=== PATIENT | female | born 1965 | race Caucasian/White ===

== ENCOUNTER 2020-12-19 19:04 | Inpatient (IN) | payer OTHER ==
[2020-12-19 20:21] LABS: Absolute Lymphocytes (CBC) 0.9 K/uL (0.7-4.9); Basophils % 0.6 % (0-1.3); Hematocrit 34.7 % (36.0-45.0); Lymphocytes % 11.3 % (15.3-44.8); MPV 8.5 fL (7.6-11.3); RBC Red Blood Cell Count 3.82 M/uL (3.86-4.86)
[2020-12-19 20:24] LABS: Protime INR 1.01
--- NOTE | 2020-12-19 20:43 | RAD REPORT ---
EXAM DESCRIPTION: CT - Abdomen Pelvis Wo Contrast - 12/19/2020 8:18 pm CLINICAL HISTORY: ABD PAIN Patient details dialysis history, bilateral leg stents, abdominal aneurysm COMPARISON: Chest Single View dated 12/19/2020 TECHNIQUE: Axial [address] imaging of the abdomen and pelvis was performed without IV contrast. No IV contrast was given because of allergy, abnormal renal function, patient refusal or physician re quest. No oral contrast administered. All CT scans are performed using dose optimization technique as appropriate and may include automated exposure control or mA/KV adjustment according to patient size. FINDINGS: Cardiomegaly without pericardial effusion noted. Interstitial thickening in both lung bases from edema, infiltrate, fibrosis or a combination. Patchy peripheral alveolar opacities are present as well. No pneumothorax or pleural effusion. The liver, spleen and pancreas show no suspicious findings on non-contrast imaging. Cholecystectomy c lips are present. No biliary tree dilatation. No hydronephrosis or suspicious renal mass. No significant adrenal finding. Isodense renal masses an d pyelonephritis cannot be excluded in the absence of IV contrast. Contracted urinary bladder shows s uspicious findings. Uterus may be surgically absent or atrophic. Ovaries are absent or atrophic. No a dnexal or ovarian based mass identifiable. No dilated bowel loops or bowel wall thickening. No appendicitis findings. Bowel assessment is limite d in the absence of oral and IV contrast. Patient has prominent sigmoid diverticulosis. No free air o r pneumatosis. Trace amount of free intraperitoneal fluid is present. No bulky lymphadenopathy, oment al thickening or significant soft tissue mass lesion. Disc and bone degenerative changes are present. Distal descending thoracic aortic aneurysm is present reaching 4.3 cm AP x 4.5 cm TR. Aorta is 3.4 cm AP x 3.8 cm TR at the level of the celiac artery. Bilateral renal artery stents are in place. The in frarenal aorta shows aneurysmal dilatation of 4.4 cm AP x 4.4 cm TR. Displaced calcifications are see n posteriorly above the bifurcation. There has been aortobifemoral bypass performed. Proximal aspect of the bypass is anastomosed to the anterior aorta. There are dense calcifications in the [place] aort a. Patency or extent of mural thrombus cannot be evaluated on a noncontrast study. There is no periao rtic fluid or edema that would suggest leakage from the aneurysm. IMPRESSION: Interstitial thickening in the lung bases with patchy subpleural alveolar opacities. Thi s could be interstitial and alveolar edema changes in a dialysis patient. A viral pneumonia process i ncluding COVID-19 pneumonia cannot be excluded based on the limited amount of lung parenchyma visuali zed. No bowel obstruction, free air or surgically emergent finding identifiable. Extensive aneurysmal dilatation of the aorta extending from the mid descending thoracic aorta to the aortic bifurcation as detailed in the body of the report. The patient has aortic aneurysm is known and there has been an aortobifemoral graft placed. No periao rtic changes to suspect acute rupture or leakage. No patency of the vasculature can be assessed on a noncontrast study. Full assessment is limited is the absence of IV contrast.
[2020-12-19 21:04] LABS: ALT/SGPT 42 U/L (12-78); AST/SGOT 48 U/L (15-37); Albumin 4.3 g/dL (3.4-5.0); Alkaline Phosphatase 87 U/L (45-117); BUN Blood Urea Nitrogen 57 mg/dL (7-18); Bicarbonate 22 mmol/L (21-32); Bilirubin Direct 0.1 mg/dL (0-0.2); Bilirubin Total 0.4 mg/dL (0.2-1.0); Glucose Level 141 mg/dL (74-106); Magnesium 2.3 mg/dL (1.8-2.4); NT PRO-BNP 124295 pg/mL (<125); Potassium 4.2 mmol/L (3.5-5.1); Protein, Total 8.7 g/dL (6.4-8.2); Sodium Level 143 mmol/L (136-145); Troponin (Emerg Dept Use Only) 0.09 ng/mL (0.0-0.045)
[2020-12-19] MEDS ORDERED: ONDANSETRON 4 MG/2 ML VIAL ONE (21:04)
[2020-12-19] MEDS ORDERED: LABETALOL 20 MG/4ML SYRINGE IV ONE ×2 (21:05→22:19)
--- NOTE | 2020-12-19 21:05 | RAD REPORT ---
EXAM DESCRIPTION: RAD - Chest Single View - 12/19/2020 8:05 pm CLINICAL HISTORY: nausea and vomiting COMPARISON: None TECHNIQUE: AP portable chest image was obtained 12/19/2020 8:05 pm . FINDINGS: No focal dense consolidation or mass lesion. Upper lobe vasculature in normal limits. Dial ysis catheter is in place. CABG surgical changes are noted. Mid and lower lung field interstitial thi ckening is present. There is some patchy alveolar component as well. This could be a failure or volum e overload process in a dialysis patient. Extensive fibrotic lung changes possible as well as superim posed acute interstitial infiltrate. Combination of these processes would be possible as well. Heart and vasculature are normal. No measurable pleural effusion and no pneumothorax. No acute bony abnormality seen. No acute aortic findings suspected. IMPRESSION: Extensive lower lung field interstitial thickening and some patchy alveolar opacities ar e present. Interstitial edema, interstitial infiltrate, fibrosis or a combination can explain this pattern.
--- NOTE | 2020-12-19 22:19 | EDPHYS ---
Physician Documentation [facility] Name: Nicolasa Krishnan Age: 55 yrs Sex: Female : 1965 Arrival Date: 12/19/2020 Time: 19:07 Bed 4 Private MD: ED Physician Javid Morales HPI: 12/20 04:49 This 55 yrs old Female presents to ER via Ambulatory with complaints of tw4 Breathing Difficulty, Vomiting, Decreased Appetite. 04:49 The patient has shortness of breath at rest. Onset: The symptoms/episode began/occurred tw4 today. Duration: The symptoms are continuous, and are unchanged since they started. The patient's shortness of breath has no apparent modifying factors. Associated signs and symptoms: The patient has no apparent associated signs or symptoms. The patient has not experienced similar symptoms in the past. 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 - Social history:: Smoking status: Patient reports the use of cigarette tobacco products, smokes one pack cigarettes per day. ROS: 12/20 04:49 Constitutional: Negative for fever, chills, and weight loss, Eyes: Negative for injury, tw4 pain, redness, and discharge, Cardiovascular: Negative for chest pain, palpitations, and edema, Abdomen/GI: Negative for abdominal pain, nausea, vomiting, diarrhea, and constipation, Back: Negative for injury and pain. MS/Extremity: Negative for injury and deformity, Skin: Negative for injury, rash, and discoloration, Neuro: Negative for headache, weakness, numbness, tingling, and seizure. Respiratory: Positive for shortness of breath. Exam: 04:49 Head/Face: Normocephalic, atraumatic. Chest/axilla: Normal chest wall appearance and tw4 motion. Nontender with no deformity. No lesions are appreciated. Cardiovascular: Regular rate and rhythm with a normal S1 and S2. No gallops, murmurs, or rubs. Normal PMI, no JVD. No pulse deficits. Respiratory: Lungs have equal breath sounds bilaterally, clear to auscultation and percussion. No rales, rhonchi or wheezes noted. No increased work of breathing, no retractions or nasal flaring. Abdomen/GI: Soft, non-tender, with normal bowel sounds. No distension or tympany. No guarding or rebound. No evidence of tenderness throughout. Back: No spinal tenderness. No costovertebral tenderness. Full range of motion. Skin: Warm, dry with normal turgor. Normal color with no rashes, no lesions, and no evidence of cellulitis. MS/ Extremity: Pulses equal, no cyanosis. Neurovascular intact. Full, normal range of motion. Neuro: Awake and alert, GCS 15, oriented to person, place, time, and situation. Cranial nerves II-XII grossly intact. Motor strength 5/5 in all extremities. Sensory grossly intact. Cerebellar exam normal. Normal gait. 04:49 Constitutional: The patient appears in obvious distress, moderately distressed, obviously ill. Vital Signs: 12/19 19:19 BP 219 / 134; Pulse 130; Resp 22; Temp 99.9; Pulse Ox 97% on R/A; Weight 56.25 kg; vg1 Height 5 ft. 4 in. (162.56 cm); Pain 10/10; 21:46 BP 187 / 115; Pulse 104; Resp 18; Pulse Ox 92% on R/A; jm8 22:27 BP 171 / 100; Pulse 104; Resp 16; Pulse Ox 95% on 2 lpm NC; jm8 23:16 BP 177 / 105; Pulse 121; Resp 16; Pulse Ox 96% on 4 lpm NC; jm8 23:45 BP 201 / 124; Pulse 105; Resp 16; Pulse Ox 99% on 4 lpm NC; jm8 19:19 Body Mass Index 21.29 (56.25 kg, 162.56 cm) vg1 MDM: 21:48 Patient medically screened. tw4 12/20 04:52 Differential diagnosis: pneumonia, pulmonary edema, reactive airway disease. Data tw4 reviewed: vital signs, nurses notes. Data interpreted: Pulse oximetry: Interpretation: normal. Counseling: I had a detailed discussion with the patient and/or guardian regarding: the historical points, exam findings, and any diagnostic results supporting the discharge/admit diagnosis. Medical screen evaluation completed. EMTALA emergency medical condition absent. Physician consultation: Bren Javier MD regarding admission, to the telemetry unit. patient's condition, and will see patient in ED. 12/19 19:33 Order name: Basic Metabolic Panel; Complete Time: 21:45 12/19 23:14 Interpretation: Normal except: GLUC 141; CRE 6.60; BUN 57; GFR 7. tw12/19 19:33 Order name: CBC with Diff; Complete Time: 21:45 12/19 23:14 Interpretation: RBC 3.82; HGB 11.4; HCT 34.7. 12/19 19:33 Order name: LFT's; Complete Time: 21:45 12/19 19:33 Order name: Magnesium; Complete Time: 21:45 12/19 19:33 Order name: NT PRO-BNP; Complete Time: 21:45 12/19 19:33 Order name: PT-INR; Complete Time: 21:45 12/19 19:33 Order name: Troponin (emerg Dept Use Only); Complete Time: 21:45 12/19 19:33 Order name: XRAY Chest (1 view); Complete Time: 21:45 12/19 19:33 Order name: Acetone, Serum; Complete Time: 21:45 12/19 19:34 Order name: CT Abd/Pelvis - Without Contrast; Complete Time: 21:45 12/19 21:48 Order name: COVID-19 : Document "Date of Symptom Onset" if Symptomatic. 12/19 23:18 Order name: SARS-COV-2 RT PCR [facility] 12/19 19:33 Order name: EKG; Complete Time: 19:34 12/19 19:33 Order name: Cardiac monitoring; Complete Time: 20:08 12/19 19:33 Order name: EKG - Nurse/Tech; Complete Time: 20:08 12/19 19:33 Order name: IV Saline Lock; Complete Time: 20:08 12/19 19:33 Order name: Labs collected and sent; Complete Time: 20:08 12/19 19:33 Order name: O2 Per Protocol; Complete Time: 21:00 12/19 19:33 Order name: O2 Sat Monitoring; Complete Time: 21:00 12/19 23:21 Order name: CONS Physician Consult EDOR EC:09 Rate is 121 beats/min. Rhythm is regular. QRS [place] is Normal. SC interval is normal. tw4 QRS interval is normal. QT interval is normal. No Q waves. T waves are Normal. No ST changes noted. Clinical impression: Sinus tachycardia. Interpreted by me. Reviewed by me. Administered Medications: 12/19 20:49 Drug: Labetalol 20 mg Route: IVP; Infused Over: 2 mins; Site: left antecubital; jm8 22:19 Follow up: Response: No adverse reaction 8 20:49 Drug: Zofran (Ondansetron) 4 mg Route: IVP; Site: left antecubital; jm8 22:19 Follow up: Response: No adverse reaction jm8 22:16 Drug: Labetalol 20 mg Route: IVP; Infused Over: 2 mins; Site: left antecubital; jm8 23:53 Follow up: Response: No adverse reaction jm8 23:13 Drug: Lasix (furosemide) 60 mg Route: IVP; Site: left antecubital; jm8 23:53 Follow up: Response: No adverse reaction 8 Disposition: 12/19/20 22:18 Hospitalization ordered by Bren Javier for Inpatient Admission. Preliminary diagnosis are Chronic kidney disease, stage 5, Hypertensive chronic kidney disease with stage 5 chronic kidney disease or end stage renal disease, HYPERTENSIVE EMEREGENCY, Respiratory failure, unspecified with hypoxia. - Bed requested for Telemetry/MedSurg (Inpatient). - Status is Inpatient Admission. jm8 - Condition is Stable. - Problem is new. - Symptoms have improved. Signatures: Dispatcher [employer] EDOR Sherice Alvarado, RN RN Javid Morales MD MD tw4 Sariah Alvarado RN RN vg1 Lakhwinder Lomax RN RN jm8 Corrections: (The following items were deleted from the chart) 22:15 21:48 CORONAVIRUS ordered. [facility] 23:47 22:18 Hospitalization Ordered by Bren Javier MD for Inpatient Admission. Preliminary diagnosis is Chronic kidney disease, stage 5; Hypertensive chronic kidney disease with stage 5 chronic kidney disease or end stage renal disease; HYPERTENSIVE EMEREGENCY; Respiratory failure, unspecified with hypoxia. Bed requested for Telemetry/MedSurg (Inpatient). Status is Inpatient Admission. Condition is Stable. Problem is new. Symptoms have improved. tw4 12/20 00:33 12/19 23:47 12/19/2020 22:18 Hospitalization Ordered by Bren Javier MD for Inpatient jm8 Admission. Preliminary diagnosis is Chronic kidney disease, stage 5; Hypertensive chronic kidney disease with stage 5 chronic kidney disease or end stage renal disease; HYPERTENSIVE EMEREGENCY; Respiratory failure, unspecified with hypoxia. Bed requested for Telemetry/MedSurg (Inpatient). Status is Inpatient Admission. Condition is Stable. Problem is new. Symptoms have improved. cg
--- NOTE | 2020-12-19 22:19 | ER ---
Nurse's Notes [facility] Name: Nicolasa Krishnan Age: 55 yrs Sex: Female : 1965 Arrival Date: 12/19/2020 Time: 19:07 Bed 4 Private MD: Diagnosis: Chronic kidney disease, stage 5;Hypertensive chronic kidney disease with stage 5 chronic kidney disease or end stage renal disease;HYPERTENSIVE EMEREGENCY;Respiratory failure, unspecified with hypoxia Presentation: 12/19 19:19 Chief complaint: Patient states: Nausea, vomiting and difficulty breathing that started vg1 this morning. Coronavirus screen: Client denies travel out of the [place] in the last 14 days. Ebola Screen: Patient negative for fever greater than or equal to 101.5 degrees Fahrenheit, and additional compatible Ebola Virus Disease symptoms. Initial Sepsis Screen: Does the patient meet any 2 criteria? RR > 20 per min. HR > 90 bpm. Does the patient have a suspected source of infection?. Risk Assessment: Do you want to hurt yourself or someone else? Patient reports no desire to harm self or others. Onset of symptoms was December 19, 2020. 19:19 Method Of Arrival: Ambulatory vg1 19:19 Acuity: YOLIS 2 vg1 Triage Assessment: 19:22 General: Appears in no apparent distress. uncomfortable, Behavior is cooperative, vg1 anxious. Pain: Complains of pain in abdomen Pain currently is 10 out of 10 on a pain scale. Respiratory: Reports shortness of breath at rest on exertion Onset: The symptoms/episode began/occurred today, the patient has moderate shortness of breath. 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 - Social history:: Smoking status: Patient reports the use of cigarette tobacco products, smokes one pack cigarettes per day. Screenin:42 Abuse screen: Denies threats or abuse. Denies injuries from another. Nutritional jm8 screening: No deficits noted. Tuberculosis screening: No symptoms or risk factors identified. Fall Risk None identified. Assessment: 21:40 General: Appears in no apparent distress. uncomfortable, Behavior is calm, cooperative, jm8 appropriate for age. Pain: Complains of pain in abdomen. Neuro: No deficits noted. Level of Consciousness is awake, alert, obeys commands, Oriented to person, place, time. Cardiovascular: Rhythm is sinus tachycardia. Respiratory: No deficits noted. Airway is patent Trachea midline Respiratory effort is even, labored, Breath sounds are clear. Respiratory: Reports shortness of breath. GI: Abdomen is round Reports lower abdominal pain, upper abdominal pain, nausea, vomiting. : No deficits noted. No signs and/or symptoms were reported regarding the genitourinary system. EENT: No deficits noted. No signs and/or symptoms were reported regarding the EENT system. Derm: No deficits noted. No signs and/or symptoms reported regarding the dermatologic system. Musculoskeletal: No deficits noted. No signs and/or symptoms reported regarding the musculoskeletal system. 22:05 Reassessment: Jason Montgomeryillo- [phone]. jm8 Vital Signs: 19:19 BP 219 / 134; Pulse 130; Resp 22; Temp 99.9; Pulse Ox 97% on R/A; Weight 56.25 kg; vg1 Height 5 ft. 4 in. (162.56 cm); Pain 10/10; 21:46 BP 187 / 115; Pulse 104; Resp 18; Pulse Ox 92% on R/A; jm8 22:27 BP 171 / 100; Pulse 104; Resp 16; Pulse Ox 95% on 2 lpm NC; jm8 23:16 BP 177 / 105; Pulse 121; Resp 16; Pulse Ox 96% on 4 lpm NC; jm8 23:45 BP 201 / 124; Pulse 105; Resp 16; Pulse Ox 99% on 4 lpm NC; jm8 19:19 Body Mass Index 21.29 (56.25 kg, 162.56 cm) vg1 ED Course: 19:07 Patient arrived in ED. cf2 19:21 Triage completed. vg1 19:22 Arm band placed on. vg1 19:32 Javid Morales MD is Attending Physician. tw4 20:02 XRAY Chest (1 view) In Process Unspecified. EDMS 20:06 Inserted saline lock: 20 gauge in left antecubital area, using aseptic technique. Blood oe collected. 20:18 CT Abd/Pelvis - Without Contrast In Process Unspecified. EDMS 20:28 Randell Camp, RN is Primary Nurse. [facility] 21:43 Patient has correct armband on for positive identification. Bed in low position. Call [facility] light in reach. Side rails up X2. 22:16 Bren Javier MD is Hospitalizing Provider. [facility] 12/20 00:32 No provider procedures requiring assistance completed. Patient admitted, IV remains in [facility] place. Administered Medications: 12/19 20:49 Drug: Labetalol 20 mg Route: IVP; Infused Over: 2 mins; Site: left antecubital; [facility] 22:19 Follow up: Response: No adverse reaction [facility] 20:49 Drug: Zofran (Ondansetron) 4 mg Route: IVP; Site: left antecubital; [facility] 22:19 Follow up: Response: No adverse reaction [facility] 22:16 Drug: Labetalol 20 mg Route: IVP; Infused Over: 2 mins; Site: left antecubital; 8 23:53 Follow up: Response: No adverse reaction [facility] 23:13 Drug: Lasix (furosemide) 60 mg Route: IVP; Site: left antecubital; [facility] 23:53 Follow up: Response: No adverse reaction [facility] Outcome: 22:18 Decision to Hospitalize by Provider. [facility] 12/20 00:32 Admitted to Med/surg accompanied by nurse, via stretcher, with oxygen, Report called to shalom Hicks RN Condition: good Instructed on the need for admit. 00:33 Patient left the ED. [facility] Signatures: Dispatcher [employer] EDOR Randell Camp, RN RN [facility] Jorge A Ayala Terrence, MD MD [facility] [place] cf2 Sariah Alvarado, RN RN vg1 Lakhwinder Lomax, RN RN jm8
--- NOTE | 2020-12-19 23:02 | P.HP ---
Certification for Inpatient Patient admitted to: Inpatient With expected LOS: >2 Midnights Patient will require the following post-hospital care: None Practitioner: I am a practitioner with admitting privileges, knowledge of patient current condition, hospital course, and medical plan of care. Services: Services provided to patient in accordance with Admission requirements found in Title 42 Section 412.3 of the Code of Federal Regulations <Norbert Yates - Last Filed: 12/19/20 23:32> Patient History Date of Service: 12/19/20 Primary Care Provider: Ajith Reason for admission: missed dialysis History of Present Illness: Ms. Krishnan is a 55 yo F with ESRD on HD MWF, PVD, AAA, HTN, HLD here today for i ntractable nausea and vomiting beginning today at 4am. She missed dialysis today because she wasn't feeling well. She reports night sweats, chills, cough with clear sputum, SOB. Denies hematemesis, wheezing, chest pain, abdominal pain. BUN 57, Cr 6.6, GFR 7, Glu 141, trop 0.09, BNP [id number]. CT scan shows interstitial thickening in lung bases with patchy subpleeural alveolar opacities, extensive aneurysmal dilatation of the aorta extending from mid-descending thoracic aorta to aortic bifurcation, aortic aneurysm known with aortobifemoral graft placed. Home medications list reviewed: No - Past Medical/Surgical History Has patient received pneumonia vaccine in the past: No Diabetic: No -: ESRD on HD -: PVD -: AAA -: HTN -: HLD -: hernia repair -: cholecystectomy -: CABGx4 -: renal stents -: bifemoral stents -: dialysis -: carotid endarectomy - Family History Mother -: Heart disease - Social History Smoking Status: Heavy Tobacco smoker (>10 cigarettes/day) Counseled patient to stop smoking for: less than 10 minutes Smoking therapy provided: Yes Patient receptive to therapy: No Alcohol use: No CD- Drugs: No Caffeine use: Yes Place of Residence: Home <Norbert Yates - Last Filed: 12/19/20 23:32> Date of Service: 12/19/20 <Bren Javier - Last Filed: 12/21/20 10:25> Review of Systems 10-point ROS is otherwise unremarkable General: Fever, Chills, Sweats Respiratory: Cough, Shortness of Breath, Sputum Gastrointestinal: Nausea, Vomiting <Norbert Yates - Last Filed: 12/19/20 23:32> Physical Examination - Physical Exam General: Alert, Mild distress HEENT: Atraumatic, PERRLA, Mucous membr. moist/pink, EOMI, Sclerae nonicteric Neck: Supple, 2+ carotid pulse no bruit, No LAD, Without JVD or thyroid abnormality Respiratory: Clear to auscultation bilaterally, Normal air movement, Other (tachypneic) Cardiovascular: No edema, Regular rate/rhythm, Normal S1 S2 Capillary refill: <2 Seconds Gastrointestinal: Normal bowel sounds, Soft and benign, Non-distended, No ascites, No tenderness, No masses, No rebound, No guarding Musculoskeletal: No tenderness Integumentary: No rashes Neurological: Normal speech, Normal strength at 5/5 x4 extr, Normal tone, Normal affect Lymphatics: No axilla or inguinal lymphadenopathy Urinary: Dialysis catheter - Studies Laboratory Data (last 24 hrs) 12/19/20 20:03: PT 11.6, INR 1.01 12/19/20 20:03: WBC 8.00, Hgb 11.4 L, Hct 34.7 L, Plt Count 235 12/19/20 20:03: Sodium 143, Potassium 4.2, BUN 57 H, Creatinine 6.60 H*, Glucose 141 H, Magnesium 2.3, Total Bilirubin 0.4, AST 48 H, ALT 42, Alkaline Phosphatase 87 <Norbert Yates S - Last Filed: 12/19/20 23:32> Assessment and Plan - Plan nephrology consulted dialysis tonight hydralazine q4hr for PRN BP spikes trend troponins antiemetics as needed, O2 as needed breathing treatments PRN Discharge Plan: Home Plan to discharge in: 48 Hours - Advance Directives Does patient have a Living Will: No Does patient have a Durable POA for Healthcare: No - Code Status/Comfort Care Code Status Assessed: Yes (full code) Critical Care: No Time Spent Managing Pts Care (In Minutes): 70 <Norbert Yates - Last Filed: 12/19/20 23:32> - Problems (Diagnosis) (1) ESRD (end stage renal disease) Current Visit: Yes Status: Acute (2) Uncontrolled hypertension Current Visit: Yes Status: Acute (3) Intractable nausea and vomiting Current Visit: Yes Status: Acute <Bren Javier - Last Filed: 12/21/20 10:25> Date of Service: 12/19/20 Agree with findings as mentioned above. Continue with plan of care at this time. <Bren Javier - Last Filed: 12/21/20 10:25>
[2020-12-19] MEDS ORDERED: FUROSEMIDE 100 MG/10 ML VIAL IV ONE (23:29)
[2020-12-20] MEDS ORDERED: ACETAMINOPHEN 500 MG TAB PO PRN (00:08)
[2020-12-20] MEDS ORDERED: BENZONATATE 100 MG CAP PO PRN (00:08)
[2020-12-20] MEDS ORDERED: IPRATROPIUM BROM 0.5MG/2.5ML NEB PRN (00:08)
[2020-12-20] MEDS ORDERED: ALBUTEROL 2.5 MG/3 ML NEB SOL NEB PRN (00:08)
[2020-12-20 00:36] VITALS: BMI 20.7
[2020-12-20] MEDS: ONDANSETRON 4 MG/2 ML VIAL IV PRN ×2 (00:40→08:02)
[2020-12-20] MEDS ORDERED: DIAZEPAM 5 MG TABLET PO ONE (01:39)
[2020-12-20] MEDS: HYDRALAZINE HCL 20 MG/ML VIAL IV PRN ×4 (01:49→20:54)
[2020-12-20] MEDS: HEPARIN 5000 UNIT/ML 1 ML VIAL SQ SCH ×3 (04:38→17:36)
[2020-12-20] MEDS ORDERED: MORPHINE 2 MG/ML SYR IV PRN (04:58)
[2020-12-20 05:33] LABS: Absolute Lymphocytes (CBC) 1.1 K/uL (0.7-4.9); Basophils % 0.5 % (0-1.3); Hematocrit 32.9 % (36.0-45.0); Lymphocytes % 13.3 % (15.3-44.8); MPV 8.3 fL (7.6-11.3); RBC Red Blood Cell Count 3.67 M/uL (3.86-4.86)
[2020-12-20 05:48] LABS: Urine Appearance CLOUDY (Clear); Urine Bilirubin NEGATIVE (Negative); Urine Blood NEGATIVE (Negative); Urine Color YELLOW (Yellow); Urine Glucose NEGATIVE (Negative); Urine Protein 1+ (Negative); Urine Urobilinogen 0.2 mg/dL (0.2-1.0); Urine pH 5.5 (5.0-7.0)
[2020-12-20 05:51] LABS: Urine Microscopic Reflex ORDER UMIC
[2020-12-20 06:01] LABS: Albumin 4.6 g/dL (3.4-5.0); Bilirubin Total 0.5 mg/dL (0.2-1.0); Phosphorus 2.6 mg/dL (2.5-4.9); Potassium 3.4 mmol/L (3.5-5.1); Protein, Total 9.1 g/dL (6.4-8.2); Thyroid Stimulating Hormone 0.414 uIU/mL (0.360-3.740)
[2020-12-20 06:05] LABS: Urine Bacteria 20-50 /HPF (<20); Urine RBC NONE SEEN /HPF (NONE SEEN); Urine Urothelial Cells <5 /HPF (NONE SEEN)
[2020-12-20] MEDS: KCL 20 MEQ/100 mL IVPB 20 MEQ/100 ML BAG IV SCH ×2 (08:02→10:30)
[2020-12-20] MEDS ORDERED: NA CHLORIDE 0.9% 250 ML ONE (08:17)
--- NOTE | 2020-12-20 10:27 | EKG ---
Test Date: 2020-12-19 Test Time: 19:50:51 Healthcare Market Consultant: DINA MEASUREMENT RESULTS: Intervals: Rate: 121 NH: 134 QRSD: 90 QT: 356 QTc: 505 [place]: P: 37 NH: 134 QRS: 82 T: 65 INTERPRETIVE STATEMENTS: Sinus tachycardia Left ventricular hypertrophy with repolarization abnormality Abnormal ECG No previous ECG available for comparison Electronically Signed On 12-20-20 10:25:41 CDT by Thien Barker
[2020-12-20] MEDS ORDERED: METOPROLOL TARTRATE 5 MG/5 ML INJ IV STA (10:41)
[2020-12-20] MEDS ORDERED: cloNIDine HCL 0.1 MG TAB PO ONE ×2 (10:42→17:07)
[2020-12-20] MEDS ORDERED: carvediloL 3.125 MG TAB PO ONE (11:00)
[2020-12-20] MEDS ORDERED: HYDRALAZINE HCL 20 MG/ML VIAL IV ONE (11:00)
[2020-12-20] MEDS ORDERED: FUROSEMIDE 40 MG/4 ML VIAL IV ONE (11:00)
[2020-12-20] MEDS ORDERED: ONDANSETRON 4 MG/2 ML VIAL IV ONE (11:00)
--- NOTE | 2020-12-20 12:42 | CON ---
History Of Present Illness: The patient is seen at [facility] in room 215. She present ed last night with shortness of breath with not feeling well, having some nausea. She had missed her dialysis treatment on Saturday. She states that last week she has been completing her dialysis treatm ent, she has had a history of cutting her treatment, short missing treatments on occasion. Has been counseled on multiple locations about importance of compliance with dialysis. The patient, however, states that for the past week she has been completing her whole 4 hours of dialysis treatment on , Saturday, and Saturday. However, this Saturday, she was not feeling well and decided to not come fo r dialysis and then presented to the emergency room over the night with shortness of breath. Her blo od pressures were in the 200 range. She also had some nausea. She is feeling somewhat better compar ed to yesterday. She has had a dialysis treatment last night and had 2 L of fluid ultrafiltrated. H er creatinine has come down from 6 range to 3 range. She is feeling somewhat comfortable, but still short of breath requiring oxygen. Still having some nausea despite getting 1 dose of Zofran. Her bl ood pressure is still running in the high range with last blood pressure in the 180s systolic, before that it was 218/121, before that 201/124. Her heart rate is running between 100-120. She is a papi le bit nauseated and that is also causing her to feel uncomfortable and heart rate to go up. She jones s complain subjectively of some shortness of breath. Her lungs do have some crackles bilaterally at the bases. Chest x-ray does reveal some congestion as well. Past Medical History: The patient has history of repair for aortic aneurysm which is seen on CT scan and not having any leakage. She has history of ESRD, has been on dialysis with Saturday, Saturday, riday schedule at [facility] in [place]. History of peripheral vascular diseas e, AAA, hypertension, hernia repair. She has had a CABG done. She has had renal stents in the past, bifemoral stents in the past and carotid endarterectomy. Family History: Noncontributory. Social History: The patient has had a heavy smoking history in the past. She still smokes on occasi on now, but has cut back. She lives in the [place] area and is quite involved with her family, help s her grandchildren out. Is able to drive and otherwise relatively functional, able to answer questi ons appropriately, seems to have good insight. Does not say that she has any depression. No SI or H I. Understands the risks with missing dialysis and has told me in the past and says again that she w ill try her best to keep her regular. Physical Examination: Vital Signs: On evaluation of her clinically, blood pressures are high as mentioned above. Lungs: With few crackles at the bases. Abdomen: Soft. Extremities: Do not reveal any edema. Laboratory Data: Reviewed. Labs show a WBC count of 8.6, hemoglobin 11.3, hematocrit 32.9, platelet count of 249. Chemistry show sodium 137, potassium 3.4 from 4.2 yesterday, bicarb 26, BUN 22, creat inine 3.42 and was 6.6 yesterday, BUN was 57, glucose 114, calcium 9.8, phosphorus 2.6, magnesium 2.0 . AST and ALT are 46 and 45. Troponins 0.22 and 0.25. Her BNP was 1,85930. TSH is 0.414. Her HDL cholesterol is 100, LDL cholesterol is 57, free T4 is 0.96. Assessment And Plan: The patient with hypertensive nephropathy, history of dialysis, missed her dial ysis treatment, comes with congestive heart failure, volume overload, has a history of significant pe ripheral vascular disease. The patient is currently having some nausea. She has crackles on physica l exam, had dialysis successfully yesterday with about 2 L of ultrafiltration, is improved compared t o yesterday, but still not back to baseline. Counseled again about importance of compliance with anton lysis, salt restriction. We will go ahead and adjust her medications to improve her blood pressure. She is ordered a dose of Lopressor 5 mg IV. I have also to order a dose of hydralazine 5 mg if bloo d pressure is still above 180 systolic. We will start her on Coreg 3.125 b.i.d. We will continue he r on hydralazine p.o. Also, we will give her a Lasix dose 80 mg IV x1 dose now. The patient may nee d further adjustments of her blood pressure medications depending on how she responds to these medica tions. We will also order a dialysis treatment with 3 hours of dialysis and aim to take off about 2 L of fluid ultrafiltration to see if we can further improve her breathing status. /RYAN Voice ID: [id number] Report ID: [id number]
[2020-12-20] MEDS ORDERED: LORazepam 2 MG/ML VIAL IV ONE (14:18)
[2020-12-20] MEDS ORDERED: PROMETHAZINE 25 MG TABLET PO ONE (14:20)
[2020-12-20] MEDS ORDERED: LORazepam 2 MG/ML VIAL IV PRN (15:07)
[2020-12-20] MEDS: carvediloL 12.5 MG TAB PO SCH (17:35)
[2020-12-20] MEDS ORDERED: carvediloL 3.125 MG TAB PO SCH (18:00)
[2020-12-20] MEDS ORDERED: KCL 20 MEQ/100 mL IVPB 20 MEQ/100 ML BAG IV SCH (22:00)
[2020-12-20] MEDS: METOPROLOL TARTRATE 5 MG/5 ML INJ IV SCH ×3 (22:46→23:04)
[2020-12-21] MEDS ORDERED: CLONIDINE HCL 0.3 MG TAB PO ONE (00:20)
[2020-12-21] MEDS: HEPARIN 5000 UNIT/ML 1 ML VIAL SQ SCH ×3 (00:37→16:53)
[2020-12-21] MEDS: carvediloL 12.5 MG TAB PO SCH ×2 (05:25→16:52)
[2020-12-21 09:13] VITALS: O2SAT 94
--- NOTE | 2020-12-21 10:20 | P.PN ---
Subjective Date of Service: 12/20/20 Patient blood pressure is been very labile. Blood pressure has been significantly elevated throughout the day 220/110. Status post hemodialysis. Clinically looking better. Need to get blood pressure controlled. Patient was some nausea and vomiting. Review of Systems 10-point ROS is otherwise unremarkable Physical Examination - Vital Signs Temperature: 97.7 F Blood Pressure: 131/81 Pulse: 89 Respirations: 20 Pulse Ox (%): 97 - Physical Exam General: Alert, In no apparent distress, Oriented x3 Respiratory: Diminished, Crackles/rales Cardiovascular: Regular rate/rhythm, Normal S1 S2, Systolic murmur Gastrointestinal: Normal bowel sounds, Soft and benign, Non-distended, No tenderness Musculoskeletal: No clubbing, No swelling, No tenderness Neurological: Sensation intact, Cranial nerves 3-12 intact - Studies Medications List Reviewed: Yes Assessment & Plan - Problems (Diagnosis) (1) ESRD (end stage renal disease) Current Visit: Yes Status: Acute (2) Uncontrolled hypertension Current Visit: Yes Status: Acute (3) Intractable nausea and vomiting Current Visit: Yes Status: Acute - Plan Plan: 1. Spoke with Nephrology and possible hemodialysis again in the morning since blood pressure is been poorly controlled 2. Strict BP control and resume medications 3. Anti emetics as needed 4. Anxiolytics as needed 5. Low-dose beta-joel therapy 6. GI and DVT prophylaxis Discharge Plan: Home Plan to discharge in: Greater than 2 days - Advance Directives Does patient have a Living Will: No Does patient have a Durable POA for Healthcare: No - Code Status/Comfort Care Code Status Assessed: Yes Code Status: Full Code Critical Care: No Time Spent Managing PTS Care (In Minutes): 35
--- NOTE | 2020-12-21 10:28 | P.PN ---
Date of Service: 12/21/20 Vital Signs Temp Pulse Resp BP Pulse Ox 97.7 F 89 20 131/81 97 12/21/20 10:19 12/21/20 10:19 12/21/20 10:19 12/21/20 10:19 12/21/20 10:19 Medications Acetaminophen (Acetaminophen 500 Mg Tab) 500 mg PO Q4HP PRN PRN Reason: Pain scale 2-4 (Mild) Last Admin: 12/20/20 04:39 Dose: 500 mg Documented by: Albuterol Sulfate (Albuterol 2.5 Mg/3 Ml Neb [place]ana) 2.5 mg NEB Q6HP PRN PRN Reason: SHORTNESS OF BREATH Benzonatate (Benzonatate 100 Mg Cap) 100 mg PO TID PRN PRN Reason: COUGH Last Admin: 12/20/20 04:38 Dose: 100 mg Documented by: Carvedilol (Carvedilol 12.5 Mg Tab) 12.5 mg PO BID 6AM 6PM SHARON Last Admin: 12/21/20 05:25 Dose: Not Given Documented by: Heparin Sodium (Porcine) (Heparin 5000 Unit/Ml 1 Ml Vial) 5,000 unit SQ Q8HR SHARON Last Admin: 12/21/20 08:55 Dose: 5,000 unit Documented by: Heparin Sodium (Porcine) (Heparin 1,000 Unit/Ml Vial) 3,000 unit IV EVERY HD PRN PRN Reason: DIALYSIS Last Admin: 12/20/20 15:13 Dose: 3,000 unit Documented by: Heparin Sodium (Porcine) (Heparin 1,000 Unit/Ml Vial) 1,000 unit IV EVERY HD SC H Stop: 12/22/20 15:01 Last Admin: 12/20/20 15:13 Dose: 1,000 unit Documented by: Hydralazine HCl (Hydralazine Hcl 20 Mg/Ml Vial) 10 mg IV Q4HP PRN PRN Reason: Titrate to SBP (MUST DEFINE) Last Admin: 12/20/20 20:54 Dose: 10 mg Documented by: Ipratropium Pelham (Ipratropium Brom 0.5mg/2.5ml) 0.5 mg NEB [id number] PRN PRN Reason: SHORTNESS OF BREATH Lorazepam (Lorazepam 2 Mg/Ml Vial) 0.5 mg IV Q6H PRN PRN Reason: AGITATION Morphine Sulfate (Morphine 2 Mg/Ml Syr) 2 mg IV Q6H PRN PRN Reason: Pain scale 5-7 (Moderate) Last Admin: 12/20/20 05:09 Dose: 2 mg Documented by: Ondansetron HCl (Ondansetron 4 Mg/2 Ml Vial) 4 mg IV Q6HP PRN PRN Reason: NAUSEA / VOMITING Last Admin: 12/20/20 08:02 Dose: 4 mg Documented by: Sodium Chloride (Flush Normal Saline 10 Ml) 10 ml IV BID SHARON Last Admin: 12/21/20 08:55 Dose: 10 ml Documented by: Assessment/ Plan: Nephrology Feeling better today. CPS improved without SOB or CP. No acute events overnight. Vitals, medications, blood work and imaging reviewed in the chart. NAD. CTA. No edema. No rash. AAO. Normal speech. ESRD -Acute HD today Hypokalemia -Replete potassium prn HTN with CKD/ CHF -Hold anti-hyperensives at this time Diastolic CHF, A/C -HD with UF as tolerated Anemia in CKD -Retacrit prn Case reviewed with Dr. Javier
[2020-12-21] MEDS: ONDANSETRON 4 MG/2 ML VIAL IV PRN (13:07)
[2020-12-21] MEDS ORDERED: METOCLOPRAMIDE 5 MG TAB PO PRN (14:07)
[2020-12-21] MEDS ORDERED: ALBUTEROL INHALER 60 PUFF/8 GM IH PRN (14:07)
[2020-12-21 15:00] VITALS: BP 129/97; TEMP 97.8
[2020-12-21] MEDS ORDERED: cloNIDine HCL 0.1 MG TAB PO SCH (15:00)
[2020-12-21] MEDS ORDERED: ALBUTEROL 2.5 MG/3 ML NEB SOL NEB PRN (15:00)
[2020-12-21] MEDS ORDERED: ATORVASTATIN 40 MG TAB PO SCH (21:00)
[2020-12-21] MEDS ORDERED: SACUBITRIL/VALSARTAN 49/51 MG TAB PO SCH (21:00)
[2020-12-22] MEDS ORDERED: ASPIRIN EC 81 MG TAB PO SCH (09:00)
[2020-12-22] MEDS ORDERED: MONTELUKAST 10 MG TAB PO SCH (09:00)
[2020-12-22] MEDS ORDERED: SERTRALINE HCL 100 MG TAB PO SCH (09:00)
[2020-12-22 19:37] LABS: HBsAG Nonreactive (Nonreactive)
[2020-12-28] MEDS ORDERED: DRISDOL (VITAMIN D=ERGOCALCIFEROL) 50000 UNIT CAP PO SCH (09:00)
== END 2020-12-21 17:41 | disposition home or self-care (01) | DRG 291 ==
LOC: ER 19:04 → ERHOLD 23:20 → 2ND 12-20 00:01
PROVIDERS: ADMIT Hospitalist; ATTEND Hospitalist
PROC: 5A1D70Z Performance of Urinary Filtration, Intermittent, Less than 6 Hours Per Day (ICD-10-PCS; principal; 2020-12-20)
DX: I13.2 Hypertensive heart and chronic kidney disease with heart failure and with stage 5 chronic kidney disease, or end stage renal disease (principal); N18.6 End stage renal disease; I50.33 Acute on chronic diastolic (congestive) heart failure; D63.1 Anemia in chronic kidney disease; E78.5 Hyperlipidemia, unspecified; E87.6 Hypokalemia; F17.210 Nicotine dependence, cigarettes, uncomplicated; R11.2 Nausea with vomiting, unspecified; Z88.5 Allergy status to narcotic agent; Z99.2 Dependence on renal dialysis; Z90.49 Acquired absence of other specified parts of digestive tract; Z91.15 Patient's noncompliance with renal dialysis; Z95.1 Presence of aortocoronary bypass graft; Z20.822 Contact with and (suspected) exposure to COVID-19
CPT/HCPCS: 36415; 71045; 74176; 80048; 80053; 80061; 80076; 81003; 81015; 82010; 83735; 83880; 84100; 84132; 84439; 84443; 84484; 85025; 85610; 86317; 86705; 87086; 87088; 87340; 90935; 93005; 94760; 96374; 96375; 99285; J0360; J1644; J1940; J2270; J2405; J3480; J7050; Q0169; U0003

== ENCOUNTER 2020-12-25 10:01 | Observation (INO) | payer OTHER ==
--- OUTSIDE RECORDS SUMMARY | 2020-12-25 10:10 | XMS REPORT | Continuity of Care Document ---
:[address] [facility] t Address [address] [place] [address] Support Name Relationship Address Phone BOB HOWARD S Primary Care Physician [address] [place] [address] MD ARIANNA L Emergency Provider [address] [place] [address] EULOGIO Mother [address] [phone] 2 [place] [address] MD EVERARDO Other Provider [address] [place] [address] MD NIMISHA LUIS Admitting Provider [address] [phone] [place] [address] MD JONES Emergency Provider [address] [facility] [place] [address] CRESENCIO OREILLY MD E Admitting Provider [address] [phone] [place] [address] GAVIN Unavailable [address] [place] [address] MD JESSIE M Emergency Provider [address] [phone] [place] [address] CRESENCIO OREILLY MD E Admitting Provider [address] [phone] [place] [address] GAVIN Unavailable [address] [place] [address] MD ANDI A Emergency Provider [facility] [place] [address] Rey Other Unavailable Eulogio Child Unavailable Care Team Providers Name Role Phone UNKNOWN Primary Care Physician Unavailable Martin LYLE Attending Clinician Unavailable Tony LYLE Attending Clinician Unavailable Paul FRASER Attending Clinician Unavailable HAYLEE Attending Clinician Unavailable Zulma Moore Attending Clinician Unavailable Zulma Moore Attending Clinician Unavailable SHAGGY ESPINAL M.D. Attending Clinician Unavailable MOISES Attending Clinician Unavailable KATHRYN ELLIS Attending Clinician Unavailable HAYLEE Admitting Clinician Unavailable Zulma Moore Admitting Clinician Unavailable CALE WAGNER M.D. Admitting Clinician Unavailable MOISES Admitting Clinician Unavailable MACIE Admitting Clinician Unavailable KATHRYN ELLIS Admitting Clinician Unavailable Payers Payer Name Policy Type Policy Effective Date Expiration Date Sour ce Number [facility] [id number] 2019 [place] MEDICARE(WELLME 00:00:00 Asha Dyson) AARP MEDICARE ADVANTAGE [id number] 1/2020-Present MO Problems Condition Condition Condition Status Onset Resolution Last Treating Co mments Source Name Details Category Date Date Treatment Clinician Date Acute Acute Disease Active [place] [facility] kidney 3-29 [facility] injury injury 00:00: st superimpos superimpos 00 ed on ed on chronic chronic kidney kidney disease disease NSTEMI NSTEMI Disease Active [facility]02 [facility] elevated elevated 00:00: Medica l myocardial myocardial 00 Ce nter infarction infarction ) ) Tobacco Tobacco Disease Active [facility] abuse abuse 04-02 [facility] Ischemic Ischemic Disease [facility] cardiomyop cardiomyop 04-02 [facility] k[facility] - athy athy 00:00: Medical 00 Center Postoperat Postoperat Disease Active [facility] primo ileus primo ileus 04-02 [facility] - 00:[facility] 00 Center Acute Acute Disease Active [facility] blood loss blood loss 04-02 [facility] - anemia anemia 00:00: Medical 00 Center Acute on Acute on Disease [facility] chronic chronic 03-27 [facility] - systolic systolic 00:00: Medica l heart heart 00 Center failure failure Cardiogeni Cardiogeni Disease Active [facility] c c 03-27 [facility] - postoperat postoperat 00:00: Me dical primo shock primo shock 00 Cent er Coronary Coronary Disease [facility] artery artery 03-27 [facility] - disease disease 00:[facility]: Medical 00 Center Carotid Carotid Disease Active Overview: [facility] stenosis, stenosis, 03-27 S/p right L ukes - right right 00:00: CEA on Medical 00 03/27 Center CAD CAD Disease Active [facility] (coronary (coronary 03-26 [facility] - artery artery 00:00: Medical disease) disease) 00 Center Pain, Diagnosis Active 2019-09-02 Mem oria joint, 03:47:44 l multiple Pain, [place] sites joint, multiple sites Active Diagnosis 09/02/2019 Penny Najam CKD Problem Active 2019-09-15 Memor ia (chronic 02:45:27 l kidney CKD Branden disease) (chronic stage 4, kidney GFR 15-29 disease) ml/min stage 4, GFR 15-29 ml/min Active Problem 09/15/2019 Penny Najam Pain in Diagnosis Active 2019-09-02 Me moria right knee 03:47:44 l Pain in Branden right knee Active Diagnosis 09/02/2019 Penny Najam Pain in Diagnosis Active 2019-09-02 Me moria left knee 03:47:44 l Pain in Branden left knee Active Diagnosis 09/02/2019 Penny Najam Pain in Diagnosis Active 2019-09-02 Me moria left hand 03:47:44 l Pain in [place] left hand Active Diagnosis 09/02/2019 Penny Najam Counseling Diagnosis Active 2019-09-02 Memoria NOS 03:47:44 l [place] Counseling NOS Active Diagnosis 09/02/2019 Penny Najam Pain in Diagnosis Active 2019-09-02 Me moria right hand 03:47:44 l Pain in [place] right hand Active Diagnosis 09/02/2019 Penny Najam 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 N.K.D.A. Active Info Not Andrea oralia Available 2-24 l 00:00: Branden 00 Social History Social Habit Start Date Stop Date Quantity Comments Source Sex Assigned At [facility] Alcohol intake 2017-11-22 2017-11-22 Current [place] [facility] 00:00:00 00:00:00 non-drinker of alcohol (finding) Cigarette 2017-11-22 2017-11-22 [place] Method ist pack-years 00:00:00 00:00:00 Cigarettes smoked 2017-04-11 2017-04-[address] [facility] - current (pack per 00:00:00 00:00:00 [facility] day) - Reported Tobacco use and 2017-04-11 2017-04-11 Never used [facility] - exposure 00:00:00 00:00:00 [facility] Smoking Status Start Date Stop Date Source Heavy Tobacco Smoker [facility] Current every day smoker 2017-04-11 00:00:00 [facility] Medications Ordered Filled Start Stop Current Ordering Indication Dosage Frequency Signature Comments Components Source Medication Medication Date Date Medication? Clinician (SIG) Name Name gabapentin 2020-0 Yes 300mg Q.5D Take 300 [place] (NEURONTIN) 4-01 mg by Methodi 300 mg 18:53: mouth 2 st capsule 59 (two) times a day. nortriptyli 2020-0 Yes 50mg [id number] Take 50 mg Torres ne 4-01 [id number] by mouth 3 Met hodi (PAMELOR) 18:53: 3D (three) st 50 MG 59 times a capsule day. montelukast 2020-0 Yes 10mg QD Take 10 mg [place] (SINGULAIR) 4-01 by mouth Meth ruthie 10 mg 18:53: nightly. st tablet 59 atorvastati 2020-0 Yes 40mg QD Take 40 mg Torres n (LIPITOR) 4-01 by mouth Meth ruthie 40 MG 18:53: daily. st tablet 59 diazePAM 2020-0 Yes 5mg Q8H Take 5 mg [place] (VALIUM) 5 4-01 by mouth Metho di MG tablet 18:53: every 8 st 59 (eight) hours as needed for anxiety. budesonide- 2020-0 Yes 2{puff} Q.5D Inhale 2 Torres formoteroL 4-01 puffs 2 Method i (SYMBICORT) 18:53: (two) st 160-4.5 59 times a mcg/actuati day. on inhaler albuterol 2020-0 Yes 2{puff} Q6H Inhale 2 [place] (PROAIR 4-01 puffs Methodi HFA) 90 18:53: every 6 st mcg/actuati 59 (six) on inhaler hours as needed for wheezing. Nortriptyli 2020-0 Yes Penny 1 capsule Memoria ne HCl 2-26 Najam l 03:47: Branden Montelukast 2020-0 Yes Penny 1 tablet Memoria Sodium 2-26 Najam l 03:47: [place]en [place] ProAir 2019-0 Yes Penny 1 puff as Andrea oralia RespiClick 2-26 Najam needed l 03:47: [place]en [place] Ciprofloxac 2020-0 Yes Penny 1 tablet Memoria in 2-26 Najam l 03:47: Branden [place] Atorvastati 2019-0 Yes Penny 1 tablet Memoria n Calcium 2-26 Najam l 03:47: Branden [place] NIFEdipine 2020-0 Yes Penny as Memor ia 2-26 Najam directed l 03:47: [place]en [place] Symbicort 2020-0 Yes Penny 2 puffs Mem oria 2-26 Najam l 03:47: Branden [place] Furosemide 2020-0 Yes Penny 1 tablet M emoria 2-26 Najam l 03:47: [place]en [place] Diazepam 2020-0 Yes Penny as Memoria 2-26 Najam directed l 03:47: Branden [place] Allopurinol 2019-0 Yes Penny 1 tablet Memoria 2-26 Najam l 03:47: Branden [place] Entresto 2020-0 Yes Penny 1 tablet Mem oria 2-26 Najam l 03:47: [place]en [place] Metoprolol 2020-0 Yes Penny 1 tablet M emoria Tartrate 2-26 Najam with food l 03:47: Branden [place] Gabapentin 2020-0 Yes Penny 1 capsule Memoria 2-24 Najam l 00:00: Branden albuterol-i 2017-0 Yes 2{puff} Inhale [address] pratropium 9-26 puffs by [facility] - (COMBIVENT 00:00: mouth via Me dical RESPIMAT) 00 inhaler Center 20-100 every 6 mcg/actuati (six) on Mist hours as inhaler needed for Wheezing. Anoro Anoro No 1puff(s Q1D Anoro [facility] Ellipta Ellipta ) Ellipta da 62.5 mcg-25 62.5 mcg-25 62.5 M edical mcg/actuati mcg/actuati mcg-25 Group on powder on powder mcg/actuat for for ion powder inhalation inhalation for Inhale 1 Inhale 1 inhalation puff every puff every Inhale 1 day by day by puff every inhalation inhalation day by route. route. inhalation route. atorvastati atorvastati No atorvastat [place] n 40 mg n 40 mg in 40 mg da tablet tablet tablet Medical Group clonidine clonidine No clonidine [facility] HCl 0.1 mg HCl 0.1 mg HCl 0.1 mg da tablet tablet tablet Medical Group diazepam 5 diazepam 5 No diazepam 5 [facility] mg tablet mg tablet mg tablet da Take 1 Take 1 Take 1 Medical tablet 4 tablet 4 tablet 4 Bharath up times a day times a day times a by oral by oral day by route. route. oral route. Entresto 24 Entresto 24 No Entresto [facility] mg-26 mg mg-26 mg 24 mg-26 da tablet tablet mg tablet Medica l Group fluoxetine fluoxetine No fluoxetine [facility] 20 mg 20 mg 20 mg da capsule capsule capsule Medica l Take 1 Take 1 Take 1 Group capsule capsule capsule every day every day every day by oral by oral by oral route. route. route. fluoxetine fluoxetine No fluoxetine [facility] 40 mg 40 mg 40 mg da capsule capsule capsule Medica l Take 1 Take 1 Take 1 Group capsule capsule capsule every day every day every day by oral by oral by oral route. route. route. furosemide furosemide No furosemide [facility] 20 mg 20 mg 20 mg da tablet tablet tablet Medical Group gabapentin gabapentin No gabapentin [facility] 100 mg 100 mg 100 mg da capsule capsule capsule Medica l Group metoprolol metoprolol No metoprolol [facility] tartrate 25 tartrate 25 tartrate da mg tablet mg tablet 25 mg Medi angel tablet Group nifedipine nifedipine No 1 Q1D nifedipine [facility] ER 30 mg ER 30 mg ER 30 mg da tablet,exte tablet,exte tablet,ext Medical nded nded ended Group release release release Take 1 Take 1 Take 1 tablet tablet tablet every day every day every day by oral by oral by oral route. route. route. nifedipine nifedipine No nifedipine [facility] ER 30 mg ER 30 mg ER 30 mg da tablet,exte tablet,exte tablet,ext Medical nded nded ended Group release 24 release 24 release 24 hr hr hr ProAir HFA ProAir HFA No ProAir HFA [facility] 90 90 90 da mcg/actuati mcg/actuati mcg/actuat Medical on aerosol on aerosol ion Bharath up inhaler inhaler aerosol inhaler Vital Signs Vital Name Observation Time Observation Value Comments Source BP Diastolic 2018-10-07 00:00:00 76 mm[Hg] [facility] Height 2018-10-07 00:00:00 64 [in_i] [facility] BMI (Body Mass 2018-10-07 00:00:00 27.6 kg/m2 [facility] Medical Index) Group BP Systolic 2018-10-07 00:00:00 148 mm[Hg] [facility] Body Weight 2018-10-07 00:00:00 161 [lb_av] [facility] BP Diastolic 2018-09-23 00:00:00 86 mm[Hg] [facility] Height 2018-09-23 00:00:00 64 [in_i] [facility] BMI (Body Mass 2018-09-23 00:00:00 27.7 kg/m2 [facility] Medical Index) Group BP Systolic 2018-09-23 00:00:00 150 mm[Hg] [facility] Body Weight 2018-09-23 00:00:00 161.2 [lb_av] [facility] BP Diastolic 2018-08-26 00:00:00 87 mm[Hg] [facility] Height 2018-08-26 00:00:00 64 [in_i] [facility] BMI (Body Mass 2018-08-26 00:00:00 27.3 kg/m2 [facility] Medical Index) Group BP Systolic 2018-08-26 00:00:00 132 mm[Hg] [facility] Body Weight 2018-08-26 00:00:00 159.3 [lb_av] [facility] Height 2019-08-31 21:00:00 [facility] Diastolic (mm Hg) 2019-08-31 21:00:00 Mem orial [place] Systolic (mm Hg) 2019-08-31 21:00:00 Andrea rial Branden Weight 2019-08-31 21:00:00 [facility] Procedures Procedure Date / Time Performing Clinician Source Performed Colonoscopy W/lesion 2015-06-23 00:00:00 [facility] Partial Hysterectomy [facility] Plan of Care Planned Activity Planned Date Details Comments Source Future Scheduled 2021-02-05 INFL[facility]ENZA VACCINE [facility] 00:00:00 [code = INFLUENZA VACCINE] Future Scheduled 2017 BREAST CANCER [facility]odist Test 00:00:00 SCREENING [code = BREAST CANCER SCREENING] Future Scheduled 2017 COLONOSCOPY SCREENING [place] [facility] 00:00:00 [code = COLONOSCOPY SCREENING] Future Scheduled 2017 SHINGLES VACCINES [facility] 00:00:00 (#1) [code = SHINGLES VACCINES (#1)] Future Scheduled 1988-02-26 Screening for [facility]odist Test 00:00:00 malignant neoplasm of cervix (procedure) [code = 159327305] Future Scheduled 1985 Hepatitis C screening [place] [facility] 00:00:00 (procedure) [code = 043959774] Future Scheduled 1979 COVID-19 VACCINE (1) [facility] 00:00:00 [code = COVID-19 VACCINE (1)] Encounters Start End Encounter Admission Attending Care Care Encounter Source Date/Time Date/Time Type Type Clinicians Facility Department ID 2019-10-04 2019-10-07 Inpatient ARIA LEACH [facility] [id number] [place] 00:00:00 00:00:[address] 2019-09-08 2019-09-08 Outpatient [facility] [id number] Memoria 01:09:00 01:09:00 [facility] - Jen [facility] 2019-08-31 2019-08-31 Outpatient [facility] [id number] Memoria 15:00:00 15:00:00 Rheumatol Rheumatolog l ogy y Center - Jen [facility] 2019-05-06 2019-05-06 Outpatient 3 Nikolas Moore [facility] [id number] 20:39:00 23:59:00 Nikolas Moore [facility] 2018-10-07 2018-10-07 Jordy [facility] [place] - [id number] M atagor 00:00:00 00:00:00 Abdiel Troy MD: Medical Medica l [address] [place] [address], General [address], surgery [place] [id number] , Ph. [phone] 2018-09-23 2018-09-23 Jordy LIN [place] - [id number] M at[facility]or 00:00:00 00:00:00 Abdiel Troy MD: Medical Medica [address], General [address], surgery [place] [id number] , Ph. [phone] 2018-08-26 2018-08-26 Jordy LIN [place] - [id number] M at[facility]or 00:00:00 00:00:00 Abdiel Troy MD: Medical Medica [address], General [address], [place] [address] , Ph. [phone] 2017-07-15 2017-07-15 [facility] [id number] 13:56:00 13:56:00 MYA Hernandez [facility] Results Test Description Test Time Test Comments Results Result Comments Source Lipid Panel 2019-05-06 22:10:23 Test Item Value Reference Range Interpretation Comme nts Cholesterol Total (test code = 190 mg/dL 0-200 RISK OF HEART DISEASEPublished by Cholesterol Total) [place] [employer] Analyte Optimal Border line Increased RiskCHOL <200 200-239 >240TRIG <150 150-199 >2 00HDL Male >60 <40HDL Female >60 <50LDL <100 130-159 >160LDL Near optimal is 100-129 Triglycerides (test code = 140 mg/dL 9-200 Triglycerides) HDL (test code = HDL) 48 mg/dL 50-60 L LDL (test code = LDL) 114 mg/dL 0-130 The eq uation being used in this calculation is LDL = (Chol - HDL) - (Trig / 5) VLDL (test code = VLDL) 28 mg/dL 5-40 The equation being used in this calculation is VLDL = Trig / 5 Chol/HDL (test code = Chol/HDL) 4.0 ratio 0.0-4.4 LDL/HDL Ratio (test code = 2 N T he equation being used in this LDL/HDL Ratio) calculation i s LDL/HDL Ratio=LDL Calc/HDL Chol Pro B Natriuretic [id number] 22:10:23 Test Item Value Reference Range Interpretation Comments NT-proBNP (test code = NT-proBNP) 1212 pg/mL 0-124 H Comprehensive Metabolic [id number] 22:10:22 Test Item Value Reference Range Interpretation Comments Sodium Level (test code = Sodium 146.0 mmol/L 135.0-145.0 H Level) Potassium Level (test code = 3.5 mmol/L 3.5-5.1 Potassium Level) Chloride Level (test code = 104 mmol/L 98-105 Chloride Level) CO2 (test code = CO2) 29 mmol/L 22-29 Anion Gap (test code = Anion 13 mmol/L 7-16 Gap) BUN (test code = BUN) 28.40 mg/dL 6.00-20.00 H Creatinine Level (test code = 1.50 mg/dL 0.50-0.90 H Creatinine Level) BUN/Creat Ratio (test code = 19 N BUN/Creat Ratio) Glucose Level (test code = 103 mg/dL 70-115 Glucose Level) Calcium Level (test code = 10.0 mg/dL 8.3-10.5 Calcium Level) Alk Phos (test code = Alk Phos) 85 U/L 35-104 Bilirubin Total (test code = 0.2 mg/dL 0.1-0.9 Bilirubin Total) Albumin Level (test code = 4.1 g/dL 3.5-5.2 Albumin Level) Protein Total (test code = 6.8 g/dL 6.4-8.3 Protein Total) ALT (test code = ALT) 8 U/L 1-33 AST (test code = AST) 11 U/L 1-32 Globulin (test code = Globulin) 2.7 g/dL 2.9-3.1 L A/G Ratio (test code = A/G 1.5 ratio N Ratio) Comprehensive Metabolic [id number] 22:10:22 Test Item Value Reference Range Interpretation Comments Sodium Level (test 146.0 mmol/L 135.0-145.0 H code = Sodium Level) Potassium Level 3.5 mmol/L 3.5-5.1 (test code = Potassium Level) Chloride Level (test 104 mmol/L 98-105 code = Chloride Level) CO2 (test code = 29 mmol/L 22-29 CO2) Anion Gap (test code 13 mmol/L 7-16 = Anion Gap) BUN (test code = 28.40 mg/dL 6.00-20.00 H BUN) Creatinine Level 1.50 mg/dL 0.50-0.90 H (test code = Creatinine Level) BUN/Creat Ratio 19 N (test code = BUN/Creat Ratio) Glucose Level (test 103 mg/dL 70-115 code = Glucose Level) Calcium Level (test 10.0 mg/dL 8.3-10.5 code = Calcium Level) Alk Phos (test code 85 U/L 35-104 = Alk Phos) Bilirubin Total 0.2 mg/dL 0.1-0.9 (test code = Bilirubin Total) Albumin Level (test 4.1 g/dL 3.5-5.2 code = Albumin Level) Protein Total (test 6.8 g/dL 6.4-8.3 code = Protein Total) ALT (test code = 8 U/L 1-33 ALT) AST (test code = 11 U/L 1-32 AST) Globulin (test code 2.7 g/dL 2.9-3.1 L = Globulin) A/G Ratio (test code 1.5 ratio N = A/G Ratio) eGFR AA (test code = 44 mL/min/1.73 N eGFR (estimated eGFR AA) m2 Glomerular Filtration Rate ) is an estimated va lue, calculated from the patient's serum creatinine usin g the MDRD equation. It is NOT the patient 's actual GFR. The eGFR provides a more clinically usef ul measure of kidn ey disease than se rum creatinine alone.This calculation zenon es sex and race in to account, if the information is provided. If th e race is not provided, and t he patient is -Lizbet n, multiply by 1.2 12. If sex is not provided, and t he patient is fema le, multiply by 0.7 42. Results for pat ients <18 years of ag e have not been validated by e MDRD study and should be interpreted wit h caution. eGFR R esult Interpretation: eGFR > or = 60 is in the Normal RangeeGF R < 60 may mean kid gualberto diseaseeGFR < 1 5 may mean kidney failure Rang es recommended by the National Kidney Foundation, http://nkdep.ni h.gov Comprehensive Metabolic [id number] 22:10:22 Test Item Value Reference Range Interpretation Comments Sodium Level (test 146.0 mmol/L 135.0-145.0 H code = Sodium Level) Potassium Level 3.5 mmol/L 3.5-5.1 (test code = Potassium Level) Chloride Level (test 104 mmol/L 98-105 code = Chloride Level) CO2 (test code = 29 mmol/L 22-29 CO2) Anion Gap (test code 13 mmol/L 7-16 = Anion Gap) BUN (test code = 28.40 mg/dL 6.00-20.00 H BUN) Creatinine Level 1.50 mg/dL 0.50-0.90 H (test code = Creatinine Level) BUN/Creat Ratio 19 N (test code = BUN/Creat Ratio) Glucose Level (test 103 mg/dL 70-115 code = Glucose Level) Calcium Level (test 10.0 mg/dL 8.3-10.5 code = Calcium Level) Alk Phos (test code 85 U/L 35-104 = Alk Phos) Bilirubin Total 0.2 mg/dL 0.1-0.9 (test code = Bilirubin Total) Albumin Level (test 4.1 g/dL 3.5-5.2 code = Albumin Level) Protein Total (test 6.8 g/dL 6.4-8.3 code = Protein Total) ALT (test code = 8 U/L 1-33 ALT) AST (test code = 11 U/L 1-32 AST) Globulin (test code 2.7 g/dL 2.9-3.1 L = Globulin) A/G Ratio (test code 1.5 ratio N = A/G Ratio) eGFR AA (test code = 44 mL/min/1.73 N eGFR (estimated eGFR AA) m2 Glomerular Filtration Rate ) is an estimated va lue, calculated from the patient's serum creatinine usin g the MDRD equation. It is NOT the patient 's actual GFR. The eGFR provides a more clinically usef ul measure of kidn ey disease than se rum creatinine alone.This calculation zenon es sex and race in to account, if the information is provided. If th e race is not provided, and t he patient is -Ilzbet n, multiply by 1.2 12. If sex is not provided, and t he patient is fema le, multiply by 0.7 42. Results for pat ients <18 years of ag e have not been validated by [facility] MDRD study and should be interpreted wit h caution. eGFR R esult Interpretation: eGFR > or = 60 is in the Normal RangeeGF R < 60 may mean kid gualberto diseaseeGFR < 1 5 may mean kidney failure Rang es recommended by the National Kidney Foundation, http://nkdep.ni h.gov eGFR Non-AA (test 36.47 N eGFR (jason mated code = eGFR Non-AA) mL/min/1.73 m2 Glomer ular Filtration Rate ) is an estimated va lue, calculated from the patient's serum creatinine usin g the MDRD equation. It is NOT the patient 's actual GFR. The eGFR provides a more clinically usef ul measure of kidn ey disease than se rum creatinine alone.This calculation zenon es sex and race in to account, if the information is provided. If th e race is not provided, and t he patient is -Lizbet n, multiply by 1.2 12. If sex is not provided, and t he patient is fema le, multiply by 0.7 42. Results for pat ients <18 years of ag e have not been validated by [facility] MDRD study and should be interpreted wit h caution. eGFR R esult Interpretation: eGFR > or = 60 is in the Normal RangeeGF R < 60 may mean kid gualberto diseaseeGFR < 1 5 may mean kidney failure Rang es recommended by the National Kidney Foundation, http://nkdep.ni h.gov Complete Blood Count with [id number] 21:57:08 Test Item Value Reference Range Interpretation Comments WBC (test code = WBC) 9.4 x10 4.4-10.5 RBC (test code = RBC) 4.17 x10 3.75-5.20 Hgb (test code = Hgb) 12.3 g/dL 12.2-14.8 Hct (test code = Hct) 37.6 % 36.5-44.4 MCV (test code = MCV) 90.20 fL 80.00-100.00 MCHC (test code = 32.70 g/dL 32.00-37.50 MCHC) MCH (test code = MCH) 29.5 pg 27.0-32.5 RDW CV (test code = 15.1 % 11.5-14.5 H RDW CV) Platelets (test code = 243.0 x10 140.0-440.0 Platelets) MPV (test code = MPV) 10.7 fL N Slide Review (test Auto Auto Result cr eated by code = Slide Review) GL_SJM_ SLIDE_REV_AUTO nRBC (test code = 0 N nRBC) NRBC Abs (test code = 0.00 x10 N NRBC Abs) IPF (test code = IPF) 0 % N Automated [id number] 21:57:08 Test Item Value Reference Range Interpretation Comments Neutro Auto (test code = Neutro 56.5 % 36.0-70.0 Auto) Lymph Auto (test code = Lymph Auto) 32.4 % 12.0-44.0 [place] Auto (test code = [place] Auto) 8.7 % 0.0-11.0 Eos, Auto (test code = Eos, Auto) 1.9 % 0.0-7.0 Basophil Auto (test code = Basophil 0.3 % 0.0-2.0 Auto) Neutro Absolute (test code = Neutro 5.3 x10 1.6-7.4 Absolute) Lymph Absolute (test code = Lymph 3.03 x10 .50-4.60 Absolute) [place] Absolute (test code = [place] .81 x10 .00-1.20 Absolute) Eos Absolute (test code = Eos 0.18 x10 0.00-0.74 Absolute) Baso Absolute (test code = Baso 0.03 x10 0.00-0.21 Absolute) IG [id number] 21:57:08 Test Item Value Reference Range Interpretation Comments IG (test code = IG) 0.2 % 0.0-5.0 IG Abs (test code = IG Abs) 0 x10 N XR ABDOMEN ACUTE COMPLETE W [id number] 11:24:09XR ABDOMEN ACUTE COMPLETE W CHESTLOCATION: [id number]: SBOCOMPARISON: KUB 07/29/2017, CT of the abdomen and pelvis 07/28/2017,chest radiograph 07/29/2017FINDINGS: Median sternotomy changes are noted. Left IJ central line terminatesover the upper SVC.The lungs are well- inflated.Mild bibasilar linear opacities may be due to atelectasis or scarring.The upper lungs are grossly clear.The cardiomediastinal silhouette is within normal limits with techniquetaken into account.Mild aortic calcifications are present.Mild diffuse bowel distention is present.Proximal small bowel loops remain distended, measuring up to 3.9 cm indiameter.Air is seen in the colon.There is no evidence for pneumoperitoneum.Osseous structures are grossly stable.Surgical clips are seen over the left abdomen and left pelvis.IMPRESSION: 1. Mild diffuse bowel distention. Proximal small bowel loops remaindistended, measuring up to 3.9 cm in diameter.2. Mild bibasilar linear opacities may be due to atelectasis orscarring.Basic Metabolic [id number] 06:01:00 Test Item Value Reference Range Interpretation Comments Sodium (test code = 133 mmol/L 135-145 L NA) Potassium (test 3.8 mmol/L 3.5-5.1 N code = K) Chloride (test code 95 mmol/L 98-105 L = CL) Carbon Dioxide 28 mmol/L 22-29 N (test code = CO2) Glucose (test code 108 mg/dL 70-115 N = GLU) Blood Urea Nitrogen 6 mg/dL 6-20 N (test code = BUN) Creatinine (test 0.6 mg/dL 0.5-0.9 N code = CREAT) Calcium (test code 8.4 mg/dL 8.3-10.5 N = CA) BUN/Creatinine 10.0 Ratio (test code = BCRATIO) Anion Gap (test 10 mmol/L 7-16 N code = AGAP) Estimated GFR (test >60 eGFR (es timated code = GFR) mL/min/1.73m2 Glomerular Angel tration Rate) is an est imated value,calculate d from the patient's s felicity creatinine usin g the MDRD equation.I t is NOT the patient 's actual GFR. The eGFR provides a more clinicallyusefu l measure of kidn ey disease than se rum creatinine alone.This calculation zenon es sex and race into account, if the informationis provided. If th e race is not provided , and the patient isAfrican-Ameri can, multiply by 1.2 12. If sex is not prov ided, and thepatient is female, multipl y by 0.742. Results for patients <18 ye ars ofage have not been validated by e MDRD study and glenis d be interpretedwith caution.eGFR Re sult Interpretation: eGFR > or = 60 is in t he Normal RangeeGF R < 60 may mean kidney diseaseeGFR < 1 5 may mean kidney failureRange s recommended by the National Kidney Foundation,http ://nkd ep.nih.gov XR ABDOMEN KUB [id number] 15:39:25ABDOMEN, 1 VIEWCLINICAL INFORMATION: SBO COMPARISONS: CT dated July 28, 2017FINDINGS:The small bowel loops in the upper abdomen are gas distended up to 4.3cm. The rectal vault is essentially airless. Moderate degenerativechanges are seen at L5-S1.IMPRESSION: Small bowel loops remain gas distendedup to 4.3 cm.Location: [id number] CHEST 1 [id number] 14:38:38EXAM: Portable AP chest x-rayLOCATION: R16 INDICATION: PT. is post op fem pop Day 1COMPARISON: 07/28/2017FINDINGS:A left internal jugular catheter terminates in the SVC.The cardiomediastinal silhouette is unremarkable. Post sternotomychanges are identified.There is no focal consolidation. Stable mild congestive changes. Stable scarring versus atelectasis at the left costophrenic angle. Nolarge pleural effusion or discernible pneumothorax.IMPRESSION:Stable mild congestive changes.Stable left basilarscarring and/or atelectasis. Magnesium, [id number] 06:01:00 Test Item Value Reference Range Interpretation Comments Magnesium (test code = MG) 2.0 mg/dL 1.7-2.5 N Basic Metabolic [id number] 05:54:00 Test Item Value Reference Range Interpretation Comments Sodium (test code = 135 mmol/L 135-145 N NA) Potassium (test 3.1 mmol/L 3.5-5.1 L code = K) Chloride (test code 99 mmol/L 98-105 N = CL) Carbon Dioxide 27 mmol/L 22-29 N (test code = CO2) Glucose (test code 79 mg/dL 70-115 N = GLU) Blood Urea Nitrogen 14 mg/dL 6-20 N (test code = BUN) Creatinine (test 0.7 mg/dL 0.5-0.9 N code = CREAT) Calcium (test code 8.4 mg/dL 8.3-10.5 N = CA) BUN/Creatinine 20.0 Ratio (test code = BCRATIO) Anion Gap (test 9 mmol/L 7-16 N code = AGAP) Estimated GFR (test >60 eGFR (es timated code = GFR) mL/min/1.73m2 Glomerular Angel tration Rate) is an est imated value,calculate d from the patient's s felicity creatinine usin g the MDRD equation.I t is NOT the patient 's actual GFR. The eGFR provides a more clinicallyusefu l measure of kidn ey disease than se rum creatinine alone.This calculation zenon es sex and race into account, if the informationis provided. If th e race is not provided , and the patient isAfrican-Ameri can, multiply by 1.2 12. If sex is not prov ided, and thepatient is female, multipl y by 0.742. Results for patients <18 ye ars ofage have not been validated by th e MDRD study and shoul d be interpretedwith caution.eGFR Re sult Interpretation: eGFR > or = 60 is in t he Normal RangeeGF R < 60 may mean kidney diseaseeGFR < 1 5 may mean kidney failureRange s recommended by the National Kidney Foundation,http ://nkd ep.nih.gov CBC with [id number] 05:42:00 Test Item Value Reference Range Interpretation Comments WBC (test code = WBC) 9.1 K/cumm 4.4-10.5 N RBC (test code = RBC) 3.80 M/cumm 3.75-5.20 N Hemoglobin (test code = HGB) 11.2 gm/dL 12.2-14.8 L Hematocrit (test code = HCT) 34.4 % 36.5-44.4 L MCV (test code = MCV) 90.6 fL 80-100 N MCH (test code = MCH) 29.4 pg 27.0-32.5 N MCHC (test code = MCHC) 32.5 g/dL 32.0-37.5 N RDW (test code = RDW) 14.4 % 11.5-14.5 N Platelet Count (test code = 240 K/cumm 140-440 N PLTCT) MPV (test code = MPV) 7.9 fL Diff Method (test code = DIFFM) Auto Neutrophil (test code = NEUT) 56.8 % 36-70 N Lymphocyte (test code = LYMPH) 32.9 % 12-44 N Monocyte (test code = MONO) 6.3 % 0-11 N Eosinophil (test code = EOS) 3.8 % 0-7 N Basophil (test code = BASO) 0.2 % 0-2 N Neutro Abs (test code = ANEUT) 5.2 K/cumm 1.6-7.4 N Lymph Abs (test code = ALYMPH) 3.0 K/cumm 0.5-4.6 N [place] Abs (test code = AMONO) 0.6 K/cumm 0.0-1.2 N Eos Abs (test code = AEOS) 0.34 K/cumm 0.00-0.74 N Baso Abs (test code = ABASO) 0.0 K/cumm 0.00-0.21 N [id number]&PELVIS W/[id number] 20:17:50CT Scan of the Abdomen and Pelvis With ContrastLocation Code [id number]: lower GI bleed/N/V/Abd painTechnique: Axial and reconstructed coronal scans were performed on [facility] scanner post IV contrast. One or more of the following dose reduction techniques were used:Automated exposure control, adjustment of the mA and/or kV according topatient size, and/or utilization of iterative reconstruction nadia hnique.Findings: There is a small left pleural effusion. Bilateral lower lobe atelectaticchanges areseen.There is mild ascites in the abdomen and pelvis. The liver surface isslightly nodular. The right lobe is slightly enlarged. There is noabnormal lumbar splenic enhancement. There is pericholecysticfluid butthis is nonspecific in the setting of ascites. There are noperipancreatic inflammatory changes.Adrenal glands are symmetric. There is no hydronephrosis in eitherkidney. Bladder is within normal limits.There are several loops of small bowel which are dilated fluid-filled.There are at least 2 transition points seen in the abdomen located inthe left lower quadrant and in the right lower quadrant . These findingsmay be consistent with ileus or partial small bowel obstruction. Thereis no pneumatosis. The appendix and colon are within normal limits.Extensive soft and calcified plaque formations are seen in the abdominalaorta. 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 There is near completestenosis of the distal external iliac anastomosis on the left but flowis seen distal to this segment. There is moderate stenosis on the right. Impression:1. Partial small bowel obstruction versus small bowel ileus. No freeair.2. Mild ascites. Subtle liver surface nodularity which maybe consistentwith cirrhosis.3. Small left pleural effusion.4. Aortobiiliac repair. Near complete stenosis of the distal leftexternal iliac anastomosis. Flow is noted distal to this segment. Noprior is available for comparison. Clinical correlation recommended.XR CHEST 1 [id number] 10:05:52Exam: Chest portable erectLocation: [id number]: PostopComparison: 07/27/2016.Findings:No change has occurred in the aeration of the lungs. The heart size isunchanged. Postoperative changes of CABG are present. The mediastinalsilhouette is unremarkable. The left IJ line remains in place.Impression:Stable chest. Comprehensive Metabolic [id number] 04:50:00 Test Item Value Reference Range Interpretation Comments Sodium (test code = 138 mmol/L 135-145 N NA) Potassium (test 3.6 mmol/L 3.5-5.1 N code = K) Chloride (test code 100 mmol/L 98-105 N = CL) Carbon Dioxide 30 mmol/L 22-29 H (test code = CO2) Glucose (test code 89 mg/dL 70-115 N = GLU) Blood Urea Nitrogen 19 mg/dL 6-20 N (test code = BUN) Creatinine (test 0.8 mg/dL 0.5-0.9 N code = CREAT) Calcium (test code 8.7 mg/dL 8.3-10.5 N = CA) Prot Total (test 5.4 g/dL 6.4-8.3 L code = TP) Albumin (test code 2.7 g/dL 3.5-5.2 L = ALB) A/G Ratio (test 1.0 Ratio code = AGRATIO) Globulin (test code 2.7 2.9-3.1 L = GLOB) Bili Total (test 0.3 mg/dL 0.1-0.9 N code = TBIL) Alk Phos (test code 58 U/L 35-104 N = APHOS) AST (test code = 8 U/L 1-32 N AST) ALT (test code = 5 U/L 1-33 N ALT) BUN/Creatinine 23.8 Ratio (test code = BCRATIO) Anion Gap (test 8 mmol/L 7-16 N code = AGAP) Estimated GFR (test >60 eGFR (es timated code = GFR) mL/min/1.73m2 Glomerular Angel tration Rate) is an est imated value,calculate d from the patient's s felicity creatinine usin g the MDRD equation.I t is NOT the patient 's actual GFR. The eGFR provides a more clinicallyusefu l measure of kidn ey disease than se rum creatinine alone.This calculation zenon es sex and race into account, if the informationis provided. If th e race is not provided , and the patient isAfrican-Ameri can, multiply by 1.2 12. If sex is not prov ided, and thepatient is female, multipl y by 0.742. Results for patients <18 ye ars ofage have not been validated by th e MDRD study and shoul d be interpretedwith caution.eGFR Re sult Interpretation: eGFR > or = 60 is in t he Normal RangeeGF R < 60 may mean kidney diseaseeGFR < 1 5 may mean kidney failureRange s recommended by the National Kidney Foundation,http ://nkd ep.nih.gov Magnesium, [id number] 04:49:00 Test Item Value Reference Range Interpretation Comments Magnesium (test code = MG) 1.8 mg/dL 1.7-2.5 N CBC with [id number] 04:45:00 Test Item Value Reference Range Interpretation Comments WBC (test code = WBC) 8.8 K/cumm 4.4-10.5 N RBC (test code = RBC) 3.65 M/cumm 3.75-5.20 L Hemoglobin (test code = HGB) 10.5 gm/dL 12.2-14.8 L Hematocrit (test code = HCT) 33.1 % 36.5-44.4 L MCV (test code = MCV) 90.7 fL 80-100 N MCH (test code = MCH) 28.6 pg 27.0-32.5 N MCHC (test code = MCHC) 31.6 g/dL 32.0-37.5 L RDW (test code = RDW) 14.7 % 11.5-14.5 H Platelet Count (test code = 216 K/cumm 140-440 N PLTCT) MPV (test code = MPV) 8.1 fL Diff Method (test code = DIFFM) Auto Neutrophil (test code = NEUT) 54.2 % 36-70 N Lymphocyte (test code = LYMPH) 34.0 % 12-44 N Monocyte (test code = MONO) 7.6 % 0-11 N Eosinophil (test code = EOS) 3.8 % 0-7 N Basophil (test code = BASO) 0.3 % 0-2 N Neutro Abs (test code = ANEUT) 4.8 K/cumm 1.6-7.4 N Lymph Abs (test code = ALYMPH) 3.0 K/cumm 0.5-4.6 N [place] Abs (test code = AMONO) 0.7 K/cumm 0.0-1.2 N Eos Abs (test code = AEOS) 0.34 K/cumm 0.00-0.74 N Baso Abs (test code = ABASO) 0.0 K/cumm 0.00-0.21 N XR CHEST 1 [id number] 13:31:06Exam: Chest portable erectLocation: [id number]: PostopComparison: 07/26/2017.Findings:There has beeninterval improvement in the aeration of the lungs. Thelungs are now clear. The pulmonary vasculatureis normal. The heart sizeis unchanged. Postoperative changes of CABG are present. The mediastinalsilhouette is unremarkable. The left IJ line remains in place.Impression:Interval improvement since 07/26/2017.Basic Metabolic Panel 2017-07-27 05:49:00 Test Item Value Reference Range Interpretation Comments Sodium (test code = 138 mmol/L 135-145 N NA) Potassium (test 4.3 mmol/L 3.5-5.1 N code = K) Chloride (test code 103 mmol/L 98-105 N = CL) Carbon Dioxide 22 mmol/L 22-29 N (test code = CO2) Glucose (test code 122 mg/dL 70-115 H = GLU) Blood Urea Nitrogen 19 mg/dL 6-20 N (test code = BUN) Creatinine (test 0.7 mg/dL 0.5-0.9 N code = CREAT) Calcium (test code 8.9 mg/dL 8.3-10.5 N = CA) BUN/Creatinine 27.1 Ratio (test code = BCRATIO) Anion Gap (test 13 mmol/L 7-16 N code = AGAP) Estimated GFR (test >60 eGFR (es timated code = GFR) mL/min/1.73m2 Glomerular Angel tration Rate) is an est imated value,calculate d from the patient's s felicity creatinine usin g the MDRD equation.I t is NOT the patient 's actual GFR. The eGFR provides a more clinicallyusefu l measure of kidn ey disease than se rum creatinine alone.This calculation zenon es sex and race into account, if the informationis provided. If th e race is not provided , and the patient isAfrican-Ameri can, multiply by 1.2 12. If sex is not prov ided, and thepatient is female, multipl y by 0.742. Results for patients <18 ye ars ofage have not been validated by th e MDRD study and shoul d be interpretedwith caution.eGFR Re sult Interpretation: eGFR > or = 60 is in t he Normal RangeeGF R < 60 may mean kidney diseaseeGFR < 1 5 may mean kidney failureRange s recommended by the National Kidney Foundation,http ://nkd ep.nih.gov Magnesium, [id number] 05:49:00 Test Item Value Reference Range Interpretation Comments Magnesium (test code = MG) 2.0 mg/dL 1.7-2.5 N CBC with [id number] 05:04:00 Test Item Value Reference Range Interpretation Comments WBC (test code = WBC) 9.8 K/cumm 4.4-10.5 N RBC (test code = RBC) 4.33 M/cumm 3.75-5.20 N Hemoglobin (test code = HGB) 12.6 gm/dL 12.2-14.8 N Hematocrit (test code = HCT) 40.2 % 36.5-44.4 N MCV (test code = MCV) 92.8 fL 80-100 N MCH (test code = MCH) 29.2 pg 27.0-32.5 N MCHC (test code = MCHC) 31.5 g/dL 32.0-37.5 L RDW (test code = RDW) 14.9 % 11.5-14.5 H Platelet Count (test code = 177 K/cumm 140-440 N PLTCT) MPV (test code = MPV) 10.5 fL Diff Method (test code = DIFFM) Auto Neutrophil (test code = NEUT) 75.5 % 36-70 H Lymphocyte (test code = LYMPH) 17.8 % 12-44 N Monocyte (test code = MONO) 6.1 % 0-11 N Eosinophil (test code = EOS) 0.2 % 0-7 N Basophil (test code = BASO) 0.4 % 0-2 N Neutro Abs (test code = ANEUT) 7.4 K/cumm 1.6-7.4 N Lymph Abs (test code = ALYMPH) 1.8 K/cumm 0.5-4.6 N [place] Abs (test code = AMONO) 0.6 K/cumm 0.0-1.2 N Eos Abs (test code = AEOS) 0.02 K/cumm 0.00-0.74 N Baso Abs (test code = ABASO) 0.0 K/cumm 0.00-0.21 N Hypochromic (test code = HYPO) Slight XR CHEST 1 [id number] 09:30:58EXAM: Portable AP chest x-rayLOCATION: R16 INDICATION: post op enderectomyCOMPARISON: 07/25/17INDINGS:A left internal jugular catheter is unchanged.The cardiac silhouette is stable and enlarged. Thereare poststernotomychanges. Congestive changes are seen bilaterally. There is a stable left basilaropacity. There is no large pleural effusion or discerniblepneumothorax.IMPRESSION:Stable cardiomegalyand congestive changes. Basic Metabolic [id number] 06:04:00 Test Item Value Reference Range Interpretation Comments Sodium (test code = 143 mmol/L 135-145 N NA) Potassium (test 3.1 mmol/L 3.5-5.1 L code = K) Chloride (test code 103 mmol/L 98-105 N = CL) Carbon Dioxide 28 mmol/L 22-29 N (test code = CO2) Glucose (test code 128 mg/dL 70-115 H = GLU) Blood Urea Nitrogen 14 mg/dL 6-20 N (test code = BUN) Creatinine (test 0.6 mg/dL 0.5-0.9 N code = CREAT) Calcium (test code 8.7 mg/dL 8.3-10.5 N = CA) BUN/Creatinine 23.3 Ratio (test code = BCRATIO) Anion Gap (test 12 mmol/L 7-16 N code = AGAP) Estimated GFR (test >60 eGFR (es timated code = GFR) mL/min/1.73m2 Glomerular Angel tration Rate) is an est imated value,calculate d from the patient's s felicity creatinine usin g the MDRD equation.I t is NOT the patient 's actual GFR. The eGFR provides a more clinicallyusefu l measure of kidn ey disease than se rum creatinine alone.This calculation zenon es sex and race into account, if the informationis provided. If th e race is not provided , and the patient isAfrican-Ameri can, multiply by 1.2 12. If sex is not prov ided, and thepatient is female, multipl y by 0.742. Results for patients <18 ye ars ofage have not been validated by th e MDRD study and glenis dyson be interpretedwith caution.eGFR Re sult Interpretation: eGFR > or = 60 is in t he Normal RangeeGF R < 60 may mean kidney diseaseeGFR < 1 5 may mean kidney failureRange s recommended by the National Kidney Foundation,http ://nkd ep.nih.gov Magnesium, [id number] 06:04:00 Test Item Value Reference Range Interpretation Comments Magnesium (test code = MG) 2.1 mg/dL 1.7-2.5 N CBC with [id number] 05:49:00 Test Item Value Reference Range Interpretation Comments WBC (test code = WBC) 9.8 K/cumm 4.4-10.5 N RBC (test code = RBC) 4.02 M/cumm 3.75-5.20 N Hemoglobin (test code = HGB) 11.7 gm/dL 12.2-14.8 L Hematocrit (test code = HCT) 36.7 % 36.5-44.4 N MCV (test code = MCV) 91.4 fL 80-100 N MCH (test code = MCH) 29.1 pg 27.0-32.5 N MCHC (test code = MCHC) 31.9 g/dL 32.0-37.5 L RDW (test code = RDW) 14.8 % 11.5-14.5 H Platelet Count (test code = 181 K/cumm 140-440 N PLTCT) MPV (test code = MPV) 8.0 fL Diff Method (test code = DIFFM) Auto Neutrophil (test code = NEUT) 76.5 % 36-70 H Lymphocyte (test code = LYMPH) 16.1 % 12-44 N Monocyte (test code = MONO) 5.0 % 0-11 N Eosinophil (test code = EOS) 2.1 % 0-7 N Basophil (test code = BASO) 0.4 % 0-2 N Neutro Abs (test code = ANEUT) 7.5 K/cumm 1.6-7.4 H Lymph Abs (test code = ALYMPH) 1.6 K/cumm 0.5-4.6 N [place] Abs (test code = AMONO) 0.5 K/cumm 0.0-1.2 N Eos Abs (test code = AEOS) 0.20 K/cumm 0.00-0.74 N Baso Abs (test code = ABASO) 0.0 K/cumm 0.00-0.21 N Basic Metabolic [id number] 11:43:00 Test Item Value Reference Range Interpretation Comments Sodium (test code = 140 mmol/L 135-145 N NA) Potassium (test 3.6 mmol/L 3.5-5.1 N code = K) Chloride (test code 103 mmol/L 98-105 N = CL) Carbon Dioxide 24 mmol/L 22-29 N (test code = CO2) Glucose (test code 108 mg/dL 70-115 N = GLU) Blood Urea Nitrogen 17 mg/dL 6-20 N (test code = BUN) Creatinine (test 0.7 mg/dL 0.5-0.9 N code = CREAT) Calcium (test code 8.5 mg/dL 8.3-10.5 N = CA) BUN/Creatinine 24.3 Ratio (test code = BCRATIO) Anion Gap (test 13 mmol/L 7-16 N code = AGAP) Estimated GFR (test >60 eGFR (es timated code = GFR) mL/min/1.73m2 Glomerular Angel tration Rate) is an est imated value,calculate d from the patient's s felicity creatinine usin g the MDRD equation.I t is NOT the patient 's actual GFR. The eGFR provides a more clinicallyusefu l measure of kidn ey disease than se rum creatinine alone.This calculation zenon es sex and race into account, if the informationis provided. If th e race is not provided , and the patient isAfrican-Ameri can, multiply by 1.2 12. If sex is not prov ided, and thepatient is female, multipl y by 0.742. Results for patients <18 ye ars ofage have not been validated by th e MDRD study and shoul d be interpretedwith caution.eGFR Re sult Interpretation: eGFR > or = 60 is in t he Normal RangeeGF R < 60 may mean kidney diseaseeGFR < 1 5 may mean kidney failureRange s recommended by the National Kidney Foundation,http ://nkd ep.nih.gov Magnesium, [id number] 11:43:00 Test Item Value Reference Range Interpretation Comments Magnesium (test code = MG) 1.8 mg/dL 1.7-2.5 N XR CHEST 1 [id number] 11:28:35XR CHEST 1 VIEWLOCATION: [id number]: chest radiograph 07/24/2017INDICATION: PT. is post op fem popDay 1DISCUSSION:A single portable chest radiograph was submitted for interpretation.Median sternotomy changes are noted. Left IJ central line terminatesover the SVC.Increased right basilar opacity may be due to small pleural effusion,atelectasis, and/or edema.Otherwise, there is unchanged central pulmonary vascular congestion withmild left basilar opacity.The cardiac silhouette is enlarged, but stable. Osseous structures are stable.IMPRESSION:1. Increased right basilar opacity may be due to small pleuraleffusion, atelectasis, and/or edema.2. Otherwise, unchanged central pulmonary vascular congestion with mildleft basilar opacity.3. Stable, enlarged cardiac silhouette.CBC with [id number] 11:06:00 Test Item Value Reference Range Interpretation Comments WBC (test code = WBC) 12.5 K/cumm 4.4-10.5 H RBC (test code = RBC) 3.70 M/cumm 3.75-5.20 L Hemoglobin (test code = HGB) 10.8 gm/dL 12.2-14.8 L Hematocrit (test code = HCT) 34.1 % 36.5-44.4 L MCV (test code = MCV) 92.1 fL 80-100 N MCH (test code = MCH) 29.2 pg 27.0-32.5 N MCHC (test code = MCHC) 31.7 g/dL 32.0-37.5 L RDW (test code = RDW) 14.8 % 11.5-14.5 H Platelet Count (test code = 134 K/cumm 140-440 L PLTCT) MPV (test code = MPV) 7.9 fL Diff Method (test code = DIFFM) Auto Neutrophil (test code = NEUT) 78.6 % 36-70 H Lymphocyte (test code = LYMPH) 15.8 % 12-44 N Monocyte (test code = MONO) 2.3 % 0-11 N Eosinophil (test code = EOS) 2.8 % 0-7 N Basophil (test code = BASO) 0.4 % 0-2 N Neutro Abs (test code = ANEUT) 9.8 K/cumm 1.6-7.4 H Lymph Abs (test code = ALYMPH) 2.0 K/cumm 0.5-4.6 N [place] Abs (test code = AMONO) 0.3 K/cumm 0.0-1.2 N Eos Abs (test code = AEOS) 0.35 K/cumm 0.00-0.74 N Baso Abs (test code = ABASO) 0.1 K/cumm 0.00-0.21 N XR CHEST 1 [id number] 08:05:00EXAM: Portable AP chest x-rayLOCATION: R16 INDICATION: PT. is post op fem pop Day 1COMPARISON: 07/23/2017FINDINGS:A nasogastric tube is been removed. Left internal jugular catheterterminates at the junction of the brachiocephalic vein/SVC.The cardiomediastinal silhouette is unremarkable. Post sternotomychanges are identified. There are bibasilar opacities. There is no large pleural effusion orpneumothorax. IMPRESSION:Stable bibasilar opacities, likely scarring and/or atelectasis.CBC with Differential 2017-07-24 03:25:00 Test Item Value Reference Range Interpretation Comments WBC (test code = WBC) 16.7 K/cumm 4.4-10.5 H RBC (test code = RBC) 4.26 M/cumm 3.75-5.20 N Hemoglobin (test code = HGB) 12.4 gm/dL 12.2-14.8 N Hematocrit (test code = HCT) 37.0 % 36.5-44.4 N MCV (test code = MCV) 86.9 fL 80-100 N MCH (test code = MCH) 29.0 pg 27.0-32.5 N MCHC (test code = MCHC) 33.4 g/dL 32.0-37.5 N RDW (test code = RDW) 15.2 % 11.5-14.5 H Platelet Count (test code = 173 K/cumm 140-440 N PLTCT) MPV (test code = MPV) 10.0 fL Diff Method (test code = DIFFM) Auto Neutrophil (test code = NEUT) 81.7 % 36-70 H Lymphocyte (test code = LYMPH) 13.7 % 12-44 N Monocyte (test code = MONO) 3.9 % 0-11 N Eosinophil (test code = EOS) 0.4 % 0-7 N Basophil (test code = BASO) 0.3 % 0-2 N Neutro Abs (test code = ANEUT) 13.7 K/cumm 1.6-7.4 H Lymph Abs (test code = ALYMPH) 2.3 K/cumm 0.5-4.6 N [place] Abs (test code = AMONO) 0.7 K/cumm 0.0-1.2 N Eos Abs (test code = AEOS) 0.07 K/cumm 0.00-0.74 N Baso Abs (test code = ABASO) 0.1 K/cumm 0.00-0.21 N Basic Metabolic [id number] 03:18:00 Test Item Value Reference Range Interpretation Comments Sodium (test code = 143 mmol/L 135-145 N NA) Potassium (test 3.6 mmol/L 3.5-5.1 N code = K) Chloride (test code 107 mmol/L 98-105 H = CL) Carbon Dioxide 27 mmol/L 22-29 N (test code = CO2) Glucose (test code 118 mg/dL 70-115 H = GLU) Blood Urea Nitrogen 19 mg/dL 6-20 N (test code = BUN) Creatinine (test 0.9 mg/dL 0.5-0.9 N code = CREAT) Calcium (test code 8.3 mg/dL 8.3-10.5 N = CA) BUN/Creatinine 21.1 Ratio (test code = BCRATIO) Anion Gap (test 9 mmol/L 7-16 N code = AGAP) Estimated GFR (test >60 eGFR (es timated code = GFR) mL/min/1.73m2 Glomerular Angel tration Rate) is an est imated value,calculate d from the patient's s felicity creatinine usin g the MDRD equation.I t is NOT the patient 's actual GFR. The eGFR provides a more clinicallyusefu l measure of kidn ey disease than se rum creatinine alone.This calculation zenon es sex and race into account, if the informationis provided. If th e race is not provided , and the patient isAfrican-Ameri can, multiply by 1.2 12. If sex is not prov ided, and thepatient is female, multipl y by 0.742. Results for patients <18 ye ars ofage have not been validated by th e MDRD study and glenis d be interpretedwith caution.eGFR Re sult Interpretation: eGFR > or = 60 is in t he Normal RangeeGF R < 60 may mean kidney diseaseeGFR < 1 5 may mean kidney failureRange s recommended by the National Kidney Foundation,http ://nkd ep.nih.gov Magnesium, [id number] 03:18:00 Test Item Value Reference Range Interpretation Comments Magnesium (test code = MG) 2.4 mg/dL 1.7-2.5 N XR CHEST 1 [id number] 08:05:36EXAM: Portable AP chest x-rayLOCATION: R16 INDICATION: PT. is post op fem pop Day 1COMPARISON: 018FINDINGS:Nasogastric tube is still coiled within the stomach. Left internaljugular catheter terminates at the junction of the brachiocephalicvein/SVC.The cardiomediastinal silhouette is unremarkable. Post sternotomychanges are identified. There are bibasilar opacities. There is no largepleural effusion or pneumothorax. IMPRESSION:Bibasilar opacities likely represents scarring and/or atelectasisBasic Metabolic [id number] 04:42:00 Test Item Value Reference Range Interpretation Comments Sodium (test code = 142 mmol/L 135-145 N NA) Potassium (test 4.0 mmol/L 3.5-5.1 N code = K) Chloride (test code 105 mmol/L 98-105 N = CL) Carbon Dioxide 24 mmol/L 22-29 N (test code = CO2) Glucose (test code 131 mg/dL 70-115 H = GLU) Blood Urea Nitrogen 14 mg/dL 6-20 N (test code = BUN) Creatinine (test 1.0 mg/dL 0.5-0.9 H code = CREAT) Calcium (test code 8.2 mg/dL 8.3-10.5 L = CA) BUN/Creatinine 14.0 Ratio (test code = BCRATIO) Anion Gap (test 13 mmol/L 7-16 N code = AGAP) Estimated GFR (test >60 eGFR (es timated code = GFR) mL/min/1.73m2 Glomerular Angel tration Rate) is an est imated value,calculate d from the patient's s felicity creatinine usin g the MDRD equation.I t is NOT the patient 's actual GFR. The eGFR provides a more clinicallyusefu l measure of kidn ey disease than se rum creatinine alone.This calculation zenon es sex and race into account, if the informationis provided. If th e race is not provided , and the patient isAfrican-Ameri can, multiply by 1.2 12. If sex is not prov ided, and thepatient is female, multipl y by 0.742. Results for patients <18 ye ars ofage have not been validated by e MDRD study and glenis d be interpretedwith caution.eGFR Re sult Interpretation: eGFR > or = 60 is in t he Normal RangeeGF R < 60 may mean kidney diseaseeGFR < 1 5 may mean kidney failureRange s recommended by the National Kidney Foundation,http ://nkd ep.nih.gov Magnesium, [id number] 04:42:00 Test Item Value Reference Range Interpretation Comments Magnesium (test code = MG) 1.7 mg/dL 1.7-2.5 N Partial Thromboplastin [id number] 04:33:00 Test Item Value Reference Range Interpretation Comments aPTT (test code = PTT) 29.50 seconds 24.39-37.25 N Prothrombin [id number] 04:33:00 Test Item Value Reference Range Interpretation Comments PT (test code = PT) 12.40 seconds 9.78-13.35 N INR (test code = INR) 1.10 Ratio 0.6-1.2 N CBC with [id number] 04:26:00 Test Item Value Reference Range Interpretation Comments WBC (test code = WBC) 15.6 K/cumm 4.4-10.5 H RBC (test code = RBC) 4.39 M/cumm 3.75-5.20 N Hemoglobin (test code = HGB) 12.9 gm/dL 12.2-14.8 N Hematocrit (test code = HCT) 39.6 % 36.5-44.4 N MCV (test code = MCV) 90.1 fL 80-100 N MCH (test code = MCH) 29.3 pg 27.0-32.5 N MCHC (test code = MCHC) 32.5 g/dL 32.0-37.5 N RDW (test code = RDW) 14.6 % 11.5-14.5 H Platelet Count (test code = 171 K/cumm 140-440 N PLTCT) MPV (test code = MPV) 7.7 fL Diff Method (test code = DIFFM) Auto Neutrophil (test code = NEUT) 80.1 % 36-70 H Lymphocyte (test code = LYMPH) 14.5 % 12-44 N Monocyte (test code = MONO) 4.4 % 0-11 N Eosinophil (test code = EOS) 0.8 % 0-7 N Basophil (test code = BASO) 0.2 % 0-2 N Neutro Abs (test code = ANEUT) 12.5 K/cumm 1.6-7.4 H Lymph Abs (test code = ALYMPH) 2.3 K/cumm 0.5-4.6 N [place] Abs (test code = AMONO) 0.7 K/cumm 0.0-1.2 N Eos Abs (test code = AEOS) 0.12 K/cumm 0.00-0.74 N Baso Abs (test code = ABASO) 0.0 K/cumm 0.00-0.21 N XR CHEST 1 [id number] 15:57:45XR CHEST 1 VIEWLOCATION: [id number]: chest radiograph 07/15/2017INDICATION: eval central lineDISCUSSION:A single portable chest radiograph was submitted for interpretation.Median sternotomy changes are noted. Left IJ central line terminatesover the SVC. Distal gastric tube is seen over the gastric body.The lungs are well-inflated.Nonspecific mild bibasilar opacities may be due to atelectasis.The upper lungs are otherwise grossly clear.There is no definite evidence for pneumothorax.The cardiac silhouette is prominent. Osseous structures are grossly stable.IMPRESSION:1. Lines/tubes as above.2. Nonspecific mild bibasilar opacities may be due to atelectasis.3. Prominent cardiac silhouette.Basic Metabolic [id number] 15:31:00 Test Item Value Reference Range Interpretation Comments Sodium (test code = 141 mmol/L 135-145 N NA) Potassium (test 3.3 mmol/L 3.5-5.1 L code = K) Chloride (test code 104 mmol/L 98-105 N = CL) Carbon Dioxide 23 mmol/L 22-29 N (test code = CO2) Glucose (test code 180 mg/dL 70-115 H = GLU) Blood Urea Nitrogen 12 mg/dL 6-20 N (test code = BUN) Creatinine (test 1.1 mg/dL 0.5-0.9 H code = CREAT) Calcium (test code 8.7 mg/dL 8.3-10.5 N = CA) BUN/Creatinine 10.9 Ratio (test code = BCRATIO) Anion Gap (test 14 mmol/L 7-16 N code = AGAP) Estimated GFR (test 56 eGFR (es timated code = GFR) mL/min/1.73m2 Glomerular Angel tration Rate) is an est imated value,calculate d from the patient's s felicity creatinine usin g the MDRD equation.I t is NOT the patient 's actual GFR. The eGFR provides a more clinicallyusefu l measure of kidn ey disease than se rum creatinine alone.This calculation zenon es sex and race into account, if the informationis provided. If th e race is not provided , and the patient isAfrican-Ameri can, multiply by 1.2 12. If sex is not prov ided, and thepatient is female, multipl y by 0.742. Results for patients <18 ye ars ofage have not been validated by th e MDRD study and shoul d be interpretedwith caution.eGFR Re sult Interpretation: eGFR > or = 60 is in t he Normal RangeeGF R < 60 may mean kidney diseaseeGFR < 1 5 may mean kidney failureRange s recommended by the National Kidney Foundation,http ://nkd ep.nih.gov CBC with [id number] 14:34:00 Test Item Value Reference Range Interpretation Comments WBC (test code = WBC) 16.4 K/cumm 4.4-10.5 H RBC (test code = RBC) 4.80 M/cumm 3.75-5.20 N Hemoglobin (test code = HGB) 14.0 gm/dL 12.2-14.8 N Hematocrit (test code = HCT) 41.7 % 36.5-44.4 N MCV (test code = MCV) 86.9 fL 80-100 N MCH (test code = MCH) 29.2 pg 27.0-32.5 N MCHC (test code = MCHC) 33.6 g/dL 32.0-37.5 N RDW (test code = RDW) 14.9 % 11.5-14.5 H Platelet Count (test code = 223 K/cumm 140-440 N PLTCT) MPV (test code = MPV) 10.0 fL Diff Method (test code = DIFFM) Auto Neutrophil (test code = NEUT) 81.8 % 36-70 H Lymphocyte (test code = LYMPH) 12.3 % 12-44 N Monocyte (test code = MONO) 5.0 % 0-11 N Eosinophil (test code = EOS) 0.6 % 0-7 N Basophil (test code = BASO) 0.2 % 0-2 N Neutro Abs (test code = ANEUT) 13.4 K/cumm 1.6-7.4 H Lymph Abs (test code = ALYMPH) 2.0 K/cumm 0.5-4.6 N [place] Abs (test code = AMONO) 0.8 K/cumm 0.0-1.2 N Eos Abs (test code = AEOS) 0.10 K/cumm 0.00-0.74 N Baso Abs (test code = ABASO) 0.0 K/cumm 0.00-0.21 N Blood Gas+Lytes+Glu+Ca+Hgb+Hct+[id number] 08:35:00 Test Item Value Reference Range Interpretation Comments pH, Blood Gas (test code = 7.437 pH Units 7.35-7.45 N BGPH) pCO2 (test code = PCO2) 35.6 mm Hg 35-45 N pO2 (test code = PO2) 382.0 mm Hg 80-100 HH Bicarbonate (test code = 24.0 mmol/L 22.0-26.0 N HCO3) Base Excess (test code = 0.1 mmol/L BE) O2 Saturation (test code = 100.2 % 80.0-100.0 H O2SAT) Sodium, Blood Gas (test 141 mmol/L 135-145 N code = BGNA) Potassium, Blood Gas (test 3.1 mmol/L 3.5-4.5 L code = BGK) Chloride, Blood Gas (test 110 mmol/L 98-105 H code = BGCL) Calcium, Ionized, Blood Gas 1.20 mmol/L 1.00-1.50 N (test code = BGCAI) Glucose, Blood Gas (test 93 mg/dL 75-115 N code = BGGLU) tHB (test code = RTHB) 12.0 gm/dL 12.2-17.4 L Hematocrit, Blood Gas (test 36.7 % 34.0-52.0 N code = BGHCT) O2Hb (test code = RO2HB) 93 80-100 N Carboxyhemoglobin (test 5.9 % 0.0-20.0 N code = CARHGB) Methemoglobin (test code = 1.2 % 0.0-20.0 N METHGB) FIO2 % (test code = FIO2) 100 % Patient Temperature (test 37.0 Degrees code = PTTEMP) Celcius Puncture Site (test code = Art line PUNSITE) Drawing Tech ID (test code ed = DRAWTECH) Lactic Acid, Blood Gas 0.6 mmol/L (test code = BGLA) Respiratory Rate (test code 0 = RESP RATE) Comprehensive Metabolic [id number] 17:23:00 Test Item Value Reference Range Interpretation Comments Sodium (test code = 143 mmol/L 135-145 N NA) Potassium (test 3.4 mmol/L 3.5-5.1 L code = K) Chloride (test code 102 mmol/L 98-105 N = CL) Carbon Dioxide 27 mmol/L 22-29 N (test code = CO2) Glucose (test code 87 mg/dL 70-115 N = GLU) Blood Urea Nitrogen 12 mg/dL 6-20 N (test code = BUN) Creatinine (test 1.0 mg/dL 0.5-0.9 H code = CREAT) Calcium (test code 9.6 mg/dL 8.3-10.5 N = CA) Prot Total (test 7.1 g/dL 6.4-8.3 N code = TP) Albumin (test code 4.2 g/dL 3.5-5.2 N = ALB) A/G Ratio (test 1.4 Ratio code = AGRATIO) Globulin (test code 2.9 2.9-3.1 N = GLOB) Bili Total (test 0.2 mg/dL 0.1-0.9 N code = TBIL) Alk Phos (test code 92 U/L 35-104 N = APHOS) AST (test code = 12 U/L 1-32 N AST) ALT (test code = 8 U/L 1-33 N ALT) BUN/Creatinine 12.0 Ratio (test code = BCRATIO) Anion Gap (test 14 mmol/L 7-16 N code = AGAP) Estimated GFR (test >60 eGFR (es timated code = GFR) mL/min/1.73m2 Glomerular Angel tration Rate) is an est imated value,calculate d from the patient's s felicity creatinine usin g the MDRD equation.I t is NOT the patient 's actual GFR. The eGFR provides a more clinicallyusefu l measure of kidn ey disease than se rum creatinine alone.This calculation zenon es sex and race into account, if the informationis provided. If th e race is not provided , and the patient isAfrican-Ameri can, multiply by 1.2 12. If sex is not prov ided, and thepatient is female, multipl y by 0.742. Results for patients <18 ye ars ofage have not been validated by th e MDRD study and shoul d be interpretedwith caution.eGFR Re sult Interpretation: eGFR > or = 60 is in t he Normal RangeeGF R < 60 may mean kidney diseaseeGFR < 1 5 may mean kidney failureRange s recommended by the National Kidney Foundation,http ://nkd ep.nih.gov CBC with [id number] 17:20:00 Test Item Value Reference Range Interpretation Comments WBC (test code = WBC) 9.7 K/cumm 4.4-10.5 N RBC (test code = RBC) 4.74 M/cumm 3.75-5.20 N Hemoglobin (test code = HGB) 13.7 gm/dL 12.2-14.8 N Hematocrit (test code = HCT) 40.2 % 36.5-44.4 N MCV (test code = MCV) 84.7 fL 80-100 N MCH (test code = MCH) 29.0 pg 27.0-32.5 N MCHC (test code = MCHC) 34.2 g/dL 32.0-37.5 N RDW (test code = RDW) 14.6 % 11.5-14.5 H Platelet Count (test code = 302 K/cumm 140-440 N PLTCT) MPV (test code = MPV) 10.2 fL Diff Method (test code = DIFFM) Auto Neutrophil (test code = NEUT) 42.2 % 36-70 N Lymphocyte (test code = LYMPH) 47.1 % 12-44 H Monocyte (test code = MONO) 6.7 % 0-11 N Eosinophil (test code = EOS) 3.3 % 0-7 N Basophil (test code = BASO) 0.7 % 0-2 N Neutro Abs (test code = ANEUT) 4.1 K/cumm 1.6-7.4 N Lymph Abs (test code = ALYMPH) 4.6 K/cumm 0.5-4.6 N [place] Abs (test code = AMONO) 0.7 K/cumm 0.0-1.2 N Eos Abs (test code = AEOS) 0.32 K/cumm 0.00-0.74 N Baso Abs (test code = ABASO) 0.1 K/cumm 0.00-0.21 N XR CHEST 2V, [id number] 15:01:18EXAM: Chest x-ray, 2 viewsLOCATION: [id number]: NoneINDICATION: I73.9: PERIPHERAL VASCULAR DISEASE, UNSPECIFIEDDISCUSSION:PA and lateral chest radiographs were submitted for interpretation (2total).Median sternotomy changes are noted.The lungs are well- inflated.No consolidation, pleural effusion, or pneumothorax is seen. Mild aortic calcifications are present.The cardiomediastinal silhouette is within normal limits. No acute osseous abnormalities are identified. IMPRESSION:No acute cardiopulmonary abnormalities.CBC with [id number] 00:41:00 Test Item Value Reference Range Interpretation Comments WBC (test code = WBC) 8.5 K/cumm 4.4-10.5 N RBC (test code = RBC) 3.95 M/cumm 3.75-5.20 N Hemoglobin (test code = 11.7 gm/dL 12.2-14.8 L HGB) Hematocrit (test code = 40.3 % 36.5-44.4 N HCT) MCV (test code = MCV) 102.1 fL 80-100 H MCH (test code = MCH) 29.7 pg 27.0-32.5 N MCHC (test code = MCHC) 29.1 g/dL 32.0-37.5 L RDW (test code = RDW) 14.0 % 11.5-14.5 N Platelet Count (test 423 K/cumm 140-440 N code = PLTCT) MPV (test code = MPV) 11.4 fL Diff Method (test code Manual = DIFFM) Neutrophil (test code = 49.0 % 36-70 N NEUT) Lymphocyte (test code = 43.4 % 12-44 N LYMPH) Monocyte (test code = 4.8 % 0-11 N MONO) Eosinophil (test code = 2.5 % 0-7 N EOS) Basophil (test code = 0.3 % 0-2 N BASO) Neutro Abs (test code = 4.1 K/cumm 1.6-7.4 N ANEUT) Lymph Abs (test code = 3.7 K/cumm 0.5-4.6 N ALYMPH) [place] Abs (test code = 0.4 K/cumm 0.0-1.2 N AMONO) Eos Abs (test code = 0.21 K/cumm 0.00-0.74 N AEOS) Baso Abs (test code = 0.0 K/cumm 0.00-0.21 N ABASO) RBC Morphology (test Not Indicated code = RBCMRPH) Platelet Est (test code Adequate Platelets on = PLTEST) Smear Lipid [id number] 23:38:00 Test Item Value Reference Range Interpretation Comments Cholesterol (test 163 mg/dL 0-200 N code = CHOL) Triglycerides (test 207 mg/dL 9-200 H Unable t o calculate, code = TRIG) Trig >400 HDL (test code = 35 mg/dL 50-60 L HDL) Chol/HDL (test code 4.7 Ratio 0.0-4.4 H = CHOLPHDL) LDL, Calculated 87 mg/dL 0-130 N (NOTE)RISK O F HEART (test code = LDLC) DISEASEPu blished by [place] Heart AssociationAnal yte Optim al Boderline Increased RiskC HOL <200 200-239 >240TRI G <150 150-199 >200HDL Male: >60 <40HDL Female: >60 <50 LDL < 100 130-15 9 >160 LDL NEAR OPTIMAL IS 100- 129 VLDL (test code = 41 mg/dL 5-40 H VLDL) LDL/HDL (test code = 2 LDLPHDL) [id number] 23:38:00 Test Item Value Reference Range Interpretation Comments NT ProBnp (test code = PBNP) 5902 pg/mL 0-124 H Comprehensive Metabolic [id number] 23:38:00 Test Item Value Reference Range Interpretation Comments Sodium (test code = 140 mmol/L 135-145 N NA) Potassium (test 4.1 mmol/L 3.5-5.1 N code = K) Chloride (test code 99 mmol/L 98-105 N = CL) Carbon Dioxide 25 mmol/L 22-29 N (test code = CO2) Glucose (test code 93 mg/dL 70-115 N = GLU) Blood Urea Nitrogen 19 mg/dL 6-20 N (test code = BUN) Creatinine (test 0.8 mg/dL 0.5-0.9 N code = CREAT) Calcium (test code 10.1 mg/dL 8.3-10.5 N = CA) Prot Total (test 7.6 g/dL 6.4-8.3 N code = TP) Albumin (test code 4.3 g/dL 3.5-5.2 N = ALB) A/G Ratio (test 1.3 Ratio code = AGRATIO) Globulin (test code 3.3 2.9-3.1 H = GLOB) Bili Total (test 0.2 mg/dL 0.1-0.9 N code = TBIL) Alk Phos (test code 88 U/L 35-104 N = APHOS) AST (test code = 11 U/L 1-32 N AST) ALT (test code = 7 U/L 1-33 N ALT) BUN/Creatinine 23.8 Ratio (test code = BCRATIO) Anion Gap (test 16 mmol/L 7-16 N code = AGAP) Estimated GFR (test >60 eGFR (es timated code = GFR) mL/min/1.73m2 Glomerular Angel tration Rate) is an est imated value,calculate d from the patient's s felicity creatinine usin g the MDRD equation.I t is NOT the patient 's actual GFR. The eGFR provides a more clinicallyusefu l measure of kidn ey disease than se rum creatinine alone.This calculation zenon es sex and race into account, if the informationis provided. If th e race is not provided , and the patient isAfbeatricean-Amstephanie can, multiply by 1.2 12. If sex is not prov ided, and thepatient is female, multipl y by 0.742. Results for patients <18 ye ars ofage have not been validated by th e MDRD study and glenis d be interpretedwith caution.eGFR Re sult Interpretation: eGFR > or = 60 is in t he Normal RangeeGF R < 60 may mean kidney diseaseeGFR < 1 5 may mean kidney failureRange s recommended by the National Kidney Foundation,http ://nkd ep.nih.gov SPUTUM CULTURE + GRAM [id number] 12:35:00 Test Item Value Reference Range Interpretation Comments CULTURE (BEAKER) A 4+ Haemophi venkatesh (test code = influenzaeBeta- lact 1095) amase negative GRAM STAIN 3+ WBCs RESULT (BEAKER) (test code = 1123) GRAM STAIN 0-5 epithelial RESULT (BEAKER) cells (test code = 698999) GRAM STAIN <1+ gram negative RESULT (BEAKER) rods (test code = 869910) GRAM STAIN 3+ gram positive RESULT (BEAKER) cocci in chains, (test code = pairs and clusters 118255) 4+ Normal respiratory landry presentBASIC METABOLIC [id number] 05:32:00 Test Item Value Reference Range Interpretation Comments SODIUM (BEAKER) 139 meq/L 136-145 (test code = 381) POTASSIUM (BEAKER) 3.6 meq/L 3.5-5.1 Specimen slightly (test code = 379) hemolyzed CHLORIDE (BEAKER) 101 meq/L 98-107 (test code = 382) CO2 (BEAKER) (test 30 meq/L 22-29 H code = 355) BLOOD UREA NITROGEN 11 mg/dL 7-21 (BEAKER) (test code = 354) CREATININE (BEAKER) 0.62 mg/dL 0.57-1.25 Specimen slightly (test code = 358) hemolyzed GLUCOSE RANDOM 93 mg/dL 70-105 (BEAKER) (test code = 652) CALCIUM (BEAKER) 8.7 mg/dL 8.4-10.2 (test code = 697) EGFR (BEAKER) (test 102 mL/min/1.73 ESTIM ATED GFR IS code = 1092) sq m NOT ACCURATE CREATININE CLEARANCE IN PREDICTING GLOMERULAR FILTRATION RATE . ESTIMATED GFR I S NOT APPLICABLE FOR DIALYSIS PATIEN TS. CBC (HEMOGRAM ONLY)2017-04-02 04:51:00 Test Item Value Reference Range Interpretation Comments WHITE BLOOD CELL COUNT (BEAKER) 7.8 K/ L 3.5-10.5 (test code = 775) RED BLOOD CELL COUNT (BEAKER) 3.23 M/ L 3.93-5.22 L (test code = 761) HEMOGLOBIN (BEAKER) (test code = 9.4 GM/DL 11.2-15.7 L 410) HEMATOCRIT (BEAKER) (test code = 29.8 % 34.1-44.9 L 411) MEAN CORPUSCULAR VOLUME (BEAKER) 92.3 fL 79.4-94.8 (test code = 753) MEAN CORPUSCULAR HEMOGLOBIN 29.1 pg 25.6-32.2 (BEAKER) (test code = 751) MEAN CORPUSCULAR HEMOGLOBIN CONC 31.5 GM/DL 32.2-35.5 L (BEAKER) (test code = 752) RED CELL DISTRIBUTION WIDTH 13.8 % 11.7-14.4 (BEAKER) (test code = 412) PLATELET COUNT (BEAKER) (test 277 K/CU MM 150-450 code = 756) MEAN PLATELET VOLUME (BEAKER) 10.8 fL 9.4-12.3 (test code = 754) NUCLEATED RED BLOOD CELLS 0 /100 WBC 0-0 (BEAKER) (test code = 413) TISSUE [id number] 14:15:00Surgical Pathology Report Case: [id number] Authorizing Provider: Ra Ellis MD Collected: 03/27/2017 1413 Ordering Location: [facility] Received: 03/27/2017 1513 PERIOPERATIVE SERVICES Pathologist: Mukesh Manuel MD Specimen: Plaque, Right Carotid Plaque ARTERY, RIGHT CAROTID, ENDARTERECTOMY: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 The wall ranges from 0.1 to 0.3 cm in thickness, with a solorio-pink congested cut surface. Cq Developer sections are submitted in cassette A1. SA/ewPerformedRAD, CHEST, 1 VIEW, NON [id number] 07:23:00Reason for exam:- >s/p sternotomyIs the patient ?->NoShould this be performed at the bedside?->YesFINAL REPORT Chest one view. Clinical history: s/p sternotomy Comparison: 03/31/2017 Discussion: A frontal chest is provided. Cardiac silhouette appears enlarged, as before. There is persistent left basilar opacity that likely reflects accommodation of pleural effusion and atelectasis/consolidation. There is mild degree of interstitial edema. No pneumothorax. There may be traceeffusion on the right as well. Signed: Annalee Conley Verified Date/Time: 04/01/2017 07:23:22 Reading Location: [facility] Radiology Reading Room Electronically signed by: ANNALEE CONLEY M.D.on 04/01/2017 07:23 [id number] 13:19:00 Test Item Value Reference Range Interpretation Comments MAGNESIUM (BEAKER) (test code = 1.9 mg/dL 1.6-2.6 627) BASIC METABOLIC [id number] 13:19:00 Test Item Value Reference Range Interpretation Comments SODIUM (BEAKER) 140 meq/L 136-145 (test code = 381) POTASSIUM (BEAKER) 3.7 meq/L 3.5-5.1 (test code = 379) CHLORIDE (BEAKER) 105 meq/L 98-107 (test code = 382) CO2 (BEAKER) (test 28 meq/L 22-29 code = 355) BLOOD UREA NITROGEN 15 mg/dL 7-21 (BEAKER) (test code = 354) CREATININE (BEAKER) 0.64 mg/dL 0.57-1.25 (test code = 358) GLUCOSE RANDOM 88 mg/dL 70-105 (BEAKER) (test code = 652) CALCIUM (BEAKER) 8.8 mg/dL 8.4-10.2 (test code = 697) EGFR (BEAKER) (test 98 mL/min/1.73 ESTIMA JUAN J GFR IS code = 1092) sq m NOT ACCURATE CREATININE CLEARANCE IN PREDICTING GLOMERULAR FILTRATION RATE . ESTIMATED GFR I S NOT APPLICABLE FOR DIALYSIS PATIEN RAD, CHEST, 1 VIEW, NON [id number] 08:03:00Reason for exam:->s/p sternotomyIs the patient ?->NoShould this be performed at the bed side?->YesFINAL REPORT History: Status post sternotomy Comparison: 03/30/2017 Findings:Mild persistent interstitial edema, unchanged or sightly decreased since the prior study. Small bilateral pleural effusions, left greater than right, and left lower lobe atelectasis are similar in appearance. No pneumothorax is identified. The cardiac shadow is partially obscured. Sternotomy wires arepresent. Signed: Ra Rabago Verified Date/Time: 03/31/2017 08:03:27 Reading Location: [address] Consult Reading Room RAD, CHEST, 1 VIEW, NON [id number] 07:53:00Reason for exam:->s/p sternotomyIs the patient ?->NoShould this be performed at the bed side?->YesFINAL REPORT Chest one view compared to March 29 Discussion: Pulmonary congestion is noted with bilateral lower opacities left more than right. I could not exclude small lefteffusion. A small left upper chest pneumothorax is grossly similar in size albeit somewhat more conspicuous, with apical pleural separation of approximately 12 mm. IMPRESSIONS: Right base opacity probably atelectasis is worse. Otherwise similar chest appearance. Signed: Poncho Brooks Verified Date/Time: 03/30/2017 07:53:32 Reading Location: [address] Reading Room Electronic ally signed by: PONCHO BROOKS M.D. on 03/30/2017 07:53 AMCALCIUM, IONIZED 2017-03-30 06:23:00 Test Item Value Reference Range Interpretation Comments CALCIUM IONIZED (BEAKER) (test 1.22 mmol/L 1.12-1.27 code = 698) PH, BLOOD (BEAKER) (test code = 7.30 1810) [id number] 06:23:00 Test Item Value Reference Range Interpretation Comments PHOSPHORUS (BEAKER) (test code = 2.5 mg/dL 2.3-4.7 604) [id number] 06:23:00 Test Item Value Reference Range Interpretation Comments MAGNESIUM (BEAKER) (test code = 1.9 mg/dL 1.6-2.6 627) BASIC METABOLIC [id number] 06:23:00 Test Item Value Reference Range Interpretation Comments SODIUM (BEAKER) 139 meq/L 136-145 (test code = 381) POTASSIUM (BEAKER) 4.3 meq/L 3.5-5.1 (test code = 379) CHLORIDE (BEAKER) 108 meq/L 98-107 H (test code = 382) CO2 (BEAKER) (test 25 meq/L 22-29 code = 355) BLOOD UREA NITROGEN 21 mg/dL 7-21 (BEAKER) (test code = 354) CREATININE (BEAKER) 0.72 mg/dL 0.57-1.25 (test code = 358) GLUCOSE RANDOM 89 mg/dL 70-105 (BEAKER) (test code = 652) CALCIUM (BEAKER) 8.7 mg/dL 8.4-10.2 (test code = 697) EGFR (BEAKER) (test 86 mL/min/1.73 ESTIMA JUAN J GFR IS code = 1092) sq m NOT ACCURATE CREATININE CLEARANCE IN PREDICTING GLOMERULAR FILTRATION RATE . ESTIMATED GFR I S NOT APPLICABLE FOR DIALYSIS PATIEN TS. CBC W/PLT COUNT & AUTO [id number] 05:52:00 Test Item Value Reference Range Interpretation Comments WHITE BLOOD CELL COUNT (BEAKER) 6.4 K/ L 3.5-10.5 (test code = 775) RED BLOOD CELL COUNT (BEAKER) 2.78 M/ L 3.93-5.22 L (test code = 761) HEMOGLOBIN (BEAKER) (test code = 8.0 GM/DL 11.2-15.7 L 410) HEMATOCRIT (BEAKER) (test code = 25.6 % 34.1-44.9 L 411) MEAN CORPUSCULAR VOLUME (BEAKER) 92.1 fL 79.4-94.8 (test code = 753) MEAN CORPUSCULAR HEMOGLOBIN 28.8 pg 25.6-32.2 (BEAKER) (test code = 751) MEAN CORPUSCULAR HEMOGLOBIN CONC 31.3 GM/DL 32.2-35.5 L (BEAKER) (test code = 752) RED CELL DISTRIBUTION WIDTH 14.4 % 11.7-14.4 (BEAKER) (test code = 412) PLATELET COUNT (BEAKER) (test 150 K/CU MM 150-450 code = 756) MEAN PLATELET VOLUME (BEAKER) 11.2 fL 9.4-12.3 (test code = 754) NUCLEATED RED BLOOD CELLS 0 /100 WBC 0-0 (BEAKER) (test code = 413) NEUTROPHILS RELATIVE PERCENT 56 % (BEAKER) (test code = 429) LYMPHOCYTES RELATIVE PERCENT 34 % (BEAKER) (test code = 430) MONOCYTES RELATIVE PERCENT 10 % (BEAKER) (test code = 431) EOSINOPHILS RELATIVE PERCENT 0 % (BEAKER) (test code = 432) BASOPHILS RELATIVE PERCENT 0 % (BEAKER) (test code = 437) NEUTROPHILS ABSOLUTE COUNT 3.58 K/ L 1.56-6.13 (BEAKER) (test code = 670) LYMPHOCYTES ABSOLUTE COUNT 2.17 K/ L 1.18-3.74 (BEAKER) (test code = 414) MONOCYTES ABSOLUTE COUNT (BEAKER) 0.61 K/ L 0.24-0.36 H (test code = 415) EOSINOPHILS ABSOLUTE COUNT 0.02 K/ L 0.04-0.36 L (BEAKER) (test code = 416) BASOPHILS ABSOLUTE COUNT (BEAKER) 0.02 K/ L 0.01-0.08 (test code = 417) IMMATURE GRANULOCYTES-RELATIVE 0 % 0-1 PERCENT (BEAKER) (test code = 2801) POCT-GLUCOSE [id number] 16:56:00 Test Item Value Reference Range Interpretation Comments POC-GLUCOSE METER 144 mg/dL 70-[address] [facility] 6720 (BEAKER) (test code = [place] 1538) [id number] POCT-GLUCOSE [id number] 12:17:00 Test Item Value Reference Range Interpretation Comments POC-GLUCOSE METER 110 mg/dL 70-[address] [facility] 6720 (BEAKER) (test code = [place] 1538) [address] POCT-GLUCOSE [id number] 08:04:00 Test Item Value Reference Range Interpretation Comments POC-GLUCOSE METER 84 mg/dL 70-[address] [facility] 6720 ([facility] (test code = GAGE Walls [facility] [address] 1538) RAD, CHEST, 1 VIEW, NON [id number] 07:38:00while patient is intubated or has chest tubes.Reason for exam:->s/p sternotomyIs the patient ?- >NoShould this be performed at the bedside?->YesFINAL REPORT HISTORY : s/p sternotomy. Comparison: 03/28/2017 Comment: Single p ortable view of the chest was obtained. The cardiac silhouette size is enlarged. The patient is status post sternotomy. There are findings of pulmonary venous congestion. There is a small left-sided pleural effusion with some adjacent airspace disease. There is a left-sided IJ sheath with the tip proj ecting possibly over the brachiocephalic vein or the left jugular vein. A left- sided chest tube is present. Some patchy airspace disease bilaterally could represent interstitial edema or a nonspecific pneumonitis. No pneumothorax is visualized. Signed: Merlin Herrera Verified Date/Time: 03/29/2017 07:38:27 Reading Location: [facility] Diagnostic Imaging Reading Room - [place] [address] CBC W/PLT COUNT & AUTO [id number] 07:37:00 Test Item Value Reference Range Interpretation Comments WHITE BLOOD CELL COUNT (BEAKER) 10.9 K/ L 3.5-10.5 H (test code = 775) RED BLOOD CELL COUNT (BEAKER) 3.03 M/ L 3.93-5.22 L (test code = 761) HEMOGLOBIN (BEAKER) (test code = 8.9 GM/DL 11.2-15.7 L 410) HEMATOCRIT (BEAKER) (test code = 28.1 % 34.1-44.9 L 411) MEAN CORPUSCULAR VOLUME (BEAKER) 92.7 fL 79.4-94.8 (test code = 753) MEAN CORPUSCULAR HEMOGLOBIN 29.4 pg 25.6-32.2 (BEAKER) (test code = 751) MEAN CORPUSCULAR HEMOGLOBIN CONC 31.7 GM/DL 32.2-35.5 L (BEAKER) (test code = 752) RED CELL DISTRIBUTION WIDTH 14.9 % 11.7-14.4 H (BEAKER) (test code = 412) PLATELET COUNT (BEAKER) (test 160 K/CU MM 150-450 code = 756) MEAN PLATELET VOLUME (BEAKER) 11.2 fL 9.4-12.3 (test code = 754) NUCLEATED RED BLOOD CELLS 0 /100 WBC 0-0 (BEAKER) (test code = 413) NEUTROPHILS RELATIVE PERCENT 73 % (BEAKER) (test code = 429) LYMPHOCYTES RELATIVE PERCENT 15 % (BEAKER) (test code = 430) MONOCYTES RELATIVE PERCENT 10 % (BEAKER) (test code = 431) EOSINOPHILS RELATIVE PERCENT 1 % (BEAKER) (test code = 432) BASOPHILS RELATIVE PERCENT 0 % (BEAKER) (test code = 437) NEUTROPHILS ABSOLUTE COUNT 7.95 K/ L 1.56-6.13 H (BEAKER) (test code = 670) LYMPHOCYTES ABSOLUTE COUNT 1.63 K/ L 1.18-3.74 (BEAKER) (test code = 414) MONOCYTES ABSOLUTE COUNT (BEAKER) 1.13 K/ L 0.24-0.36 H (test code = 415) EOSINOPHILS ABSOLUTE COUNT 0.06 K/ L 0.04-0.36 (BEAKER) (test code = 416) BASOPHILS ABSOLUTE COUNT (BEAKER) 0.02 K/ L 0.01-0.08 (test code = 417) IMMATURE GRANULOCYTES-RELATIVE 1 % 0-1 PERCENT (BEAKER) (test code = 2801) CALCIUM, [id number] 07:15:00 Test Item Value Reference Range Interpretation Comments CALCIUM IONIZED (BEAKER) (test 1.10 mmol/L 1.12-1.27 L code = 698) PH, BLOOD (BEAKER) (test code = 7.30 1810) [id number] 06:51:00 Test Item Value Reference Range Interpretation Comments PHOSPHORUS (BEAKER) (test code = 2.6 mg/dL 2.3-4.7 604) [id number] 06:51:00 Test Item Value Reference Range Interpretation Comments MAGNESIUM (BEAKER) (test code = 2.0 mg/dL 1.6-2.6 627) BASIC METABOLIC [id number] 06:51:00 Test Item Value Reference Range Interpretation Comments SODIUM (BEAKER) 139 meq/L 136-145 (test code = 381) POTASSIUM (BEAKER) 4.2 meq/L 3.5-5.1 (test code = 379) CHLORIDE (BEAKER) 111 meq/L 98-107 H (test code = 382) CO2 (BEAKER) (test 20 meq/L 22-29 L code = 355) BLOOD UREA NITROGEN 16 mg/dL 7-21 (BEAKER) (test code = 354) CREATININE (BEAKER) 0.68 mg/dL 0.57-1.25 (test code = 358) GLUCOSE RANDOM 86 mg/dL 70-105 (BEAKER) (test code = 652) CALCIUM (BEAKER) 8.3 mg/dL 8.4-10.2 L (test code = 697) EGFR (BEAKER) (test 92 mL/min/1.73 ESTIMA JUAN J GFR IS code = 1092) sq m NOT ACCURATE CREATININE CLEARANCE IN PREDICTING GLOMERULAR FILTRATION RATE . ESTIMATED GFR I S NOT APPLICABLE FOR DIALYSIS PATIEN TS. RAD, ABDOMEN/KUB, 1 VIEW [id number] 12:54:00Reason for exam:->abd distensionFINAL REPORT Two abdomen images Discussion: Air-filled large bowel is seen inthe left abdomen but without definitive small bowel distention. No evidence of free intraperitoneal air. Signed: Poncho [place] Verified Date/Time: 03/28/2017 12:54:23 Reading Location: [facility] Radiology Reading Room POCT-GLUCOSE [id number] 08:44:00 Test Item Value Reference Range Interpretation Comments POC-GLUCOSE METER 85 mg/dL 70-[address] [facility] 6720 ([facility]) (test code = [place] [address] 1538) POCT-GLUCOSE [id number] 06:10:00 Test Item Value Reference Range Interpretation Comments POC-GLUCOSE METER 113 mg/dL 70-[address] [facility] 6720 (BEAKER) (test code = [place] 1538) [address] CBC W/PLT COUNT & AUTO [id number] 04:49:00 Test Item Value Reference Range Interpretation Comments WHITE BLOOD CELL COUNT (BEAKER) 9.3 K/ L 3.5-10.5 (test code = 775) RED BLOOD CELL COUNT (BEAKER) 3.00 M/ L 3.93-5.22 L (test code = 761) HEMOGLOBIN (BEAKER) (test code = 8.9 GM/DL 11.2-15.7 L 410) HEMATOCRIT (BEAKER) (test code = 26.5 % 34.1-44.9 L 411) MEAN CORPUSCULAR VOLUME (BEAKER) 88.3 fL 79.4-94.8 (test code = 753) MEAN CORPUSCULAR HEMOGLOBIN 29.7 pg 25.6-32.2 (BEAKER) (test code = 751) MEAN CORPUSCULAR HEMOGLOBIN CONC 33.6 GM/DL 32.2-35.5 (BEAKER) (test code = 752) RED CELL DISTRIBUTION WIDTH 14.5 % 11.7-14.4 H (BEAKER) (test code = 412) PLATELET COUNT (BEAKER) (test 162 K/CU MM 150-450 code = 756) MEAN PLATELET VOLUME (BEAKER) 10.7 fL 9.4-12.3 (test code = 754) NUCLEATED RED BLOOD CELLS 0 /100 WBC 0-0 (BEAKER) (test code = 413) NEUTROPHILS RELATIVE PERCENT 77 % (BEAKER) (test code = 429) LYMPHOCYTES RELATIVE PERCENT 13 % (BEAKER) (test code = 430) MONOCYTES RELATIVE PERCENT 10 % (BEAKER) (test code = 431) EOSINOPHILS RELATIVE PERCENT 0 % (BEAKER) (test code = 432) BASOPHILS RELATIVE PERCENT 0 % (BEAKER) (test code = 437) NEUTROPHILS ABSOLUTE COUNT 7.14 K/ L 1.56-6.13 H (BEAKER) (test code = 670) LYMPHOCYTES ABSOLUTE COUNT 1.22 K/ L 1.18-3.74 (BEAKER) (test code = 414) MONOCYTES ABSOLUTE COUNT (BEAKER) 0.90 K/ L 0.24-0.36 H (test code = 415) EOSINOPHILS ABSOLUTE COUNT 0.00 K/ L 0.04-0.36 L (BEAKER) (test code = 416) BASOPHILS ABSOLUTE COUNT (BEAKER) 0.02 K/ L 0.01-0.08 (test code = 417) IMMATURE GRANULOCYTES-RELATIVE 0 % 0-1 PERCENT (BEAKER) (test code = 2801) RAD, CHEST, 1 VIEW, NON [id number] 04:40:00while patient is intubated or has chest tubes.Reason for exam:->s/p sternotomyIs the patient ?- >NoShould this be performed at the bedside?->YesFINAL REPORT EXAMINATION: AP PORTABLE CHEST RADIOGRAPH CLINICAL INDICATION:Chest tubes IMPRESSION: Compared with 03/27/2017. The endotracheal and nasogastric tubes have been removed in the interval. Support tube and catheter positions are otherwise unchanged. The heart is enlarged as before. Opacities persist in the perihilar regions and lung bases worrisome for a combinationof edema and atelectasis. Grossly stable small superimposed pleural effusions are again suspected. No evidence of a pneumothorax. There is new gaseous distention of the stomach following removal of the nasogastric tube. In summary, constellation of findings worrisome for fluid overload/heart failure.Signed: Luke Coyne MDReport Verified Date/Time: 03/28/2017 04:40:52 Reading Location: [address] Reading Room POCT-GLUCOSE [id number] 04:25:00 Test Item Value Reference Range Interpretation Comments POC-GLUCOSE METER 115 mg/dL 70-[address] [facility] 6720 (BEAKER) (test code = [place] 1538) [address] [id number] 03:59:00 Test Item Value Reference Range Interpretation Comments PHOSPHORUS (BEAKER) (test code = 3.2 mg/dL 2.3-4.7 604) [id number] 03:59:00 Test Item Value Reference Range Interpretation Comments MAGNESIUM (BEAKER) (test code = 2.3 mg/dL 1.6-2.6 627) BASIC METABOLIC [id number] 03:59:00 Test Item Value Reference Range Interpretation Comments SODIUM (BEAKER) 142 meq/L 136-145 (test code = 381) POTASSIUM (BEAKER) 4.3 meq/L 3.5-5.1 (test code = 379) CHLORIDE (BEAKER) 113 meq/L 98-107 H (test code = 382) CO2 (BEAKER) (test 23 meq/L 22-29 code = 355) BLOOD UREA NITROGEN 15 mg/dL 7-21 (BEAKER) (test code = 354) CREATININE (BEAKER) 0.78 mg/dL 0.57-1.25 (test code = 358) GLUCOSE RANDOM 98 mg/dL 70-105 (BEAKER) (test code = 652) CALCIUM (BEAKER) 8.0 mg/dL 8.4-10.2 L (test code = 697) EGFR (BEAKER) (test 78 mL/min/1.73 ESTIMA JUAN J GFR IS code = 1092) sq m NOT ACCURATE CREATININE CLEARANCE IN PREDICTING GLOMERULAR FILTRATION RATE . ESTIMATED GFR I S NOT APPLICABLE FOR DIALYSIS PATIEN TS. LACTIC ACID, ARTERIAL, WHOLE [id number] 03:55:00 Test Item Value Reference Range Interpretation Comments LACTATE BLOOD ARTERIAL (2) 0.8 mmol/L 0.5-2.2 (BEAKER) (test code = 2874) Effective 11/09/2015: Units/Reference Range ChangeNew: 0.5-2.2 mmol/L Previous: 5-20 mg/dLCALCIUM, [id number] 03:39:00 Test Item Value Reference Range Interpretation Comments CALCIUM IONIZED (BEAKER) (test 1.15 mmol/L 1.12-1.27 code = 698) PH, BLOOD (BEAKER) (test code = 7.34 1810) OXYGEN SATURATION, [id number] 03:39:00 Test Item Value Reference Range Interpretation Comments O2 SATURATION (MEASURED) (BEAKER) 60.9 % (test code = 1455) POCT-GLUCOSE [id number] 03:15:00 Test Item Value Reference Range Interpretation Comments POC-GLUCOSE METER 105 mg/dL 70-[address] [facility] 6720 (BEAKER) (test code = [place] 1538) [address] POCT-GLUCOSE [id number] 02:20:00 Test Item Value Reference Range Interpretation Comments POC-GLUCOSE METER 119 mg/dL 70-110 H TESTED AT [place] [address] (BEAKER) (test code = G[place] [facility] 1538) [address] POCT-GLUCOSE [id number] 01:48:00 Test Item Value Reference Range Interpretation Comments POC-GLUCOSE METER 114 mg/dL 70-110 H TESTED AT [place] [address] (BEAKER) (test code = [place] [facility] 1538) [address] BLOOD GAS, [id number] 00:09:00 Test Item Value Reference Range Interpretation Comments PH ARTERIAL (BEAKER) (test code = 7.35 7.35-7.45 383) PCO2 ARTERIAL (BEAKER) (test code 46 mmHg 35-45 H = 384) PO2 ARTERIAL (BEAKER) (test code 95 mmHg 80-90 H = 385) O2 SATURATION ARTERIAL (BEAKER) 97.0 % 96.0-97.0 (test code = 386) HCO3 ARTERIAL (BEAKER) (test code 25 mmol/L 21-29 = 388) BASE EXCESS ARTERIAL (BEAKER) -1.2 mmol/L -2.0-3.0 (test code = 387) PATIENT TEMPERATURE (BEAKER) 36.6 C (test code = 1818) FIO2 (BEAKER) (test code = 1819) 36.0 % POCT-GLUCOSE [id number] 00:00:00 Test Item Value Reference Range Interpretation Comments POC-GLUCOSE METER 103 mg/dL 70-110 TESTED AT [place] [address] (BEAKER) ([facility] = [facility] 1538) [address] BLOOD GAS, [id number] 22:46:00 Test Item Value Reference Range Interpretation Comments PH ARTERIAL (BEAKER) (test code = 7.36 7.35-7.45 383) PCO2 ARTERIAL (BEAKER) (test code 46 mmHg 35-45 H = 384) PO2 ARTERIAL (BEAKER) (test code 82 mmHg 80-90 = 385) O2 SATURATION ARTERIAL (BEAKER) 95.6 % 96.0-97.0 L (test code = 386) HCO3 ARTERIAL (BEAKER) (test code 25 mmol/L 21-29 = 388) BASE EXCESS ARTERIAL (BEAKER) -0.6 mmol/L -2.0-3.0 (test code = 387) PATIENT TEMPERATURE (BEAKER) 37.0 C (test code = 1818) FIO2 (BEAKER) (test code = 1819) 40.0 % POCT-GLUCOSE [id number] 22:41:00 Test Item Value Reference Range Interpretation Comments POC-GLUCOSE METER 110 mg/dL 70-[address] [facility] 6720 (BEAKER) (test code = [place] 1538) [address] POCT-GLUCOSE [id number] 22:41:00 Test Item Value Reference Range Interpretation Comments POC-GLUCOSE METER 123 mg/dL 70-[address] [facility] 67 ([facility]) (test code = [place] 1538) [address] LACTIC ACID, ARTERIAL, WHOLE [id number] 20:44:00 Test Item Value Reference Range Interpretation Comments LACTATE BLOOD 2.5 mmol/L 0.5-2.2 H Specimen sligh tly ARTERIAL (2) (BEAKER) hemoly zed (test code = 2874) Effective 11/09/2015: Units/Reference Range ChangeNew: 0.5-2.2 mmol/L Previous: 5-20 mg/dLHGB/HCT (H&H) - STAT [id number] 20:39:00 Test Item Value Reference Range Interpretation Comments HEMOGLOBIN (BEAKER) (test code = 9.6 g/dL 12.0-15.0 L 410) HEMATOCRIT (BEAKER) (test code = 28.0 % 36.0-45.0 L 411) BLOOD GAS, [id number] 20:39:00 Test Item Value Reference Range Interpretation Comments PH ARTERIAL (BEAKER) (test code = 7.41 7.35-7.45 383) PCO2 ARTERIAL (BEAKER) (test code 33 mmHg 35-45 L = 384) PO2 ARTERIAL (BEAKER) (test code 138 mmHg 80-90 H = 385) O2 SATURATION ARTERIAL (BEAKER) 98.8 % 96.0-97.0 H (test code = 386) HCO3 ARTERIAL (BEAKER) (test code 20 mmol/L 21-29 L = 388) BASE EXCESS ARTERIAL (BEAKER) -3.7 mmol/L -2.0-3.0 L (test code = 387) PATIENT TEMPERATURE (BEAKER) 36.4 C (test code = 1818) FIO2 (BEAKER) (test code = 1819) 40.0 % POCT-GLUCOSE [id number] 20:24:00 Test Item Value Reference Range Interpretation Comments POC-GLUCOSE METER 147 mg/dL 70-[address] [facility] 6720 (BEAKER) (test code = [place] 1538) [address] LACTIC ACID, ARTERIAL, WHOLE [id number] 19:11:00 Test Item Value Reference Range Interpretation Comments LACTATE BLOOD 2.6 mmol/L 0.5-2.2 H Specimen sligh tly ARTERIAL (2) (BEAKER) hemoly zed (test code = 2874) Effective 11/09/2015: Units/Reference Range ChangeNew: 0.5-2.2 mmol/L Previous: 5-20 mg/dLGLUCOSE-STAT [id number] 18:44:00 Test Item Value Reference Range Interpretation Comments GLUCOSE RANDOM (BEAKER) (test code 209 mg/dL 70-110 H = 652) HGB/HCT (H&H) - STAT [id number] 18:44:00 Test Item Value Reference Range Interpretation Comments HEMOGLOBIN (BEAKER) (test code = 11.2 g/dL 12.0-15.0 L 410) HEMATOCRIT (BEAKER) (test code = 33.0 % 36.0-45.0 L 411) POTASSIUM-STAT [id number] 18:43:00 Test Item Value Reference Range Interpretation Comments POTASSIUM (BEAKER) (test code = 4.3 meq/L 3.6-5.5 379) OXYGEN SATURATION, [id number] 18:35:00 Test Item Value Reference Range Interpretation Comments O2 SATURATION (MEASURED) (BEAKER) 62.1 % (test code = 1455) BLOOD GAS, [id number] 18:35:00 Test Item Value Reference Range Interpretation Comments PH ARTERIAL (BEAKER) (test code = 7.28 7.35-7.45 L 383) PCO2 ARTERIAL (BEAKER) (test code 47 mmHg 35-45 H = 384) PO2 ARTERIAL (BEAKER) (test code 93 mmHg 80-90 H = 385) O2 SATURATION ARTERIAL (BEAKER) 96.6 % 96.0-97.0 (test code = 386) HCO3 ARTERIAL (BEAKER) (test code 22 mmol/L 21-29 = 388) BASE EXCESS ARTERIAL (BEAKER) -5.1 mmol/L -2.0-3.0 L (test code = 387) PATIENT TEMPERATURE (BEAKER) 35.9 C (test code = 1818) FIO2 (BEAKER) (test code = 1819) 40.0 % THROMBOELASTOGRAPH (TEG)[id number] 17:56:00 Test Item Value Reference Range Interpretation Comments TEG ACTIVATED CLOTTING TIME 4.5 minutes 4.0-7.0 (BEAKER) (test code = 1407) TEG FIBRINOGEN ACTIVITY (BEAKER) 79.5 degrees 61.0-73.0 H (test code = 1408) TEG PLT. AGGREGATION (BEAKER) 66.1 MM 55.0-65.0 H (test code = 1409) TEG FIBRINOLYSIS (BEAKER) (test 6.1 % 0.0-5.0 H code = 1410) TGH ACTIVATED CLOTTING TIME 5.5 minutes 4.0-7.0 (BEAKER) (test code = 1411) TGH FIBRINOGEN ACTIVITY (BEAKER) 76.6 degrees 61.0-73.0 H (test code = 1412) TGH PLT. AGGREGATION (BEAKER) 72.1 MM 55.0-65.0 H (test code = 1413) TGH FIBRINOLYSIS (BEAKER) (test 0.0 % 0.0-5.0 code = 1414) CBC W/PLT COUNT & AUTO [id number] 17:32:00 Test Item Value Reference Range Interpretation Comments WHITE BLOOD CELL COUNT (BEAKER) 23.0 K/ L 3.5-10.5 H (test code = 775) RED BLOOD CELL COUNT (BEAKER) 2.91 M/ L 3.93-5.22 L (test code = 761) HEMOGLOBIN (BEAKER) (test code = 8.4 GM/DL 11.2-15.7 L 410) HEMATOCRIT (BEAKER) (test code = 26.6 % 34.1-44.9 L 411) MEAN CORPUSCULAR VOLUME (BEAKER) 91.4 fL 79.4-94.8 (test code = 753) MEAN CORPUSCULAR HEMOGLOBIN 28.9 pg 25.6-32.2 (BEAKER) (test code = 751) MEAN CORPUSCULAR HEMOGLOBIN CONC 31.6 GM/DL 32.2-35.5 L (BEAKER) (test code = 752) RED CELL DISTRIBUTION WIDTH 13.7 % 11.7-14.4 (BEAKER) (test code = 412) PLATELET COUNT (BEAKER) (test 299 K/CU MM 150-450 code = 756) MEAN PLATELET VOLUME (BEAKER) 10.3 fL 9.4-12.3 (test code = 754) NUCLEATED RED BLOOD CELLS 0 /100 WBC 0-0 (BEAKER) (test code = 413) NEUTROPHILS RELATIVE PERCENT 67 % (BEAKER) (test code = 429) LYMPHOCYTES RELATIVE PERCENT 26 % (BEAKER) (test code = 430) MONOCYTES RELATIVE PERCENT 5 % (BEAKER) (test code = 431) EOSINOPHILS RELATIVE PERCENT 1 % (BEAKER) (test code = 432) BASOPHILS RELATIVE PERCENT 0 % (BEAKER) (test code = 437) NEUTROPHILS ABSOLUTE COUNT 15.41 K/ L 1.56-6.13 H (BEAKER) (test code = 670) LYMPHOCYTES ABSOLUTE COUNT 6.04 K/ L 1.18-3.74 H (BEAKER) (test code = 414) MONOCYTES ABSOLUTE COUNT (BEAKER) 1.08 K/ L 0.24-0.36 H (test code = 415) EOSINOPHILS ABSOLUTE COUNT 0.25 K/ L 0.04-0.36 (BEAKER) (test code = 416) BASOPHILS ABSOLUTE COUNT (BEAKER) 0.05 K/ L 0.01-0.08 (test code = 417) IMMATURE GRANULOCYTES-RELATIVE 1 % 0-1 PERCENT (BEAKER) (test code = 2801) RAD, CHEST, 1 VIEW, NON [id number] 17:25:00Reason for exam:->immediate post cardiothoracic surgery/intubationShould this be performed at the bedside?->YesFINAL REPORT INDICATION: immediate post cardiothoracic surgery/intubation COMPARISON: March 26, 2017 TECHNIQUE: Chest radiograph, single view, portable technique. FINDINGS / IMPRESSION: Endotracheal tube terminates in the mid trachea. Left internal jugular Eldon-Adam catheterterminates in the main pulmonary artery. There is a single mediastinal tube and a single left chest tube. Nasogastric tube terminates in the stomach. No pulmonary edema, aspiration, or pneumothorax is demonstrated. Left retrocardiac opacity most likely represent subsegmental atelectasis. Heart shadow is not enlarged. In summary, no evidence of postoperative complication. Signed: Maylin Bustos MDReport Verified Date/Time: 03/27/2017 17:25:48 Reading Location: [address] Consult Reading Room LACTIC ACID, ARTERIAL, WHOLE [id number] 16:46:00 Test Item Value Reference Range Interpretation Comments LACTATE BLOOD 2.3 mmol/L 0.5-2.2 H Specimen sligh tly ARTERIAL (2) (BEAKER) hemoly zed (test code = 2874) Effective 11/09/2015: Units/Reference Range ChangeNew: 0.5-2.2 mmol/L Previous: 5-20 mg/[id number] 16:13:00 Test Item Value Reference Range Interpretation Comments PHOSPHORUS (BEAKER) (test code = 2.6 mg/dL 2.3-4.7 604) [id number] 16:13:00 Test Item Value Reference Range Interpretation Comments MAGNESIUM (BEAKER) (test code = 3.2 mg/dL 1.6-2.6 H 627) BASIC METABOLIC [id number] 16:13:00 Test Item Value Reference Range Interpretation Comments SODIUM (BEAKER) 137 meq/L 136-145 (test code = 381) POTASSIUM (BEAKER) 4.1 meq/L 3.5-5.1 (test code = 379) CHLORIDE (BEAKER) 110 meq/L 98-107 H (test code = 382) CO2 (BEAKER) (test 19 meq/L 22-29 L code = 355) BLOOD UREA NITROGEN 15 mg/dL 7-21 (BEAKER) (test code = 354) CREATININE (BEAKER) 0.78 mg/dL 0.57-1.25 (test code = 358) GLUCOSE RANDOM 212 mg/dL 70-105 H (BEAKER) (test code = 652) CALCIUM (BEAKER) 9.0 mg/dL 8.4-10.2 (test code = 697) EGFR (BEAKER) (test 78 mL/min/1.73 ESTIMA JUAN J GFR IS code = 1092) sq m NOT ACCURATE CREATININE CLEARANCE IN PREDICTING GLOMERULAR FILTRATION RATE . ESTIMATED GFR I S NOT APPLICABLE FOR DIALYSIS PATIEN TS. [id number] 16:00:00 Test Item Value Reference Range Interpretation Comments FIBRINOGEN LEVEL (BEAKER) (test 340 mg/dl 225-434 code = 658) [id number] 16:00:00 Test Item Value Reference Range Interpretation Comments PARTIAL THROMBOPLASTIN TIME 33.1 seconds 22.5-36.0 (BEAKER) (test code = 760) PROTHROMBIN [id number] 15:59:00 Test Item Value Reference Range Interpretation Comments PROTIME (BEAKER) (test code = 18.4 seconds 11.7-14.7 H 759) INR (BEAKER) (test code = 370) 1.5 <=5.9 RECOMMENDED COUMADIN/WARFARIN INR THERAPY RANGESSTANDARD DOSE: 2.0 - 3.0 Includes: PROPHYLAXIS forvenous thrombosis, systemic embolization; TREATMENT for venous thrombosis and/or pulmonary embolus.HIGH RISK: Target INR is 2.5-3.5 for patients with mechanical heart valves.CALCIUM, [id number] 15:54:00 Test Item Value Reference Range Interpretation Comments CALCIUM IONIZED (BEAKER) (test 1.29 mmol/L 1.12-1.27 H code = 698) PH, BLOOD (BEAKER) (test code = 7.34 1810) BLOOD GAS, [id number] 15:51:00 Test Item Value Reference Range Interpretation Comments PH ARTERIAL (BEAKER) (test code = 7.34 7.35-7.45 L 383) PCO2 ARTERIAL (BEAKER) (test code 36 mmHg 35-45 = 384) PO2 ARTERIAL (BEAKER) (test code 122 mmHg 80-90 H = 385) O2 SATURATION ARTERIAL (BEAKER) 98.3 % 96.0-97.0 H (test code = 386) HCO3 ARTERIAL (BEAKER) (test code 19 mmol/L 21-29 L = 388) BASE EXCESS ARTERIAL (BEAKER) -6.3 mmol/L -2.0-3.0 L (test code = 387) PATIENT TEMPERATURE (BEAKER) 36.2 C (test code = 1818) FIO2 (BEAKER) (test code = 1819) 60.0 % GLUCOSE-STAT [id number] 15:51:00 Test Item Value Reference Range Interpretation Comments GLUCOSE RANDOM (BEAKER) (test code 202 mg/dL 70-110 H = 652) HGB/HCT (H&H) - STAT [id number] 15:51:00 Test Item Value Reference Range Interpretation Comments HEMOGLOBIN (BEAKER) (test code = 9.3 g/dL 12.0-15.0 L 410) HEMATOCRIT (BEAKER) (test code = 27.0 % 36.0-45.0 L 411) SODIUM NA-STAT [id number] 15:51:00 Test Item Value Reference Range Interpretation Comments SODIUM (BEAKER) (test code = 381) 134 meq/L 135-148 L POTASSIUM-STAT [id number] 15:45:00 Test Item Value Reference Range Interpretation Comments POTASSIUM (BEAKER) (test code = 4.0 meq/L 3.6-5.5 379) OXYGEN SATURATION, [id number] 15:45:00 Test Item Value Reference Range Interpretation Comments O2 SATURATION (MEASURED) (BEAKER) 50.1 % (test code = 1455) THROMBOELASTOGRAPH (TEG)[id number] 15:16:00 Test Item Value Reference Range Interpretation Comments TEG ACTIVATED CLOTTING 7.3 minutes 4.0-7.0 H TIME (BEAKER) (test code = 1407) TEG FIBRINOGEN 71.9 degrees 61.0-73.0 ACTIVITY (BEAKER) (test code = 1408) TEG PLT. AGGREGATION 68.1 MM 55.0-65.0 H (BEAKER) (test code = 1409) TGH ACTIVATED CLOTTING 7.5 minutes 4.0-7.0 H TIME (BEAKER) (test code = 1411) TGH FIBRINOGEN 72.4 degrees 61.0-73.0 H This is a cor rected ACTIVITY (BEAKER) result. Pr evious (test code = 1412) result wa s 81.4 degrees on 03/27/2017 at 15 14 CDT TGH PLT. AGGREGATION 67.6 MM 55.0-65.0 H (BEAKER) (test code = 1413) Corrected report OR MD AT 1515.PLATELET [id number] 14:58:00 Test Item Value Reference Range Interpretation Comments PLATELET COUNT (BEAKER) (test 128 K/CU MM 150-450 L code = 756) BLOOD GAS, [id number] 14:42:00 Test Item Value Reference Range Interpretation Comments PH ARTERIAL (BEAKER) 7.31 7.35-7.45 L (test code = 383) PCO2 ARTERIAL (BEAKER) 44 mmHg 35-45 (test code = 384) PO2 ARTERIAL (BEAKER) 71 mmHg 80-90 L (test code = 385) O2 SATURATION ARTERIAL 94.1 % 96.0-97.0 L (BEAKER) (test code = 386) HCO3 ARTERIAL (BEAKER) 22 mmol/L 21-29 (test code = 388) BASE EXCESS ARTERIAL -4.8 mmol/L -2.0-3.0 L (BEAKER) (test code = 387) PATIENT TEMPERATURE 35.5 C (BEAKER) (test code = 1818) FIO2 (BEAKER) (test 40 % This is a corrected code = 1819) result. Previou s result was 100. 0 % on 03/27/2017 at 1433 CDT [id number] 14:36:00 Test Item Value Reference Range Interpretation Comments ACTIVATED CLOTTING TIME 131 sec TEST ED AT [place] [address] ([facility]) (test code = [place] [address]) [id number] 14:36:00 Test Item Value Reference Range Interpretation Comments ACTIVATED CLOTTING TIME 654 sec TEST ED AT [place] [address] ([facility]) (test code = [place] [address]) [id number] 14:36:00 Test Item Value Reference Range Interpretation Comments ACTIVATED CLOTTING TIME 973 sec TEST ED AT [place] [address] ([facility]) (test code = [place] [address]) [address] GLUCOSE-STAT [id number] 14:33:00 Test Item Value Reference Range Interpretation Comments GLUCOSE RANDOM (BEAKER) (test code 177 mg/dL 70-110 H = 652) SODIUM NA-STAT [id number] 14:33:00 Test Item Value Reference Range Interpretation Comments SODIUM (BEAKER) (test code = 381) 134 meq/L 135-148 L HGB/HCT (H&H) - STAT [id number] 14:33:00 Test Item Value Reference Range Interpretation Comments HEMOGLOBIN (BEAKER) (test code = 8.9 g/dL 12.0-15.0 L 410) HEMATOCRIT (BEAKER) (test code = 26.0 % 36.0-45.0 L 411) CALCIUM, [id number] 14:33:00 Test Item Value Reference Range Interpretation Comments CALCIUM IONIZED (BEAKER) (test 1.05 mmol/L 1.12-1.27 L code = 698) PH, BLOOD (BEAKER) (test code = 7.29 1810) POTASSIUM-STAT [id number] 14:32:00 Test Item Value Reference Range Interpretation Comments POTASSIUM (BEAKER) (test code = 3.9 meq/L 3.6-5.5 379) [id number] 14:12:00 Test Item Value Reference Range Interpretation Comments PARTIAL THROMBOPLASTIN TIME 43.6 seconds 22.5-36.0 H (BEAKER) (test code = 760) CALCIUM, [id number] 14:11:00 Test Item Value Reference Range Interpretation Comments CALCIUM IONIZED (BEAKER) (test 1.30 mmol/L 1.12-1.27 H code = 698) PH, BLOOD (BEAKER) (test code = 7.34 1810) PROTHROMBIN [id number] 14:11:00 Test Item Value Reference Range Interpretation Comments PROTIME (BEAKER) (test code = 23.6 seconds 11.7-14.7 H 759) INR (BEAKER) (test code = 370) 2.1 <=5.9 RECOMMENDED COUMADIN/WARFARIN INR THERAPY RANGESSTANDARD DOSE: 2.0 - 3.0 Includes: PROPHYLAXIS forvenous thrombosis, systemic embolization; TREATMENT for venous thrombosis and/or pulmonary embolus.HIGH RISK: Target INR is 2.5-3.5 for patients with mechanical heart valves.[id number] 14:11:00 Test Item Value Reference Range Interpretation Comments FIBRINOGEN LEVEL (BEAKER) (test 295 mg/dl 225-434 code = 658) BLOOD GAS, [id number] 14:09:00 Test Item Value Reference Range Interpretation Comments PH ARTERIAL (BEAKER) (test code = 7.34 7.35-7.45 L 383) PCO2 ARTERIAL (BEAKER) (test code 41 mmHg 35-45 = 384) PO2 ARTERIAL (BEAKER) (test code 333 mmHg 80-90 H = 385) O2 SATURATION ARTERIAL (BEAKER) 99.7 % 96.0-97.0 H (test code = 386) HCO3 ARTERIAL (BEAKER) (test code 22 mmol/L 21-29 = 388) BASE EXCESS ARTERIAL (BEAKER) -4.2 mmol/L -2.0-3.0 L (test code = 387) PATIENT TEMPERATURE (BEAKER) 35.9 C (test code = 1818) FIO2 (BEAKER) (test code = 1819) 100.0 % GLUCOSE-STAT [id number] 14:09:00 Test Item Value Reference Range Interpretation Comments GLUCOSE RANDOM (BEAKER) (test code 126 mg/dL 70-110 H = 652) SODIUM NA-STAT [id number] 14:09:00 Test Item Value Reference Range Interpretation Comments SODIUM (BEAKER) (test code = 381) 130 meq/L 135-148 L HGB/HCT (H&H) - STAT [id number] 14:09:00 Test Item Value Reference Range Interpretation Comments HEMOGLOBIN (BEAKER) (test code = 7.8 g/dL 12.0-15.0 L 410) HEMATOCRIT (BEAKER) (test code = 23.0 % 36.0-45.0 L 411) POTASSIUM-STAT [id number] 14:05:00 Test Item Value Reference Range Interpretation Comments POTASSIUM (BEAKER) (test code = 4.3 meq/L 3.6-5.5 379) PLATELET AGGREGATION: FUNCTION [id number] 13:43:00 Test Item Value Reference Range Interpretation Comments WEAK ADP 36 % 60-91 L RESULT(BEAKER) (test code = 2135) PLATELET FUNCTION 0-39% indicates marked SCREEN INTERP platelet dysfunction (BEAKER) (test code = 2173) [id number] Joleen Blackwell MD (BEAKER) (test code = (electronic signature) 7665) PLATELET COUNT AGG 246 K/CU MM 150-450 (BEAKER) (test code = 9196) for patients on clopidogrel in past two weeksGLUCOSE-STAT [id number] 13:33:00 Test Item Value Reference Range Interpretation Comments GLUCOSE RANDOM (BEAKER) (test code 109 mg/dL 70-110 = 652) POTASSIUM-STAT [id number] 13:33:00 Test Item Value Reference Range Interpretation Comments POTASSIUM (BEAKER) (test code = 5.1 meq/L 3.6-5.5 379) BLOOD GAS, [id number] 13:33:00 Test Item Value Reference Range Interpretation Comments PH ARTERIAL (BEAKER) (test code = 7.41 7.35-7.45 383) PCO2 ARTERIAL (BEAKER) (test code 35 mmHg 35-45 = 384) PO2 ARTERIAL (BEAKER) (test code 262 mmHg 80-90 H = 385) O2 SATURATION ARTERIAL (BEAKER) 99.6 % 96.0-97.0 H (test code = 386) HCO3 ARTERIAL (BEAKER) (test code 22 mmol/L 21-29 = 388) BASE EXCESS ARTERIAL (BEAKER) -2.8 mmol/L -2.0-3.0 L (test code = 387) PATIENT TEMPERATURE (BEAKER) 35.3 C (test code = 1818) FIO2 (BEAKER) (test code = 1819) 60.0 % SODIUM NA-STAT [id number] 13:33:00 Test Item Value Reference Range Interpretation Comments SODIUM (BEAKER) (test code = 381) 130 meq/L 135-148 L HGB/HCT (H&H) - STAT [id number] 13:33:00 Test Item Value Reference Range Interpretation Comments HEMOGLOBIN (BEAKER) (test code = 7.3 g/dL 12.0-15.0 L 410) HEMATOCRIT (BEAKER) (test code = 21.0 % 36.0-45.0 L 411) GLUCOSE-STAT [id number] 13:23:00 Test Item Value Reference Range Interpretation Comments GLUCOSE RANDOM (BEAKER) (test code 104 mg/dL 70-110 = 652) POTASSIUM-STAT [id number] 13:23:00 Test Item Value Reference Range Interpretation Comments POTASSIUM (BEAKER) (test code = 4.5 meq/L 3.6-5.5 379) BLOOD GAS, [id number] 13:23:00 Test Item Value Reference Range Interpretation Comments PH ARTERIAL (BEAKER) (test code = 7.37 7.35-7.45 383) PCO2 ARTERIAL (BEAKER) (test code 39 mmHg 35-45 = 384) PO2 ARTERIAL (BEAKER) (test code 260 mmHg 80-90 H = 385) O2 SATURATION ARTERIAL (BEAKER) 99.6 % 96.0-97.0 H (test code = 386) HCO3 ARTERIAL (BEAKER) (test code 23 mmol/L 21-29 = 388) BASE EXCESS ARTERIAL (BEAKER) -3.2 mmol/L -2.0-3.0 L (test code = 387) PATIENT TEMPERATURE (BEAKER) 34.0 C (test code = 1818) FIO2 (BEAKER) (test code = 1819) 55.0 % HGB/HCT (H&H) - STAT [id number] 13:23:00 Test Item Value Reference Range Interpretation Comments HEMOGLOBIN (BEAKER) (test code = 7.3 g/dL 12.0-15.0 L 410) HEMATOCRIT (BEAKER) (test code = 21.0 % 36.0-45.0 L 411) SODIUM NA-STAT [id number] 13:23:00 Test Item Value Reference Range Interpretation Comments SODIUM (BEAKER) (test code = 381) 131 meq/L 135-148 L SODIUM NA-STAT [id number] 13:04:00 Test Item Value Reference Range Interpretation Comments SODIUM (BEAKER) (test code = 381) 130 meq/L 135-148 L BLOOD GAS, [id number] 13:04:00 Test Item Value Reference Range Interpretation Comments PH VENOUS (BEAKER) (test code = 7.35 7.32-7.42 701) PCO2 VENOUS (BEAKER) (test code = 36 mmHg 41-51 L 755) PO2 VENOUS (BEAKER) (test code = 40 mmHg 25-40 702) O2 SATURATION VENOUS (BEAKER) 93.1 % 40.0-70.0 H (test code = 703) HCO3 VENOUS (BEAKER) (test code = 23 mmol/L 21-29 705) BASE EXCESS VENOUS (BEAKER) (test -5.1 mmol/L -2.0-3.0 L code = 704) PATIENT TEMPERATURE (BEAKER) 26.1 C (test code = 1818) FIO2 (BEAKER) (test code = 1819) 70.0 % BLOOD GAS, [id number] 13:02:00 Test Item Value Reference Range Interpretation Comments PH ARTERIAL (BEAKER) (test code = 7.34 7.35-7.45 L 383) PCO2 ARTERIAL (BEAKER) (test code 37 mmHg 35-45 = 384) PO2 ARTERIAL (BEAKER) (test code 345 mmHg 80-90 H = 385) O2 SATURATION ARTERIAL (BEAKER) 99.7 % 96.0-97.0 H (test code = 386) HCO3 ARTERIAL (BEAKER) (test code 23 mmol/L 21-29 = 388) BASE EXCESS ARTERIAL (BEAKER) -5.3 mmol/L -2.0-3.0 L (test code = 387) PATIENT TEMPERATURE (BEAKER) 26.1 C (test code = 1818) FIO2 (BEAKER) (test code = 1819) 70.0 % HGB/HCT (H&H) - STAT [id number] 13:02:00 Test Item Value Reference Range Interpretation Comments HEMOGLOBIN (BEAKER) (test code = 7.5 g/dL 12.0-15.0 L 410) HEMATOCRIT (BEAKER) (test code = 22.0 % 36.0-45.0 L 411) GLUCOSE-STAT [id number] 13:00:00 Test Item Value Reference Range Interpretation Comments GLUCOSE RANDOM (BEAKER) (test code 105 mg/dL 70-110 = 652) POTASSIUM-STAT [id number] 13:00:00 Test Item Value Reference Range Interpretation Comments POTASSIUM (BEAKER) (test code = 3.5 meq/L 3.6-5.5 L 379) BLOOD GAS, [id number] 12:02:00 Test Item Value Reference Range Interpretation Comments PH ARTERIAL (BEAKER) (test code = 7.43 7.35-7.45 383) PCO2 ARTERIAL (BEAKER) (test code 36 mmHg 35-45 = 384) PO2 ARTERIAL (BEAKER) (test code 358 mmHg 80-90 H = 385) O2 SATURATION ARTERIAL (BEAKER) 99.8 % 96.0-97.0 H (test code = 386) HCO3 ARTERIAL (BEAKER) (test code 23 mmol/L 21-29 = 388) BASE EXCESS ARTERIAL (BEAKER) -1.0 mmol/L -2.0-3.0 (test code = 387) PATIENT TEMPERATURE (BEAKER) 36.0 C (test code = 1818) FIO2 (BEAKER) (test code = 1819) 100.0 % GLUCOSE-STAT [id number] 12:02:00 Test Item Value Reference Range Interpretation Comments GLUCOSE RANDOM (BEAKER) (test code 111 mg/dL 70-110 H = 652) CALCIUM, [id number] 12:02:00 Test Item Value Reference Range Interpretation Comments CALCIUM IONIZED (BEAKER) (test 1.10 mmol/L 1.12-1.27 L code = 698) PH, BLOOD (BEAKER) (test code = 7.41 1810) SODIUM NA-STAT [id number] 11:57:00 Test Item Value Reference Range Interpretation Comments SODIUM (BEAKER) (test code = 381) 136 meq/L 135-148 POTASSIUM-STAT [id number] 11:57:00 Test Item Value Reference Range Interpretation Comments POTASSIUM (BEAKER) (test code = 3.6 meq/L 3.6-5.5 379) HGB/HCT (H&H) - STAT [id number] 11:57:00 Test Item Value Reference Range Interpretation Comments HEMOGLOBIN (BEAKER) (test code = 12.1 g/dL 12.0-15.0 410) HEMATOCRIT (BEAKER) (test code = 36.0 % 36.0-45.0 411) TROPONIN [id number] 04:30:00 Test Item Value Reference Range Interpretation Comments TROPONIN I (BEAKER) (test code = 4.67 ng/mL 0.00-0.03 HH 397) Troponin I (TnI) levels must be interpreted in the context of the presenting symptoms and the clinical findings. Elevated TnI levels indicate myocardial damage, but are not specific for ischemic heart disease. Elevated TnI levels are seen in patients with other cardiac conditions (including myocarditis and congestive heart failure), and slight TnI elevations occur in patients with other conditions, including sepsis, renal failure, acidosis, acute neurological disease, and persistent tachyarrhythmia.[id number] 04:27:00 Test Item Value Reference Range Interpretation Comments MAGNESIUM (BEAKER) 2.0 mg/dL 1.6-2.6 Specimen slightly (test code = 627) hemolyzed BASIC METABOLIC [id number] 04:27:00 Test Item Value Reference Range Interpretation Comments SODIUM (BEAKER) 139 meq/L 136-145 (test code = 381) POTASSIUM (BEAKER) 3.9 meq/L 3.5-5.1 Specimen slightly (test code = 379) hemolyzed CHLORIDE (BEAKER) 106 meq/L 98-107 (test code = 382) CO2 (BEAKER) (test 25 meq/L 22-29 code = 355) BLOOD UREA NITROGEN 14 mg/dL 7-21 (BEAKER) (test code = 354) CREATININE (BEAKER) 0.68 mg/dL 0.57-1.25 Specimen slightly (test code = 358) hemolyzed GLUCOSE RANDOM 93 mg/dL 70-105 (BEAKER) (test code = 652) CALCIUM (BEAKER) 9.0 mg/dL 8.4-10.2 (test code = 697) EGFR (BEAKER) (test 92 mL/min/1.73 ESTIMA JUAN J GFR IS code = 1092) sq m NOT ACCURATE CREATININE CLEARANCE IN PREDICTING GLOMERULAR FILTRATION RATE . ESTIMATED GFR I S NOT APPLICABLE FOR DIALYSIS PATIEN TS. LIPID [id number] 04:27:00 Test Item Value Reference Range Interpretation Comments TRIGLYCERIDES (BEAKER) 191 mg/dL Speci men slightly (test code = 540) hemolyzed CHOLESTEROL (BEAKER) 215 mg/dL Specime n slightly (test code = 631) hemolyzed HDL CHOLESTEROL (BEAKER) 26 mg/dL (test code = 976) LDL CHOLESTEROL 151 mg/dL CALCULATED (BEAKER) (test code = 633) Triglyceride Reference Range: Low Risk <150 Borderline 150-199 High Risk 200-499 Very High Risk >=500Cholesterol Reference Range: Low Risk <200 Borderline 200-239 High Risk >240HDL Cholesterol Reference Range: Low Risk >=60 High Risk <40LDL Cholesterol Reference Range: Optimal <100 Near Optimal 100-129 Borderline 130-159 High 160-189 Very High >=190PT/[id number] 04:16:00 Test Item Value Reference Range Interpretation Comments PROTIME (BEAKER) (test code = 14.0 seconds 11.7-14.7 759) INR (BEAKER) (test code = 370) 1.1 <=5.9 PARTIAL THROMBOPLASTIN TIME 32.0 seconds 22.5-36.0 (BEAKER) (test code = 760) RECOMMENDED COUMADIN/WARFARIN INR THERAPY RANGESSTANDARD DOSE: 2.0 - 3.0 Includes: PROPHYLAXIS forvenous thrombosis, systemic embolization; TREATMENT for venous thrombosis and/or pulmonary embolus.HIGH RISK: Target INR is 2.5-3.5 for patients with mechanical heart valves.CBC W/PLT COUNT & AUTO DIFFERENTIAL 2017-03-27 04:04:00 Test Item Value Reference Range Interpretation Comments WHITE BLOOD CELL COUNT (BEAKER) 10.0 K/ L 3.5-10.5 (test code = 775) RED BLOOD CELL COUNT (BEAKER) 4.16 M/ L 3.93-5.22 (test code = 761) HEMOGLOBIN (BEAKER) (test code = 12.0 GM/DL 11.2-15.7 410) HEMATOCRIT (BEAKER) (test code = 37.2 % 34.1-44.9 411) MEAN CORPUSCULAR VOLUME (BEAKER) 89.4 fL 79.4-94.8 (test code = 753) MEAN CORPUSCULAR HEMOGLOBIN 28.8 pg 25.6-32.2 (BEAKER) (test code = 751) MEAN CORPUSCULAR HEMOGLOBIN CONC 32.3 GM/DL 32.2-35.5 (BEAKER) (test code = 752) RED CELL DISTRIBUTION WIDTH 13.8 % 11.7-14.4 (BEAKER) (test code = 412) PLATELET COUNT (BEAKER) (test 244 K/CU MM 150-450 code = 756) MEAN PLATELET VOLUME (BEAKER) 10.3 fL 9.4-12.3 (test code = 754) NUCLEATED RED BLOOD CELLS 0 /100 WBC 0-0 (BEAKER) (test code = 413) NEUTROPHILS RELATIVE PERCENT 59 % (BEAKER) (test code = 429) LYMPHOCYTES RELATIVE PERCENT 31 % (BEAKER) (test code = 430) MONOCYTES RELATIVE PERCENT 8 % (BEAKER) (test code = 431) EOSINOPHILS RELATIVE PERCENT 1 % (BEAKER) (test code = 432) BASOPHILS RELATIVE PERCENT 1 % (BEAKER) (test code = 437) NEUTROPHILS ABSOLUTE COUNT 5.87 K/ L 1.56-6.13 (BEAKER) (test code = 670) LYMPHOCYTES ABSOLUTE COUNT 3.12 K/ L 1.18-3.74 (BEAKER) (test code = 414) MONOCYTES ABSOLUTE COUNT (BEAKER) 0.83 K/ L 0.24-0.36 H (test code = 415) EOSINOPHILS ABSOLUTE COUNT 0.13 K/ L 0.04-0.36 (BEAKER) (test code = 416) BASOPHILS ABSOLUTE COUNT (BEAKER) 0.05 K/ L 0.01-0.08 (test code = 417) IMMATURE GRANULOCYTES-RELATIVE 0 % 0-1 PERCENT (BEAKER) (test code = 2801) RAD, CHEST, 1 VIEW, NON [id number] 21:55:00Reason for exam:->NSTEMIReason for exam:->pre op evalIs the patient ?->NoShould this be performed at the bedside?->YesFINAL REPORT INDICATION: NSTEMIpre op eval COMPARISON: None. TECHNIQUE: Chestradiograph, single view, portable technique. FINDINGS / IMPRESSION: There is moderate enlargement cardiac silhouette and widening of the superior mediastinal contour as well. There is pulmonary venous congestion without overt pulmonary edema. No pneumothorax or pleural effusion is demonstrated. Osseous structures are unremarkable. Signed: Maylin Bustos Verified Date/Time: 03/26/2017 21:55:33 Reading Location: [address] Consult Reading Room TROPONIN [id number] 20:47:00 Test Item Value Reference Range Interpretation Comments TROPONIN I (BEAKER) (test code = 5.49 ng/mL 0.00-0.03 397) Troponin I (TnI) levels must be interpreted in the context of the presenting symptoms and the clinical findings. Elevated TnI levels indicate myocardial damage, but are not specific for ischemic heart disease. Elevated TnI levels are seen in patients with other cardiac conditions (including myocarditis and congestive heart failure), and slight TnI elevations occur in patients with other conditions, including sepsis, renal failure, acidosis, acute neurological disease, and persistent tachyarrhythmia.HEMOGLOBIN [id number] 20:43:00 Test Item Value Reference Range Interpretation Comments HEMOGLOBIN A1C (BEAKER) (test code = 5.2 % 4.3-6.1 368) CREATINE KINASE (CK), TOTAL AND [id number] 20:33:00 Test Item Value Reference Range Interpretation Comments CREATINE KINASE TOTAL (BEAKER) 174 U/L 29-200 (test code = 380) CREATINE KINASE-MB (BEAKER) (test 7.7 ng/mL 0.0-6.6 H code = 750) CREATINE KINASE-MB INDEX (BEAKER) 4.4 % (test code = 395) CK-MB Reference Range:<6.7 Normal6.7-10.0 Borderline>10.0 AbnormalHEPATIC FUNCTION [id number] 20:26:00 Test Item Value Reference Range Interpretation Comments TOTAL PROTEIN (BEAKER) (test code = 7.1 gm/dL 6.0-8.3 770) ALBUMIN (BEAKER) (test code = 1145) 3.6 g/dL 3.5-5.0 BILIRUBIN TOTAL (BEAKER) (test code 0.6 mg/dL 0.2-1.2 = 377) BILIRUBIN DIRECT (BEAKER) (test 0.2 mg/dL 0.1-0.5 code = 706) ALKALINE PHOSPHATASE (BEAKER) (test 79 U/L 40-150 code = 346) AST (SGOT) (BEAKER) (test code = 32 U/L 5-34 353) ALT (SGPT) (BEAKER) (test code = 10 U/L 6-55 347) TSH/FREE T4 IF [id number] 19:08:00 Test Item Value Reference Range Interpretation Comments THYROID STIMULATING HORMONE 0.69 uIU/mL 0.35-4.94 (BEAKER) (test code = 772) [id number] 17:34:00 Test Item Value Reference Range Interpretation Comments PROTIME (BEAKER) (test code = 13.4 seconds 11.7-14.7 759) INR (BEAKER) (test code = 370) 1.0 <=5.9 PARTIAL THROMBOPLASTIN TIME 34.1 seconds 22.5-36.0 (BEAKER) (test code = 760) RECOMMENDED COUMADIN/WARFARIN INR THERAPY RANGESSTANDARD DOSE: 2.0 - 3.0 Includes: PROPHYLAXIS forvenous thrombosis, systemic embolization; TREATMENT for venous thrombosis and/or pulmonary embolus.HIGH RISK: Target INR is 2.5-3.5 for patients with mechanical heart valves.B-TYPE NATRIURETIC FACTOR (BNP)2017-03-26 17:24:00 Test Item Value Reference Range Interpretation Comments B-TYPE NATRIURETIC PEPTIDE 1900 pg/mL 0-100 H (BEAKER) (test code = 700) BASIC METABOLIC [id number] 15:51:00 Test Item Value Reference Range Interpretation Comments SODIUM (BEAKER) 140 meq/L 136-145 (test code = 381) POTASSIUM (BEAKER) 3.9 meq/L 3.5-5.1 (test code = 379) CHLORIDE (BEAKER) 107 meq/L 98-107 (test code = 382) CO2 (BEAKER) (test 24 meq/L 22-29 code = 355) BLOOD UREA NITROGEN 12 mg/dL 7-21 (BEAKER) (test code = 354) CREATININE (BEAKER) 0.68 mg/dL 0.57-1.25 (test code = 358) GLUCOSE RANDOM 87 mg/dL 70-105 (BEAKER) (test code = 652) CALCIUM (BEAKER) 9.2 mg/dL 8.4-10.2 (test code = 697) EGFR (BEAKER) (test 92 mL/min/1.73 ESTIMA JUAN J GFR IS code = 1092) sq m NOT ACCURATE CREATININE CLEARANCE IN PREDICTING GLOMERULAR FILTRATION RATE . ESTIMATED GFR I S NOT APPLICABLE FOR DIALYSIS PATIEN TS. PROTHROMBIN [id number] 15:45:00 Test Item Value Reference Range Interpretation Comments PROTIME (BEAKER) (test code = 13.7 seconds 11.7-14.7 759) INR (BEAKER) (test code = 370) 1.1 <=5.9 RECOMMENDED COUMADIN/WARFARIN INR THERAPY RANGESSTANDARD DOSE: 2.0 - 3.0 Includes: PROPHYLAXIS forvenous thrombosis, systemic embolization; TREATMENT for venous thrombosis and/or pulmonary embolus.HIGH RISK: Target INR is 2.5-3.5 for patients with mechanical heart valves.CBC W/PLT COUNT & AUTO DIFFERENTIAL 2017-03-26 15:38:00 Test Item Value Reference Range Interpretation Comments WHITE BLOOD CELL COUNT (BEAKER) 12.4 K/ L 3.5-10.5 H (test code = 775) RED BLOOD CELL COUNT (BEAKER) 4.51 M/ L 3.93-5.22 (test code = 761) HEMOGLOBIN (BEAKER) (test code = 13.0 GM/DL 11.2-15.7 410) HEMATOCRIT (BEAKER) (test code = 39.7 % 34.1-44.9 411) MEAN CORPUSCULAR VOLUME (BEAKER) 88.0 fL 79.4-94.8 (test code = 753) MEAN CORPUSCULAR HEMOGLOBIN 28.8 pg 25.6-32.2 (BEAKER) (test code = 751) MEAN CORPUSCULAR HEMOGLOBIN CONC 32.7 GM/DL 32.2-35.5 (BEAKER) (test code = 752) RED CELL DISTRIBUTION WIDTH 14.1 % 11.7-14.4 (BEAKER) (test code = 412) PLATELET COUNT (BEAKER) (test 263 K/CU MM 150-450 code = 756) MEAN PLATELET VOLUME (BEAKER) 10.8 fL 9.4-12.3 (test code = 754) NUCLEATED RED BLOOD CELLS 0 /100 WBC 0-0 (BEAKER) (test code = 413) NEUTROPHILS RELATIVE PERCENT 67 % (BEAKER) (test code = 429) LYMPHOCYTES RELATIVE PERCENT 24 % (BEAKER) (test code = 430) MONOCYTES RELATIVE PERCENT 7 % (BEAKER) (test code = 431) EOSINOPHILS RELATIVE PERCENT 1 % (BEAKER) (test code = 432) BASOPHILS RELATIVE PERCENT 0 % (BEAKER) (test code = 437) NEUTROPHILS ABSOLUTE COUNT 8.33 K/ L 1.56-6.13 H (BEAKER) (test code = 670) LYMPHOCYTES ABSOLUTE COUNT 3.02 K/ L 1.18-3.74 (BEAKER) (test code = 414) MONOCYTES ABSOLUTE COUNT (BEAKER) 0.81 K/ L 0.24-0.36 H (test code = 415) EOSINOPHILS ABSOLUTE COUNT 0.11 K/ L 0.04-0.36 (BEAKER) (test code = 416) BASOPHILS ABSOLUTE COUNT (BEAKER) 0.05 K/ L 0.01-0.08 (test code = 417) IMMATURE GRANULOCYTES-RELATIVE 0 % 0-1 PERCENT (BEAKER) (test code = 2801)
[2020-12-25 10:55] LABS: Protime INR 0.94
[2020-12-25] MEDS ORDERED: MORPHINE 4 MG/ML SYR ONE (11:08)
[2020-12-25] MEDS ORDERED: PROMETHAZINE INJ 25 MG/ML AMP ONE ×2 (11:08→14:31)
[2020-12-25 11:12] LABS: Absolute Lymphocytes (CBC) 2.3 K/uL (0.7-4.9); Basophils % 0.4 % (0-1.3); Hematocrit 41.1 % (36.0-45.0); Lymphocytes % 16.7 % (15.3-44.8); MPV 9.8 fL (7.6-11.3); RBC Red Blood Cell Count 4.58 M/uL (3.86-4.86)
[2020-12-25] MEDS ORDERED: LABETALOL 20 MG/4ML SYRINGE IV ONE ×2 (11:23→13:28)
--- NOTE | 2020-12-25 11:28 | RAD REPORT ---
EXAM DESCRIPTION: RAD - Chest Single View - 12/25/2020 10:59 am CLINICAL HISTORY: CHEST PAIN COMPARISON: Portable December 19 TECHNIQUE: AP portable chest image was obtained 12/25/2020 10:59 am . FINDINGS: Lungs are clear. Interstitial pattern has diminished in prominence from comparison. Dialys is catheter remains in place. CABG surgical changes are noted. Heart and vasculature are normal. No m easurable pleural effusion and no pneumothorax. No acute bony abnormality seen. No acute aortic findi ngs suspected. IMPRESSION: No acute cardiopulmonary process.
[2020-12-25 11:31] LABS: Albumin 4.4 g/dL (3.4-5.0); Bilirubin Direct 0.1 mg/dL (0-0.2); Bilirubin Total 0.3 mg/dL (0.2-1.0); Magnesium 2.1 mg/dL (1.8-2.4); Potassium 4.3 mmol/L (3.5-5.1); Protein, Total 9.1 g/dL (6.4-8.2); Troponin (Emerg Dept Use Only) 0.07 ng/mL (0.0-0.045)
--- NOTE | 2020-12-25 12:50 | ER ---
Nurse's Notes [facility] Name: Nicolasa Krishnan Age: 55 yrs Sex: Female : 1965 Arrival Date: 12/25/2020 Time: 10:05 Bed 15 Private MD: Diagnosis: Chest pain, unspecified;Hypertensive emergency;Nausea and vomiting Presentation: 12/25 10:16 Chief complaint: Patient states: "Nausea and vomiting. shortness of breath. I was jd3 recently admitted for the same thing, fluid overload. dialysis MWF. last dialysis was Saturday.". Coronavirus screen: At this time, the client does not indicate any symptoms associated with coronavirus-19. Ebola Screen: Patient negative for fever greater than or equal to 101.5 degrees Fahrenheit, and additional compatible Ebola Virus Disease symptoms. Initial Sepsis Screen: Does the patient meet any 2 criteria? No. Patient's initial sepsis screen is negative. Does the patient have a suspected source of infection? No. Patient's initial sepsis screen is negative. Risk Assessment: Do you want to hurt yourself or someone else? Patient reports no desire to harm self or others. Onset of symptoms was December 25, 2020. 10:16 Method Of Arrival: Wheelchair jd3 10:16 Acuity: YOLIS 2 jd3 Historical: - Allergies: 10:18 Codeine; jd3 - PMHx: 10:18 Abdominal aneurysm; MENDOZA leg stents; Dialysis; PVD; jd3 - PSHx: 10:18 Cholecystectomy; Heart stents; vain surgry on legs; jd3 - Immunization history:: Adult Immunizations up to date. - Social history:: Smoking status: unknown. Screenin:56 Abuse screen: Denies threats or abuse. Nutritional screening: No deficits noted. vg1 Tuberculosis screening: No symptoms or risk factors identified. Fall Risk No fall in past 12 months (0 pts). No secondary diagnosis (0 pts). IV access (20 points). Ambulatory Aid- None/Bed Rest/Nurse Assist (0 pts). Gait- Normal/Bed Rest/Wheelchair (0 pts) Mental Status- Oriented to own ability (0 pts). Total Darling Fall Scale indicates No Risk (0-24 pts). Assessment: 10:18 General: Appears in no apparent distress. uncomfortable, Behavior is cooperative, vg1 anxious. Pain: Complains of pain in chest and abdomen Pain currently is 10 out of 10 on a pain scale. Pain began 3 hours ago. Noted to be crying, grimacing, guarding, moaning. Neuro: Level of Consciousness is awake, alert, obeys commands, Oriented to person, place, time, situation. Cardiovascular: Capillary refill < 3 seconds in bilateral fingers. Respiratory: Airway is patent Respiratory effort is even, unlabored, Respiratory pattern is tachypnea Breath sounds are clear bilaterally. GI: Abdomen is flat, non-distended, Reports nausea, vomiting. : No signs and/or symptoms were reported regarding the genitourinary system. EENT: No signs and/or symptoms were reported regarding the EENT system. Derm: Skin is intact, Skin is clammy. Musculoskeletal: Circulation, motion, and sensation intact. 11:30 Reassessment: Patient appears in no apparent distress at this time. Pt is resting with vg1 eyes closed. 11:38 Reassessment: Critical lab alert: Creatinine 7.45; provider notified. vg1 11:47 Reassessment: Spouse phone number: [phone] Grey. vg1 12:36 Reassessment: Patient appears in no apparent distress at this time. Patient and/or vg1 family updated on plan of care and expected duration. Pain level reassessed. Patient is alert, oriented x 3, equal unlabored respirations, skin warm/dry/pink. Patient is alert/active/playful, equal unlabored respirations, skin warm/dry/pink. Patient denies pain at this time. Patient states feeling better. 14:05 Reassessment: Patient appears in no apparent distress at this time. Patient and/or vg1 family updated on plan of care and expected duration. Pain level reassessed. Patient is alert, oriented x 3, equal unlabored respirations, skin warm/dry/pink. Pt requesting nausea medication, provider notified. 14:10 Reassessment: Received VO from Umesh MORE to administer Phenergan 12.5 mg IVP x1. vg1 Vital Signs: 10:18 BP 202 / 152; Pulse 106; Resp 20 S; Temp 97.8(TE); Pulse Ox 100% on R/A; Weight 50.35 jd3 kg (R); Height 5 ft. 4 in. (162.56 cm) (R); Pain 10/10; 10:56 BP 217 / 123; Pulse 118; Resp 24; Pulse Ox 100% on R/A; vg1 11:27 BP 193 / 110; Pulse 70; Resp 20; Pulse Ox 96% on R/A; vg1 11:30 BP 185 / 100; Pulse 73; Resp 20; Pulse Ox 96% on R/A; vg1 12:00 BP 200 / 93; Pulse 67; Resp 20; Pulse Ox 96% on R/A; vg1 12:30 BP 207 / 104; Pulse 67; Resp 18; Pulse Ox 95% on R/A; vg1 13:00 BP 224 / 110; Pulse 78; Resp 20; Pulse Ox 98% on R/A; vg1 13:15 BP 200 / 113; Pulse 72; Resp 20; Pulse Ox 97% on R/A; vg1 13:27 BP 200 / 113; vg1 13:30 BP 209 / 106; Pulse 72; Resp 20; Pulse Ox 97% on R/A; vg1 13:45 BP 217 / 137; Pulse 83; Resp 18; Pulse Ox 96% on R/A; vg1 14:00 BP 211 / 117; Pulse 78; Resp 18; Pulse Ox 97% on R/A; vg1 14:30 BP 208 / 114; Pulse 96; Resp 20; Pulse Ox 98% on R/A; vg1 15:00 BP 197 / 120; Pulse 92; Resp 18; Pulse Ox 98% on R/A; vg1 15:24 BP 197 / 120; vg1 10:18 Body Mass Index 19.05 (50.35 kg, 162.56 cm) jd3 ED Course: 10:05 Patient arrived in ED. ds1 10:16 Sariah Alvarado, RN is Primary Nurse. vg1 10:17 Triage completed. jd3 10:19 Arm band placed on. jd3 10:23 Getachew Calvo NP is PHCP. pm1 10:23 Bren Rose MD is Attending Physician. pm1 10:30 Missed attempt(s): 20 gauge in right antecubital area. vg1 10:38 Initial lab(s) drawn, by nd, sent to lab. Inserted saline lock: 20 gauge in left vg1 antecubital area, using aseptic technique. Blood collected. 10:56 Patient has correct armband on for positive identification. Bed in low position. Call vg1 light in reach. Side rails up X2. Adult w/ patient. 10:58 X-ray completed. Portable x-ray completed in exam room. md1 10:59 XRAY Chest (1 view) In Process Unspecified. EDMS 11:03 EKG done, by ED staff, reviewed by Getachew Calvo NP. 3 12:49 Bren Javier MD is Hospitalizing Provider. pm1 13:01 COVID swab sent to lab. Flu and/or RSV swab sent to lab. vg1 15:31 No provider procedures requiring assistance completed. Patient admitted, IV remains in vg1 place. Administered Medications: 10:42 CANCELLED (Physician Discretion): Zofran (Ondansetron) 4 mg IVP once; over 2 minutes pm1 10:51 Drug: Phenergan (promethazine) 12.5 mg Route: IVP; Site: left antecubital; vg1 13:01 Follow up: Response: No adverse reaction; Nausea is decreased vg1 10:53 Drug: morphine 4 mg {Note: rass 1.} Route: IVP; Site: left antecubital; vg1 13:01 Follow up: Response: No adverse reaction; Pain is decreased vg1 11:05 Drug: Labetalol 20 mg Route: IVP; Infused Over: 2 mins; Site: left antecubital; vg1 13:01 Follow up: Response: No adverse reaction; Blood pressure is lowered vg1 13:10 Drug: Labetalol 10 mg Route: IVP; Infused Over: 2 mins; Site: left antecubital; vg1 13:27 Follow up: BP 200 / 113; Response: No adverse reaction; Blood pressure is lowered vg1 14:01 Drug: cloNIDine 0.2 mg Route: PO; vg1 15:24 Follow up: BP 197 / 120; Response: Blood pressure is lowered vg1 14:35 Drug: Phenergan (promethazine) 12.5 mg Route: IVP; Site: left antecubital; vg1 15:24 Follow up: Response: No adverse reaction; Nausea is decreased vg1 Outcome: 12:49 Decision to Hospitalize by Provider. pm1 15:31 Admitted to Tele accompanied by tech, via wheelchair, room 213, with chart, Report vg1 called to BRIA Castillo 15:31 Condition: unchanged 15:31 Instructed on the need for admit. 15:46 Patient left the ED. vg1 Signatures: Dispatcher [employer] EDMS Kandi Fernandez ds1 Getachew Calvo, DERIK TALENT ACQUISITION COORDINATOR pm1 Loly Tinsley 3 Buddy Funes RN RN jd3 Diana Mcgovern md1 Sariah Alvarado RN RN vg1
--- NOTE | 2020-12-25 12:50 | EDPHYS ---
Physician Documentation [facility] Name: Nicolasa Krishnan Age: 55 yrs Sex: Female : 1965 Arrival Date: 12/25/2020 Time: 10:05 Bed 15 Private MD: ED Physician Bren Rose HPI: 12/25 10:42 This 55 yrs old Female presents to ER via Wheelchair with complaints of pm1 Nausea/Vomiting. 10:42 The patient presents to the emergency department with nausea, vomiting. Onset: The pm1 symptoms/episode began/occurred this morning. Possible causes: unknown. Associated signs and symptoms: Pertinent positives: Chest pain, shortness of breath, cough, Pertinent negatives: abdominal pain, diarrhea, fever. Severity of symptoms: in the emergency department the symptoms are unchanged. The patient has experienced a previous episode, Patient was admitted on Saturday for similar presentation. Dx of hypertensive emergency with volume overload. Patient missed dialysis session at that time. Patient was discharged on Saturday. Patient's last dialysis treatment Saturday.. Historical: - Allergies: 10:18 Codeine; jd3 - PMHx: 10:18 Abdominal aneurysm; MENDOZA leg stents; Dialysis; PVD; jd3 - PSHx: 10:18 Cholecystectomy; Heart stents; vain surgry on legs; jd3 - Immunization history:: Adult Immunizations up to date. - Social history:: Smoking status: unknown. ROS: 10:42 Constitutional: Negative for fever, chills, and weight loss, Eyes: Negative for injury, pm1 pain, redness, and discharge, ENT: Negative for injury, pain, and discharge, Neck: Negative for injury, pain, and swelling. 10:42 Back: Negative for injury and pain, MS/Extremity: Negative for injury and deformity, Skin: Negative for injury, rash, and discoloration, Neuro: Negative for headache, weakness, numbness, tingling, and seizure. 10:42 Cardiovascular: Positive for chest pain, Negative for edema. 10:42 Respiratory: Positive for shortness of breath. 10:42 Abdomen/GI: Positive for nausea and vomiting, Negative for abdominal pain, diarrhea, constipation. Exam: 10:42 Constitutional: This is a well developed, well nourished patient who is awake, alert, pm1 and in no acute distress. Head/Face: Normocephalic, atraumatic. 10:42 Neck: Trachea midline, no thyromegaly or masses palpated, and no cervical lymphadenopathy. Supple, full range of motion without nuchal rigidity, or vertebral point tenderness. No Meningismus. 10:42 Back: No spinal tenderness. No costovertebral tenderness. Full range of motion. Skin: Warm, dry with normal turgor. Normal color with no rashes, no lesions, and no evidence of cellulitis. MS/ Extremity: Pulses equal, no cyanosis. Neurovascular intact. Full, normal range of motion. 10:42 Eyes: Exam is negative for acute changes, Extraocular movements: intact throughout, Conjunctiva: normal, Sclera: no acute changes, icterus, is not appreciated. 10:42 ENT: Mouth: Lips: normal, Oral mucosa: normal, pink and intact, moist. 10:42 Chest/axilla: Exam negative for acute changes, Inspection: normal, Palpation: is normal. 10:42 Cardiovascular: Rate: tachycardic, Rhythm: regular, Pulses: no pulse deficits are appreciated, Heart sounds: normal, normal S1and S2, Edema: is not appreciated. 10:42 Respiratory: Exam negative for acute changes, respiratory distress, shortness of breath, Breath sounds: are clear throughout. 10:42 Abdomen/GI: Inspection: abdomen appears normal, Palpation: abdomen is soft and non-tender, in all quadrants. 10:42 Neuro: Exam negative for acute changes, Orientation: is normal, Mentation: is normal, Motor: is normal, moves all fours. Vital Signs: 10:18 BP 202 / 152; Pulse 106; Resp 20 S; Temp 97.8(TE); Pulse Ox 100% on R/A; Weight 50.35 jd3 kg (R); Height 5 ft. 4 in. (162.56 cm) (R); Pain 10/10; 10:56 BP 217 / 123; Pulse 118; Resp 24; Pulse Ox 100% on R/A; vg1 11:27 BP 193 / 110; Pulse 70; Resp 20; Pulse Ox 96% on R/A; vg1 11:30 BP 185 / 100; Pulse 73; Resp 20; Pulse Ox 96% on R/A; vg1 12:00 BP 200 / 93; Pulse 67; Resp 20; Pulse Ox 96% on R/A; vg1 12:30 BP 207 / 104; Pulse 67; Resp 18; Pulse Ox 95% on R/A; vg1 13:00 BP 224 / 110; Pulse 78; Resp 20; Pulse Ox 98% on R/A; vg1 13:15 BP 200 / 113; Pulse 72; Resp 20; Pulse Ox 97% on R/A; vg1 13:27 BP 200 / 113; vg1 13:30 BP 209 / 106; Pulse 72; Resp 20; Pulse Ox 97% on R/A; vg1 13:45 BP 217 / 137; Pulse 83; Resp 18; Pulse Ox 96% on R/A; vg1 14:00 BP 211 / 117; Pulse 78; Resp 18; Pulse Ox 97% on R/A; vg1 14:30 BP 208 / 114; Pulse 96; Resp 20; Pulse Ox 98% on R/A; vg1 15:00 BP 197 / 120; Pulse 92; Resp 18; Pulse Ox 98% on R/A; vg1 15:24 BP 197 / 120; vg1 10:18 Body Mass Index 19.05 (50.35 kg, 162.56 cm) jd3 MDM: 10:26 Patient medically screened. pm1 12:48 Data reviewed: vital signs. Data interpreted: Pulse oximetry: on room air is 95 %. pm1 Interpretation: normal. Counseling: I had a detailed discussion with the patient and/or guardian regarding: the historical points, exam findings, and any diagnostic results supporting the discharge/admit diagnosis, lab results, radiology results, the need for further work-up and treatment in the hospital. 13:14 Physician consultation: Bren Javier MD was called at 13:14, was contacted at 13:14, pm1 regarding admission, patient's condition, and will see patient in ED. 12/25 10:29 Order name: Basic Metabolic Panel; Complete Time: 11:39 pm12/25 10:29 Order name: CBC with Diff; Complete Time: 11:30 pm12/25 10:29 Order name: LFT's; Complete Time: 11:39 pm12/25 10:29 Order name: Magnesium; Complete Time: 11:39 pm1 12/25 10:29 Order name: NT PRO-BNP; Complete Time: 11:39 pm12/25 10:29 Order name: PT-INR; Complete Time: 11:11 pm1 12/25 10:29 Order name: Troponin (emerg Dept Use Only); Complete Time: 11:39 pm12/25 12:50 Order name: COVID-19 : Document "Date of Symptom Onset" if Symptomatic. pm12/25 12:50 Order name: Flu pm1 12/25 14:12 Order name: Comprehensive Metabolic Panel EDMS 12/25 14:12 Order name: Comprehensive Metabolic Panel EDMS 12/25 14:12 Order name: Protime (+INR) EDMS 12/25 14:12 Order name: Protime (+INR) EDMS 12/25 14:12 Order name: PTT, Activated Partial Thromb EDMS 12/25 10:29 Order name: XRAY Chest (1 view); Complete Time: 11:30 pm12/25 10:29 Order name: EKG; Complete Time: 10:29 pm1 12/25 10:29 Order name: Cardiac monitoring; Complete Time: 11:08 pm12/25 10:29 Order name: EKG - Nurse/Tech; Complete Time: 11:05 pm12/25 14:12 Order name: PTT, Activated Partial Thromb EDMS 12/25 14:13 Order name: CONS Physician Consult EDMS 12/25 14:13 Order name: Renal EDMS 12/25 14:13 Order name: CBC with Automated Diff EDMS 12/25 14:13 Order name: CBC with Automated Diff EDMS 12/25 10:29 Order name: IV Saline Lock; Complete Time: 10:41 pm12/25 10:29 Order name: Labs collected and sent; Complete Time: 10:41 pm12/25 10:29 Order name: O2 Per Protocol; Complete Time: 10:41 pm12/25 10:29 Order name: O2 Sat Monitoring; Complete Time: 10:41 pm1 Administered Medications: 10:42 CANCELLED (Physician Discretion): Zofran (Ondansetron) 4 mg IVP once; over 2 minutes pm1 10:51 Drug: Phenergan (promethazine) 12.5 mg Route: IVP; Site: left antecubital; vg1 13:01 Follow up: Response: No adverse reaction; Nausea is decreased vg1 10:53 Drug: morphine 4 mg {Note: rass 1.} Route: IVP; Site: left antecubital; vg1 13:01 Follow up: Response: No adverse reaction; Pain is decreased vg1 11:05 Drug: Labetalol 20 mg Route: IVP; Infused Over: 2 mins; Site: left antecubital; vg1 13:01 Follow up: Response: No adverse reaction; Blood pressure is lowered vg1 13:10 Drug: Labetalol 10 mg Route: IVP; Infused Over: 2 mins; Site: left antecubital; vg1 13:27 Follow up: BP 200 / 113; Response: No adverse reaction; Blood pressure is lowered vg1 14:01 Drug: cloNIDine 0.2 mg Route: PO; vg1 15:24 Follow up: BP 197 / 120; Response: Blood pressure is lowered vg1 14:35 Drug: Phenergan (promethazine) 12.5 mg Route: IVP; Site: left antecubital; vg1 15:24 Follow up: Response: No adverse reaction; Nausea is decreased vg1 Disposition: 12/25/20 12:49 Hospitalization ordered by Bren Javier for Observation. Preliminary diagnosis are Hypertensive emergency, Chest pain, unspecified, Nausea and vomiting. - Bed requested for Telemetry/MedSurg (observation). - Status is Observation. vg1 - Condition is Stable. - Problem is new. - Symptoms have improved. Signatures: Dispatcher [employer] Zabrina Schmitt RN RN dw Getachew Calvo, DERIK TRANSPORTATION BROKER pm1 Buddy Funes RN RN jSariah Jarvis RN RN vg1 Corrections: (The following items were deleted from the chart) 10:42 10:40 Zofran (Ondansetron) 4 mg IVP once; over 2 minutes ordered. pm1 pm1 14:58 12:49 Hospitalization Ordered by Bren Javier MD for Observation. Preliminary dw diagnosis is Hypertensive emergencyChest pain, unspecified; Nausea and vomiting. Bed requested for Telemetry/MedSurg (observation). Status is Observation. Condition is Stable. Problem is new. Symptoms have improved. pm1 15:46 14:58 12/25/2020 12:49 Hospitalization Ordered by Bren Javier MD for Observation. vg1 Preliminary diagnosis is Hypertensive emergencyChest pain, unspecified; Nausea and vomiting. Bed requested for Telemetry/MedSurg (observation). Status is Observation. Condition is Stable. Problem is new. Symptoms have improved. dw
[2020-12-25] MEDS ORDERED: ONDANSETRON 4 MG/2 ML VIAL IV PRN (14:10)
[2020-12-25] MEDS ORDERED: MORPHINE 2 MG/ML SYR IV PRN (14:10)
[2020-12-25] MEDS ORDERED: ACETAMINOPHEN 500 MG TAB PO PRN (14:10)
[2020-12-25] MEDS ORDERED: METOCLOPRAMIDE 5 MG TAB PO PRN (14:17)
[2020-12-25] MEDS ORDERED: DIAZEPAM 5 MG TABLET PO PRN (14:17)
[2020-12-25] MEDS ORDERED: cloNIDine HCL 0.1 MG TAB ONE (14:20)
[2020-12-25] MEDS ORDERED: LORAZEPAM 0.5 MG TABLET PO ONE (16:05)
[2020-12-25 16:28] LABS: SARS-COV-2 RT PCR NEGATIVE (NEGATIVE)
[2020-12-25] MEDS ORDERED: LORazepam 2 MG/ML VIAL IV ONE (17:03)
[2020-12-25] MEDS ORDERED: HYDRALAZINE HCL 20 MG/ML VIAL IV PRN (18:30)
[2020-12-25] MEDS ORDERED: CLONIDINE HCL 0.3 MG TAB PO ONE (18:30)
[2020-12-25] MEDS ORDERED: HYDRALAZINE HCL 20 MG/ML VIAL IV ONE (18:30)
[2020-12-25] MEDS: SACUBITRIL/VALSARTAN 49/51 MG TAB PO SCH (20:17)
[2020-12-25] MEDS: cloNIDine HCL 0.1 MG TAB PO SCH (20:17)
[2020-12-25] MEDS ORDERED: ATORVASTATIN 40 MG TAB PO SCH (21:00)
[2020-12-25] MEDS ORDERED: LORazepam 2 MG/ML VIAL IV PRN (22:55)
--- NOTE | 2020-12-26 02:24 | P.HP ---
Certification for Inpatient Patient admitted to: Observation With expected LOS: <2 Midnights Patient will require the following post-hospital care: None Practitioner: I am a practitioner with admitting privileges, knowledge of patient current condition, hospital course, and medical plan of care. Services: Services provided to patient in accordance with Admission requirements found in Title 42 Section 412.3 of the Code of Federal Regulations Patient History Date of Service: 12/25/20 Reason for admission: Hypertensive emergency; ESRD; intractable nausea vomiting History of Present Illness: Patient is a 55-year-old female who was admitted to the hospital with uncontrolled hypertension. Patient is staying with a family friend in the local area. Normally she lives and pay CAD with her mother who apparently does not treat her well. Patient came into the hospital and was having nausea and vomiting. This started yesterday. Patient has not been able to keep her anti hypertensives down once again. Patient is on clonidine and when patient is unable to keep it down patient has rebound hypertension. Patient probably needs to be switched to a clonidine patch for the time being. Her blood pressure would probably not be come on controlled as patient probably could senior center manager blood pressure better as long as she has a clonidine patch. Will start a Catapres TTS-2 patch at this time. Continue with IV anti hypertensives. Continue with anti emetics. Hemodialysis per Nephrology. Allergies codeine Allergy (Verified 12/20/20 00:37) Nausea/Vomiting Home Medications: Albuterol Inhaler [Ventolin Inhaler*] 2 puff IH Q6H PRN 12/20/20 Aspirin [Aspirin EC 81 MG] 81 mg PO DAILY 12/20/20 Atorvastatin Calcium 40 mg PO BEDTIME 12/20/20 Ergocalciferol (Vitamin D2) [Vitamin D 50,000 Unit Cap] 50,000 units PO EVERY 7TH DAY 12/20/20 Metoclopramide HCl 5 mg PO DAILY PRN MDD n/a 12/20/20 Montelukast [Singulair*] 10 mg PO DAILY 12/20/20 Sacubitril/Valsartan [Entresto 49 mg-51 mg Tablet] 1 tab PO BID 12/20/20 Sertraline [Zoloft*] 150 mg PO DAILY 12/20/20 cloNIDine HCL [Clonidine HCl] 0.1 mg PO TID 12/20/20 Diazepam [Valium] 5 mg PO TID PRN #30 12/21/20 - Past Medical/Surgical History Diabetic: No -: ESRD on HD -: PVD -: AAA -: HTN -: HLD -: hernia repair -: cholecystectomy -: CABGx4 -: renal stents -: bifemoral stents -: dialysis -: carotid endarectomy - Family History Mother Medical History: Heart disease - Social History Smoking Status: Current every day smoker Alcohol use: No CD- Drugs: No Caffeine use: Yes Place of Residence: Home Review of Systems 10-point ROS is otherwise unremarkable Physical Examination - Vital Signs Temperature: 97.4 F Blood Pressure: 136/83 Pulse: 112 Respirations: 20 Pulse Ox (%): 96 - Physical Exam General: Alert, In no apparent distress, Oriented x3 HEENT: Atraumatic, PERRLA, Mucous membr. moist/pink, EOMI, Sclerae nonicteric Neck: Supple, 2+ carotid pulse no bruit, No LAD, Without JVD or thyroid abnormality Respiratory: Clear to auscultation bilaterally, Normal air movement Cardiovascular: Regular rate/rhythm, Normal S1 S2, No murmurs Gastrointestinal: Normal bowel sounds, Soft and benign, Non-distended, No tenderness Musculoskeletal: No clubbing, No swelling, No tenderness Integumentary: No rashes Neurological: Normal gait, Normal speech, Normal strength at 5/5 x4 extr, Normal tone, Sensation intact, Cranial nerves 3-12 intact, Normal affect Lymphatics: No axilla or inguinal lymphadenopathy - Studies Laboratory Data (last 24 hrs) 12/25/20 10:37: PT 10.8, INR 0.94 12/25/20 10:37: WBC 13.60 H D, Hgb 13.4, Hct 41.1 D, Plt Count 214 12/25/20 10:37: Sodium 131 L, Potassium 4.3, BUN 66 H D, Creatinine 7.45 H* D, Glucose 143 H, Magnesium 2.1, Total Bilirubin 0.3, AST 12 L, ALT 17, Alkaline Phosphatase 116 Assessment & Plan - Problems (Diagnosis) (1) Hypertensive emergency Current Visit: Yes Status: Acute (2) ESRD (end stage renal disease) Current Visit: No Status: Acute (3) Intractable nausea and vomiting Current Visit: No Status: Acute - Plan Plan: 1. Continue with anti hypertensives 2. Clonidine patch 3. Anxiolytics as needed; patient was cyclical vomiting and is alleviated with anxiolytics 4. hemodialysis per Nephrology 5. IV anti emetics 6. GI and DVT prophylaxis Discharge Plan: Home Plan to discharge in: 24 Hours - Advance Directives Does patient have a Living Will: No Does patient have a Durable POA for Healthcare: No - Code Status/Comfort Care Code Status Assessed: Yes Code Status: Full Code Critical Care: No Time Spent Managing PTS Care (In Minutes): 45
[2020-12-26 05:17] LABS: Absolute Lymphocytes (CBC) 2.6 K/uL (0.7-4.9); Basophils % 0.7 % (0-1.3); Hematocrit 35.5 % (36.0-45.0); Lymphocytes % 30.9 % (15.3-44.8); MPV 9.4 fL (7.6-11.3)
[2020-12-26 05:29] VITALS: BMI 19.3
[2020-12-26 05:29] LABS: Protime INR 1.01
[2020-12-26] MEDS: METOPROLOL TAR 50 MG TAB PO SCH ×2 (05:51→18:00)
--- NOTE | 2020-12-26 05:52 | P.DS ---
Admission Date: 12/25/20 Discharge Date: 12/26/20 Primary Care Provider: Nephrology-Dr. Lepe Disposition: ROUTINE DISCHARGE Discharge Condition: GOOD Reason for Admission: Hypertensive emergency; ESRD; intractable nausea vomiting Consultations: Nephrology-Dr. Lepe Procedures: COVID: Negative CXR: COMPARISON: Portable December 19 TECHNIQUE: AP portable chest image was obtained 12/25/2020 10:59 am . FINDINGS: Lungs are clear. Interstitial pattern has diminished in prominence from comparison. Dialysis catheter remains in place. CABG surgical changes are noted. Heart and vasculature are normal. No measurable pleural effusion and no pneumothorax. No acute bony abnormality seen. No acute aortic findings suspected. IMPRESSION: No acute cardiopulmonary process. Medical Problem List: Nausea and vomiting with hypertensive emergency GERD End-stage renal disease on hemodialysis Hyperlipidemia Chronic systolic CHF Depression with anxiety Chronic seasonal allergies Peripheral vascular disease with multiple stents CAD with prior CABG Noncompliance with dialysis Brief History of Present Illness: 55-year-old female presented with uncontrolled hypertension. Patient with end-stage renal disease on hemodialysis, CHF, depression, hyperlipidemia. Patient presented with nausea and vomiting. This started yesterday. Patient has not been able to keep her anti hypertensives down once again. Patient is on clonidine and when patient is unable to keep it down patient has rebound hypertension. Patient takes medication for nausea. Patient reports compliant with hemodialysis. Patient admitted for further evaluation and treatment. Hospital Course: Patient presented with nausea and vomiting. She was not able to take her medications for hypertension. Patient found to have hypertensive emergency. The patient was admitted for treatment. Medications restarted. Patient improved. Blood pressure is now better controlled. Patient takes clonidine 0.1 mg 1 pill 3 times a day. At discharge no significant nausea or vomiting noted. At discharge she will continue with clonidine 0.1 mg 1 pill 3 times a day. Recommend to maintain blood pressure less than 130/80. Further adjustment can be done by her PCP. For her nausea patient may continue with Reglan 5 mg daily as needed for nausea. Recommend follow-up with her PCP in 1 week to follow-up hospitalization. Patient will continue with dialysis every Saturday, Saturday an d Saturday. Suspect underlying GERD. Will recommend to start Protonix 40 mg daily. Patient may take Reglan 5 mg daily as needed for nausea. Patient with end-stage renal disease on hemodialysis. Patient will continue with dialysis every Saturday, Saturday and Saturday. Compliance with her medications addressed in detail. Recommend no further use of nonsteroidal anti- inflammatories. Future medications will need to be renally dosed. Patient will continue with renal diet. Patient has issues with compliance with hemodialysis. Compliance addressed in detail. Patient plans to continue with dialysis as scheduled. Patient with hyperlipidemia. At discharge she will continue with Lipitor 40 mg daily. Patient with chronic systolic CHF, CAD with prior CABG, and peripheral vascular disease with multiple stents. At discharge patient will continue with Entresto 49/51 mg 1 pill twice daily and aspirin 81 mg daily. Recommend to continue 1500 cc/day fluid restriction and low-salt diet. Recommend to monitor her weight daily. Patient with depression with anxiety. At discharge she will continue with her medications including Zoloft 150 mg daily. Patient also takes Valium 5 mg 3 times a day as needed for anxiety. Recommend to wean off Valium. This can be done with the help of her PCP. Patient with chronic seasonal allergies. At discharge she will continue with Singulair 10 mg at bedtime. Vital Signs/Physical Exam: Temp Pulse Resp BP Pulse Ox 97.2 F 93 H 20 93/52 L 97 12/26/20 04:00 12/26/20 04:00 12/26/20 04:00 12/26/20 04:00 12/26/20 04:00 General: Alert, In no apparent distress, Oriented x3, Cooperative HEENT: Atraumatic Neck: Supple Respiratory: Clear to auscultation bilaterally, Normal air movement Cardiovascular: Normal pulses, Regular rate/rhythm Gastrointestinal: Normal bowel sounds, No tenderness, No masses, No rebound, No guarding Musculoskeletal: No erythema, No tenderness, No warmth Integumentary: No tenderness/swelling Neurological: Normal speech, Normal strength at 5/5 x4 extr, Normal tone, Normal affect Laboratory Data at Discharge: WBC 8.50 K/uL (4.3-10.9) D 12/26/20 04:47 Hgb 12.0 g/dL (12.0-15.0) 12/26/20 04:47 Hct 35.5 % (36.0-45.0) L 12/26/20 04:47 Plt Count 202 K/uL (152-406) 12/26/20 04:47 PT 11.6 SECONDS (9.5-12.5) 12/26/20 04:47 INR 1.01 12/26/20 04:47 APTT 28.9 SECONDS (24.3-36.9) 12/26/20 04:47 Sodium 131 mmol/L (136-145) L 12/25/20 10:37 Potassium 4.3 mmol/L (3.5-5.1) 12/25/20 10:37 BUN 66 mg/dL (7-18) H D 12/25/20 10:37 Creatinine 7.45 mg/dL (0.55-1.3) H* D 12/25/20 10:37 Glucose 143 mg/dL (74-106) H 12/25/20 10:37 Magnesium 2.1 mg/dL (1.8-2.4) 12/25/20 10:37 Total Bilirubin 0.3 mg/dL (0.2-1.0) 12/25/20 10:37 AST 12 U/L (15-37) L 12/25/20 10:37 ALT 17 U/L (12-78) 12/25/20 10:37 Alkaline Phosphatase 116 U/L (45-117) 12/25/20 10:37 Home Medications: Aspirin [Aspirin EC 81 MG] 81 mg PO DAILY 12/20/20 Atorvastatin Calcium 40 mg PO BEDTIME 12/20/20 Ergocalciferol (Vitamin D2) [Vitamin D 50,000 Unit Cap] 50,000 units PO EVERY 7TH DAY 12/20/20 Metoclopramide HCl 5 mg PO DAILY PRN MDD n/a 12/20/20 Montelukast [Singulair*] 10 mg PO DAILY 12/20/20 Sacubitril/Valsartan [Entresto 49 mg-51 mg Tablet] 1 tab PO BID 12/20/20 Sertraline [Zoloft*] 150 mg PO DAILY 12/20/20 cloNIDine HCL [Clonidine HCl] 0.1 mg PO TID 12/20/20 Diazepam [Valium] 5 mg PO TID PRN #30 12/21/20 Albuterol Inhaler [Ventolin Inhaler*] 2 puff IH TID PRN #1 12/26/20 Pantoprazole [Protonix Tab] 40 mg PO DAILY #30 tab 12/26/20 New Medications: Pantoprazole [Protonix Tab] 40 mg PO DAILY #30 tab Albuterol Inhaler [Ventolin Inhaler*] 2 puff IH TID PRN #1 PRN Reason: Shortness Of Breath Physician Discharge Instructions: Patient presented with nausea and vomiting. She was not able to take her medications for hypertension. Patient found to have hypertensive emergency. The patient was admitted for treatment. Medications restarted. Patient improved. Blood pressure is now better controlled. Patient takes clonidine 0.1 mg 1 pill 3 times a day. At discharge no significant nausea or vomiting noted. At discharge she will continue with clonidine 0.1 mg 1 pill 3 times a day. Recommend to maintain blood pressure less than 130/80. Further adjustment can be done by her PCP. For her nausea patient may continue with Reglan 5 mg daily as needed for nausea. Recommend follow-up with her PCP in 1 week to follow-up hospitalization. Patient will continue with dialysis every Saturday, Saturday and Saturday. Suspect underlying GERD. Will recommend to start Protonix 40 mg daily. Patient may take Reglan 5 mg daily as needed for nausea. Patient with end-stage renal disease on hemodialysis. Patient will continue with dialysis every Saturday, Saturday and Saturday. Compliance with her medications addressed in detail. Recommend no further use of nonsteroidal anti- inflammatories. Future medications will need to be renally dosed. Patient will continue with renal diet. Patient has issues with compliance with hemodialysis. Compliance addressed in detail. Patient plans to continue with dialysis as scheduled. Patient with hyperlipidemia. At discharge she will continue with Lipitor 40 mg daily. Patient with chronic systolic CHF, CAD with prior CABG, and peripheral vascular disease with multiple stents. At discharge patient will continue with Entresto 49/51 mg 1 pill twice daily and aspirin 81 mg daily. Recommend to continue 1500 cc/day fluid restriction and low-salt diet. Recommend to monitor her weight daily. Patient with depression with anxiety. At discharge she will continue with her medications including Zoloft 150 mg daily. Patient also takes Valium 5 mg 3 sinan es a day as needed for anxiety. Recommend to wean off Valium. This can be done with the help of her PCP. Patient with chronic seasonal allergies. At discharge she will continue with Singulair 10 mg at bedtime. Diet: Renal Activity: Ad ascencion Followup: OOT,OOT [Primary Care Provider] - Time spent managing pt's care (in minutes): 55
[2020-12-26 05:56] LABS: Albumin 3.6 g/dL (3.4-5.0); Bilirubin Total 0.3 mg/dL (0.2-1.0); Potassium 4.8 mmol/L (3.5-5.1); Protein, Total 7.9 g/dL (6.4-8.2)
--- NOTE | 2020-12-26 08:25 | EKG ---
Test Date: 2020-12-25 Test Time: 11:03:29 Inside Sales Trainer: ELICEO MEASUREMENT RESULTS: Intervals: Rate: 104 MO: 140 QRSD: 92 QT: 374 QTc: 491 [place]: P: 57 MO: 140 QRS: 45 T: 176 INTERPRETIVE STATEMENTS: Sinus tachycardia Left ventricular hypertrophy with repolarization abnormality Abnormal ECG Compared to ECG 12/19/2020 19:50:51 No significant changes Electronically Signed On 12-26-20 08:23:52 CDT by Thien Barker
[2020-12-26] MEDS ORDERED: NA CHLORIDE 0.9% 250 ML IV PRN (08:55)
[2020-12-26] MEDS ORDERED: MONTELUKAST 10 MG TAB PO SCH (09:00)
[2020-12-26] MEDS ORDERED: CLONIDINE 0.2 MG/PATCH TD SCH (09:00)
[2020-12-26] MEDS ORDERED: ASPIRIN EC 81 MG TAB PO SCH (09:00)
[2020-12-26] MEDS: cloNIDine HCL 0.1 MG TAB PO SCH ×2 (09:00→13:38)
[2020-12-26] MEDS ORDERED: SERTRALINE HCL 100 MG TAB PO SCH (09:00)
[2020-12-26] MEDS: SACUBITRIL/VALSARTAN 49/51 MG TAB PO SCH (09:28)
[2020-12-26] MEDS: MANNITOL 25% 12.5 GM/50 ML VIAL IV ONE ×2 (12:00→14:22)
--- NOTE | 2020-12-26 12:06 | PN ---
Date of Progress Note: 12/26/2020 Subjective: The patient was seen in second floor at [facility] Room 215. The pa quincy is alert, awake and comfortable, breathing comfortably. No edema. Lungs clear to auscultation . Abdomen is soft. Vitals seem to be stabilizing. Blood pressure was high yesterday when the izzy campa arrived to the hospital. She complained mainly of confusion, was not feeling well, and was having difficulty breathing in the setting of blood pressure being elevated. Once her blood pressure came down, her breathing improved significantly. Her headache and confusion are resolved. Her blood pres sure around the time of arrival yesterday was 230/140. She got labetalol. She got hydralazine and c lonidine. Objective: Vital Signs: Blood pressure now is down to 90/55. Her pulse is around 70s. Her O2 sats are 99% on room air. Her respirations around 14 to 15 on my exam. She is afebrile. Lungs: Clear to auscultation. Abdomen: Soft. Extremities: Reveal no edema. Heart: Sounds are regular. The patient does have some nausea ongoing on and off for the past several days. She has been advised to go to the [facility], but states has not been able to do that due to monitor issues and affordi ng the payment. Again explained to her the importance of following up with boat canvas maker and installer. The patijeffry t states she will make appointment with her boat canvas maker and installer, Dr. Gould upon discharge. Laboratory Data: On evaluation of her laboratory work, the patient's labs look stable today. WBC co unt of 8.5, hemoglobin 12, hematocrit 35.5, platelet count of 202. Sodium 136, potassium 4.8, chlori de 93, bicarb 26, BUN 83, creatinine 9.09. AST and ALT are 14 and 15, alkaline phosphatase 80, album in at 3.6. Assessment And Plan: End-stage renal disease. The patient with history of hypertensive nephrosclero sis, presents to the hospital with hypertension issues, nausea, headache and discomfort in the settin g of very high blood pressure. After getting IV medications, the patient is improved. She has been improved with her nausea also on Reglan. She is being discharged with Reglan. The patient has taken Zofran in the past. Also advised to take smaller meals and advise if nausea resumes. Also advised to her to follow up with boat canvas maker and installer to get her heart checked up. She has followed up with a cardio logist in the past and I have advised her today to keep those followups to make sure that the nausea is not related to any issues with cardiac. The patient is currently not having any chest pain, no sh ortness of breath, no nausea. This is a regular dialysis day. She will be able to make it back to d ialysis and time today, so we will dialyze her in the hospital and then once dialysis completed and i f she is stable, okay to discharge with followup on dialysis on Saturday. Advised her to bring her medications to dialysis. Also advised her to take her medications spread out during the day and ashutosh tor blood pressure 3 times a day at least for now while her blood pressures have been fluctuating. S he will take clonidine 0.1 p.o. t.i.d. She will take amlodipine 2.5 mg half of the 5 mg pill 3 times a day. She has been advised to monitor blood pressure, if her blood pressure goes below 110 to hold these medications. If it goes above 160, she can take an additional clonidine up to 3 times a day a s long as her pulse is over 55. The patient seems to understand these instructions, is able to repea t them, and will bring all her medications to dialysis on Saturday. Her breathing is comfortable cu rrently. She is not complaining of any pain. She looks alert and comfortable. I have also ordered some mannitol with dialysis for blood pressure systolic less than 100. I have discussed this also wi th the dialysis nurse, who is aware. JARRETT Voice ID: [id number] Report ID: [id number]
[2020-12-26 12:40] VITALS: O2SAT 99
[2020-12-26] MEDS ORDERED: NEPRO SHAKE 237 ML CAN PO PRN (16:00)
[2020-12-26 18:23] VITALS: BP 116/59; TEMP 97.9
[2021-01-01] MEDS ORDERED: DRISDOL (VITAMIN D=ERGOCALCIFEROL) 50000 UNIT CAP PO SCH (09:00)
== END 2020-12-26 19:32 | disposition home or self-care (01) ==
LOC: ER 10:01 → ERHOLD 14:10 → 2ND 15:32
PROVIDERS: ADMIT Hospitalist; ATTEND Family Medicine
DX: I16.1 Hypertensive emergency (principal); I13.2 Hypertensive heart and chronic kidney disease with heart failure and with stage 5 chronic kidney disease, or end stage renal disease; N18.6 End stage renal disease; Z99.2 Dependence on renal dialysis; I50.22 Chronic systolic (congestive) heart failure; K21.9 Gastro-esophageal reflux disease without esophagitis; Z20.822 Contact with and (suspected) exposure to COVID-19; E78.5 Hyperlipidemia, unspecified; F41.8 Other specified anxiety disorders; J30.2 Other seasonal allergic rhinitis; I73.9 Peripheral vascular disease, unspecified; Z95.820 Peripheral vascular angioplasty status with implants and grafts; I25.10 Atherosclerotic heart disease of native coronary artery without angina pectoris; Z95.1 Presence of aortocoronary bypass graft; Z91.15 Patient's noncompliance with renal dialysis; R11.2 Nausea with vomiting, unspecified; F17.200 Nicotine dependence, unspecified, uncomplicated
CPT/HCPCS: 0240U; 36415; 71045; 80048; 80053; 80076; 83735; 83880; 84484; 85025; 85610; 85730; 87804; 90935; 93005; 96374; 96375; 99285; G0378; J0360; J1644; J2150; J2405; J2550; J7050

== ENCOUNTER 2022-03-26 10:18 | Observation (INO) | payer OTHER ==
--- OUTSIDE RECORDS SUMMARY | 2022-03-26 10:32 | XMS REPORT | Continuity of Care Document ---
:1965 Author Organization [facility] t Address [address] [place] [address] Support Name Relationship Address Phone NO, PT CONTACT Friend Unavailable Unavailable JOVITA KRISHNAN [facility] [address] [phone] [place] [id number] VIRIDIANA LLAMAS Unavailable Unavailable KAROLYN ARNOLD Unavailable Grey Rey Other Unavailable Virginie Krishnan Child Unavailable BOB HOWARD Primary Care Physician [address] [place] [address] MD KIRT KELLER Emergency Provider [address] [place] [address] MD [facility] Other Provider [address] [phone] [place] [address] MD JAKC BANSAL Admitting Provider [address] [place] [address] MD BARTOLO GOLDMAN Emergency Provider [address] [place] [address] MD JUANY DUPONT JR Admitting Provider [address] [facility] [address] [place] [address] JOVITA KRISHNAN Unavailable [address] [place] [address] MD VERA BATES Emergency Provider [address] [place] [address] MD JUANY DUPONT JR Admitting Provider [address] [place] [address] JOVITA KRISHNAN Unavailable [address] [facility] [address] [facility] [place] [address] MD WINDY ESCAMILLA Emergency Provider [facility] [place] [address] Macho Navarro Unavailable [place], [place] Care Team Providers Name Role Phone KRYSTA MATSON Primary Care Physician Unavailable CARMELLA MENEZES Attending Clinician Unavailable YEN LAMBERT Attending Clinician Unavailable Gerardo Miller MD Attending Clinician Patel Kurtz MD Attending Clinician Dave Chua MD Attending Clinician Nadine ARAUJO, Argelia Stevens Attending Clinician [phone] DR PAUL MAN Attending Clinician Unavailable [phone] Attending Clinician Unavailable [id number] Attending Clinician Unavailable DR KRYSTA MATSON Attending Clinician Unavailable [id number] Attending Clinician Unavailable [id number] Attending Clinician Unavailable Karrie Willoughby MD Attending Clinician Ino Heck MD Attending Clinician INO HECK Attending Clinician Unavailable Yfn Monroe MD Attending Clinician Hernandez Mercer Attending Clinician [phone] Carmella Menezes MD Attending Clinician KARRIE WILLOUGHBY Attending Clinician Unavailable CARMELLA MENEZES Attending Clinician Unavailable Yen Lambert MD Attending Clinician Flavia Leal MD Attending Clinician FLAVIA LEAL Attending Clinician Unavailable Landon FRASER, Hodan Sanderson Attending Clinician Unavailable IHDE_G Attending Clinician Unavailable Bernardino Quijano Attending Clinician Unavailable Bernardino Quijano Attending Clinician Unavailable SHAGGY ESPINAL M.D., SHAGGY KEVIN M.D. Attending Clini bo Unavailable MYA DE LEON Attending Clinician Unavailable RA ELLIS Attending Clinician Unavailable CARMELLA MENEZES Admitting Clinician Unavailable YEN LAMBERT Admitting Clinician Unavailable PATEL KURTZ Admitting Clinician Unavailable DR PAUL MAN Admitting Clinician Unavailable DR KRYSTA MATSON Admitting Clinician Unavailable KARRIE WILLOUGHBY Admitting Clinician Unavailable IHDE_G Admitting Clinician Unavailable Bernardino Quijano Admitting Clinician Unavailable CALE WAGNER M.D., THIEN Admitting Clinician Unavailable MYA DE LEON Admitting Clinician Unavailable BERNARDINO QUIJANO Admitting Clinician Unavailable RA ELLIS Admitting Clinician Unavailable Payers Payer Name Policy Type Policy Number Effective Date Expiration Date S dixonce [facility] WELLMED [id number] 2021 00:00:00 [employer] [id number] WELLMED [facility] [id number] WELLMED WELLMED MEDICARE [id number] 2021 00:00:00 BLUE ADVANTAGE [id number] 2016 HMO-MARKETPLACE - BCBS 00:00:00 AARP MCR ADVANTAGE [id number] 2021 HMO-POS-UHC 00:00:00 BCBS ADV HMO EXCHANGE [id number] 2016 00:00:00 [facility] - AARP - MEDICARE [id number] SOLUTIONS - MEDICARE COMPLETE (MEDICARE REPLACEMENT [place]) [place]UE [id number] 2018 ADVANTAGE (HMO) 00:00:00 Problems Condition Condition Condition Status Onset Resolution Last Treating Co mments Source Name Details Category Date Date Treatment Clinician Date Weakness Weakness Disease Active Metho di 03-03 st 00:00: Hospita 00 l Bronchitis Bronchitis Disease Active M ethodi 03-02 st 00:00: Hospita 00 l Congestive Congestive Disease Active M ethodi heart heart 03-02 st failure failure 00:00: Hospita with left with left 00 l ventricula ventricula r systolic r systolic dysfunctio dysfunctio n n Gall[place]adde Gallbladde Disease Active M ethodi r sludge r sludge 03-02 st 00:00: Hospita 00 l Dyspnea on Dyspnea on Disease Active M ethodi exertion exertion 03-02 00:00: Hospita 00 l Encounter Encounter Disease Active Met hodi for for 03-02 counseling counseling 00:00: Ho spita 00 l Mechanical Mechanical Disease Active M ethodi complicati complicati 03-02 on of on of 00:00: Hospita dialysis dialysis 00 l catheter catheter Pain in Pain in Disease Active Methodi left knee left knee 03-02 00:00: Hospita 00 l Respirator Respirator Disease Active M ethodi y distress y distress 03-02 00:00: Hospita 00 l Pulmonary Pulmonary Disease Active Met hodi edema edema 03-02 00:00: Hospita 00 l Pain, Pain, Disease Active Methodi joint, joint, 03-02 multiple multiple 00:00: Hospit a sites sites 00 l Pain in Pain in Disease Active Methodi right hand right hand 03-02 00:00: Hospita 00 l Urinary Urinary Disease Active Methodi tract tract 03-02 infection infection 00:00: Hosp tara 00 l Upper Upper Disease Active Methodi abdominal abdominal 03-02 pain, pain, 00:00: Hospita unspecifie unspecifie 00 l d d Unintentio Unintentio Disease Active M ethodi nal weight nal weight 7-31 st loss loss 00:00: Hospita 00 l Nausea Nausea Disease Active Methodi 7-29 st 00:00: Hospita 00 l AAA AAA Disease Active [facility] (abdominal (abdominal 5-19 [facility] aortic aortic 00:00: Medical aneurysm) aneurysm) 00 Cent er WALTER (renal WALTER (renal Disease Active [facility] artery artery 5-19 [facility] stenosis) stenosis) 00:00: Medi angel 00 Center ESRD (end ESRD (end Disease Active [facility] stage stage 5-19 [facility] renal renal 00:00: Medical disease) disease) 00 Center CRF CRF Disease Active [facility] (chronic (chronic 5-19 [facility] renal renal 00:00: Medical failure), failure), 00 Cent er stage 3 stage 3 (moderate) (moderate) Celiac Celiac Disease Active [facility] artery artery 5-16 [facility] stenosis stenosis 00:00: Medica l 00 Center Abdominal Abdominal Disease Active [facility] aortic aortic 5-16 [facility] aneurysm aneurysm 00:00: Medica l (AAA) (AAA) 00 Center without without rupture rupture Renal Renal Disease Active [facility] artery artery 5-16 [facility] occlusion occlusion 00:00: Medi angel 00 Center Chronic Chronic Disease Active Methodi allergic allergic 8-23 st bronchitis bronchitis 00:00: Ho spita 00 l 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 [address] st of colon of colon 00:00: Hospit a 00 l Diverticul Diverticul Disease Active M ethodi ar disease ar disease 4 st 00:00: Hospita 00 l Chronic Chronic Disease Active Methodi constipati constipati [address] st on on 00:00: Hospita 00 l Hernia of Hernia of Disease Active Met hodi anterior anterior [address] st abdominal abdominal 00:00: Hosp tara wall wall 00 l Luetscher' Luetscher' Disease Active M ethodi s syndrome s syndrome 4 st 00:00: Hospita 00 l Internal Internal Disease Active Metho di hemorrhoid hemorrhoid [address] s s 00:00: Hospita 00 l Tobacco Tobacco Disease Active Methodi dependence dependence 4 st syndrome syndrome 00:00: Hospit a 00 l Acute Acute Disease Active Methodi kidney kidney 3-29 st injury injury 00:00: Hospita superimpos superimpos 00 l ed on ed on chronic chronic kidney kidney disease disease Gout Gout Disease Active Methodi 2-21 st 00:00: Hospita 00 l Neuropathy Neuropathy Disease Active M ethodi 1-31 st 00:00: Hospita 00 l Hypertensi Hypertensi Disease Active 2018-07 M ethodi ve heart ve heart 2-16 st and and 00:00: Hospita chronic chronic 00 l kidney kidney disease disease without without heart heart failure, failure, with stage with stage 1 through 1 through stage 4 stage 4 chronic chronic kidney kidney disease, disease, or or unspecifie unspecifie d chronic d chronic kidney kidney disease disease Essential Essential Disease Active 2018-07 Met hodi hypertensi hypertensi 2-13 st on on 00:00: Hospita 00 l Mixed Mixed Disease Active Methodi anxiety anxiety 8-02 st and and 00:00: Hospita depressive depressive 00 l disorder disorder Hiatal Hiatal Disease Active Methodi hernia hernia 4-15 st 00:00: Hospita 00 l Gastropare Gastropare Disease Active M ethodi sis sis 4-15 st 00:00: Hospita 00 l Diverticul Diverticul Disease Active M ethodi osis of osis of 110 st colon colon 00:00: Hospita 00 l Hyperlipid Hyperlipid Disease Active M ethodi emia emia 1-07 st 00:00: Hospita 00 l Malignant Malignant Disease Active 2016-07 Met hodi hypertensi hypertensi 2- st on on 00:00: Hospita 00 l Cardiomyop Cardiomyop Disease Active 2016-07 M ethodi athy athy 08-05 st 00:00: Hospita 00 l NSTEMI NSTEMI Disease Active [facility] (non-ST (non-ST 04-02 [facility] elevated elevated 00:00: Medica l myocardial myocardial 00 Ce nter infarction infarction ) ) Tobacco Tobacco Disease Active [facility] abuse abuse 04-02 [facility] 00:[facility]: Medical 00 Center Ischemic Ischemic Disease Active [facility] cardiomyop cardiomyop 04-02 [facility] athy athy 00:00: Medical 00 Center Postoperat Postoperat Disease Active [facility] primo ileus primo ileus 04-02 Luke s 00:00: Medical 00 Center Acute Acute Disease Active [facility] blood loss blood loss 04-02 [facility] anemia anemia 00:00: Medical 00 Center Coronary Coronary Disease Active [facility] artery artery 03-27 [facility] disease disease 00:00: Medical 00 Center Carotid Carotid Disease Active Overview: [facility] stenosis, stenosis, 03-27 Formattin L ukes right right 00:00: g of this Medical 00 note Center might be different from the original. S/p right CEA on 03/27 Acute on Acute on Disease Active [facility] t chronic chronic 03-27 [facility] systolic systolic 00:00: Medica l heart heart 00 Center failure failure Cardiogeni Cardiogeni Disease Active [facility] c c 9-20 [facility] postoperat postoperat 00:00: Me dical primo shock primo shock 00 Cent er CAD CAD Disease Active [facility] (coronary (coronary 03-26 Luke s artery artery 00:00: Medical disease) disease) 00 Center Epigastric Epigastric Problem Active M atagor [facility] CKD CKD Problem Active 2019-09-15 Memor ia (chronic (chronic 02:45:27 l kidney kidney Branden disease) disease) stage 4, stage 4, GFR 15-29 GFR 15-29 ml/min ml/min Active Problem 09/15/2019 Penny Najam Pain in Pain in Diagnosis Active 2019-09-02 Memoria right knee right knee 03:47:44 l Active Branden Diagnosis 09/02/2019 Penny Najam Pain in Pain in Diagnosis Active 2019-09-02 Memoria left knee left knee 03:47:44 l Active [place] Diagnosis 09/02/2019 Penny Najam Pain in Pain in Diagnosis Active 2019-09-02 Memoria left hand left hand 03:47:44 l Active [place] Diagnosis 09/02/2019 Penny Najam Counseling Counselin Diagnosis Active 2019-09-02 Memoria NOS g NOS 03:47:44 l Active [place] Diagnosis 09/02/2019 Penny Najam Pain in Pain in Diagnosis Active 2019-09-02 Memoria right hand right hand 03:47:44 l Active [place] Diagnosis 09/02/2019 Penny Najam Pain, Pain, Diagnosis Active 2019-09-02 Mem oria joint, joint, 03:47:44 l multiple multiple Leon n sites sites Active Diagnosis 09/02/2019 Penny Najam Allergies, Adverse Reactions, Alerts Allergy Allergy Status Severity Reaction(s) Onset Inactive Treating Comm ents Source Name Type Date Date Clinician NKDA - DA Active UNKNOWN El NO KNOWN [facility] ALLERGIE l S Hospita l No Known Drug Active [facility] No Known Drug Active [facility] NO KNOWN Allergy Active [facility] ALLERGIE S Family History Family Member Diagnosis Comments Start Date Stop Date Source Natural mother Heart failure [facility] Social History Social Habit Start Date Stop Date Quantity Comments Source History of tobacco Smokes tobacco Me thodist use daily Hospital History SDOH [facility] Cigarette 2022-03-03 2022-03-03 [facility] pack-years 00:00:00 00:00:00 Hospital Alcohol intake 2022-01-03 2022-01-03 Ex-drinker [facility] es 00:00:00 00:00:00 (finding) Medical Center History [facility] 2021-12-31 2021-12-[address] [facility] Transport Med 00:00:00 00:00:[address] History [facility] 2021-12-31 2021-12-[address] [facility] Housing Unable to 00:00:00 00:00:00 Medical Center Pay History [facility] 2021-12-31 2021-12-[address] [facility] Housing Places 00:00:00 00:00:00 Medical Ce nter Lived History [facility] 2021-12-31 2021-12-[address] [facility] Housing Homeless 00:00:00 00:00:00 Medical Center Last Year Exposure to 2021-11-13 2021-11-[address] [facility] SARS-CoV-2 (event) 00:00:00 12:39:00 [facility] Cigarettes smoked 2017-03-26 2017-03-[address] [facility] current (pack per 00:00:00 00:00:00 Medical Center day) - Reported Tobacco use and 2017-03-26 2017-03-[address] [facility] exposure 00:00:00 00:00:00 Medical Center Sex Assigned At [address] [facility] 00:00:00 00:00:00 Medical Center Smoking Status Start Date Stop Date Source Heavy Tobacco Smoker [facility] Smokes tobacco daily 2022-03-03 00:00:00 [facility] Medications Ordered Filled Start Stop Current Ordering Indication Dosage Frequency Signature Comments Components Source Medication Medication Date Date Medication? Clinician (SIG) Name Name sacubitriL- Yes 1{tbl} Q.5D Take 1 Me thodi valsartan 8-[address] (Entresto) 15:09: mouth 2 Hosp tara 97-103 mg 03 (two) l tablet per times a tablet day. carvediloL 2022-0 2022- No 25mg Q.5D Take 1 Meth ruthie (COREG) 25 03-05-28 tablet (25 st MG tablet 15:09: 00:00 mg total) Ho spita 03 :00 by mouth 2 l (two) times a day with meals. ipratropium 2021- No 2{puff} Q.25D Inhale 2 Methodi (ATROVENT 03-05-[address] HFA) 17 15:09: 00:00 (four) Hospita mcg/actuati 03 :00 times a l on inhaler day. docusate Yes 100mg Q.5D Take 2 Method i sodium - capsules st (COLACE) 50 15:09: (100 mg Hos nathan MG capsule 02 total) by l mouth 2 (two) times a day. polyethylen Yes 17g Q.5D Take 17 g M ethodi e glycol 03-[address] (MIRALAX) 15:09: (two) Hospita 17 gram 02 times a l packet day as needed for constipati on. atorvastati 2021- No Once Daily Methodi n (LIPITOR) 03-05-27 At Bedtime s t 40 mg 15:09: 00:00 Hospita tablet 02 :00 l atorvastati 0 Yes 40mg QD Take 1 Meth ruthie n (LIPITOR) 03-04 tablet (40 st 40 MG 15:09: mg total) Hospita tablet 28 by mouth l nightly. albuterol Yes 2{puff} Q6H Inhale 2 M ethodi (PROAIR 8-[address] HFA) 90 15:09: every 6 Hospita mcg/actuati 28 (six) l on inhaler hours as needed for wheezing. carvediloL 2021- Yes 12.5mg Q.5D Take 0.5 Methodi (COREG) 25 03-04- tablets st MG tablet 00:00: 04:59 (12.5 mg Hos nathan 00 :00 total) by l mouth 2 (two) times a day with meals for 30 days. QUEtiapine 2021- No 12.5mg QD Take 0.5 Methodi (SEROqueL) 8-28 09-[address] 25 MG 00:00: 04:59 (12.5 mg Hospita tablet 00 :00 total) by l mouth nightly for 10 days. nortriptyli 2021- No 50mg Q.[id number] Take 50 mg Methodi ne 03-03 [id number] by mouth 3 st (PAMELOR) 03:37: 00:00 3D (three) Hosp tara 50 MG 46 :00 times a l capsule day. montelukast 2021- No 10mg QD Take 10 mg Methodi (SINGULAIR) 03-[address] 10 mg 03:34: 00:00 nightly. Hospita tablet 20 :00 l gabapentin 2021- No 300mg Q.5D Take 300 M ethodi (NEURONTIN) 03-[address] 300 mg 03:31: 00:00 mouth 2 Hospita capsule 44 :00 (two) l times a day. diazePAM 2021- No 5mg Q8H Take 5 mg Met hodi (VALIUM) 5 03-[address] MG tablet 03:28: 00:00 every 8 Hosp tara 34 :00 (eight) l hours as needed for anxiety. budesonide- 2021- No 2{puff} Q.5D Inhale 2 Methodi formoteroL 03-[address] (SYMBICORT) 03:27: 00:00 (two) Hosp tara 160-4.5 38 :00 times a l mcg/actuati day. on inhaler isosorbide Yes 30mg QD Take 1 Metho di mononitrate 8-18 tablet (30 st (IMDUR) 30 00:00: mg total) Ho spita MG 24 hr 00 by mouth l tablet nightly. famotidine Yes 10mg Q2D Take 10 mg M ethodi (PEPCID) 20 8-[address] MG tablet 00:00: every Hospita 00 other day. l clopidogreL 2021-0 Yes 75mg QD Take 1 Meth ruthie (PLAVIX) 75 8-18 tablet (75 st mg tablet 00:00: mg total) Hos nathan 00 by mouth l daily. FLUoxetine 2022-0 Yes 10mg QD Take 1 Metho di (PROzac) 10 8-[address] MG capsule 00:00: (10 mg Hospi ta 00 total) by l mouth daily. carvediloL 2021- No Method i (COREG) 25 8-18 08-27 st MG tablet 00:00: 00:00 Hospita 00 :00 l Entresto 2021- No 1{tbl} Q.5D Take 1 Meth ruthie 97-103 mg 7 08-[address] tablet per 00:00: 00:00 mouth 2 Hos nathan tablet 00 :00 (two) l times a day. sacubitriL- Yes 1{tbl} Q.5D Take [address] valsartan 7-09 tablet by [facility] (ENTRESTO) 14:33: mouth 2 Medi angel 97-103 mg 03 (two) Center Tab times daily. linaCLOtide Yes 145ug QD Take [address] (Linzess) 7-09 mcg by [facility] 145 mcg Cap 14:33: mouth Medic al 03 daily. Center fLUoxetine Yes anxiety 10mg QD Take [address] (PROzac) 10 7-09 with by mouth Luke s MG capsule 14:33: depression daily. Medical 03 Center cinacalcet Yes 30mg QD Take [address] (SENSIPAR) 7-08 by mouth [facility] 30 MG 14:35: daily Medical tablet 00 M/W/F Center dialysis days. sevelamer Yes 800mg Take [address] (RENVELA) 7-08 mg by [facility] 800 mg 14:35: mouth 3 Medical tablet 00 (three) Center times daily with meals. fluticasone Yes 1{puff} Q.5D Inhale [address] propion-brianna 7-08 puff by Lukes meteroL 00:00: mouth via Medic al 113-14 00 inhaler 2 Center mcg/actuati (two) on AePB times daily. carvediloL 2022- Yes 25mg Q.5D Take [address] (COREG) 25 7-08 07-08 tablet (25 [facility] MG tablet 00:00: 23:59 mg total) Me dical 00 :00 by mouth 2 Center (two) times daily. hydrALAZINE 2022- Yes 25mg Q.[id number] Take [address] (APRESOLINE 01-12- [id number] tablet (25 [facility]ukes ) 25 MG 00:00: 23:59 3D mg total) Medi angel tablet 00 :00 by mouth 3 Center (three) times daily. ipratropium 2022- Yes 3mL Take [address] -albuteroL 01-12-03 by Mariela (DUO-NEB) 00:00: 23:59 nebulizati M edical 0.5 mg-3 00 :00 on every 6 Cente r mg(2.5 mg (six) base)/3 mL hours as nebulizer needed for solution Wheezing or Shortness of Breath for up to 360 days. hydrALAZINE 2021-2021- No 75mg Q8H Take 3 Met hodi (APRESOLINE 01-12-[address] ) 25 MG 00:00: 00:00 (75 mg Hospita tablet 00 :00 total) by l mouth every 8 (eight) hours. ipratropium 2021-2021- No 3mL Inhale 3 M ethodi -albuteroL 01-12 08-[address] (DUO-NEB) 00:00: 00:00 Hospita 0.5-2.5 00 :00 l mg/3 mL nebulizer aspirin 81 2022- Yes 81mg QD Take [address] MG chewable 01-11 tablet (81 L ukes tablet 00:00: 23:59 mg total) Medic al 00 :00 by mouth Center daily You can get this over the counter. carvediloL 2021-0 2021- No 12.5mg Q.5D Take [address] (COREG) 01-10- tablet Mariela 12.5 MG 00:00: 00:00 (12.5 mg Medic al tablet 00 :00 total) by Center mouth 2 (two) times daily. sacubitriL- 2021-0 2021- No 1{tbl} Q.5D Take [address] valsartan 6-26 06-26 tablet by Keenan garza (Entresto) 16:10: 00:00 mouth 2 Med ical 49-51 mg 20 :00 (two) Center Tab times daily. sacubitriL- 2021-0 Yes 1{tbl} Q.5D Take [address] valsartan 5-23 tablet by [facility]ukes (Entresto) 13:46: mouth 2 Medi angel 49-51 mg 09 (two) Center Tab times daily. cinacalcet 2021-0 Yes 30mg QD Take [address] (SENSIPAR) 5-23 by mouth [facility] 30 MG 13:46: daily. Medical tablet 09 Center sevelamer 2021-0 Yes 800mg Take [address] (RENVELA) 5-23 mg by [facility] 800 mg 13:46: mouth 3 Medical tablet 09 (three) Center times daily with meals. famotidine 2021-0 Yes 20mg Q24H Take 1 [facility] (PEPCID) 20 5-23 tablet (20 [facility] MG tablet 00:00: mg total) Med ical 00 by mouth Center daily. famotidine 2021-0 Yes 20mg Q24H Take 1 [facility] (PEPCID) 20 5-23 tablet (20 [facility] MG tablet 00:00: mg total) Med ical 00 by mouth Center daily. ipratropium 2021-0 2022- No 2{puff} Inhale [address] (ATROVENT 5-23 05-23 puffs by [facility]ukes HFA) 17 00:00: 23:59 mouth via Medi angel mcg/actuati 00 :00 inhaler Cente r on inhaler every 6 (six) hours. guaiFENesin 2021-0 2022- No 600mg Q.5D Take [address] (mucINEX) 5-23 05-23 tablet [facility] 600 mg 12 00:00: 23:59 (600 mg Medi angel hr tablet 00 :00 total) by Cente r mouth 2 (two) times daily. ipratropium 2021-0 2022- No 2{puff} Inhale [address] (ATROVENT 5-23 05-23 puffs by [facility] HFA) 17 00:00: 23:59 mouth via Medi angel mcg/actuati 00 :00 inhaler Cente r on inhaler every 6 (six) hours. guaiFENesin 2021-0 2021- No 600mg Q.5D Take [address] (mucINEX) -28 12-26 tablet [facility] 600 mg 12 00:00: 00:00 (600 mg Medi angel hr tablet 00 :00 total) by Cente r mouth 2 (two) times daily. nicotine 2021- No 1{patch QD Place [address] (NICODERM 5-28 12-22 } patch onto Karen es CQ) 21 00:00: 23:59 the skin Medica l mg/24 hr 00 :00 daily for Center patch 30 days. nicotine 2021- No 1{patch QD Place [address] (NICODERM 11-27-22 } patch onto Karen es CQ) 21 00:00: 23:59 the skin Medica l mg/24 hr 00 :00 daily for Center patch 30 days. clopidogreL 2022- No 75mg QD Take [address] (PLAVIX) 75 5-20 05-20 tablet (75 L ukes mg tablet 00:00: 23:59 mg total) Me dical 00 :00 by mouth Center daily. aspirin 81 2022- No 81mg QD Take [address] MG EC 5-20 05-20 tablet (81 [facility] tablet 00:00: 23:59 mg total) Medic al 00 :00 by mouth Center daily. clopidogreL 2022- No 75mg QD Take [address] (PLAVIX) 75 5-20 05-20 tablet (75 L ukes mg tablet 00:00: 23:59 mg total) Me dical 00 :00 by mouth Center daily. carvediloL 2022- No 3.125mg Q.5D Take [address] (COREG) 5-20 05-20 tablet [facility] 3.125 MG 00:00: 23:59 (3.125 mg Med ical tablet 00 :00 total) by Center mouth 2 (two) times daily. aspirin 81 2022- No 81mg QD Take [address] MG EC 5-20 05-20 tablet (81 [facility] tablet 00:00: 23:59 mg total) Medic al 00 :00 by mouth Center daily. clopidogreL 2022- No 75mg QD Take [address] (PLAVIX) 75 5-20 05-20 tablet (75 L ukes mg tablet 00:00: 23:59 mg total) Me dical 00 :00 by mouth Center daily. carvediloL 2022- No 3.125mg Q.5D Take [address] (COREG) 5-20 05-20 tablet [facility] 3.125 MG 00:00: 23:59 (3.125 mg Med ical tablet 00 :00 total) by Center mouth 2 (two) times daily. carvediloL 2021- No 3.125mg Q.5D Take [address] (COREG) 5-20 07-06 tablet [facility] 3.125 MG 00:00: 00:00 (3.125 mg Med ical tablet 00 :00 total) by Center mouth 2 (two) times daily. aspirin 81 2021- No 81mg QD Take [address] MG EC 5-20 06-26 tablet (81 [facility] tablet 00:00: 00:00 mg total) Medic al 00 :00 by mouth Center daily. sacubitriL- Yes 1{tbl} Q.5D Take [address] valsartan 5-19 tablet by [facility]ukes (Entresto) 16:23: mouth 2 Medi angel 49-51 mg 15 (two) Center Tab times daily. cinacalcet Yes 30mg QD Take [address] (SENSIPAR) 5-19 by mouth [facility] 30 MG 16:23: daily. Medical tablet 15 [place] sevelamer Yes 800mg Take [address] (RENVELA) 5-19 mg by [facility] 800 mg 16:23: mouth 3 Medical tablet 15 (three) Center times daily with meals. furosemide 2021-0 Yes Q.5D 2 (two) [facility] (LASIX) 40 4-28 times [facility]ukes MG tablet 00:00: daily. Medica l 00 Center furosemide 2021-0 Yes Q.5D 2 (two) [facility] (LASIX) 40 4-28 times [facility]ukes MG tablet 00:00: daily. Medica l 00 [place] furosemide 2021-0 2022- No Q.5D 2 (two) [facility] (LASIX) 40 4-28 07-06 times [facility]ukes MG tablet 00:00: 00:00 daily. Medic al 00 :00 Center cloNIDine 2021-0 Yes Q.[id number] 3 (three) [facility] HCL 4-27 [id number] times [facility] (CATAPRES) 00:00: 3D daily . Medi angel 0.3 MG 00 Center tablet diazePAM 2021-0 Yes 5mg 5-[address] (VALIUM) 5 4-27 every 12 [facility] MG tablet 00:00: (twelve) Medi angel 00 hours as Center needed . cloNIDine 2022-0 Yes QD daily. [facility] HCL 4-27 [facility] (CATAPRES) 00:00: Medical 0.3 MG 00 Center tablet diazePAM 2022-0 Yes as needed. [facility] (VALIUM) 5 4-27 [facility] MG tablet 00:00: Medical 00 Center cloNIDine 2022-0 Yes QD daily. [facility] HCL 4-27 [facility] (CATAPRES) 00:00: Medical 0.3 MG 00 Center tablet diazePAM 2021-0 Yes as needed. [facility] ([facility]IUM[facility] albuterol 2021-0 Yes as needed[facility] (VENTOLIN 00:[facility]: [facility] HFA) 90 00 Center mcg/actuati on inhaler albuterol 2021-0 Yes as needed[facility] (VENTOLIN 00:[facility]: Medical HFA) 90 00 Center mcg/actuati on inhaler albuterol 2021-0 Yes as needed[facility] (VENTOLIN 00:[facility]: Medical HFA) 90 00 Center mcg/actuati on inhaler NIFEdipine 2021-0 Yes QD [facility] 90 [facility] 24 hr 00:00: Medica l tablet 00 Center NIFEdipine 2022-0 Yes QD daily. [facility] 90 [facility] 24 hr 00:00: Medica l tablet 00 Center NIFEdipine 2022-0 Yes QD daily. [facility] 90 [facility] 24 hr 00:00: Medica l tablet 00 Center ondansetron 2-0 Yes as needed. [facility] (ZOFRAN) 4 2-16 [facility] 00 Center ondansetron 2022-0 Yes as needed. [facility] (ZOFRAN[facility] 4 2-[facility] 00:[facility]: [facility] 00 [place] ondansetron 0 Yes as needed. [facility] (ZOFRAN) 4 2-16 [facility] 00:[facility]: Medical 00 [place] furosemide 2021-0 2021- No 40mg Q.5D Take 1 Meth ruthie (LASIX) 40 2-16 08-28 tablet (40 st mg tablet 00:00: 00:00 mg total) [facility] 00 :00 by mouth 2 l (two) times a day. atorvastati 2020-0 Yes Q24H daily. [facility] (LIPITOR[facility] 8-23 [facility] 40 MG 00:00: Medical tablet 00 Center atorvastati 0 Yes Q24H daily. [facility] ([facility] 8-23 [facility] 40 MG 00:00: Medical tablet 00 Center atorvastati 0 Yes Q24H daily. [facility] (LIP[facility]OR) 8-23 [facility] 40 MG 00:00: Medical tablet 00 [place] aspirin 0 Yes 81mg QD Take 1 [facility] (ECOTRIN) 6-15 tablet (81 st 81 MG 00:00: mg total) [facility] enteric 00 by mouth l coated daily. tablet montelukast 0 Yes 10mg QD Take 10 mg [facility] (SINGULAIR) 4-[address] 10 mg 18:53: nightly. [facility]osp[facility] tablet 59 l atorvastati 2020-0 Yes 40mg QD Take 40 mg [facility] (LIPITOR) 4-[address] 40 MG 18:53: daily. [facility]ospita tablet 59 l diazePAM 2020-0 Yes 5mg Q8H Take 5 mg [facility] ruthie (VALIUM) 5 4-[address] MG tablet 18:53: every 8 Hospi ta 59 (eight) l hours as needed for anxiety. budesonide- 2019-0 Yes 2{puff} Q.5D Inhale 2 [facility] formoteroL 4-[address] (SYMBICORT) 18:53: (two) Hospi ta 160-4.5 59 times a l mcg/actuati day. on inhaler albuterol 2020-0 Yes 2{puff} Q6H Inhale 2 [facility] (PROAIR 4-[address] HFA) 90 18:53: every 6 Hospita mcg/actuati 59 (six) l on inhaler hours as needed for wheezing. gabapentin 2020-0 Yes 300mg Q.5D Take 300 [facility] (NEURONTIN) 4-[address] 300 mg 18:53: mouth 2 Hospita capsule 59 (two) l times a day. nortriptyli 2020-0 Yes 50mg Q.[id number] Take 50 mg [facility] ne 4-01 [id number] by mouth [address] [facility] (PAMELOR) 18:53: 3D (three) Hospi ta 50 MG 59 times a l capsule day. montelukast 2020-0 Yes 10mg QD Take 10 mg [facility] (SINGULAIR) 4-[address] 10 mg 18:53: nightly. [facility]ospita tablet 59 l atorvastati 2020-0 Yes 40mg QD Take 40 mg [facility] (LIPITOR) 4-[address] 40 MG 18:53: daily. [facility]ospita tablet 59 l diazePAM 2020-0 Yes 5mg Q8H Take 5 mg [facility] ruthie (VALIUM) 5 4-[address] MG tablet 18:53: every 8 Hospi ta 59 (eight) l hours as needed for anxiety. budesonide- 2020-0 Yes 2{puff} Q.5D Inhale 2 [facility] formoteroL 4-[address] (SYMBICORT) 18:53: (two) Hospi ta 160-4.5 59 times a l mcg/actuati day. on inhaler albuterol 2020-0 Yes 2{puff} Q6H Inhale 2 [facility] (PROAIR 4-[address] HFA) 90 18:53: every 6 Hospita mcg/actuati 59 (six) l on inhaler hours as needed for wheezing. gabapentin 2020-0 Yes 300mg Q.5D Take 300 [facility] (NEURONTIN) 4-[address] 300 mg 18:53: mouth 2 [facility]ospita capsule 59 (two) l times a day. nortriptyli 2020-0 Yes 50mg Q.[id number] Take 50 mg [facility] ne 4-01 [id number] [facility] mouth [facility] (PAMELOR) 18:53: 3D (three) Hospi ta 50 MG 59 times a l capsule day. montelukast 2020-0 Yes 10mg QD Take 10 mg [facility] (SINGULAIR) 4-[address] 10 mg 18:53: nightly. [facility]ospita tablet 59 l atorvastati 2020-0 Yes 40mg QD Take 40 mg [facility] (LIPITOR) 4-[address] 40 MG 18:53: daily. [facility]osp[facility] tablet 59 l diazePAM 2020-0 Yes 5mg Q8H Take 5 mg [facility] (VALIUM) 5 4-[address] MG tablet 18:53: every 8 Hospi ta 59 (eight) l hours as needed for anxiety. budesonide- 2020-0 Yes 2{puff} Q.5D Inhale 2 [facility] formoteroL 4-[address] (SYMBICORT) 18:53: (two) Hospi ta 160-4.5 59 times a l mcg/actuati day. on inhaler albuterol 2020-0 Yes 2{puff} Q6H Inhale 2 [facility] (PROAIR 4-[address] HFA) 90 18:53: every 6 [facility]ospita mcg/actuati 59 (six) l on inhaler hours as needed for wheezing. gabapentin 2020-0 Yes 300mg Q.5D Take 300 [facility] (NEURONTIN) 4-[address] 300 mg 18:53: mouth 2 [facility]ospita capsule 59 (two) l times a day. nortriptyli 2020-0 Yes 50mg Q.[id number] Take 50 mg [facility] ne 4-01 [id number] [address] mouth [facility] (PAMELOR) 18:53: 3D (three) Hospi ta 50 MG 59 times a l capsule day. montelukast 2020-0 Yes 10mg QD Take 10 mg [facility] (SINGULAIR) 4-[address] 10 mg 18:53: nightly. [facility]ospita tablet 59 l atorvastati 2020-0 Yes 40mg QD Take 40 mg [facility] (LIPITOR) 4-[address] 40 MG 18:53: daily. [facility]ospita tablet 59 l diazePAM 2020-0 Yes 5mg Q8H Take 5 mg [facility] (VALIUM) 5 4-[address] MG tablet 18:53: every 8 Hospi ta 59 (eight) l hours as needed for anxiety. budesonide- 2020-0 Yes 2{puff} Q.5D Inhale 2 [facility] formoteroL 4-[address] (SYMBICORT) 18:53: (two) Hospi ta 160-4.5 59 times a l mcg/actuati day. on inhaler albuterol 2020-0 Yes 2{puff} Q6H Inhale 2 [facility] (PROAIR 4-[address] HFA) 90 18:53: every 6 [facility]ospita mcg/actuati 59 (six) l on inhaler hours as needed for wheezing. gabapentin 2020-0 Yes 300mg Q.5D Take 300 [facility] (NEURONTIN) 4-[address] 300 mg 18:53: mouth 2 [facility]ospita capsule 59 (two) l times a day. nortriptyli 2020-0 Yes 50mg Q.[id number] Take 50 mg [facility] ne 4-01 [id number] [address] mouth [address] (PAMELOR) 18:53: 3D (three) Hospi ta 50 MG 59 times a l capsule day. montelukast 2020-0 Yes 10mg QD Take 10 mg [facility] (SINGULAIR) 4-[address] 10 mg 18:53: nightly. [facility]ospita tablet 59 l atorvastati 2020-0 Yes 40mg QD Take 40 mg [facility] (LIPITOR) 4-[address] 40 MG 18:53: daily. [facility]ospita tablet 59 l diazePAM 2020-0 Yes 5mg Q8H Take 5 mg [facility] (VALIUM) 5 4-[address] MG tablet 18:53: every 8 Hospi ta 59 (eight) l hours as needed for anxiety. budesonide- 2020-0 Yes 2{puff} Q.5D Inhale 2 [facility] formoteroL 4-[address] (SYMBICORT) 18:53: (two) Hospi ta 160-4.5 59 times a l mcg/actuati day. on inhaler albuterol 2020-0 Yes 2{puff} Q6H Inhale 2 [facility] (PROAIR 4-[address] HFA) 90 18:53: every 6 Hospita mcg/actuati 59 (six) l on inhaler hours as needed for wheezing. gabapentin 2020-0 Yes 300mg Q.5D Take 300 [facility] (NEURONTIN) 4-[address] 300 mg 18:53: mouth 2 [facility]ospita capsule 59 (two) l times a day. nortriptyli 2020-0 Yes 50mg Q.[id number] Take 50 mg [facility] ne 4-01 [id number] [address] mouth [address] [facility] (PAMELOR) 18:53: 3D (three) Hospi ta 50 MG 59 times a l capsule day. montelukast 2020-0 Yes 10mg QD Take 10 mg [facility] (SINGULAIR) 4-[address] 10 mg 18:53: nightly. [facility]ospita tablet 59 l atorvastati 2020-0 Yes 40mg QD Take 40 mg [facility] (LIPITOR) 4-[address] 40 MG 18:53: daily. [facility]osp[facility] tablet 59 l diazePAM 2020-0 Yes 5mg Q8H Take 5 mg [facility] (VALIUM) 5 4-[address] MG tablet 18:53: every 8 Hospi ta 59 (eight) l hours as needed for anxiety. budesonide- 2020-0 Yes 2{puff} Q.5D Inhale 2 [facility] formoteroL 4-[address] (SYMBICORT) 18:53: (two) Hospi ta 160-4.5 59 times a l mcg/actuati day. on inhaler albuterol 2020-0 Yes 2{puff} Q6H Inhale 2 [facility] (PROAIR 4-[address] HFA) 90 18:53: every 6 Hospita mcg/actuati 59 (six) l on inhaler hours as needed for wheezing. gabapentin 2020-0 Yes 300mg Q.5D Take 300 [facility] (NEURONTIN) 4-[address] 300 mg 18:53: mouth 2 Hospita capsule 59 (two) l times a day. nortriptyli 2020-0 Yes 50mg Q.[id number] Take 50 mg [facility] ne 4-01 [id number] [address] mouth [address] (PAMELOR) 18:53: 3D (three) Hospi ta 50 MG 59 times a l capsule day. montelukast 2020-0 Yes 10mg QD Take 10 mg [facility] (SINGULAIR) 4-[address] 10 mg 18:53: nightly. [facility]ospita tablet 59 l atorvastati 2020-0 Yes 40mg QD Take 40 mg [facility] (LIPITOR) 4-[address] 40 MG 18:53: daily. [facility]ospita tablet 59 l diazePAM 2020-0 Yes 5mg Q8H Take 5 mg [facility] (VALIUM) 5 4-[address] MG tablet 18:53: every 8 Hospi ta 59 (eight) l hours as needed for anxiety. budesonide- 2020-0 Yes 2{puff} Q.5D Inhale 2 [facility] formoteroL 4-[address] (SYMBICORT) 18:53: (two) Hospi ta 160-4.5 59 times a l mcg/actuati day. on inhaler albuterol 2020-0 Yes 2{puff} Q6H Inhale 2 [facility] (PROAIR 4-[address] HFA) 90 18:53: every 6 Hospita mcg/actuati 59 (six) l on inhaler hours as needed for wheezing. gabapentin 2020-0 Yes 300mg Q.5D Take 300 [facility] (NEURONTIN) 4-[address] 300 mg 18:53: mouth 2 Hospita capsule 59 (two) l times a day. nortriptyli 2020-0 Yes 50mg Q.[id number] Take 50 mg [facility] ne 4-01 [id number] [address] mouth [address] (PAMELOR) 18:53: 3D (three) Hospi ta 50 MG 59 times a l capsule day. montelukast 2020-0 Yes 10mg QD Take 10 mg [facility] (SINGULAIR) 4-[address] 10 mg 18:53: nightly. Hospita tablet 59 l atorvastati 2020-0 Yes 40mg QD Take 40 mg [facility] (LIPITOR) 4-[address] 40 MG 18:53: daily. [facility]ospita tablet 59 l diazePAM 2020-0 Yes 5mg Q8H Take 5 mg [facility] (VALIUM) 5 4-[address] MG tablet 18:53: every 8 Hospi ta 59 (eight) l hours as needed for anxiety. budesonide- 2020-0 Yes 2{puff} Q.5D Inhale 2 [facility] formoteroL 4-[address] (SYMBICORT) 18:53: (two) Hospi ta 160-4.5 59 times a l mcg/actuati day. on inhaler albuterol 2020-0 Yes 2{puff} Q6H Inhale 2 [facility] (PROAIR 4-[address] HFA) 90 18:53: every 6 Hospita mcg/actuati 59 (six) l on inhaler hours as needed for wheezing. gabapentin 2020-0 Yes 300mg Q.5D Take 300 [facility] (NEURONTIN) 4-[address] 300 mg 18:53: mouth 2 Hospita capsule 59 (two) l times a day. nortriptyli 2020-0 Yes 50mg Q.[id number] Take 50 mg [facility] ne 4-01 [id number] [address] mouth [address] (PAMELOR) 18:53: 3D (three) Hospi ta 50 MG 59 times a l capsule day. Nortriptyli 2020-0 Yes Penny 1 capsule [facility] ne HCl 2-26 Najam l 03:47: [place] Montelukast 2020-0 Yes Penny 1 tablet [facility] Sodium 2-26 Najam l 03:47: [place] ProAir 2020-0 Yes Penny 1 puff as Andrea oralia RespiClick 2-26 Najam needed l 03:47: [place]en [place] Ciprofloxac 2020-0 Yes Penny 1 tablet [facility] in 2-26 Najam l 03:47: rBanden Laguna Atorvastati 2020-0 Yes Penny 1 tablet Memoria n Calcium [...] Memoria 2-26 Najam directed l 03:47: Branden aLguna Allopurinol 2020-0 Yes Penny 1 tablet [facility] 2-26 Najam l 03:47: [place] Entresto 2020-0 Yes Penny 1 tablet Mem oria 2-26 Najam l 03:47: [place] Metoprolol 2020-0 Yes Penny 1 tablet M emoria Tartrate 2-26 Najam with food l 03:47: Branden [place] Nortriptyli 2020-0 Yes Penny 1 capsule [facility] ne HCl 2-26 Najam l 03:47: Branden Montelukast 2020-0 Yes Penny 1 tablet [facility] Sodium 2-26 Najam l 03:47: Branden 44 ProAir 2020-0 Yes Penny 1 puff as Andrea oralia RespiClick 2-26 Najam needed l 03:47: Branden Ciprofloxac 2020-0 Yes Penny 1 tablet [facility] in 2-26 Najam l 03:47: Branden 44 Atorvastati 2020-0 Yes Penny 1 tablet [facility] n Calcium 2-26 Najam l 03:47: Branden NIFEdipine 2020-0 Yes Penny as Memor ia 2-26 Najam directed l 03:47: Branden Symbicort 2020-0 Yes Penny 2 puffs Mem oria 2-26 Najam l 03:47: Branden Furosemide 2020-0 Yes Penny 1 tablet M emoria 2-26 Najam l 03:47: Branden Diazepam 2020-0 Yes Penny as Memoria 2-26 Najam directed l 03:47: Branden 44 Allopurinol 2020-0 Yes Penny 1 tablet Memoria 2-26 Najam l 03:47: Branden Entresto 2020-0 Yes Penny 1 tablet Mem oria 2-26 Najam l 03:47: Branden 44 Metoprolol 2020-0 Yes Penny 1 tablet M emoria Tartrate 2-26 Najam with food l 03:47: Branden Gabapentin 2020-0 Yes Penny 1 capsule [facility] 2-24 Najam l 00:00: Branden 00 Gabapentin 2020-0 Yes Penny 1 capsule [facility] 2-24 Najam l 00:00: Branden albuterol-i 2021- No 2{puff} Inhale [address] [facility] pratropium - 05-19 puffs by [facility] (COMBIVENT 00:00: 00:00 mouth via M edical RESPIMAT) 00 :00 inhaler Center 20-100 every 6 mcg/actuati (six) on Mist hours as inhaler needed for Wheezing. albuterol-i 2016-2021- No 2{puff} Inhale [address] [facility] pratropium - 05-19 puffs by [facility] (COMBIVENT 00:00: 00:00 mouth via M edical RESPIMAT) 00 :00 inhaler Center 20-100 every 6 mcg/actuati (six) on Mist hours as inhaler needed for Wheezing. albuterol-i 2021- No 2{puff} Inhale [address] [facility] pratropium 04-02 05-19 puffs by [facility] (COMBIVENT 00:00: 00:00 mouth via M edical RESPIMAT) 00 :00 inhaler Center 20-100 every 6 mcg/actuati (six) [...] Name Observation Time Observation Value Comments Source WEIGHT 2022-01-12 08:05:00 57.5 kg WEIGHT 2022-01-10 13:30:00 53.6 kg WEIGHT 2022-01-09 08:51:00 57.6 kg WEIGHT 2022-01-08 11:00:00 48.7 kg WEIGHT 2022-01-03 15:45:00 51.7 kg WEIGHT 2022-01-02 04:27:00 51.71 kg WEIGHT 2022-01-01 12:08:00 52.5 kg WEIGHT 2022-01-01 03:40:00 54.522 kg HEIGHT 2021-12-31 15:10:00 162.6 cm WEIGHT 2021-12-31 15:10:00 53.887 kg WEIGHT 2022-01-12 08:05:00 57.5 kg WEIGHT 2022-01-10 13:30:00 53.6 kg WEIGHT 2022-01-09 08:51:00 57.6 kg WEIGHT 2022-01-08 11:00:00 48.7 kg WEIGHT 2022-01-03 15:45:00 51.7 kg WEIGHT 2022-01-02 04:27:00 51.71 kg WEIGHT 2022-01-01 12:08:00 52.5 kg WEIGHT 2022-01-01 03:40:00 54.522 kg HEIGHT 2021-12-31 15:10:00 162.6 cm WEIGHT 2021-12-31 15:10:00 53.887 kg WEIGHT 2022-01-12 08:05:00 57.5 kg WEIGHT 2022-01-10 13:30:00 53.6 kg WEIGHT 2022-01-09 08:51:00 57.6 kg WEIGHT 2022-01-08 11:00:00 48.7 kg WEIGHT 2022-01-03 15:45:00 51.7 kg WEIGHT 2022-01-02 04:27:00 51.71 kg WEIGHT 2022-01-01 12:08:00 52.5 kg WEIGHT 2022-01-01 03:40:00 54.522 kg HEIGHT 2021-12-31 15:10:00 162.6 cm WEIGHT 2021-12-31 15:10:00 53.887 kg WEIGHT 2021-11-27 11:00:00 54.2 kg WEIGHT 2021-11-27 08:00:00 54.2 kg WEIGHT 2021-11-27 06:04:00 53.434 kg WEIGHT 2021-11-24 12:45:00 53.9 kg HEIGHT 2021-11-23 11:00:00 162.6 cm WEIGHT 2021-11-23 11:00:00 55.4 kg WEIGHT 2021-11-27 11:00:00 54.2 kg WEIGHT 2021-11-27 08:00:00 54.2 kg WEIGHT 2021-11-27 06:04:00 53.434 kg WEIGHT 2021-11-24 12:45:00 53.9 kg HEIGHT 2021-11-23 11:00:00 162.6 cm WEIGHT 2021-11-23 11:00:00 55.4 kg WEIGHT 2021-11-27 11:00:00 54.2 kg WEIGHT 2021-11-27 08:00:00 54.2 kg WEIGHT 2021-11-27 06:04:00 53.434 kg WEIGHT 2021-11-24 12:45:00 53.9 kg HEIGHT 2021-11-23 11:00:00 162.6 cm WEIGHT 2021-11-23 11:00:00 55.4 kg HEIGHT 2021-11-22 12:09:00 162.6 cm WEIGHT 2021-11-22 12:09:00 53.978 kg HEIGHT 2021-11-22 12:09:00 162.6 cm WEIGHT 2021-11-22 12:09:00 53.978 kg HEIGHT 2021-11-22 12:09:00 162.6 cm WEIGHT 2021-11-22 12:09:00 53.978 kg BP Diastolic 2018-10-07 00:00:00 76 mm[Hg] [facility] Height 2018-10-07 00:00:00 64 [in_i] [facility] BMI (Body Mass 2018-10-07 00:00:00 27.6 kg/m2 [facility] Medical Index) Group BP Systolic 2018-10-07 00:00:00 148 mm[Hg] [facility] Body Weight 2018-10-07 00:00:00 161 [lb_av] [facility] BP Diastolic 2018-09-23 00:00:00 86 mm[Hg] [facility] Height 2018-09-23 00:00:00 64 [in_i] [facility] BMI (Body Mass 2018-09-23 00:00:00 27.7 kg/m2 [facility] Medical Index) Group BP Systolic 2018-09-23 00:00:00 150 mm[Hg] [facility] Body Weight 2018-09-23 00:00:00 161.2 [lb_av] [facility] BP Diastolic 2018-08-26 00:00:00 87 mm[Hg] [facility] Height 2018-08-26 00:00:00 64 [in_i] [facility] BMI (Body Mass 2018-08-26 00:00:00 27.3 kg/m2 [facility] Medical Index) Group BP Systolic 2018-08-26 00:00:00 132 mm[Hg] [facility] Body Weight 2018-08-26 00:00:00 159.3 [lb_av] [facility] Diastolic blood 2022-03-04 18:51:41 78 mm[Hg] [facility] pressure Heart rate 2022-03-04 18:51:41 64 /min [facility] Systolic blood 2022-03-04 18:51:41 161 mm[Hg] [facility] pressure Body temperature 2022-03-04 16:42:37 37.22 Aylin [facility] Respiratory rate 2022-03-04 16:42:37 18 /min [facility] Oxygen saturation in 2022-03-04 16:42:37 99 /min [facility] Arterial blood by Pulse oximetry Body weight 2022-03-04 11:00:00 49.896 kg [facility] BMI 2022-03-04 11:00:00 18.88 kg/m2 [facility] Body height 2022-03-03 08:25:00 162.6 cm [facility] Systolic blood 2022-01-12 13:15:00 165 mm[Hg] [facility] Diastolic blood 2022-01-12 13:15:00 84 mm[Hg] [facility] Heart rate 2022-01-12 13:15:00 73 /min [facility] Body temperature 2022-01-12 13:15:00 36.61 Aylin [facility] Respiratory rate 2022-01-12 13:15:00 18 /min [facility] Oxygen saturation in 2022-01-12 13:15:00 96 /min [facility] Arterial blood by Medical Ce nter Pulse oximetry Body weight 2022-01-12 12:21:00 53.5 kg [facility] BMI 2022-01-12 12:21:00 20.25 kg/m2 [facility] Body height 2021-12-31 15:10:00 162.6 cm [facility] Oxygen saturation in 2021-11-27 12:38:00 91 /min [facility] Arterial blood by Medical Ce nter Pulse oximetry Systolic blood 2021-11-27 11:59:00 128 mm[Hg] [facility] Diastolic blood 2021-11-27 11:59:00 79 mm[Hg] [facility] Heart rate 2021-11-27 11:59:00 123 /min [facility] Body temperature 2021-11-27 11:00:00 36.67 Aylin [facility] Respiratory rate 2021-11-27 11:00:00 23 /min [facility] Body weight 2021-11-27 11:00:00 54.2 kg [facility] BMI 2021-11-27 11:00:00 20.50 kg/m2 [facility] Systolic blood 2021-11-27 08:00:00 127 mm[Hg] [facility] Diastolic blood 2021-11-27 08:00:00 73 mm[Hg] [facility] Heart rate 2021-11-27 08:00:00 95 /min [facility] Body temperature 2021-11-27 08:00:00 36.67 Aylin [facility] Respiratory rate 2021-11-27 08:00:00 19 /min [facility] Body weight 2021-11-27 08:00:00 54.2 kg [facility] BMI 2021-11-27 08:00:00 20.50 kg/m2 [facility] Oxygen saturation in 2021-11-27 08:00:00 92 /min [facility] Arterial blood by Medical Ce nter Pulse oximetry Body height 2021-11-23 11:00:00 162.6 cm [facility] Height 2019-08-31 21:00:00 [facility] Diastolic (mm Hg) 2019-08-31 21:00:00 [facility] orial Branden Systolic (mm Hg) 2019-08-31 21:00:00 Andrea rial [place] Weight 2019-08-31 21:00:00 [facility] Procedures Procedure Date / Time Performing Clinician Source Performed COVID-19 ANTI-SPIKE IGG 2022-03-04 09:29:00 Ra Delarosa [facility] ANTIBODY TITER [place] [facility] COMPLETE BLD COUNT 2022-03-04 09:29:00 Dave Chua [facility] W/AUTO DIFF COMPREHENSIVE METABOLIC 2022-03-04 09:29:00 Dave Chua [facility] PANEL MAGNESIUM LEVEL 2022-03-04 09:29:00 Dave Chuaist Ho spital PHOSPHORUS LEVEL 2022-03-04 09:29:00 Dave Chua ospital COVID-19 SEROLOGY PATIENT 2022-03-04 09:29:00 Ra Delarosa [facility] SURVEILLANCE [place] ESTIMATED GFR 2022-03-04 09:29:00 Dave Chua spital TROPONIN T 2022-03-04 [facility]:07[facility] WO 2022-03-03 22:00:[address] [facility] CONTRAST Hilda ECG 12-LEAD 2022-03-03 21:00:00 Dave Chua spital TTE COMPLETE, WO 2022-03-03 15:58:00 Dave Chua ospital CONTRAST, W DOPPLER ([id number]) ABO AND RH CONFIRMATION 2022-03-03 11:47:00 Harshil [facility] BY PROTOCOL CT HEAD WO CONTRAST 2022-03-03 10:45:19 Dave Chua [facility] TYPE AND SCREEN 2022-03-03 10:20:00 Dave Chua spital PROCALCITONIN 2022-03-03 10:20:00 Dave Chua spital PREPARE RBC 2022-03-03 10:20:00 Dave Chua spital TROPONIN T 2022-03-03 08:10:00 Dave Chua spital LACTIC ACID LEVEL, SEPSIS 2022-03-03 08:10:00 Dave Chua [facility] - NOW AND REPEAT 2X EVERY 3 HOURS HC COMPLETE BLD COUNT 2022-03-03 08:10:00 [facility] W/AUTO DIFF COMPREHENSIVE METABOLIC 2022-03-03 08:10:00 [facility] PANEL PROTHROMBIN TIME WITH INR 2022-03-03 08:10:00 Dave Chua [facility] MAGNESIUM LEVEL 2022-03-03 08:10:00 Dave Chua Ho spital PHOSPHORUS LEVEL 2022-03-03 08:10:00 Dave Chua H ospital ESTIMATED GFR 2022-03-03 08:10:00 [facility] COVID-19 QUALITATIVE 2022-03-03 05:16:00 [facility] RT-PCR TROPONIN T 2022-03-03 05:16:00 Dave Chua Ho spital LACTIC ACID LEVEL, SEPSIS 2022-03-03 05:16:[facility] 3 HOURS BLOOD CULTURE, AEROBIC & 2022-03-03 02:12:00 [facility] ANAEROBIC XR CHEST 1 VW PORTABLE 2022-03-03 02:06:02 [facility] LACTIC ACID LEVEL, SEPSIS 2022-03-03 02:01:00 [facility]AT 2X EVERY 3 HOURS BLOOD CULTURE, AEROBIC & 2022-03-03 02:00:00 [facility] ANAEROBIC HC COMPLETE BLD COUNT 2022-03-03 02:00:00 [facility] W/AUTO DIFF PROTHROMBIN TIME WITH INR 2022-03-03 02:00:00 [facility] PARTIAL THROMBOPLASTIN 2022-03-03 02:00:00 [facility] TIME (PTT) COMPREHENSIVE METABOLIC 2022-03-03 02:00:00 [facility] PANEL CREATINE KINASE, TOTAL 2022-03-03 02:00:00 [facility] (CPK) TROPONIN T 2022-03-03 02:00:00 Dave Chua Ho spital LIPASE LEVEL 2022-03-03 02:00:00 [facility] B NATRIURETIC PEPTIDE 2022-03-03 02:00:00 [facility] ESTIMATED GFR 2022-03-03 02:00:00 [facility] ECG ED PRELIMINARY 2022-03-03 01:42:27 [facility] INTERPRETATION ECG 12-LEAD 2022-03-03 01:21:03 [facility] Performance of Urinary 2022-02-12 00:00:00 [id number] [facility] Less than 6 Hours Per Day Performance of Urinary 2022-02-10 00:00:00 [id number] [facility] Less than 6 Hours Per Day Performance of Urinary 2022-02-09 00:00:00 [id number] [facility] Less than 6 Hours Per Day HEMODIALYSIS INPATIENT 2022-01-12 12:25:00 Bharat Phelan [facility] CBC W/PLT COUNT & AUTO 2022-01-12 04:24:00 Lucia Martin [facility] BASIC METABOLIC PANEL (7) 2022-01-12 04:24:00 Ray Ashton [facility] CBC W/PLT COUNT & AUTO 2022-01-12 04:24[facility]00 [facility] 2022-01-11 03:19[facility]00 [facility] 2022-01-11 03:19:00 [facility] CBC W/PLT COUNT & AUTO 2022-01-11 03:19:00 Lucia Martin [facility] HEMODIALYSIS INPATIENT 2022-01-10 13:38:00 Bharat Phelan [facility] CBC W/PLT COUNT & AUTO 2022-01-10 09:21:00 Lucia Martin [facility] BASIC METABOLIC PANEL (7) 2022-01-10 09:21:00 Ray Ashton [facility] CBC W/PLT COUNT & AUTO 2022-01-10 09:21:00 Lucia Martin [facility] XR CHEST 1 VIEW PORTABLE 2022-01-09 11:00:00 Ino Heck [facility] CBC W/PLT COUNT & AUTO 2022-01-09 03:14:00 Lucia Martin [facility] BASIC METABOLIC PANEL (7) 2022-01-09 03:14:00 Ray Ashton [facility] CBC W/PLT COUNT & AUTO 2022-01-09 03:14:00 Lucia Martin [facility] HEMODIALYSIS INPATIENT 2022-01-08 08:07:38 Lino Montez I [facility] CBC W/PLT COUNT & AUTO 2022-01-08 07:34:00 Lucia Martin [facility] BASIC METABOLIC PANEL (7) 2022-01-08 07:34:00 Ray Ashton [facility] CBC W/PLT COUNT & AUTO 2022-01-08 07:34:00 [facility], % SAT. 2022-01-07 15:19:00 Ray Ashton [facility] (WITHOUT FERRITIN) [facility] 2022-[facility]-07 15:19[facility]00 [facility] SARS-COV2/RT-PCR ([facility] & 2022-01-07 15:19:00 [facility] Medical [place] BASIC METABOLIC PANEL (7) 2022-01-07 09:22:00 Juan C Ray [facility] XR CHEST 1 VIEW PORTABLE 2022-01-07 07:24:00 Lucia Martin [facility] / BEDSIDE [facility] CBC W/PLT COUNT & AUTO 2022-01-07 04:11:00 Lucia Martin [facility] CBC W/PLT COUNT & AUTO 2022-01-07 04:11:00 Lucia Martin [facility] POCT-GLUCOSE METER 2022-01-06 11:40:00 [facility] POCT-GLUCOSE METER 2022-01-06 03:33:00 Karrie Willoughby [facility] CBC W/PLT COUNT & AUTO 2022-01-06 03:17:00 [facility]OL[facility] PANEL (7) 2022-01-06 03:17:00 [place] es[place] [facility] MAGNESIUM 2022-01-06 03:17:00 [place] [facility] PHOSPHORUS 2022-01-06 03:17:00 Salty [place] [facility] CBC W/PLT COUNT & AUTO 2022-01-06 03:17:00 [facility]IEW PORTABLE 2022-01-06 02:35:00 [facility] POCT-GLUCOSE METER 2022-01-05 19:41:00 [facility] POCT-GLUCOSE METER 2022-01-05 17:14:00 [facility] HEMODIALYSIS INPATIENT 2022-01-05 12:55:47 Bharat Phelan [facility] POCT-GLUCOSE METER 2022-01-05 11:14:00 [facility] POCT-GLUCOSE METER 2022-01-05 05:57:00 [facility] BLOOD GAS, ARTERIAL 2022-01-05 05:39:[address] [facility] BASIC METABOLIC PANEL (7) 2022-01-05 03:46:00 Lucia Martin [facility] CBC W/PLT COUNT & AUTO 2022-01-05 03:46:00 Lucia Martin [facility] MAGNESIUM 2022-01-05 03:46:00 [facility] 2022-01-05 03:46[facility]00 [facility]ED 2022-01-05 03:46:00 [facility] CBC W/PLT COUNT & AUTO 2022-01-05 03:46:00 [facility]ABLE 2022-01-05 03:39:00 Luica Martin [facility] PREPARE LEUKO-REDUCED RBC 2022-01-04 23:54:00 Marcio Villarreal [facility] POCT-GLUCOSE METER 2022-01-04 23:03:00 [facility] CBC W/PLT COUNT & AUTO 2022-01-04 22:58:00 [facility] CBC W/PLT COUNT & AUTO 2022-01-04 22:58:00 [facility] POCT-GLUCOSE METER 2022-01-04 17:53:00 [facility] CBC W/PLT COUNT & AUTO 2022-01-04 16:59:00 [facility] W/[facility]T COUNT & AUTO 2022-01-04 16:59:00 [facility] W/[facility]T COUNT & AUTO 2022-01-04 11:47:00 Veronica [facility] CBC W/PLT COUNT & AUTO 2022-01-04 11:47:00 [facility] PO[facility]SE METER 2022-01-04 11:12[facility]00 [facility]IT 2022-01-04 05:45:00 Marcio Villarreal [facility] XR CHEST 1 VIEW PORTABLE 2022-01-04 05:39:00 Lucia Martin [facility] BASIC METABOLIC PANEL (7) 2022-01-04 03:03:00 Lucia Martin [facility] CBC W/PLT COUNT & AUTO 2022-01-04 03:03:00 Lucia Martin [facility] MAGNESIUM 2022-01-04 03:03:00 [facility] 2022-01-04 03:03:00 [facility] HEPAT[facility] FUNCTION PANEL 2022-01-04 03:03:00 [facility] 2022-01-04 03:03:00 [facility] W/[facility]T COUNT & AUTO 2022-01-04 03:03:00 Veronica [facility] PREPARE LEUKO-REDUCED RBC 2022-01-03 23:56:00 Marcio Villarreal [facility] PREPARE LEUKO-REDUCED RBC 2022-01-03 23:55:00 Karrie Willoughby [facility] POCT-GLUCOSE METER 2022-01-03 23:49:00 [facility] TRANSF[facility] LEUKO-REDUCED 2022-01-03 22:03:00 Marcio Villarreal [facility] RED BLOOD CELLS [facility] POCT-GLUCOSE METER 2022-01-03 18:54:00 [facility] CALCIUM, IONIZED 2022-01-03 18:53:00 [facility] CBC W/PLT COUNT & AUTO 2022-01-03 18:53:00 [facility] CBC W/PLT COUNT & AUTO 2022-01-03 18:53:00 [facility] CTA CHEST,ABDOMEN & 2022-01-03 17:41:00 [facility] PELVIS - FOR DISSECTION [facility] XR ABDOMEN / KUB 1 VIEW 2022-01-03 14:36:00 [facility] CBC W/PLT COUNT & AUTO 2022-01-03 11:27:00 Veronica [facility] CBC W/PLT COUNT & AUTO 2022-01-03 11:27:00 Veronica [facility] POCT-GLUCOSE METER 2022-01-03 11:25:00 Karrie Willoughby [facility] POCT-GLUCOSE METER 2022-01-03 06:30:00 Karrie Willoughby [facility] CALCIUM, IONIZED 2022-01-03 03:46:00 [facility] BASIC METABOLIC PANEL (7) 2022-01-03 03:45:00 Lucia Martin [facility] CBC W/PLT COUNT & AUTO 2022-01-03 03:45:00 Lucia Martin [facility] MAGNESIUM 2022-01-03 03:45:00 [facility] 2022-01-03 03:45:00 [facility] HEPATIC FUNCTION PANEL 2022-01-03 03:45:00 Veronica [facility] CBC W/PLT COUNT & AUTO 2022-01-03 03:45:00 Veronica [facility] XR CHEST 1 VIEW PORTABLE 2022-01-03 02:26:00 [facility] POCT-GLUCOSE METER 2022-01-02 23:35:00 Karrie Willoughby [facility] TRANSFUSE LEUKO-REDUCED 2022-01-02 22:47:00 Marcio Villarreal [facility] RED BLOOD CELLS [facility] PREPARE LEUKO-REDUCED RBC 2022-01-02 22:13:00 Marcio Villarreal [facility] HEMOGLOBIN AND HEMATOCRIT 2022-01-02 21:44:00 [facility] BLOOD GAS, ARTERIAL 2022-01-02 16:41:00 Lucia Martin [facility] XR CHEST 1 VIEW PORTABLE 2022-01-02 16:33:00 Lucia Martin [facility] BASIC METABOLIC PANEL (7) 2022-01-02 16:29:00 Lucia Martin [facility] CBC W/PLT COUNT & AUTO 2022-01-02 16:29:00 Lucia Martin [facility] MAGNESIUM 2022-01-02 16:29:00 [facility] 2022-01-02 16:29:00 [facility] CALCIUM, IONIZED 2022-01-02 16:29:00 [facility] HE[facility] FUNCTION PANEL 2022-01-02 16:29:00 Veronica [facility] CBC W/PLT COUNT & AUTO 2022-01-02 16:29:00 Veronica [facility] TRANSFUSE LEUKO-REDUCED 2022-01-02 14:51:00 [facility] POCT-ACT 2022-01-02 14:35:00 [facility] HEMO[facility]IN [facility] HEMATOCRIT 2022-01-02 14:34:59 Carmella Menezes [facility] BLOOD GAS, ARTERIAL 2022-01-02 14:14:02 Carmella Menezes [facility] POCT-ACT 2022-01-02 14:13:00 [facility] POCT-ACT 2022-01-02 13:31:00 [facility] PO[facility] 2022-01-02 13:03:00 [facility] 2022-01-02 12:33:00 [facility] PO[facility]-ACT 2022-01-02 12:06:00 [facility] POCT-ACT 2022-01-02 11:30:00 [facility] PO[facility]-ACT 2022-01-02 10:47:00 [facility] RRL CRITICAL LABS 2022-01-02 10:41:37 [facility] (ABG,NA,K,H&H,GLUCOSE) Medical C enter BLOOD GAS, ARTERIAL 2022-01-02 10:41:37 [facility] SODIUM NA-STAT LAB 2022-01-02 10:41:[address] [facility] POTASSIUM-STAT LAB 2022-01-02 10:41:37 [facility] GLU[facility]SE-STAT LAB 2022-01-02 10:41:[address] [facility] HGB/HCT (H&H) - STAT LAB 2022-01-02 10:41:[address] [facility] POCT-ACT 2022-01-02 10:25:00 Karrie Willoughby [facility] POCT-ACT 2022-01-02 10:13:00 Karrie Willoughby [facility] REPAIR, ABDOMINAL AORTIC 2022-01-02 07:21:00 Carmella Menezes [facility] PHOSPHORUS 2022-01-02 04:34:00 Veronica [facility] BASIC METABOLIC PANEL (7) 2022-01-02 04:34:00 Lucia Martin [facility] CBC W/PLT COUNT & AUTO 2022-01-02 04:34:00 Lucia Martin [facility] MAGNESIUM 2022-01-02 04:34:00 Veronica [facility] CBC W/PLT COUNT & AUTO 2022-01-02 04:34:00 Karrie Willoughby [facility] HEMODIALYSIS INPATIENT 2022-01-01 11:51:52 Yonatan Gaxiola [facility] PHOSPHORUS 2022-01-01 03:37:00 [facility] BASIC METABOLIC PANEL (7) 2022-01-01 03:37:00 Lucia Martin [facility] CBC W/PLT COUNT & AUTO 2022-01-01 03:37:00 Lucia Martin [facility] MAGNESIUM 2022-01-01 03:37:00 [facility] B SURFACE 2022-01-01 03:37:00 Marilou Bansal [facility] TYPE AND SCREEN, 2022-01-01 03:37:00 Karrie Willoughby [facility] CBC W/PLT COUNT & AUTO 2022-01-01 03:37:00 Karrie Willoughby [facility] CTA CHEST 2022-01-01 00:05:00 [facility] CTA PELVIS AAA PROTOCOL 2022-01-01 00:05:00 [facility] CTA ABDOMEN AAA PROTOCOL 2022-01-01 00:05:00 Christofer Escamilla [facility] SARS-COV2/RT-PCR ([facility] & 2021-12-31 17:49:00 Lucia Martin [facility] REF LABS) [facility] B-TYPE NATRIURETIC FACTOR 2021-12-31 17:48:00 Karrie Willoughby [facility] MAGNESIUM 2021-12-31 17:48:00 [facility] PHOSPHORUS 2021-12-31 17:48:00 [facility] PT/APTT 2021-12-31 17:48:00 [facility] HEPATIC FUNCTION PANEL 2021-12-31 17:48:00 [facility] BASIC METABOLIC PANEL (7) 2021-12-31 17:48:00 Karrie Willoughby [facility] CBC W/PLT COUNT & AUTO 2021-12-31 17:48:00 Karrie Willoughby [facility] CBC W/PLT COUNT & AUTO 2021-12-31 17:48:00 Karrie Willoughby [facility] CARDIAC CATH REPORT - 2021-12-31 00:00:00 Selam Martinez [facility] HEMODIALYSIS INPATIENT 2021-11-27 11:00:00 Lino Montez [facility] CT CHEST WITHOUT IV 2021-11-27 00:36:00 Capo Gates [facility] CONTRAST [facility] AMYLASE 2021-11-26 04:36:00 Lino Montez [facility] LIPASE 2021-11-26 04:36:00 Lino Montez [facility] BASIC METABOLIC PANEL (7) 2021-11-26 04:36:00 Lino Montez [facility] CBC W/PLT COUNT & AUTO 2021-11-26 04:36:00 Lino Montez [facility] HEPATIC FUNCTION PANEL 2021-11-26 04:36:00 Lino Montez [facility] LACTATE DEHYDROGENASE 2021-11-26 04:36:00 Lino Montez [facility] (LDH) [facility] LACTIC ACID, VENOUS 2021-11-26 04:36:[address] [facility] CBC W/PLT COUNT & AUTO 2021-11-26 04:36:00 Lino Montez [facility] COMPREHENSIVE METABOLIC 2021-11-25 05:17:00 Abisai Robison [facility] MAGNESIUM 2021-11-25 05:17:00 Abisai Robison [facility] CBC W/PLT COUNT & AUTO 2021-11-25 05:17:00 Abisai Robison [facility] CBC W/PLT COUNT & AUTO 2021-11-25 05:17:00 Abisai Robison [facility] CT ABDOMEN WITHOUT IV 2021-11-24 17:49:00 [facility] XR CHEST 1 VIEW PORTABLE 2021-11-24 14:42:00 Gianluca Man [facility] LACTIC ACID, VENOUS 2021-11-24 11:32:00 Bharat Phelan [facility] HEMODIALYSIS INPATIENT 2021-11-24 10:09:05 Bharat Phelan [facility] HEPATITIS B SURFACE 2021-11-24 03:48:00 Bharat Phelan [facility] BASIC METABOLIC PANEL (7) 2021-11-24 03:48:00 Gianluca Man [facility] CBC (HEMOGRAM ONLY) 2021-11-24 03:48:00 Gianluca Man [facility] AMYLASE 2021-11-24 03:48:00 Bharat Phelan [facility] LIPASE 2021-11-24 03:48:00 Bharat Phelan [facility] POCT-ACT 2021-11-23 15:19:00 Yen Lambert [facility] POCT-ACT 2021-11-23 15:04:00 Yen Lambert [facility] PREPARE LEUKO-REDUCED RBC 2021-11-23 14:01:00 Yen Lambert [facility] TYPE AND SCREEN, 2021-11-23 13:00:00 Yen Lambert [facility] AUTOMATED [facility] INSERTION, STENT, BLOOD 2021-11-23 12:33:00 Yen Lambert [facility] VESSEL, [facility] ANGIOGRAM, ILIAC VESSEL 2021-11-23 12:33:00 Yen Lambert [facility] POTASSIUM-STAT LAB 2021-11-23 11:28:00 Yen Lambert [facility] ECG 12-LEAD 2021-11-23 11:22:50 Yen Lambert [facility] VASCULAR DIAGRAM -SCAN 2021-11-23 00:00:00 ProviderSelam [facility] CARDIAC CATH REPORT - 2021-11-23 00:00:00 Provider, Selam [facility] XR CHEST 2 VIEWS 2021-11-22 13:07:00 Yen Lambert [facility] CBC W/PLT COUNT & AUTO 2021-11-22 12:49:00 Yen Lambert [facility] CBC W/PLT COUNT & AUTO 2021-11-22 12:49:00 Yen Lambert [facility] COMPREHENSIVE METABOLIC 2021-11-22 12:49:[address] [facility] LIPID PANEL 2021-11-22 12:49:00 Yen Lambert [facility] HEMOGLOBIN A1C 2021-11-22 12:49:00 Yen Lambert [facility] SARS-COV2/RT-PCR ([facility] & 2021-11-22 12:25:00 Yen Lambert [facility] REF LABS) [facility] CTA ABDOMEN & PELVIS 2021-10-18 16:36:00 [facility]en [facility] X-ray of lumbar spine, AP 2019-10-04 00:00:00 [id number] Me morial Branden and lateral views X-ray of chest, single 2019-10-04 00:00:00 [id number] Memor ial [place] view Computed tomography of 2019-10-04 00:00:00 [id number] Memor ial Branden abdomen and pelvis without contrast Colonoscopy W/lesion 2015-06-23 00:00:00 [facility]am[facility] Partial Hysterectomy [facility] Plan of Care Planned Activity Planned Date Details Comments Source Future Scheduled 2024-11-[address] [facility] 00:[facility]:00 (procedure) [code = [facility] [id number]] Future Scheduled 2024-11-[address] [facility] Test 00:00:00 (procedure) [code = [facility] [id number]] Future Scheduled 2024-11-[address] [facility] Test 00:00:00 (procedure) [code = [facility] [id number]] Future Scheduled 2022-03-24 HEPATITIS B VACCINES [facility] Test 19:07:11 (1 of 3 - 3-dose series) [code = HEPATITIS B VACCINES (1 of 3 - 3-dose series)] Future Scheduled 2022-03-24 Pneumococcal Vaccine: [facility] Test 19:07:11 Pediatrics (0 to 5 Years) and At-Risk Patients (6 to 64 Years) (1 - PCV) [code = Pneumococcal Vaccine: Pediatrics (0 to 5 Years) and At-Risk Patients (6 to 64 Years) (1 - PCV)] Future Scheduled 2022-03-24 Hepatitis C screening [facility] Test 19:07:11 (procedure) [code = 410767104] Future Scheduled 2022-03-24 SHINGLES VACCINES (1 Met [facility] Test 19:07:11 of 2) [code = SHINGLES VACCINES (1 of 2)] Future Scheduled 2022-03-24 Screening for [facility] Test 19:07:11 malignant neoplasm of cervix (procedure) [code = 907441204] Future Scheduled 2022-03-24 BREAST CANCER [facility] Test 19:07:11 SCREENING [code = BREAST CANCER SCREENING] Future Scheduled 2022-03-24 COLONOSCOPY SCREENING [facility] Test 19:07:11 [code = COLONOSCOPY SCREENING] Future Scheduled 2022-03-24 Screening for [facility] Test 19:07:11 malignant neoplasm of lung (procedure) [code = 581764170] Future Scheduled 2022-03-24 COVID-19 VACCINE (4 - [facility] Test 19:07:11 Booster for Moderna series) [code = COVID-19 VACCINE (4 - Booster for Moderna series)] Future Scheduled 2022-03-24 INFLUENZA VACCINE [facility] Test 19:07:11 [code = INFLUENZA VACCINE] Future Scheduled 2022-03-08 INFLUENZA VACCINE (#1) [facility] Test 00:00:00 [code = INFLUENZA Medical Ce nter VACCINE (#1)] Future Scheduled 2022-03-[address] [facility] Test 00:00:00 (Season Ended) [code = Medic al Center INFLUENZA VACCINE (Season Ended)] Future Scheduled 2022-03-[address] [facility] Test 00:00:00 (Season Ended) [code = Medic al Center INFLUENZA VACCINE (Season Ended)] Future Scheduled 2021-11-22 COVID-19 VACCINE (1) Met [facility] Test 22:50:38 [code = COVID-19 VACCINE (1)] Future Scheduled 2021-11-22 Pneumococcal Vaccine: [facility] Test 22:50:38 Pediatrics (0 to 5 Years) and At-Risk Patients (6 to 64 Years) (1 - PCV) [code = Pneumococcal Vaccine: Pediatrics (0 to 5 Years) and At-Risk Patients (6 to 64 Years) (1 - PCV)] Future Scheduled 2021-11-22 Hepatitis C screening [facility] Test 22:50:38 (procedure) [code = 081310217] Future Scheduled 2021-11-22 SHINGLES VACCINES (1 Met [facility] Test 22:50:38 of 2) [code = SHINGLES VACCINES (1 of 2)] Future Scheduled 2021-11-22 Screening for [facility] Test 22:50:38 malignant neoplasm of cervix (procedure) [code = 238246437] Future Scheduled 2021-11-22 BREAST CANCER [facility] Test 22:50:38 SCREENING [code = BREAST CANCER SCREENING] Future Scheduled 2021-11-22 COLONOSCOPY SCREENING [facility] Test 22:50:38 [code = COLONOSCOPY SCREENING] Future Scheduled 2021-11-22 INFLUENZA VACCINE [facility] Test 22:50:38 [code = INFLUENZA VACCINE] Future Scheduled 2021-11-22 COVID-19 VACCINE (1) [facility] Test 22:50:38 [code = COVID-19 VACCINE (1)] Future Scheduled 2021-11-22 Pneumococcal Vaccine: [facility] Test 22:50:38 Pediatrics (0 to 5 Years) and At-Risk Patients (6 to 64 Years) (1 - PCV) [code = Pneumococcal Vaccine: Pediatrics (0 to 5 Years) and At-Risk Patients (6 to 64 Years) (1 - PCV)] Future Scheduled 2021-11-22 Hepatitis C screening [facility] Test 22:50:38 (procedure) [code = 851716777] Future Scheduled 2021-11-22 SHINGLES VACCINES (1 [facility] Test 22:50:38 of 2) [code = SHINGLES VACCINES (1 of 2)] Future Scheduled 2021-11-22 Screening for [facility] Test 22:50:38 malignant neoplasm of cervix (procedure) [code = 291301413] Future Scheduled 2021-11-22 BREAST CANCER [facility] Test 22:50:38 SCREENING [code = BREAST CANCER SCREENING] Future Scheduled 2021-11-22 COLONOSCOPY SCREENING [facility] Test 22:50:38 [code = COLONOSCOPY SCREENING] Future Scheduled 2021-11-22 INFLUENZA VACCINE [facility] Test 22:50:38 [code = INFLUENZA VACCINE] Future Scheduled 2021-11-22 COVID-19 VACCINE (1) [facility] Test 22:50:38 [code = COVID-19 VACCINE (1)] Future Scheduled 2021-11-22 Pneumococcal Vaccine: [facility] Test 22:50:38 Pediatrics (0 to 5 Years) and At-Risk Patients (6 to 64 Years) (1 - PCV) [code = Pneumococcal Vaccine: Pediatrics (0 to 5 Years) and At-Risk Patients (6 to 64 Years) (1 - PCV)] Future Scheduled 2021-11-22 Hepatitis C screening [facility] Test 22:50:38 (procedure) [code = 354243256] Future Scheduled 2021-11-22 SHINGLES VACCINES (1 [facility] Test 22:50:38 of 2) [code = SHINGLES VACCINES (1 of 2)] Future Scheduled 2021-11-22 Screening for [facility] Test 22:50:38 malignant neoplasm of cervix (procedure) [code = 024547355] Future Scheduled 2021-11-22 BREAST CANCER [facility] Test 22:50:38 SCREENING [code = BREAST CANCER SCREENING] Future Scheduled 2021-11-22 COLONOSCOPY SCREENING [facility] Test 22:50:38 [code = COLONOSCOPY SCREENING] Future Scheduled 2021-11-22 INFLUENZA VACCINE [facility] Test 22:50:38 [code = INFLUENZA VACCINE] Future Scheduled 2021-11-22 COVID-19 VACCINE (1) [facility] Test 22:50:38 [code = COVID-19 VACCINE (1)] Future Scheduled 2021-11-22 Pneumococcal Vaccine: [facility] Test 22:50:38 Pediatrics (0 to 5 Years) and At-Risk Patients (6 to 64 Years) (1 - PCV) [code = Pneumococcal Vaccine: Pediatrics (0 to 5 Years) and At-Risk Patients (6 to 64 Years) (1 - PCV)] Future Scheduled 2021-11-22 Hepatitis C screening [facility] Test 22:50:38 (procedure) [code = 342984711] Future Scheduled 2021-11-22 SHINGLES VACCINES (1 [facility] Test 22:50:38 of 2) [code = SHINGLES VACCINES (1 of 2)] Future Scheduled 2021-11-22 Screening for [facility] Test 22:50:38 malignant neoplasm of cervix (procedure) [code = 721932598] Future Scheduled 2021-11-22 BREAST CANCER [facility] Test 22:50:38 SCREENING [code = BREAST CANCER SCREENING] Future Scheduled 2021-11-22 COLONOSCOPY SCREENING [facility] Test 22:50:38 [code = COLONOSCOPY SCREENING] Future Scheduled 2021-11-22 INFLUENZA VACCINE [facility] Test 22:50:38 [code = INFLUENZA VACCINE] Future Scheduled 2021-11-22 COVID-19 VACCINE (1) Met [facility] Test 22:50:38 [code = COVID-19 VACCINE (1)] Future Scheduled 2021-11-22 Pneumococcal Vaccine: [facility] Test 22:50:38 Pediatrics (0 to 5 Years) and At-Risk Patients (6 to 64 Years) (1 - PCV) [code = Pneumococcal Vaccine: Pediatrics (0 to 5 Years) and At-Risk Patients (6 to 64 Years) (1 - PCV)] Future Scheduled 2021-11-22 Hepatitis C screening [facility] Test 22:50:38 (procedure) [code = 123173844] Future Scheduled 2021-11-22 SHINGLES VACCINES (1 Met [facility] Test 22:50:38 of 2) [code = SHINGLES VACCINES (1 of 2)] Future Scheduled 2021-11-22 Screening for [facility] Test 22:50:38 malignant neoplasm of cervix (procedure) [code = 300825844] Future Scheduled 2021-11-22 BREAST CANCER [facility] Test 22:50:38 SCREENING [code = BREAST CANCER SCREENING] Future Scheduled 2021-11-22 COLONOSCOPY SCREENING [facility] Test 22:50:38 [code = COLONOSCOPY SCREENING] Future Scheduled 2021-11-22 INFLUENZA VACCINE [facility] Test 22:50:38 [code = INFLUENZA VACCINE] Future Scheduled 2021-11-22 COVID-19 VACCINE (1) Met [facility] Test 22:50:38 [code = COVID-19 VACCINE (1)] Future Scheduled 2021-11-22 Pneumococcal Vaccine: [facility] Test 22:50:38 Pediatrics (0 to 5 Years) and At-Risk Patients (6 to 64 Years) (1 - PCV) [code = Pneumococcal Vaccine: Pediatrics (0 to 5 Years) and At-Risk Patients (6 to 64 Years) (1 - PCV)] Future Scheduled 2021-11-22 Hepatitis C screening [facility] Test 22:50:38 (procedure) [code = 828818068] Future Scheduled 2021-11-22 SHINGLES VACCINES (1 [facility] [facility] Test 22:50:38 of 2) [code = SHINGLES VACCINES (1 of 2)] Future Scheduled 2021-11-22 Screening for [facility] Test 22:50:38 malignant neoplasm of cervix (procedure) [code = 652255026] Future Scheduled 2021-11-22 BREAST CANCER [facility] Test 22:50:38 SCREENING [code = BREAST CANCER SCREENING] Future Scheduled 2021-11-22 COLONOSCOPY SCREENING [facility] Test 22:50:38 [code = COLONOSCOPY SCREENING] Future Scheduled 2021-11-22 INFLUENZA VACCINE [facility] Hospital Test 22:50:38 [code = INFLUENZA VACCINE] Future Scheduled 2021-11-22 COVID-19 VACCINE (1) Met [facility] Test 22:50:38 [code = COVID-19 VACCINE (1)] Future Scheduled 2021-11-22 Pneumococcal Vaccine: [facility] Test 22:50:38 Pediatrics (0 to 5 Years) and At-Risk Patients (6 to 64 Years) (1 - PCV) [code = Pneumococcal Vaccine: Pediatrics (0 to 5 Years) and At-Risk Patients (6 to 64 Years) (1 - PCV)] Future Scheduled 2021-11-22 Hepatitis C screening [facility] Test 22:50:38 (procedure) [code = 436529364] Future Scheduled 2021-11-22 SHINGLES VACCINES (1 Met [facility] Test 22:50:38 of 2) [code = SHINGLES VACCINES (1 of 2)] Future Scheduled 2021-11-22 Screening for [facility] Test 22:50:38 malignant neoplasm of cervix (procedure) [code = 709397760] Future Scheduled 2021-11-22 BREAST CANCER [facility] Test 22:50:38 SCREENING [code = BREAST CANCER SCREENING] Future Scheduled 2021-11-22 COLONOSCOPY SCREENING [facility] Test 22:50:38 [code = COLONOSCOPY SCREENING] Future Scheduled 2021-11-22 INFLUENZA VACCINE [facility] Hospital Test 22:50:38 [code = INFLUENZA VACCINE] Future Scheduled 2021-11-22 COVID-19 VACCINE (1) Met [facility] Test 22:50:38 [code = COVID-19 VACCINE (1)] Future Scheduled 2021-11-22 Pneumococcal Vaccine: [facility] Test 22:50:38 Pediatrics (0 to 5 Years) and At-Risk Patients (6 to 64 Years) (1 - PCV) [code = Pneumococcal Vaccine: Pediatrics (0 to 5 Years) and At-Risk Patients (6 to 64 Years) (1 - PCV)] Future Scheduled 2021-11-22 Hepatitis C screening [facility] Test 22:50:38 (procedure) [code = 867000584] Future Scheduled 2021-11-22 SHINGLES VACCINES (1 Met [facility] Hospital Test 22:50:38 of 2) [code = SHINGLES VACCINES (1 of 2)] Future Scheduled 2021-11-22 Screening for [facility] Test 22:50:38 malignant neoplasm of cervix (procedure) [code = 253185657] Future Scheduled 2021-11-22 BREAST CANCER [facility] Test 22:50:38 SCREENING [code = BREAST CANCER SCREENING] Future Scheduled 2021-11-22 COLONOSCOPY SCREENING [facility] Test 22:50:38 [code = COLONOSCOPY SCREENING] Future Scheduled 2021-11-22 INFLUENZA VACCINE [facility] Hospital Test 22:50:38 [code = INFLUENZA VACCINE] Future Scheduled 2021-07-08 Medicare IPPE ([facility]E [facility] 00:[facility]00 TO MEDICARE) [code = Medical Center Medicare IPPE (WELCOME TO MEDICARE)] Future Scheduled 2021-07-08 Medicare IPPE ([facility]ELCOME [facility] Test 00:00:00 TO MEDICARE) [code = Medical Center Medicare IPPE (WELCOME TO MEDICARE)] Future Scheduled 2021-07-08 Medicare IPPE (WELCOME [facility] Test 00:00:00 TO MEDICARE) [code = Medical Center Medicare IPPE (WELCOME TO MEDICARE)] Future Scheduled 2017 SHINGLES VACCINES ([address] [facility] Test 00:00:00 of 2) [code = SHINGLES Medic al Center VACCINES (1 of 2)] Future Scheduled 2017 SHINGLES VACCINES ([address] [facility] Test 00:00:00 of 2) [code = SHINGLES Medic al Center VACCINES (1 of 2)] Future Scheduled 2017 SHINGLES VACCINES ([address] [facility] Test 00:00:00 of 2) [code = SHINGLES Medic al Center VACCINES (1 of 2)] Future Scheduled 1988-02-[address] [facility] Test 00:[facility]:00 malignant neoplasm of Medica l Center cervix (procedure) [code = 341276444] Future Scheduled 1988-02-[address] [facility] Test 00:00:00 [facility]procedure) [code = 506115395] Future Scheduled 1988-02-[address] [facility] Test 00:00:00 [facility] (procedure) [code = 895845978] Future Scheduled 1986 DTAP/TDAP/TD VACCINES [facility] Test 00:00:00 (1 - Tdap) [code = Medical C enter DTAP/TDAP/TD VACCINES (1 - Tdap)] Future Scheduled 1986 DTAP/TDAP/TD VACCINES [facility] Test 00:00:00 (1 - Tdap) [code = Medical C enter DTAP/TDAP/TD VACCINES (1 - Tdap)] Future Scheduled 1986 DTAP/TDAP/TD VACCINES [facility] Test 00:00:00 (1 - Tdap) [code = Medical C enter DTAP/TDAP/TD VACCINES (1 - Tdap)] Future Scheduled 1985 HE[facility]ITIS C [facility]CRE[facility] 00:00[facility]00 [code = HEPATITIS C Medical Center SCREENING] Future Scheduled 1985 HE[facility]ITIS C [facility] 00:00:00 [code = HEPATITIS C Medical Center SCREENING] Future Scheduled 1985 [facility]ITIS C [facility] 00:00:00 [code = HEPATITIS C Medical Center SCREENING] Future Scheduled [address] [facility] Test 00:00:00 0-64 YRS (1 - PCV) Medical C enter [code = PNEUMOCOCCAL VACCINE 0-64 YRS (1 - PCV)] Future Scheduled [address] [facility] Test 00:00:00 0-64 YRS (1 of 2 - Medical C enter PPSV23) [code = PNEUMOCOCCAL VACCINE 0-64 YRS (1 of 2 - PPSV23)] Future Scheduled [address] [facility] Test 00:00:00 0-64 YRS (1 of 2 - Medical C enter PPSV23) [code = PNEUMOCOCCAL VACCINE 0-64 YRS (1 of 2 - PPSV23)] Future Scheduled 1972-02-26 COVID-19 VACCINE (1) [facility] Test 00:00:00 [code = COVID-[address] VACCINE (1)] Future Scheduled 1972-02-26 COVID-19 VACCINE (1) [facility] Test 00:00:00 [code = COVID-[address] VACCINE (1)] Future Scheduled 1967 COVID-19 VACCINE (#1) [facility] 00:00:00 [code = COVID-[address] VACCINE (#1)] Future Scheduled [address] [facility] Test 00:00:00 malignant neoplasm of Medica l Center breast (procedure) [code = 124864828] Future Scheduled [address] [facility] Test 00:00:00 (combo) [code = CT Medical C enter Colonography (combo)] Future Scheduled [address] [facility] Test 00:00:00 malignant neoplasm of [facility] Center colon (procedure) [code = 123666878] Future Scheduled [address] [facility] Test 00:00:00 malignant neoplasm of [facility] Center colon (procedure) [code = 825401766] Future Scheduled [address] [facility] Test 00:00:00 malignant neoplasm of [facility] Center colon (procedure) [code = 213523898] Future Scheduled [address] [facility] Test 00:00:00 malignant neoplasm of [facility] Center colon (procedure) [code = 366136114] Future Scheduled 1967 Sigmoidoscopy [facility]code = [facility]oscopy] Medical Cente r Future Scheduled [address] [facility] Test 00:00:00 malignant neoplasm of [facility] Center breast (procedure) [code = 521615226] Future Scheduled [address] [facility] Test 00:00:00 (combo) [code = CT Medical C enter Colonography (combo)] Future Scheduled [address] [facility] Test 00:00:00 malignant neoplasm of [facility] Center colon (procedure) [code = 720861229] Future Scheduled [address] [facility] Test 00:00:00 malignant neoplasm of [facility] Center colon (procedure) [code = 393347402] Future Scheduled [address] [facility] Test 00:00:00 malignant neoplasm of [facility] Center colon (procedure) [code = 489748003] Future Scheduled [address] [facility] Test 00:00:00 malignant neoplasm of [facility] Center colon (procedure) [code = 776413931] Future Scheduled 1967 Sigmoidoscopy [facility]code [facility]] Medical Cent[facility] r Future Scheduled [address] [facility] Test 00:00:00 malignant neoplasm of [facility]ica [facility] Center breast (procedure) [code = 969634012] Future Scheduled [address] [facility] Test 00:00:00 (combo) [code = CT Medical C enter Colonography (combo)] Future Scheduled [address] [facility] Test 00:00:00 malignant neoplasm of [facility] Center colon (procedure) [code = 817110515] Future Scheduled [address] [facility] Test 00:00:00 malignant neoplasm of [facility] Center colon (procedure) [code = 197430035] Future Scheduled [address] [facility] Test 00:00:00 malignant neoplasm of [facility] Center colon (procedure) [code = 315231439] Future Scheduled [address] [facility] Test 00:00:00 malignant neoplasm of [facility]ica [facility] Center colon (procedure) [code = 246912442] Future Scheduled 1967 S[facility]oidoscopy [facility]oscopy] Medical Cente r Encounters Start End Encounter Admission Attending Care Care Encounter Source Date/Time Date/Time Type Type Clinicians Facility Department ID 2022-03-26 Outpatient [id number] AEEF-E [facility]oria 10:20:10 [id number] -[id number] Branden [id number] [id number] 2022-03-08 Outpatient [facility] [id number] [place] 16:29:13 [id number] [facility] 2022-03-02 Outpatient [id number] [id number] Memoria 19:48:58 [id number]- B l -[id number]-416 [id number] Barnden [id number] 2022-02-16 Outpatient [facility] [id number] [place] 17:24:[id number] [place] [address] 2022-02-14 Outpatient [facility] [id number] [place] 15:06:00 [id number] [facility] 2022-02-14 Outpatient ELCAMPO ELCAMPO [id number] [place] 13:30:20 [id number] [facility] 2022-02-09 Outpatient ELCAMPO ELCAMPO [id number] El 09:42:59 [id number] [facility] 2022-01-15 Outpatient [id number] [facility] 11:09:07 [id number]- B l -[id number] Branden [id number] 2021-12-27 Inpatient LYDIA MENEZES, [facility] Surgery [id number] SLE 11:59:00 CARMELLA 2021-12-21 [facility] [id number] SLE 10:56:25 YNE 2022-03-02 2022-03-04 [facility] Gerardo Miller 1.2.840.1 [id number] Methodi 20:31:00 15:09:00 Encounter Patel Kurt[facility] [id number] Mccoy .3.203118 l .8 2022-03-02 2022-03-04 Inpatient NADINE [facility] [id number] [place] 00:00:00 00:00:00 ARG[address]IA [address] 2022-03-02 2022-03-02 Travel 1.2.840.1 [id number] [id number] Methodi 00:00:00 00:00:[address] 3.430.2.7 0.2.7.3.698 Ho spita .3.307666 084.8 l .8 2022-02-14 2022-02-14 Emergency E PAUL MAN [facility] EMERGENCY [id number] [place] 12:56:00 14:44:00 [id number] ROOM [facility] [id number] [facility]osp[facility] l 2022-02-08 2022-02-13 Inpatient D HUYEN [facility] [id number] 20:23:00 12:30:00 [id number] [facility] po [id number] [facility] 2021-12-31 2022-01-12 Hospital Karrie Willoughby [facility] [id number] [facility] 14:38:00 14:33:00 Encounter Ino Heck [facility] 2021-12-31 2022-01-12 Inpatient SERA DIXON Cardiac [id number] SLE 14:38:00 14:33:00 INO Cath 2022-01-02 2022-01-02 Anesthesia Yfn Monroe [facility] [id number] 07:53:00 15:47:00 Event Hernandez [facility] 2022-01-02 2022-01-02 Surgery Clif [facility] [id number] 07:30:00 11:20:00 [facility] 2021-12-31 2021-12-31 Outpatient [facility] [id number] [facility] 14:38:00 23:59:00 Estrella 2021-12-31 2021-12-31 Travel [facility] [id number] [facility] 00:[facility]00 00:00:00 [facility] 2021-12-27 2021-12-27 Outpatient CLIF [facility] [id number] [facility] 13:36:37 13:36:[address] [facility] 2021-11-23 2021-11-27 [facility] Yen Lambert [facility] [id number] 10:37:00 13:46:00 Encounter Flavia Leal [facility] 2021-11-23 2021-11-27 Hospital Cindy Lambretalkavita [facility] [id number] 10:37:00 13:46:00 Encounter Elvis [facility] 2021-11-23 2021-11-27 Inpatient EL ELVIS, [facility] Surgery [id number] SLE 10:37:00 13:46:00 [facility] 2021-11-23 2021-11-23 Outpatient [facility] [id number] [facility] 00:00:00 23:59:00 [facility] 2021-11-23 2021-11-23 [facility] [id number] 12:05:00 14:58:00 [facility] 2021-11-23 2021-11-23 [facility] [id number] 12:05:00 14:58:00 [facility] 2021-11-23 2021-11-23 Travel [facility] [id number] [facility] 00:00:00 00:00:00 [facility] 2021-11-23 2021-11-23 Travel [facility] [id number] [facility] 00:[facility]00 00:00:00 [facility] 2021-11-22 2021-11-22 Outpatient EL SLE SLE [id number] SLE 12:49:06 23:59:00 2021-11-22 2021-11-22 [facility] [id number] 12:45:00 23:59:00 Encounter [facility] 2021-11-22 2021-11-22 [facility] [id number] 12:45:00 23:59:00 Encounter [facility] 2021-11-22 2021-11-22 Office Yen Lambert [facility] [id number] 13:30:00 13:45:00 Visit [facility] 2021-11-22 2021-11-22 Office Yen Pierre [facility] [id number] 13:30:00 13:45:00 Visit [facility] 2021-11-22 2021-11-22 Outpatient EL SLE SLE [id number] SLE 12:04:04 12:04:04 2021-11-20 2021-11-20 Outpatient EL SLE SLE [id number] SLE 00:00:00 00:00:00 2021-10-18 2021-10-18 [facility] [id number] 13:24:34 23:59:00 [facility] 2021-10-18 2021-10-18 [facility] [id number] 13:24:34 23:59:00 [facility] 2021-10-18 Outpatient EL FAUSTO [facility] SLE [id number] SLE 13:24:34 23:59:00 ZVONIMIR 2021-10-18 2021-10-18 [facility] [id number] 10:52:00 13:23:00 [facility] 2021-10-18 2021-10-18 [facility] [id number] 10:52:00 13:23:00 [facility] 2021-10-18 2021-10-18 Outpatient FAUSTO [facility] SLEH [id number] [facility]H 00:00:00 13:23:00 ZVONIMIR 2021-10-09 2021-10-09 [facility] [id number] 00:00:00 00:00:00 Orders [facility] 2021-10-09 2021-10-09 Outside [facility] [id number] 00:00:00 00:00:00 Orders [facility] 2020-09-15 2020-09-15 Outpatient IHDE_G [facility] [id number] [place] 01:10:00 01:10:00 [facility] 2020-08-16 2020-08-16 [place] [id number] [place] 06:04:00 06:04:00 0209 [facility] 2020-05-25 2020-05-25 Outpatient IHDE_G MMG MMG [id number] [place] 02:33:00 02:33:00 1118 [facility] 2020-03-03 2020-03-03 Outpatient IHDE_G MMG MMG [id number] [place] 11:44:00 11:44:00 0827 [facility] Group 2019-09-08 2019-09-08 Outpatient [facility] [id number] Memoria 01:09:00 01:09:00 Rheumatol Rheumatolog l ogy y [facility] 2019-08-31 2019-08-31 Outpatient [facility] [id number] Memoria 15:00:00 15:00:00 Rheumatol Rheumatolog l ogy y [facility] 2019-05-06 2019-05-06 Outpatient 3 TeresaBernardino [facility] [id number] 20:39:00 23:59:00 Bernardino Quijano [facility] 2018-10-07 2018-10-07 [facility] [place] - [id number] [place] 00:00:00 00:00:00 Abdiel Troy MD: [address], [address], surgery [place] [address] , Ph. [phone] 2018-09-23 2018-09-23 [place] - [id number] [place] 00:00:00 00:00:00 Abdiel Mcdonald 0319 fatoumata Bates MD: [address], [address], surgery [place] [address] , Ph. [phone] 2018-08-26 2018-08-26 [place] - [address] [place] 00:00:00 00:00:00 Abdiel Machado9 fatoumata Bates MD: [address], [place] [address] , Ph. [phone] 2017-07-15 2017-07-15 Outpatient Giovanni DE [facility] [id number] 13:56:00 13:56:00 MYA Hernandez [facility] Results Test Description Test Time Test Comments Results Result Comments Source ECG 12 lead 2022-03-06 00:17:26 Test Item Value Reference Range Interpretation Comme nts Ventricular rate (test code = 253) Atrial rate (test code = 255) MN interval (test code = 266) QRSD interval (test code = 260) QT interval (test code = 264) QTC interval (test code = 265) P axis 1 (test code = 267) QRS axis 1 (test code = 268) T wave axis (test code = 270) EKG impression (test code = 273) Normal sinus rhythm-Moderate volta ge criteria for LVH, may be normal variant ( Sokolow-Contreras , [place] product )-Marked ST abnormality, possible lateral subendocardial injury- [facility], (w Contrast, Strain and 3D if needed)2022-03-03 18:57:18 Test Item Value Reference Interpretation Comments Range Ao Root Diameter 2.89 cm (test code = 8797441578) AoV Area, Vmax (test 2.07 cm2 See_Comment [Autom ated code = 1347856643) message] The system which generated this result transmitted reference range : >=1.5. The reference range was not used to interpret this result as normal/abnormal . AoV Area, VTI (test 2.23 cm2 code = 9763818117) AoV Mean PG (test mmHg code = 3574155104) AoV Peak PG (test mmHg code = 3082493235) AoV Vmax (test code 1.73 m/s = 9012224043) AoV VTI (test code = 0.38 m 5569782367) IVS,d (test code = 1.48 cm 0.6-0.9 A 8441769536) IVS/LVPW,2D (test code = 3684724125) Left Atrium 3.90 cm Dimension Anterior (test code = 2730247924) LV,d (test code = 4.11 cm 6437066469) LV EF,2D (test code 67.36 % = 8386513385) LV,s (test code = 2.63 cm 8855853839) LVOT area (test code 3.02 cm2 = 4014357191) LVOT Diam,S (test 1.96 cm code = 6614826816) LVOT Vmax (test code 1.20 m/s = 4420458224) LVOT VTI (test code 0.30 m = 6826079497) LVPWD,d (test code = 1.75 cm 0.6-1.19 A 0721986095) PV Mean Grad (test mmHg code = 6264862252) PV Pk Grad (test mmHg code = 9050708810) PV VMAX (test code = 1.10 m/s 6006064120) PV VTI (test code = 0.30 m 6826697370) RVOT Vmax (test code 0.93 m/s = 1273924084) TR Vpeak (test code 2.60 m/s = 9927373817) MV E A ratio (test code = 5136951688) TR pk grad (test mmHg code = 0596269608) PV Vmn (test code = 2620449903) MR Vmax (test code = 1.93 m/s 9541773819) E wave decelartion See_Comment [Automat ed time (test code = message] T he 2367955192) system which generated this result transmitted reference range : 200 msec. The reference range was not used to interpret this result as normal/abnormal . MV Peak A Christian (test 1.35 m/s code = 3799251369) MV valve area p 1/2 2.32 cm2 method (test code = 8795027757) MV Peak E Christian (test 1.28 m/s code = 8488621281) MV stenosis pressure 94.99 ms 1/2 time (test code = 8498071444) LVOT stroke volume 0.90 ml (test code = 7619896178) AV LVOT peak mmHg gradient (test code = 3546156015) Ascending aorta 2.60 cm (test code = 0468461185) Ao Root Diameter 2.89 cm (test code = 3974268222) MV mean gradient mmHg (test code = 6524088862) LV SYS VOL (test 30.26 ml 14-42 code = 5680326551) LV SMITH VOL (test 74.49 ml 46-106 code = 7543360322) LA area s A4C (test 24.67 cm2 code = 7496046560) LV SV Teich 2D (test 44.23 ml code = 9909779394) LV Vol s Teich PSAX 30.26 ml (test code = 3984456245) MR peak grad (test mmHg code = 3354775253) MV Vmax (test code = 1.49 m 9119633873) MV VTI Tips (test 0.50 m code = 4427252702) RVOT pk grad (test mmHg code = 2841944336) AoV Vmn (test code = 1.08 m/s 6621787645) LV FS Teich 2D (test code = 7794492115) MV AE ratio (test code = 8299506051) LV FS Cube 2D (test code = 2502635370) LVOT Vmn (test code = 6981360353) Aov area Vmn (test 2.35 cm2 code = 3286788596) LVOT mean grad (test mmHg code = 4501026763) MAX Pred HR (test code = 1799405788) RVOT mean grad (test mmHg code = 8992496367) RVOT Vmn (test code 0.62 m/s = 3101388247) RVOT VTI (test code 0.20 m = 9004197560) 85 of MPHR (test code = 1821048472) Calc MPHR (test code bpm = 3384494480) LV SV Cube 2D (test 46.64 ml code = 6939287739) LV vol d cube 2D 69.23 ml (test code = 6320949940) LV vol s cube 2D 22.60 ml (test code = 2104851179) MV Decel slope (test 3.77 m/s2 code = 5634397689) Pred Exer Dur R1 (test code = 1681706269) Pred METS R1 (test code = 9141161632) LA Vol MOD A4C (test 84.07 ml code = 1239895001) E richar sept (test code = 8149197043) E prime lat (test code = 4175489762) Velocity Ratio 0.69 m/s (V1/V2) (test code = 4689) EF (test code = 59 % 1450785346) E/A ratio (test code = 5879363377) LVOT VTI (CM) (test 30.00 cm code = 7984067412) DALE (test code = DALE) Left Ventricle: Left ventricle size is normal. Normal wall motion. Normal systolic function with a visually estimated EF of 55 - 60%. Findings consistent with moderate concentric hypertrophy Grade II (pseudonormal) diastolic dysfunction. Aortic Valve structure is normal Mitral Valve structure is normal. Mild valvular regurgitation Tricuspid Valve structure is normal. Trace valvular regurgitation Pulmonic Valve. No significant valvular regurgitation Right ventricle size is normal. Normal systolic function Left VentricleLeft ventricle size is normal. Findings consistent with moderate concentric hypertrophy. Normal wall motion. Normal systolic function with a visually estimated EF of 55 - 60%. Grade II (pseudonormal) diastolic dysfunction.Right VentricleRight ventricle size is normal. Normal systolic function.Left AtriumLeft atrium is moderately dilated.Right AtriumRight atrium size is normal.Mitral ValveValve structure is normal. Mild valvular regurgitation.Tricus pid ValveValve structure is normal. Trace valvular regurgitation.Aortic ValveValve structure is normal. No significant valvular regurgitation. No stenosis.Pulmonic ValveNo significant valvular regurgitation.Perica rdiumThere is no pericardial effusion present.Study DetailsStudy quality was adequate. A complete 2D, color flow Doppler and spectral Doppler echocardiogram was performed.The apical, parasternal, subcostal and suprasternal views were obtained. Lab Interpretation Abnormal (test code = 42401-2) Asha CampbellARS-CoV-2 (COVID-19) RNA [Presence] in Respiratory specimen by MAKEDA with probe [id number] 06:29:11 Test Item Value Reference Range Interpretation Comments SARS-CoV-2 (COVID-19) RNA Not detected [Presence] in Respiratory specimen by MAKEDA with probe detection (test code = 74442-9) Whether patient is employed in a Unknown healthcare setting (test code = 65302-2) Whether the patient has symptoms Unknown related to condition of interest (test code = 48675-6) Whether the patient was Unknown hospitalized for condition of interest (test code = 51698-2) Whether the patient was admitted Unknown to intensive care unit (ICU) for condition of interest (test code = 45324-7) Whether patient resides in a Unknown congregate care setting (test code = 71259-4) status (test code = Unknown 31062-5) Date and time of symptom onset Unknown (test code = 57398-8) ECG ED Preliminary Interpretation - Not an [id number] 01:42:27 Test Item Value Reference Range Interpretation Comments DALE (test code = DALE) Gerardo Miller MD 03/03/2022 1:11 AMECG ED Preliminary Interpretation - Not an OrderPerformed by: Gerardo Miller MDAuthorized by: Gerardo Miller MD ECG reviewed by ED Physician in the absence of a counter dish carrier: yes Previous ECG: Previous ECG: UnavailableInterpretat ion: Interpretation: abnormal Rate: ECG rate: 84 ECG rate assessment: normal Rhythm: Rhythm: sinus rhythm Ectopy: Ectopy: none QRS: QRS axis: Normal QRS intervals: NormalConduction: Conduction: normal ST segments: ST segments: Abnormal Elevation: V2 Depression: IT waves: T waves: inverted Inverted: I, II, aVL, aVF, V3, V4, V5 and G2Kkapqlgn: Normal sinus rhythm, ST depression in aVL with ST elevation in V2, T wave inversion leads II, aVL, aVF V3 through V6 Lab Interpretation Abnormal (test code = 89508-2) [facility], [id number] 15:30:00Unlisted Reason for Exam - Click Yes and Enter Reason Below->No [facility] CENTERName: RODRIGO KRISHNAN : 1965 Sex: FAddendum BeginsREPORT STATUS:A Addendum: I have reviewed the report from Dr. Benavidez. I agree with the previously described non vascular findings. Signed: Luigi Aparicio MDReport Verified Date/Time: 02/13/2022 15:30:[address] angiography of the thoracoabdominal aorta and pelvic arteries, 01-Jan-22 INDICATION: This is a 56 year old female with aortic aneurysm presents for assessment. TECHNIQUE: Spiral acquisition before and during intravenous contrast administration using a Siemens multidetector CT scanner. Images were obtained before and duringthe dynamic passage of intravenous contrast material. Multi-planar 3-D volume-rendering reconstruction was performed using an independent workstation interactively by the interpreting physician as wellas the 3-D specialist for optimal visualisation of the thoracoabdominal aorta, the pelvic arteries as well as its proximal branches. Please refer to the contrast sheet scanned in the EPIC system for the amount and route of contrast given. This exam was performed according to our departmental dose-optimisation programme, which includes automated exposure control, adjustment of the mA and/or kV according to patient size and/or use of iterative reconstruction technique. Dose modulation, iterative reconstruction, and/or weight based adjustment of the mA/kV was utilized to reduce the radiation dose to as low as reasonably achievable. FINDINGS: VASCULAR: The central pulmonary artery is mildly prominent.Correlate appropriate aetiology. No evidence of central pulmonary artery embolism is identified. A ce ntral venous catheter is seen, with tip identified in the right atrium. The cardiac chambers demonstrate normal atrioventricular and ventriculoarterial concordance, and systemic and pulmonary venous return. The left ventricle is enlarged. Correlate with appropriate aetiology. Left atrial enlargement is identified. Mitral annular calcification is seen posteriorly extends inferiorly. Diffuse calcification is seen in the left coronary territory. The mid RCA and the distal RCA is occluded. Patient is post coronary artery bypass surgery and a patent right coronary artery bypass graft is identified. The left internal mammary artery bypass graft is seen and is patent, connecting to the LAD territory.. There is another bypass graft identified, presumably connecting either to the diagonal artery on the OMbranch and this graft is also patent. Majority of the thoracic aorta is normal in course and calibre. The transverse and descending thoracic aorta has mixture of calcific and noncalcific atherosclerosis identified. The descending thoracic aorta in fact has moderate protruding atheroma identified, for example at image 99, the thickness of the atheroma is at least 8 to 9 mm, in the posterior aspect of the descending thoracic aorta. Aneurysmal dilation is identified, at the supra mesenteric level extends into the infrarenal abdominal aorta. In fact, patient is post aortobiiliac femoral bypass graft, with the proximal anastomotic site connecting to the distal infrarenal abdominal aorta, and the left and right limbs are patent, connecting to the distal left and right common femoral arteries, with no anastomotic stenosis identified. In fact, the [place] left common iliac artery is occluded. Intraluminal thrombus is identified as expected in the abdominal aortic dilation with no obstructive lesion present. There is no evidence of acute aortic pathology, specifically, there is no dissection, intramural hematoma, or contained rupture. The arch vessel branching pattern is normal and the visualized arch vessels are widely patent proximally. Nonobstructive calcification, mild in nature is identified in the left and the right subclavian arteries proximally, left greater than right. Quantitaive dimensionsof the aorta are as follows: 3.6 cm at the sinuses of Valsalva (the sino-tubular junction is preserved); 3.1 cm at the proximal ascending thoracic aorta; 3.7 cm at the mid ascending aorta; 3.2 cm at the distal ascending aorta; 2.6 cm at the mid transverse arch; 2.5 cm at the proximal descending aorta;2.9 cm at the mid descending aorta: 4.1 x 4.2 cm at the diaphragmatic hiatus. In the abdomen, the aorta measures 3.8 x 4.2 cm at the mesenteric segment; 2.9 x 2.9 cm at the renal segment; 4.6 x 4.6 cm at the mid infrarenal level and 3.2 x 3.7 cm above the aortic bifurcation, superior to the anastomotic site. At the level of the anastomotic site, the aorta measures approximately 3.8 x 4.4 cm in diameter. The ostium of the anastomotic site measures 2.0 x 1.7 cm. Please see snapshot for details. Refer to operative report regarding the calibre of the left and right iliac limb of the bypass graft. The available images, the average diameter is approximately 7-8mm, bilaterally Distal to the anastomotic site of the left limb, the [place] left SFA has minimal calcification identified. In the right, immediately inferior to the anastomotic site, the distal right common femoral artery at image 360 has calcification seen posteriorly. The coeliac axis is widely patent. Stent is seen in the proximal SMA and the stent is patent. Renal stents are seen in the left and the right renal arteries, however, the stentsize is small, and assessment is limited. In the 1 mm data set, the proximal right renal stent appears to be not filled by contrast. There is likely atheroma present in the left renal stent. Again assessment is incomplete. In fact, patient has end-stage renal disease status. NON-VASCULAR:- At the timeof dictation of this examination, patient has another CT scan performed December by the [facility], and therefore the nonvascular findings has been dictated by the [facility]iologist. Therefore please refer to formal report for details. Majority of the findings would not be repeated here. However, in the current December examination, hypodensity is identified in the left thyroid lobe, at image 26 measure 1.4 to 1.5 cm in diameter. Dedicated thyroid ultrasound scan canbe performed, electively. In the lung windows, no endobronchial lesion is seen, and no pleural effusion is identified. Some dependent changes are seen. In the left and right apex, mild paraseptal emphysematous changes are seen. Overall, no suspicious pulmonary nodule is identified. In the abdomen, liver, spleen, adrenal glands, and pancreas appears unremarkable. See formal dictation for details. Patient is post cholecystectomy. Patient has end-stage renal disease. Bowel is incomplete assessed. Faecal material is identified. The bladder is unremarkable. Uterus is not identified. No acute bony pathology is present. Patient is post median sternotomy. CONCLUSIONS: 1. Unremarkable thoracic aortic calibre. However, in the descending thoracic aorta, at least moderate diffuse noncalcific atheroma is seen, some of the protruding in nature. Aneurysmal dilation is identified in the entire abdominal aorta with intraluminal thrombus identified. Interestingly, patient is post aortobiiliac femoral bypass graft, and the bypass is widely patent proximally and distally. There is no evidence of acute aortic pathology, specifically, there is no dissection, intramural hematoma, or contained rupture. Quantitative dimension of the thoracoabdominal aorta are as described above. The radiology department requires follow duration to be dictated, however, patient already has endostent placement in the abdominal aorta,according to CT scan on 03 January 2022. 2. Patient is post coronary artery bypass surgery with significant diffuse [place] coronary artery disease. Three patent bypass grafts are identified. 3. Other findings as described above. Patient already already has formal dictation of the CT scan performed on 03-Jan-22 by [facility]. See formal nonvascular findings with details. Mild paraseptal emph ysematous changes is noted in the left and the right apices. Hypodensity is identified in the left thyroid lobe, at image 26 measure 1.4 to 1.5 cm in diameter. In fact, another hypodensity is identified in the right thyroid lobe at image 25 measure 1.8 cm in diameter. Dedicated thyroid ultrasound scanshould be electively, for further tissue characterization, when the acute medical issue is resolved.Signed: Lauri Benavidez MDReport Verified Date/Time: 01/04/2022 12:22:34 , CTA PELVIS, AAA [id number] 15:30:00Unlisted Reason for Exam - Click Yes and Enter Reason Below->No [facility] : 1965 Sex: FAddendum BeginsREPORT STATUS:A Addendum: I have reviewed the report from Dr. Benavidez. I agree with the previously described non vascular findings. Signed: Luigi Aparicio MDReport Verified Date/Time: 02/13/2022 15:30:[address] angiography of the thoracoabdominal aorta and pelvic arteries, 01-Jan-22 INDICATION: This is a 56 year old female with aortic aneurysm presents for assessment. TECHNIQUE: Spiral acquisition before and during intravenous contrast administration using a Siemens multidetector CT scanner. Images were obtained before and duringthe dynamic passage of intravenous contrast material. Multi-planar 3-D volume-rendering reconstruction was performed using an independent workstation interactively by the interpreting physician as wellas the 3-D specialist for optimal visualisation of the thoracoabdominal aorta, the pelvic arteries as well as its proximal branches. Please refer to the contrast sheet scanned in the EPIC system for the amount and route of contrast given. This exam was performed according to our departmental dose-optimisation programme, which includes automated exposure control, adjustment of the mA and/or kV according to patient size and/or use of iterative reconstruction technique. Dose modulation, iterative reconstruction, and/or weight based adjustment of the mA/kV was utilized to reduce the radiation dose to as low as reasonably achievable. FINDINGS: VASCULAR: The central pulmonary artery is mildly prominent.Correlate appropriate aetiology. No evidence of central pulmonary artery embolism is identified. A ce ntral venous catheter is seen, with tip identified in the right atrium. The cardiac chambers demonstrate normal atrioventricular and ventriculoarterial concordance, and systemic and pulmonary venous return. The left ventricle is enlarged. Correlate with appropriate aetiology. Left atrial enlargement is identified. Mitral annular calcification is seen posteriorly extends inferiorly. Diffuse calcification is seen in the left coronary territory. The mid RCA and the distal RCA is occluded. Patient is post coronary artery bypass surgery and a patent right coronary artery bypass graft is identified. The left internal mammary artery bypass graft is seen and is patent, connecting to the LAD territory.. There is another bypass graft identified, presumably connecting either to the diagonal artery on the OMbranch and this graft is also patent. Majority of the thoracic aorta is normal in course and calibre. The transverse and descending thoracic aorta has mixture of calcific and noncalcific atherosclerosis identified. The descending thoracic aorta in fact has moderate protruding atheroma identified, for example at image 99, the thickness of the atheroma is at least 8 to 9 mm, in the posterior aspect of the descending thoracic aorta. Aneurysmal dilation is identified, at the supra mesenteric level extends into the infrarenal abdominal aorta. In fact, patient is post aortobiiliac femoral bypass graft, with the proximal anastomotic site connecting to the distal infrarenal abdominal aorta, and the left and right limbs are patent, connecting to the distal left and right common femoral arteries, with no anastomotic stenosis identified. In fact, the [place] left common iliac artery is occluded. Intraluminal thrombus is identified as expected in the abdominal aortic dilation with no obstructive lesion present. There is no evidence of acute aortic pathology, specifically, there is no dissection, intramural hematoma, or contained rupture. The arch vessel branching pattern is normal and the visualized arch vessels are widely patent proximally. Nonobstructive calcification, mild in nature is identified in the left and the right subclavian arteries proximally, left greater than right. Quantitaive dimensionsof the aorta are as follows: 3.6 cm at the sinuses of Valsalva (the sino-tubular junction is preserved); 3.1 cm at the proximal ascending thoracic aorta; 3.7 cm at the mid ascending aorta; 3.2 cm at the distal ascending aorta; 2.6 cm at the mid transverse arch; 2.5 cm at the proximal descending aorta;2.9 cm at the mid descending aorta: 4.1 x 4.2 cm at the diaphragmatic hiatus. In the abdomen, the aorta measures 3.8 x 4.2 cm at the mesenteric segment; 2.9 x 2.9 cm at the renal segment; 4.6 x 4.6 cm at the mid infrarenal level and 3.2 x 3.7 cm above the aortic bifurcation, superior to the anastomotic site. At the level of the anastomotic site, the aorta measures approximately 3.8 x 4.4 cm in diameter. The ostium of the anastomotic site measures 2.0 x 1.7 cm. Please see snapshot for details. Refer to operative report regarding the calibre of the left and right iliac limb of the bypass graft. The available images, the average diameter is approximately 7-8mm, bilaterally Distal to the anastomotic site of the left limb, the [place] left SFA has minimal calcification identified. In the right, immediately inferior to the anastomotic site, the distal right common femoral artery at image 360 has calcification seen posteriorly. The coeliac axis is widely patent. Stent is seen in the proximal SMA and the stent is patent. Renal stents are seen in the left and the right renal arteries, however, the stentsize is small, and assessment is limited. In the 1 mm data set, the proximal right renal stent appears to be not filled by contrast. There is likely atheroma present in the left renal stent. Again assessment is incomplete. In fact, patient has end-stage renal disease status. NON-VASCULAR:- At the timeof dictation of this examination, patient has another CT scan performed December by the [facility], and therefore the nonvascular findings has been dictated by the [facility]iologist. Therefore please refer to formal report for details. Majority of the findings would not be repeated here. However, in the current December examination, hypodensity is identified in the left thyroid lobe, at image 26 measure 1.4 to 1.5 cm in diameter. Dedicated thyroid ultrasound scan canbe performed, electively. In the lung windows, no endobronchial lesion is seen, and no pleural effusion is identified. Some dependent changes are seen. In the left and right apex, mild paraseptal emphysematous changes are seen. Overall, no suspicious pulmonary nodule is identified. In the abdomen, liver, spleen, adrenal glands, and pancreas appears unremarkable. See formal dictation for details. Patient is post cholecystectomy. Patient has end-stage renal disease. Bowel is incomplete assessed. Faecal material is identified. The bladder is unremarkable. Uterus is not identified. No acute bony pathology is present. Patient is post median sternotomy. CONCLUSIONS: 1. Unremarkable thoracic aortic calibre. However, in the descending thoracic aorta, at least moderate diffuse noncalcific atheroma is seen, some of the protruding in nature. Aneurysmal dilation is identified in the entire abdominal aorta with intraluminal thrombus identified. Interestingly, patient is post aortobiiliac femoral bypass graft, and the bypass is widely patent proximally and distally. There is no evidence of acute aortic pathology, specifically, there is no dissection, intramural hematoma, or contained rupture. Quantitative dimension of the thoracoabdominal aorta are as described above. The radiology department requires follow duration to be dictated, however, patient already has endostent placement in the abdominal aorta,according to CT scan on 03 January 2022. 2. Patient is post coronary artery bypass surgery with significant diffuse [place] coronary artery disease. Three patent bypass grafts are identified. 3. Other findings as described above. Patient already already has formal dictation of the CT scan performed on 03-Jan-22 by [facility]. See formal nonvascular findings with details. Mild paraseptal emph ysematous changes is noted in the left and the right apices. Hypodensity is identified in the left thyroid lobe, at image 26 measure 1.4 to 1.5 cm in diameter. In fact, another hypodensity is identified in the right thyroid lobe at image 25 measure 1.8 cm in diameter. Dedicated thyroid ultrasound scanshould be electively, for further tissue characterization, when the acute medical issue is resolved.Signed: Lauri Benavidezeport Verified Date/Time: 01/04/2022 12:22:34 , CTA ABDOMEN, AAA [id number] 15:30:00Please upload 1mm thickness slices for preop planningUnlisted Reason for Exam - Click Yes and Enter Reason Below->No[facility] : 1965 Sex: FAddendum BeginsREPORT STATUS:A Addendum: I have reviewed the report from Dr. Benavidez. I agree with the previously described non vascular findings. Signed: Luigi Aparicio MDReport Verified Date/Time: 02/13/2022 15:30:42 [facility] EndsFINAL REPORT CT angiography of the thoracoabdominal aorta and pelvic arteries, 01-Jan-22 INDICATION: This is a 56 year old female with aortic aneurysm presents for assessment. TECHNIQUE: Spiral acquisition before and during intravenous contrast administration using a Siemens multidetector CT scanner. Images were obtained before and duringthe dynamic passage of intravenous contrast material. Multi-planar 3-D volume-rendering reconstruction was performed using an independent workstation interactively by the interpreting physician as wellas the 3-D specialist for optimal visualisation of the thoracoabdominal aorta, the pelvic arteries as well as its proximal branches. Please refer to the contrast sheet scanned in the EPIC system for the amount and route of contrast given. This exam was performed according to our departmental dose-optimisation programme, which includes automated exposure control, adjustment of the mA and/or kV according to patient size and/or use of iterative reconstruction technique. Dose modulation, iterative reconstruction, and/or weight based adjustment of the mA/kV was utilized to reduce the radiation dose to as low as reasonably achievable. FINDINGS: VASCULAR: The central pulmonary artery is mildly prominent.Correlate appropriate aetiology. No evidence of central pulmonary artery embolism is identified. A ce ntral venous catheter is seen, with tip identified in the right atrium. The cardiac chambers demonstrate normal atrioventricular and ventriculoarterial concordance, and systemic and pulmonary venous return. The left ventricle is enlarged. Correlate with appropriate aetiology. Left atrial enlargement is identified. Mitral annular calcification is seen posteriorly extends inferiorly. Diffuse calcification is seen in the left coronary territory. The mid RCA and the distal RCA is occluded. Patient is post coronary artery bypass surgery and a patent right coronary artery bypass graft is identified. The left internal mammary artery bypass graft is seen and is patent, connecting to the LAD territory.. There is another bypass graft identified, presumably connecting either to the diagonal artery on the OMbranch and this graft is also patent. Majority of the thoracic aorta is normal in course and calibre. The transverse and descending thoracic aorta has mixture of calcific and noncalcific atherosclerosis identified. The descending thoracic aorta in fact has moderate protruding atheroma identified, for example at image 99, the thickness of the atheroma is at least 8 to 9 mm, in the posterior aspect of the descending thoracic aorta. Aneurysmal dilation is identified, at the supra mesenteric level extends into the infrarenal abdominal aorta. In fact, patient is post aortobiiliac femoral bypass graft, with the proximal anastomotic site connecting to the distal infrarenal abdominal aorta, and the left and right limbs are patent, connecting to the distal left and right common femoral arteries, with no anastomotic stenosis identified. In fact, the [place] left common iliac artery is occluded. Intraluminal thrombus is identified as expected in the abdominal aortic dilation with no obstructive lesion present. There is no evidence of acute aortic pathology, specifically, there is no dissection, intramural hematoma, or contained rupture. The arch vessel branching pattern is normal and the visualized arch vessels are widely patent proximally. Nonobstructive calcification, mild in nature is identified in the left and the right subclavian arteries proximally, left greater than right. Quantitaive dimensionsof the aorta are as follows: 3.6 cm at the sinuses of Valsalva (the sino-tubular junction is preserved); 3.1 cm at the proximal ascending thoracic aorta; 3.7 cm at the mid ascending aorta; 3.2 cm at the distal ascending aorta; 2.6 cm at the mid transverse arch; 2.5 cm at the proximal descending aorta;2.9 cm at the mid descending aorta: 4.1 x 4.2 cm at the diaphragmatic hiatus. In the abdomen, the aorta measures 3.8 x 4.2 cm at the mesenteric segment; 2.9 x 2.9 cm at the renal segment; 4.6 x 4.6 cm at the mid infrarenal level and 3.2 x 3.7 cm above the aortic bifurcation, superior to the anastomotic site. At the level of the anastomotic site, the aorta measures approximately 3.8 x 4.4 cm in diameter. The ostium of the anastomotic site measures 2.0 x 1.7 cm. Please see snapshot for details. Refer to operative report regarding the calibre of the left and right iliac limb of the bypass graft. The available images, the average diameter is approximately 7-8mm, bilaterally Distal to the anastomotic site of the left limb, the [place] left SFA has minimal calcification identified. In the right, immediately inferior to the anastomotic site, the distal right common femoral artery at image 360 has calcification seen posteriorly. The coeliac axis is widely patent. Stent is seen in the proximal SMA and the stent is patent. Renal stents are seen in the left and the right renal arteries, however, the stentsize is small, and assessment is limited. In the 1 mm data set, the proximal right renal stent appears to be not filled by contrast. There is likely atheroma present in the left renal stent. Again assessment is incomplete. In fact, patient has end-stage renal disease status. NON-VASCULAR:- At the timeof dictation of this examination, patient has another CT scan performed December by the [facility] Radiologist, and therefore the nonvascular findings has been dictated by the [facility] Radiologist. Therefore please refer to formal report for details. Majority of the findings would not be repeated here. However, in the current December examination, hypodensity is identified in the left thyroid lobe, at image 26 measure 1.4 to 1.5 cm in diameter. Dedicated thyroid ultrasound scan canbe performed, electively. In the lung windows, no endobronchial lesion is seen, and no pleural effusion is identified. Some dependent changes are seen. In the left and right apex, mild paraseptal emphysematous changes are seen. Overall, no suspicious pulmonary nodule is identified. In the abdomen, liver, spleen, adrenal glands, and pancreas appears unremarkable. See formal dictation for details. Patient is post cholecystectomy. Patient has end-stage renal disease. Bowel is incomplete assessed. Faecal material is identified. The bladder is unremarkable. Uterus is not identified. No acute bony pathology is present. Patient is post median sternotomy. CONCLUSIONS: 1. Unremarkable thoracic aortic calibre. However, in the descending thoracic aorta, at least moderate diffuse noncalcific atheroma is seen, some of the protruding in nature. Aneurysmal dilation is identified in the entire abdominal aorta with intraluminal thrombus identified. Interestingly, patient is post aortobiiliac femoral bypass graft, and the bypass is widely patent proximally and distally. There is no evidence of acute aortic pathology, specifically, there is no dissection, intramural hematoma, or contained rupture. Quantitative dimension of the thoracoabdominal aorta are as described above. The radiology department requires follow duration to be dictated, however, patient already has endostent placement in the abdominal aorta,according to CT scan on 03 January 2022. 2. Patient is post coronary artery bypass surgery with significant diffuse [place] coronary artery disease. Three patent bypass grafts are identified. 3. Other findings as described above. Patient already already has formal dictation of the CT scan performed on 03-Jan-22 by [facility] Radiologist. See formal nonvascular findings with details. Mild paraseptal emph ysematous changes is noted in the left and the right apices. Hypodensity is identified in the left thyroid lobe, at image 26 measure 1.4 to 1.5 cm in diameter. In fact, another hypodensity is identified in the right thyroid lobe at image 25 measure 1.8 cm in diameter. Dedicated thyroid ultrasound scanshould be electively, for further tissue characterization, when the acute medical issue is resolved.Signed: Lauri Benavidez Verified Date/Time: 01/04/2022 12:22:34 C METABOLIC [id number] 06:56:28 Test Item Value Reference Range Interpretation Comments SODIUM (BEAKER) 134 meq/L 136-145 L (test code = 381) POTASSIUM (BEAKER) 4.1 meq/L 3.5-5.1 Specimen slightly (test code = 379) hemolyzed CHLORIDE (BEAKER) 99 meq/L 98-107 (test code = 382) CO2 (BEAKER) (test 25 meq/L 22-29 code = 355) BLOOD UREA NITROGEN 29 mg/dL 7-21 H (BEAKER) (test code = 354) CREATININE (BEAKER) 4.39 mg/dL 0.57-1.25 H Specimen slightly (test code = 358) hemolyzed GLUCOSE RANDOM 80 mg/dL 70-105 (BEAKER) (test code = 652) CALCIUM (BEAKER) 8.9 mg/dL 8.4-10.2 (test code = 697) EGFR (BEAKER) (test 10 mL/min/1.73 ESTIMA JANET GFR IS code = 1092) sq m NOT ACCURATE CREATININE CLEARANCE IN PREDICTING GLOMERULAR FILTRATION RATE . ESTIMATED GFR I S NOT APPLICABLE FOR DIALYSIS PATIEN TS. Car Head Liner Installer ID - TY MCBC W/PLT COUNT & AUTO [id number] 04:49:01 Test Item Value Reference Range Interpretation Comments WHITE BLOOD CELL COUNT (BEAKER) 5.2 K/ L 3.5-10.5 (test code = 775) RED BLOOD CELL COUNT (BEAKER) 2.52 M/ L 3.93-5.22 L (test code = 761) HEMOGLOBIN (BEAKER) (test code = 7.6 GM/DL 11.2-15.7 L 410) HEMATOCRIT (BEAKER) (test code = 25.1 % 34.1-44.9 L 411) MEAN CORPUSCULAR VOLUME (BEAKER) 99.6 fL 79.4-94.8 H (test code = 753) MEAN CORPUSCULAR HEMOGLOBIN 30.2 pg 25.6-32.2 (BEAKER) (test code = 751) MEAN CORPUSCULAR HEMOGLOBIN CONC 30.3 GM/DL 32.2-35.5 L (BEAKER) (test code = 752) RED CELL DISTRIBUTION WIDTH 16.2 % 11.7-14.4 H (BEAKER) (test code = 412) PLATELET COUNT (BEAKER) (test 131 K/CU MM 150-450 L code = 756) MEAN PLATELET VOLUME (BEAKER) 10.7 fL 9.4-12.3 (test code = 754) NUCLEATED RED BLOOD CELLS 0 /100 WBC 0-0 (BEAKER) (test code = 413) NEUTROPHILS RELATIVE PERCENT 54 % (BEAKER) (test code = 429) LYMPHOCYTES RELATIVE PERCENT 23 % (BEAKER) (test code = 430) MONOCYTES RELATIVE PERCENT 15 % (BEAKER) (test code = 431) EOSINOPHILS RELATIVE PERCENT 6 % (BEAKER) (test code = 432) BASOPHILS RELATIVE PERCENT 0 % (BEAKER) (test code = 437) NEUTROPHILS ABSOLUTE COUNT 2.79 K/ L 1.56-6.13 (BEAKER) (test code = 670) LYMPHOCYTES ABSOLUTE COUNT 1.22 K/ L 1.18-3.74 (BEAKER) (test code = 414) MONOCYTES ABSOLUTE COUNT (BEAKER) 0.80 K/ L 0.24-0.36 H (test code = 415) EOSINOPHILS ABSOLUTE COUNT 0.32 K/ L 0.04-0.36 (BEAKER) (test code = 416) BASOPHILS ABSOLUTE COUNT (BEAKER) 0.01 K/ L 0.01-0.08 (test code = 417) IMMATURE GRANULOCYTES-RELATIVE 1 % 0-1 PERCENT (BEAKER) (test code = 2801) BASIC METABOLIC [id number] 04:55:20 Test Item Value Reference Range Interpretation Comments SODIUM (BEAKER) 138 meq/L 136-145 (test code = 381) POTASSIUM (BEAKER) 3.8 meq/L 3.5-5.1 (test code = 379) CHLORIDE (BEAKER) 101 meq/L 98-107 (test code = 382) CO2 (BEAKER) (test 27 meq/L 22-29 code = 355) BLOOD UREA NITROGEN 19 mg/dL 7-21 (BEAKER) (test code = 354) CREATININE (BEAKER) 3.12 mg/dL 0.57-1.25 H (test code = 358) GLUCOSE RANDOM 74 mg/dL 70-105 (BEAKER) (test code = 652) CALCIUM (BEAKER) 9.3 mg/dL 8.4-10.2 (test code = 697) EGFR (BEAKER) (test 16 mL/min/1.73 ESTIMA JANET GFR IS code = 1092) sq m NOT ACCURATE CREATININE CLEARANCE IN PREDICTING GLOMERULAR FILTRATION RATE . ESTIMATED GFR I S NOT APPLICABLE FOR DIALYSIS PATIEN TS. Car Head Liner Installer ID - PIAYA LCBC W/PLT COUNT & AUTO [id number] 04:22:55 Test Item Value Reference Range Interpretation Comments WHITE BLOOD CELL COUNT (BEAKER) 6.8 K/ L 3.5-10.5 (test code = 775) RED BLOOD CELL COUNT (BEAKER) 2.72 M/ L 3.93-5.22 L (test code = 761) HEMOGLOBIN (BEAKER) (test code = 8.2 GM/DL 11.2-15.7 L 410) HEMATOCRIT (BEAKER) (test code = 27.2 % 34.1-44.9 L 411) MEAN CORPUSCULAR VOLUME (BEAKER) 100.0 fL 79.4-94.8 H (test code = 753) MEAN CORPUSCULAR HEMOGLOBIN 30.1 pg 25.6-32.2 (BEAKER) (test code = 751) MEAN CORPUSCULAR HEMOGLOBIN CONC 30.1 GM/DL 32.2-35.5 L (BEAKER) (test code = 752) RED CELL DISTRIBUTION WIDTH 16.4 % 11.7-14.4 H (BEAKER) (test code = 412) PLATELET COUNT (BEAKER) (test 131 K/CU MM 150-450 L code = 756) MEAN PLATELET VOLUME (BEAKER) 10.4 fL 9.4-12.3 (test code = 754) NUCLEATED RED BLOOD CELLS 0 /100 WBC 0-0 (BEAKER) (test code = 413) NEUTROPHILS RELATIVE PERCENT 63 % (BEAKER) (test code = 429) LYMPHOCYTES RELATIVE PERCENT 19 % (BEAKER) (test code = 430) MONOCYTES RELATIVE PERCENT 12 % (BEAKER) (test code = 431) EOSINOPHILS RELATIVE PERCENT 5 % (BEAKER) (test code = 432) BASOPHILS RELATIVE PERCENT 0 % (BEAKER) (test code = 437) NEUTROPHILS ABSOLUTE COUNT 4.33 K/ L 1.56-6.13 (BEAKER) (test code = 670) LYMPHOCYTES ABSOLUTE COUNT 1.30 K/ L 1.18-3.74 (BEAKER) (test code = 414) MONOCYTES ABSOLUTE COUNT (BEAKER) 0.79 K/ L 0.24-0.36 H (test code = 415) EOSINOPHILS ABSOLUTE COUNT 0.32 K/ L 0.04-0.36 (BEAKER) (test code = 416) BASOPHILS ABSOLUTE COUNT (BEAKER) 0.02 K/ L 0.01-0.08 (test code = 417) IMMATURE GRANULOCYTES-RELATIVE 1 % 0-1 PERCENT (BEAKER) (test code = 2801) BASIC METABOLIC [id number] 10:07:25 Test Item Value Reference Range Interpretation Comments SODIUM (BEAKER) 133 meq/L 136-145 L (test code = 381) POTASSIUM (BEAKER) 4.0 meq/L 3.5-5.1 (test code = 379) CHLORIDE (BEAKER) 97 meq/L 98-107 L (test code = 382) CO2 (BEAKER) (test 25 meq/L 22-29 code = 355) BLOOD UREA NITROGEN 36 mg/dL 7-21 H (BEAKER) (test code = 354) CREATININE (BEAKER) 5.19 mg/dL 0.57-1.25 H (test code = 358) GLUCOSE RANDOM 91 mg/dL 70-105 (BEAKER) (test code = 652) CALCIUM (BEAKER) 8.5 mg/dL 8.4-10.2 (test code = 697) EGFR (BEAKER) (test 9 mL/min/1.73 ESTIMAT ED GFR IS code = 1092) sq m NOT ACCURATE CREATININE CLEARANCE IN PREDICTING GLOMERULAR FILTRATION RATE . ESTIMATED GFR I S NOT APPLICABLE FOR DIALYSIS PATIEN TS. Car Head Liner Installer ID - BSCBC W/PLT COUNT & AUTO [id number] 09:39:58 Test Item Value Reference Range Interpretation Comments WHITE BLOOD CELL COUNT (BEAKER) 8.0 K/ L 3.5-10.5 (test code = 775) RED BLOOD CELL COUNT (BEAKER) 2.34 M/ L 3.93-5.22 L (test code = 761) HEMOGLOBIN (BEAKER) (test code = 7.2 GM/DL 11.2-15.7 L 410) HEMATOCRIT (BEAKER) (test code = 23.6 % 34.1-44.9 L 411) MEAN CORPUSCULAR VOLUME (BEAKER) 100.9 fL 79.4-94.8 H (test code = 753) MEAN CORPUSCULAR HEMOGLOBIN 30.8 pg 25.6-32.2 (BEAKER) (test code = 751) MEAN CORPUSCULAR HEMOGLOBIN CONC 30.5 GM/DL 32.2-35.5 L (BEAKER) (test code = 752) RED CELL DISTRIBUTION WIDTH 16.4 % 11.7-14.4 H (BEAKER) (test code = 412) PLATELET COUNT (BEAKER) (test 107 K/CU MM 150-450 L code = 756) MEAN PLATELET VOLUME (BEAKER) 10.7 fL 9.4-12.3 (test code = 754) NUCLEATED RED BLOOD CELLS 0 /100 WBC 0-0 (BEAKER) (test code = 413) NEUTROPHILS RELATIVE PERCENT 70 % (BEAKER) (test code = 429) LYMPHOCYTES RELATIVE PERCENT 15 % (BEAKER) (test code = 430) MONOCYTES RELATIVE PERCENT 10 % (BEAKER) (test code = 431) EOSINOPHILS RELATIVE PERCENT 4 % (BEAKER) (test code = 432) BASOPHILS RELATIVE PERCENT 0 % (BEAKER) (test code = 437) NEUTROPHILS ABSOLUTE COUNT 5.63 K/ L 1.56-6.13 (BEAKER) (test code = 670) LYMPHOCYTES ABSOLUTE COUNT 1.16 K/ L 1.18-3.74 L (BEAKER) (test code = 414) MONOCYTES ABSOLUTE COUNT (BEAKER) 0.81 K/ L 0.24-0.36 H (test code = 415) EOSINOPHILS ABSOLUTE COUNT 0.33 K/ L 0.04-0.36 (BEAKER) (test code = 416) BASOPHILS ABSOLUTE COUNT (BEAKER) 0.02 K/ L 0.01-0.08 (test code = 417) IMMATURE GRANULOCYTES-RELATIVE 1 % 0-1 PERCENT (BEAKER) (test code = 2801) RAD, CHEST, 1 VIEW, NON [id number] 11:19:00Reason for exam:- >hypoxiaShould this be performed at the bedside?->Yes [facility] : 1965 Sex: FFINALREPORT RAD, CHEST, 1 VIEW, NON DEPT INDICATION: hypoxia COMPARISON: 01/07/2022 FINDINGS: Portable frontal view of the chest. IMPRESSION: Support Lines: Dialysis catheter tip overliesthe atriocaval junction. Multiple sternotomy wires. Lungs and pleura: Moderate right effusion and adjacent atelectasis. No significant pneumothorax. Heart and mediastinum: Stable contours. Additional findings: None. Signed: Herlinda Sanchez MDReport Verified Date/Time: 01/09/2022 11:19:17 Reading Location: [facility] Radiology Reading Room BASIC METABOLIC [id number] 04:49:33 Test Item Value Reference Range Interpretation Comments SODIUM (BEAKER) 138 meq/L 136-145 (test code = 381) POTASSIUM (BEAKER) 4.3 meq/L 3.5-5.1 (test code = 379) CHLORIDE (BEAKER) 101 meq/L 98-107 (test code = 382) CO2 (BEAKER) (test 28 meq/L 22-29 code = 355) BLOOD UREA NITROGEN 23 mg/dL 7-21 H (BEAKER) (test code = 354) CREATININE (BEAKER) 3.76 mg/dL 0.57-1.25 H (test code = 358) GLUCOSE RANDOM 88 mg/dL 70-105 (BEAKER) (test code = 652) CALCIUM (BEAKER) 8.6 mg/dL 8.4-10.2 (test code = 697) EGFR (BEAKER) (test 13 mL/min/1.73 ESTIMA JANET GFR IS code = 1092) sq m NOT ACCURATE CREATININE CLEARANCE IN PREDICTING GLOMERULAR FILTRATION RATE . ESTIMATED GFR I S NOT APPLICABLE FOR DIALYSIS PATIEN TS. Car Head Liner Installer ID - PIAYA LCBC W/PLT COUNT & AUTO [id number] 04:21:48 Test Item Value Reference Range Interpretation Comments WHITE BLOOD CELL COUNT (BEAKER) 7.4 K/ L 3.5-10.5 (test code = 775) RED BLOOD CELL COUNT (BEAKER) 2.43 M/ L 3.93-5.22 L (test code = 761) HEMOGLOBIN (BEAKER) (test code = 7.5 GM/DL 11.2-15.7 L 410) HEMATOCRIT (BEAKER) (test code = 24.9 % 34.1-44.9 L 411) MEAN CORPUSCULAR VOLUME (BEAKER) 102.5 fL 79.4-94.8 H (test code = 753) MEAN CORPUSCULAR HEMOGLOBIN 30.9 pg 25.6-32.2 (BEAKER) (test code = 751) MEAN CORPUSCULAR HEMOGLOBIN CONC 30.1 GM/DL 32.2-35.5 L (BEAKER) (test code = 752) RED CELL DISTRIBUTION WIDTH 16.6 % 11.7-14.4 H (BEAKER) (test code = 412) PLATELET COUNT (BEAKER) (test code 98 K/CU MM 150-450 L = 756) MEAN PLATELET VOLUME (BEAKER) 10.9 fL 9.4-12.3 (test code = 754) NUCLEATED RED BLOOD CELLS (BEAKER) 0 /100 WBC 0-0 (test code = 413) NEUTROPHILS RELATIVE PERCENT 69 % (BEAKER) (test code = 429) LYMPHOCYTES RELATIVE PERCENT 16 % (BEAKER) (test code = 430) MONOCYTES RELATIVE PERCENT 10 % (BEAKER) (test code = 431) EOSINOPHILS RELATIVE PERCENT 4 % (BEAKER) (test code = 432) BASOPHILS RELATIVE PERCENT 0 % (BEAKER) (test code = 437) NEUTROPHILS ABSOLUTE COUNT 5.05 K/ L 1.56-6.13 (BEAKER) (test code = 670) LYMPHOCYTES ABSOLUTE COUNT 1.18 K/ L 1.18-3.74 (BEAKER) (test code = 414) MONOCYTES ABSOLUTE COUNT (BEAKER) 0.76 K/ L 0.24-0.36 H (test code = 415) EOSINOPHILS ABSOLUTE COUNT 0.28 K/ L 0.04-0.36 (BEAKER) (test code = 416) BASOPHILS ABSOLUTE COUNT (BEAKER) 0.02 K/ L 0.01-0.08 (test code = 417) IMMATURE GRANULOCYTES-RELATIVE 1 % 0-1 PERCENT (BEAKER) (test code = 2801) BASIC METABOLIC [id number] 08:06:39 Test Item Value Reference Range Interpretation Comments SODIUM (BEAKER) 133 meq/L 136-145 L (test code = 381) POTASSIUM (BEAKER) 4.9 meq/L 3.5-5.1 Specimen slightly (test code = 379) hemolyzed CHLORIDE (BEAKER) 98 meq/L 98-107 (test code = 382) CO2 (BEAKER) (test 24 meq/L 22-29 code = 355) BLOOD UREA NITROGEN 45 mg/dL 7-21 H (BEAKER) (test code = 354) CREATININE (BEAKER) 5.52 mg/dL 0.57-1.25 H Specimen slightly (test code = 358) hemolyzed GLUCOSE RANDOM 76 mg/dL 70-105 (BEAKER) (test code = 652) CALCIUM (BEAKER) 8.5 mg/dL 8.4-10.2 (test code = 697) EGFR (BEAKER) (test 8 mL/min/1.73 ESTIMAT ED GFR IS code = 1092) sq m NOT ACCURATE CREATININE CLEARANCE IN PREDICTING GLOMERULAR FILTRATION RATE . ESTIMATED GFR I S NOT APPLICABLE FOR DIALYSIS PATIEN TS. Car Head Liner Installer ID - PIAYA LCBC W/PLT COUNT & AUTO [id number] 07:44:21 Test Item Value Reference Range Interpretation Comments WHITE BLOOD CELL COUNT (BEAKER) 7.6 K/ L 3.5-10.5 (test code = 775) RED BLOOD CELL COUNT (BEAKER) 2.59 M/ L 3.93-5.22 L (test code = 761) HEMOGLOBIN (BEAKER) (test code = 7.8 GM/DL 11.2-15.7 L 410) HEMATOCRIT (BEAKER) (test code = 26.1 % 34.1-44.9 L 411) MEAN CORPUSCULAR VOLUME (BEAKER) 100.8 fL 79.4-94.8 H (test code = 753) MEAN CORPUSCULAR HEMOGLOBIN 30.1 pg 25.6-32.2 (BEAKER) (test code = 751) MEAN CORPUSCULAR HEMOGLOBIN CONC 29.9 GM/DL 32.2-35.5 L (BEAKER) (test code = 752) RED CELL DISTRIBUTION WIDTH 17.0 % 11.7-14.4 H (BEAKER) (test code = 412) PLATELET COUNT (BEAKER) (test 109 K/CU MM 150-450 L code = 756) MEAN PLATELET VOLUME (BEAKER) 10.7 fL 9.4-12.3 (test code = 754) NUCLEATED RED BLOOD CELLS 0 /100 WBC 0-0 (BEAKER) (test code = 413) NEUTROPHILS RELATIVE PERCENT 72 % (BEAKER) (test code = 429) LYMPHOCYTES RELATIVE PERCENT 16 % (BEAKER) (test code = 430) MONOCYTES RELATIVE PERCENT 8 % (BEAKER) (test code = 431) EOSINOPHILS RELATIVE PERCENT 3 % (BEAKER) (test code = 432) BASOPHILS RELATIVE PERCENT 0 % (BEAKER) (test code = 437) NEUTROPHILS ABSOLUTE COUNT 5.49 K/ L 1.56-6.13 (BEAKER) (test code = 670) LYMPHOCYTES ABSOLUTE COUNT 1.18 K/ L 1.18-3.74 (BEAKER) (test code = 414) MONOCYTES ABSOLUTE COUNT (BEAKER) 0.64 K/ L 0.24-0.36 H (test code = 415) EOSINOPHILS ABSOLUTE COUNT 0.25 K/ L 0.04-0.36 (BEAKER) (test code = 416) BASOPHILS ABSOLUTE COUNT (BEAKER) 0.02 K/ L 0.01-0.08 (test code = 417) IMMATURE GRANULOCYTES-RELATIVE 1 % 0-1 PERCENT (BEAKER) (test code = 2801) SARS-CoV2/RT-PCR (Asymptomatic ONLY)2022-01-08 02:38:23 Test Item Value Reference Range Interpretation Comments SARS-COV2/RT-PCR Negative Not Detected, (test code = Negative, See 75201-0) external report for linked test SARS-COV-2 [facility] PERFORMING LAB (test code = 89567-8) DALE (test code = Negative result for this DALE) test determines that SARS-CoV-2 RNA was not present in the specimen above the Limit of Detection (LOD). However, Negative results do not preclude SARS-CoV-2 infection and should not be used as the sole basis for treatment or patient management decisions. Negative results must be combined with clinical observations, patient history, and epidemiological information. A false negative result may occur if a specimen is improperly collected, transported or handled. A false negative result should be considered if patient's recent exposures or clinical presentation indicate that COVID-19 (SARS-CoV-2) is likely and diagnostic tests for other causes of illness are negative. Re-testing should be considered in cases of suspected false negatives. The limit of detection for this assay is 800 copies/mL. This SARS CoV-2 test is a real-time RT-PCR test intended for the qualitative detection of nucleic acid from SARS-CoV-2 in a nasopharyngeal swab specimen collected from individuals suspected of COVID-19 by their healthcare provider. This test has not been Food and Drug Administration (FDA) cleared or approved. This is a modified version of an approved Emergency Use Authorization (EUA) and is in the process of review by the FDA. Once authorized by the FDA, the issued EUA will be effective until the declaration that circumstances exist justifying the authorization of the emergency use of in vitro diagnostic tests for detection and/or diagnosis of COVID-19 is terminated under Section 564(b)(2) of the Act or the EUA is revoked under Section 564(g) of the Act. Fact Sheet for Healthcare Providers:https://www.[employer]/sites/default/f tash/product/documents/F act_Sheet_HC_Providers_L nie_WRFB-TqX-4.pdf Fact Sheet for Healthcare Patients:https://www.[employer]/sites/default/fi les/product/documents/Fa ct_Sheet_Patients_Lyra_S ARS-CoV-2.pdf Performing Laboratory:[facility] [place] [address] [facility])2022-01-08 02:38:23 Test Item Value Reference Range Interpretation Comments SARS-COV2/RT-PCR (test Negative Not Detected, Negative, code = 1741786) See external report for linked test SARS-COV-2 PERFORMING LAB [facility] (test code = 6797566) Negative result for this test determines that SARS-CoV-2 RNA was not present in the specimen above the Limit of Detection (LOD). However, Negative results do not preclude SARS-CoV-2 infection and should not be used as the sole basis for treatment or patient management decisions. Negative results must be combined with clinical observations, patient history, and epidemiological information. A false negative result may occur if a specimen is improperly collected, transported or handled. A false negative result should be considered if patient's recent exposures or clinical presentation indicate that COVID-19 (SARS-CoV-2) is likely and diagnostic tests for other causes of illness are negative. Re-testing should be considered in cases of suspected false negatives.The limit of detection for this assay is 800 copies/mL.This SARS CoV-2 test is a real-time RT-PCR test intended for the qualitative detection of nucleic acid from SARS-CoV-2 in a nasopharyngeal swab specimen collected from individuals suspected of COVID-19 by their healthcare provider.This test has not been Food and Drug Administration (FDA) cleared or approved. This is a modified version of an approved Emergency Use Authorization (EUA) and is in the process of review by the FDA. Once authorized by the FDA, the issued EUA will be effective until the declaration that circumstances exist justifying the authorization of the emergency use ofin vitro diagnostic tests for detection and/or diagnosis of COVID-19 is terminated under Section 564(b)(2) of the Act or the EUA is revoked under Section 564(g) of the Act.Fact Sheet for Healthcare Prov iders:https://www.[employer]/sites/default/files/product/documents/Fact_Sheet_HC _Ukgelxthp_Ooay_PDLO-HzE-1.pdfFact Sheet for Healthcare Patients:https://www.[employer]/sites/default/files/product/docume nts/Emmh_Wbyhq_Ekwwirjy_Wwoc_EDBI-GmE-5.pdfPerforming Laboratory:[facility], [place] [id number] 17:35:15 Test Item Value Reference Range Interpretation Comments FERRITIN (BEAKER) (test code = 2382.02 ng/mL 5.00-275.00 H 361) Car Head Liner Installer LEIA DUPREE - EDITH SOLOMON, TIBC, % SAT. (WITHOUT FERRITIN) 2022-01-07 15:55:59 Test Item Value Reference Range Interpretation Comments IRON (BEAKER) (test code = 547) 31.0 ug/dL 40.0-160.0 L TOTAL IRON BINDING CAPACITY 179 ug/dL 250-450 L (BEAKER) (test code = 769) IRON % SATURATION (2) (BEAKER) 17 % 20-55 L (test code = 2590) Car Head Liner Installer ID - EDITH LBASIC METABOLIC [id number] 09:49:03 Test Item Value Reference Range Interpretation Comments SODIUM (BEAKER) 136 meq/L 136-145 (test code = 381) POTASSIUM (BEAKER) 4.1 meq/L 3.5-5.1 (test code = 379) CHLORIDE (BEAKER) 101 meq/L 98-107 (test code = 382) CO2 (BEAKER) (test 25 meq/L 22-29 code = 355) BLOOD UREA NITROGEN 32 mg/dL 7-21 H (BEAKER) (test code = 354) CREATININE (BEAKER) 4.73 mg/dL 0.57-1.25 H (test code = 358) GLUCOSE RANDOM 79 mg/dL 70-105 (BEAKER) (test code = 652) CALCIUM (BEAKER) 7.9 mg/dL 8.4-10.2 L (test code = 697) EGFR (BEAKER) (test 10 mL/min/1.73 ESTIMA JANET GFR IS code = 1092) sq m NOT ACCURATE CREATININE CLEARANCE IN PREDICTING GLOMERULAR FILTRATION RATE . ESTIMATED GFR I S NOT APPLICABLE FOR DIALYSIS PATIEN TS. Car Head Liner Installer LEIA SHARMA LRAD, CHEST, 1 VIEW, NON [id number] 07:30:00Reason for exam:->Monitor pulmonary edemaShould this be performed at the bedside?->Yes[facility] : 1965 Sex: FFINALREPORT RAD, CHEST, 1 VIEW, NON DEPT INDICATION: Monitor pulmonary edema COMPARISON: Prior day's exam FINDINGS: Portable frontal view of the chest. IMPRESSION: Support Lines: Dialysis catheter tip overlies the atriocaval junction Lungs and pleura: Small bilateral effusions and adjacent atelectasis. No significant pneumothorax. Heart and mediastinum: Stable contours. Additional findings: None. Signed: Herlinda Sanchez Verified Date/Time: 01/07/2022 07:30:38 CBC W/PLT COUNT & AUTO [id number] 04:49:05 Test Item Value Reference Range Interpretation Comments WHITE BLOOD CELL COUNT (BEAKER) 5.5 K/ L 3.5-10.5 (test code = 775) RED BLOOD CELL COUNT (BEAKER) 2.32 M/ L 3.93-5.22 L (test code = 761) HEMOGLOBIN (BEAKER) (test code = 7.3 GM/DL 11.2-15.7 L 410) HEMATOCRIT (BEAKER) (test code = 23.3 % 34.1-44.9 L 411) MEAN CORPUSCULAR VOLUME (BEAKER) 100.4 fL 79.4-94.8 H (test code = 753) MEAN CORPUSCULAR HEMOGLOBIN 31.5 pg 25.6-32.2 (BEAKER) (test code = 751) MEAN CORPUSCULAR HEMOGLOBIN CONC 31.3 GM/DL 32.2-35.5 L (BEAKER) (test code = 752) RED CELL DISTRIBUTION WIDTH 17.5 % 11.7-14.4 H (BEAKER) (test code = 412) PLATELET COUNT (BEAKER) (test 104 K/CU MM 150-450 L code = 756) MEAN PLATELET VOLUME (BEAKER) 10.9 fL 9.4-12.3 (test code = 754) NUCLEATED RED BLOOD CELLS 0 /100 WBC 0-0 (BEAKER) (test code = 413) NEUTROPHILS RELATIVE PERCENT 62 % (BEAKER) (test code = 429) LYMPHOCYTES RELATIVE PERCENT 22 % (BEAKER) (test code = 430) MONOCYTES RELATIVE PERCENT 10 % (BEAKER) (test code = 431) EOSINOPHILS RELATIVE PERCENT 5 % (BEAKER) (test code = 432) BASOPHILS RELATIVE PERCENT 0 % (BEAKER) (test code = 437) NEUTROPHILS ABSOLUTE COUNT 3.41 K/ L 1.56-6.13 (BEAKER) (test code = 670) LYMPHOCYTES ABSOLUTE COUNT 1.22 K/ L 1.18-3.74 (BEAKER) (test code = 414) MONOCYTES ABSOLUTE COUNT (BEAKER) 0.57 K/ L 0.24-0.36 H (test code = 415) EOSINOPHILS ABSOLUTE COUNT 0.25 K/ L 0.04-0.36 (BEAKER) (test code = 416) BASOPHILS ABSOLUTE COUNT (BEAKER) 0.02 K/ L 0.01-0.08 (test code = 417) IMMATURE GRANULOCYTES-RELATIVE 0 % 0-1 PERCENT (BEAKER) (test code = 2801) POC-Glucose [id number] 11:51:41 Test Item Value Reference Range Interpretation Comments POC-Glucose Meter (test 87 mg/dL 70-110 : TE STED AT [facility] code = 1538) [address] [facility], [address]: [employer] Installer/Techni bo ID = [id number] for Inez Brizuela Lab Interpretation (test Normal code = 51793-2) [id number] 11:51:41 Test Item Value Reference Range Interpretation Comments POC-GLUCOSE METER 87 mg/dL 70-110 : TESTED A T [facility] [address] (BEAKER) (test code = [place] [facility] [facility], 1538) [id number]: Car Head Liner Installer/Techni bo ID = [id number] for Inez Renee RAD, CHEST, 1 VIEW, NON [id number] 06:15:00Reason for exam:->Monitor pulmonary edemaShould this be performed at the bedside?->Yes [facility] : 1965 Sex: FFINALREPORT RAD, CHEST, 1 VIEW, NON DEPT INDICATION: Monitor pulmonary edema COMPARISON: Prior day's exam FINDINGS: Portable frontal view of the chest. IMPRESSION: Support Lines: Dialysis catheter tip overlies the atriocaval junction. Prior sternotomy. Lungs and pleura: Increased smallbilateral effusions and adjacent compressive atelectasis. No significant pneumothorax. Heart and mediastinum: Stable contours. Additional findings: None. Signed: Herlinda Sanchez [facility] Verified Date/Time: 01/06/2022 06:15:43 BASIC METABOLIC PANEL 2022-01-06 03:53:53 Test Item Value Reference Range Interpretation Comments SODIUM (BEAKER) 139 meq/L 136-145 (test code = 381) POTASSIUM (BEAKER) 4.1 meq/L 3.5-5.1 (test code = 379) CHLORIDE (BEAKER) 102 meq/L 98-107 (test code = 382) CO2 (BEAKER) (test 28 meq/L 22-29 code = 355) BLOOD UREA NITROGEN 13 mg/dL 7-21 (BEAKER) (test code = 354) CREATININE (BEAKER) 2.86 mg/dL 0.57-1.25 H (test code = 358) GLUCOSE RANDOM 89 mg/dL 70-105 (BEAKER) (test code = 652) CALCIUM (BEAKER) 9.1 mg/dL 8.4-10.2 (test code = 697) EGFR (BEAKER) (test 17 mL/min/1.73 ESTIMA JANET GFR IS code = 1092) sq m NOT ACCURATE CREATININE CLEARANCE IN PREDICTING GLOMERULAR FILTRATION RATE . ESTIMATED GFR I S NOT APPLICABLE FOR DIALYSIS PATIEN TS. Car Head Liner Installer ID - TY [id number] 03:53:21 Test Item Value Reference Range Interpretation Comments MAGNESIUM (BEAKER) (test code = 2.0 mg/dL 1.6-2.6 627) Car Head Liner Installer ID - TY [id number] 03:53:21 Test Item Value Reference Range Interpretation Comments PHOSPHORUS (BEAKER) (test code = 2.9 mg/dL 2.3-4.7 604) Car Head Liner Installer ID - TY MPOCT-GLUCOSE [id number] 03:45:03 Test Item Value Reference Range Interpretation Comments POC-GLUCOSE METER 87 mg/dL 70-110 : TESTED A T [facility] 6720 (BEAKER) (test code = [facility], 1538) [id number]: Car Head Liner Installer/Techni bo ID = [id number] for Roshan Ruby CBC W/PLT COUNT & AUTO [id number] 03:41:18 Test Item Value Reference Range Interpretation Comments WHITE BLOOD CELL COUNT (BEAKER) 6.9 K/ L 3.5-10.5 (test code = 775) RED BLOOD CELL COUNT (BEAKER) 2.46 M/ L 3.93-5.22 L (test code = 761) HEMOGLOBIN (BEAKER) (test code = 7.4 GM/DL 11.2-15.7 L 410) HEMATOCRIT (BEAKER) (test code = 24.5 % 34.1-44.9 L 411) MEAN CORPUSCULAR VOLUME (BEAKER) 99.6 fL 79.4-94.8 H (test code = 753) MEAN CORPUSCULAR HEMOGLOBIN 30.1 pg 25.6-32.2 (BEAKER) (test code = 751) MEAN CORPUSCULAR HEMOGLOBIN CONC 30.2 GM/DL 32.2-35.5 L (BEAKER) (test code = 752) RED CELL DISTRIBUTION WIDTH 18.0 % 11.7-14.4 H (BEAKER) (test code = 412) PLATELET COUNT (BEAKER) (test 109 K/CU MM 150-450 L code = 756) MEAN PLATELET VOLUME (BEAKER) 10.4 fL 9.4-12.3 (test code = 754) NUCLEATED RED BLOOD CELLS 1 /100 WBC 0-0 H (BEAKER) (test code = 413) NEUTROPHILS RELATIVE PERCENT 71 % (BEAKER) (test code = 429) LYMPHOCYTES RELATIVE PERCENT 15 % (BEAKER) (test code = 430) MONOCYTES RELATIVE PERCENT 10 % (BEAKER) (test code = 431) EOSINOPHILS RELATIVE PERCENT 4 % (BEAKER) (test code = 432) BASOPHILS RELATIVE PERCENT 0 % (BEAKER) (test code = 437) NEUTROPHILS ABSOLUTE COUNT 4.87 K/ L 1.56-6.13 (BEAKER) (test code = 670) LYMPHOCYTES ABSOLUTE COUNT 1.02 K/ L 1.18-3.74 L (BEAKER) (test code = 414) MONOCYTES ABSOLUTE COUNT (BEAKER) 0.65 K/ L 0.24-0.36 H (test code = 415) EOSINOPHILS ABSOLUTE COUNT 0.25 K/ L 0.04-0.36 (BEAKER) (test code = 416) BASOPHILS ABSOLUTE COUNT (BEAKER) 0.02 K/ L 0.01-0.08 (test code = 417) IMMATURE GRANULOCYTES-RELATIVE 1 % 0-1 PERCENT (BEAKER) (test code = 2801) POCT-GLUCOSE [id number] 19:53:11 Test Item Value Reference Range Interpretation Comments POC-GLUCOSE METER 82 mg/dL 70-110 : TESTED A T [facility] 6720 (BEAKER) (test code = [facility], 1538) [address]: Car Head Liner Installer/Techni bo ID = [id number] for Inez Renee POCT-GLUCOSE [id number] 17:28:13 Test Item Value Reference Range Interpretation Comments POC-GLUCOSE METER 67 mg/dL 70-110 L : TESTED A T [facility] 6720 (BEAKER) (test code = [facility], 1538) [address]36: Car Head Liner Installer/Techni bo ID = [id number] for RIVER [place]ANES POCT-GLUCOSE [id number] 11:25:19 Test Item Value Reference Range Interpretation Comments POC-GLUCOSE METER 84 mg/dL 70-110 : TESTED Liseth Martines [facility] 6720 (BEAKER) (test code = [place], 1538) [address]: Car Head Liner Installer/Techni bo ID = [id number] for RIVER [place]ANES CBC W/PLT COUNT & AUTO [id number] 06:22:06 Test Item Value Reference Range Interpretation Comments WHITE BLOOD CELL COUNT (BEAKER) 9.0 K/ L 3.5-10.5 (test code = 775) RED BLOOD CELL COUNT (BEAKER) 2.48 M/ L 3.93-5.22 L (test code = 761) HEMOGLOBIN (BEAKER) (test code = 7.6 GM/DL 11.2-15.7 L 410) HEMATOCRIT (BEAKER) (test code = 24.2 % 34.1-44.9 L 411) MEAN CORPUSCULAR VOLUME (BEAKER) 97.6 fL 79.4-94.8 H (test code = 753) MEAN CORPUSCULAR HEMOGLOBIN 30.6 pg 25.6-32.2 (BEAKER) (test code = 751) MEAN CORPUSCULAR HEMOGLOBIN CONC 31.4 GM/DL 32.2-35.5 L (BEAKER) (test code = 752) RED CELL DISTRIBUTION WIDTH 19.0 % 11.7-14.4 H (BEAKER) (test code = 412) PLATELET COUNT (BEAKER) (test 117 K/CU MM 150-450 L code = 756) MEAN PLATELET VOLUME (BEAKER) 10.2 fL 9.4-12.3 (test code = 754) NUCLEATED RED BLOOD CELLS 0 /100 WBC 0-0 (BEAKER) (test code = 413) NEUTROPHILS RELATIVE PERCENT 80 % (BEAKER) (test code = 429) LYMPHOCYTES RELATIVE PERCENT 9 % (BEAKER) (test code = 430) MONOCYTES RELATIVE PERCENT 9 % (BEAKER) (test code = 431) EOSINOPHILS RELATIVE PERCENT 1 % (BEAKER) (test code = 432) BASOPHILS RELATIVE PERCENT 0 % (BEAKER) (test code = 437) NEUTROPHILS ABSOLUTE COUNT 7.14 K/ L 1.56-6.13 H (BEAKER) (test code = 670) LYMPHOCYTES ABSOLUTE COUNT 0.83 K/ L 1.18-3.74 L (BEAKER) (test code = 414) MONOCYTES ABSOLUTE COUNT (BEAKER) 0.80 K/ L 0.24-0.36 H (test code = 415) EOSINOPHILS ABSOLUTE COUNT 0.12 K/ L 0.04-0.36 (BEAKER) (test code = 416) BASOPHILS ABSOLUTE COUNT (BEAKER) 0.02 K/ L 0.01-0.08 (test code = 417) IMMATURE GRANULOCYTES-RELATIVE 1 % 0-1 PERCENT (BEAKER) (test code = 2801) RAD, CHEST, 1 VIEW, NON [id number] 06:12:00Reason for exam:->Monitor pulmonary edemaShould this be performed at the bedside?->Yes [facility] : 1965 Sex: FFINALREPORT CHEST ONE VIEW HISTORY: Pulmonary edema COMPARISON: 01/04/2022 FINDINGS: Single portable AP examination of the chest was performed. Bilateral interstitial pulmonary edema is similar in appearance to the prior study. Minimal right pleural effusion. No pneumothorax. The cardiac shadow remains mildly enlarged. Sternotomy wires are present. Nasogastric tube passes below the diaphragm, with the tip not imaged. Right central venous catheter tip is in the region of the atriocavaljunction. Signed: Ra Rabago MDReport Verified Date/Time: 01/05/2022 06:12:45 POCT-GLUCOSE [id number] 06:07:54 Test Item Value Reference Range Interpretation Comments POC-GLUCOSE METER 86 mg/dL 70-110 : TESTED A T [facility] 6720 (BEAKER) (test code = [place], 1538) [address]: Car Head Liner Installer/Techni bo ID = [id number] for Mir Weeks Blood gas, [id number] 05:59:20 Test Item Value Reference Range Interpretation Comments pH, Arterial (test code 7.35 7.35-7.45 = 2744-1) pCO2, Arterial (test 44 See_Comment [Autom ated code = 2018-) message] The system which generated this result transmitted reference range : 35 - 45 mm Hg. The reference range was not used to interpret this result as normal/abnormal . pO2, Arterial (test 212 See_Comment H [Automa janet code = 2703-7) message] The system which generated this result transmitted reference range : 80 - 90 mm Hg. The reference range was not used to interpret this result as normal/abnormal . O2 Sat, Arterial (test 99.4 % 96.0-97.0 H code = 2708-6) HCO3, Arterial (test 24 mmol/L 21-29 code = 1960-4) Base Excess, Arterial -2.1 mmol/L -2.0-3.0 L (test code = 1925-7) Patient Temperature 37.0 (test code = 8310-5) FIO2 (test code = 1819) 100 Lab Interpretation Abnormal (test code = 16617-0) [facility] [id number] 05:59:20 Test Item Value Reference Range Interpretation Comments PH ARTERIAL (BEAKER) (test code = 7.35 7.35-7.45 383) PCO2 ARTERIAL (BEAKER) (test code 44 mm Hg 35-45 = 384) PO2 ARTERIAL (BEAKER) (test code 212 mm Hg 80-90 H = 385) O2 SATURATION ARTERIAL (BEAKER) 99.4 % 96.0-97.0 H (test code = 386) HCO3 ARTERIAL (BEAKER) (test code 24 mmol/L 21-29 = 388) BASE EXCESS ARTERIAL (BEAKER) -2.1 mmol/L -2.0-3.0 L (test code = 387) PATIENT TEMPERATURE (BEAKER) 37.0 (test code = 1818) FIO2 (BEAKER) (test code = 1819) 100.0 BASIC METABOLIC [id number] 05:57:32 Test Item Value Reference Range Interpretation Comments SODIUM (BEAKER) 141 meq/L 136-145 (test code = 381) POTASSIUM (BEAKER) 4.2 meq/L 3.5-5.1 (test code = 379) CHLORIDE (BEAKER) 106 meq/L 98-107 (test code = 382) CO2 (BEAKER) (test 24 meq/L 22-29 code = 355) BLOOD UREA NITROGEN 23 mg/dL 7-21 H (BEAKER) (test code = 354) CREATININE (BEAKER) 4.72 mg/dL 0.57-1.25 H (test code = 358) GLUCOSE RANDOM 82 mg/dL 70-105 (BEAKER) (test code = 652) CALCIUM (BEAKER) 8.4 mg/dL 8.4-10.2 (test code = 697) EGFR (BEAKER) (test 10 mL/min/1.73 ESTIMA JANET GFR IS code = 1092) sq m NOT ACCURATE CREATININE CLEARANCE IN PREDICTING GLOMERULAR FILTRATION RATE . ESTIMATED GFR I S NOT APPLICABLE FOR DIALYSIS PATIEN TS. Car Head Liner Installer ID - BRITTA [id number] 05:50:18 Test Item Value Reference Range Interpretation Comments PHOSPHORUS (BEAKER) (test code = 5.5 mg/dL 2.3-4.7 H 604) Car Head Liner Installer ID - BRITTA [id number] 05:50:17 Test Item Value Reference Range Interpretation Comments MAGNESIUM (BEAKER) (test code = 2.2 mg/dL 1.6-2.6 627) Car Head Liner Installer ID - BRITTA GCALCIUM, [id number] 05:21:23 Test Item Value Reference Range Interpretation Comments CALCIUM IONIZED (BEAKER) (test 1.12 mmol/L 1.12-1.27 code = 698) PH, BLOOD (BEAKER) (test code = 7.35 1810) Prepare Leuko-Red [id number] 23:54:00 Test Item Value Reference Range Interpretation Comments CROSSMATCH (test code = 2264) COMPATIBLE Unit ABO (test code = O Neg [id number]) UNIT NUMBER (test code = [id number] 934-0) Status (test code = 7118781) TX_TIMEINCHART Blood Bank Product (test code RED BLOOD CELLS = 2263) PRODUCT CODE (test code = C4753L68 933-2) [facility]PO[facility] [id number] 23:14:00 Test Item Value Reference Range Interpretation Comments POC-GLUCOSE METER 84 mg/dL 70-110 : TESTED A T [facility] 6720 (BEAKER) (test code = [place], 1538) [address]: Car 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 Installer/Techni bo ID = [id number] for Mir Weeks CBC W/PLT COUNT & AUTO [id number] 23:07:03 Test Item Value Reference Range Interpretation Comments WHITE BLOOD CELL COUNT (BEAKER) 9.6 K/ L 3.5-10.5 (test code = 775) RED BLOOD CELL COUNT (BEAKER) 2.51 M/ L 3.93-5.22 L (test code = 761) HEMOGLOBIN (BEAKER) (test code = 7.6 GM/DL 11.2-15.7 L 410) HEMATOCRIT (BEAKER) (test code = 24.5 % 34.1-44.9 L 411) MEAN CORPUSCULAR VOLUME (BEAKER) 97.6 fL 79.4-94.8 H (test code = 753) MEAN CORPUSCULAR HEMOGLOBIN 30.3 pg 25.6-32.2 (BEAKER) (test code = 751) MEAN CORPUSCULAR HEMOGLOBIN CONC 31.0 GM/DL 32.2-35.5 L (BEAKER) (test code = 752) RED CELL DISTRIBUTION WIDTH 19.0 % 11.7-14.4 H (BEAKER) (test code = 412) PLATELET COUNT (BEAKER) (test 105 K/CU MM 150-450 L code = 756) MEAN PLATELET VOLUME (BEAKER) 9.8 fL 9.4-12.3 (test code = 754) NUCLEATED RED BLOOD CELLS 0 /100 WBC 0-0 (BEAKER) (test code = 413) NEUTROPHILS RELATIVE PERCENT 80 % (BEAKER) (test code = 429) LYMPHOCYTES RELATIVE PERCENT 7 % (BEAKER) (test code = 430) MONOCYTES RELATIVE PERCENT 11 % (BEAKER) (test code = 431) EOSINOPHILS RELATIVE PERCENT 1 % (BEAKER) (test code = 432) BASOPHILS RELATIVE PERCENT 0 % (BEAKER) (test code = 437) NEUTROPHILS ABSOLUTE COUNT 7.69 K/ L 1.56-6.13 H (BEAKER) (test code = 670) LYMPHOCYTES ABSOLUTE COUNT 0.70 K/ L 1.18-3.74 L (BEAKER) (test code = 414) MONOCYTES ABSOLUTE COUNT (BEAKER) 1.01 K/ L 0.24-0.36 H (test code = 415) EOSINOPHILS ABSOLUTE COUNT 0.13 K/ L 0.04-0.36 (BEAKER) (test code = 416) BASOPHILS ABSOLUTE COUNT (BEAKER) 0.02 K/ L 0.01-0.08 (test code = 417) IMMATURE GRANULOCYTES-RELATIVE 1 % 0-1 PERCENT (BEAKER) (test code = 2801) POCT-GLUCOSE [id number] 18:05:00 Test Item Value Reference Range Interpretation Comments POC-GLUCOSE METER 91 mg/dL 70-110 : TESTED A T [facility] 6720 (BEAKER) (test code = [place], 1538) [address]: Car Head Liner Installer/Techni bo ID = [id number] for RIVER [place]ANES CBC W/PLT COUNT & AUTO [id number] 17:29:28 Test Item Value Reference Range Interpretation Comments WHITE BLOOD CELL COUNT (BEAKER) 7.7 K/ L 3.5-10.5 (test code = 775) RED BLOOD CELL COUNT (BEAKER) 2.39 M/ L 3.93-5.22 L (test code = 761) HEMOGLOBIN (BEAKER) (test code = 7.5 GM/DL 11.2-15.7 L 410) HEMATOCRIT (BEAKER) (test code = 23.3 % 34.1-44.9 L 411) MEAN CORPUSCULAR VOLUME (BEAKER) 97.5 fL 79.4-94.8 H (test code = 753) MEAN CORPUSCULAR HEMOGLOBIN 31.4 pg 25.6-32.2 (BEAKER) (test code = 751) MEAN CORPUSCULAR HEMOGLOBIN CONC 32.2 GM/DL 32.2-35.5 (BEAKER) (test code = 752) RED CELL DISTRIBUTION WIDTH 19.1 % 11.7-14.4 H (BEAKER) (test code = 412) PLATELET COUNT (BEAKER) (test 109 K/CU MM 150-450 L code = 756) MEAN PLATELET VOLUME (BEAKER) 10.0 fL 9.4-12.3 (test code = 754) NUCLEATED RED BLOOD CELLS 0 /100 WBC 0-0 (BEAKER) (test code = 413) NEUTROPHILS RELATIVE PERCENT 74 % (BEAKER) (test code = 429) LYMPHOCYTES RELATIVE PERCENT 13 % (BEAKER) (test code = 430) MONOCYTES RELATIVE PERCENT 11 % (BEAKER) (test code = 431) EOSINOPHILS RELATIVE PERCENT 1 % (BEAKER) (test code = 432) BASOPHILS RELATIVE PERCENT 0 % (BEAKER) (test code = 437) NEUTROPHILS ABSOLUTE COUNT 5.67 K/ L 1.56-6.13 (BEAKER) (test code = 670) LYMPHOCYTES ABSOLUTE COUNT 1.00 K/ L 1.18-3.74 L (BEAKER) (test code = 414) MONOCYTES ABSOLUTE COUNT (BEAKER) 0.87 K/ L 0.24-0.36 H (test code = 415) EOSINOPHILS ABSOLUTE COUNT 0.06 K/ L 0.04-0.36 (BEAKER) (test code = 416) BASOPHILS ABSOLUTE COUNT (BEAKER) 0.01 K/ L 0.01-0.08 (test code = 417) IMMATURE GRANULOCYTES-RELATIVE 1 % 0-1 PERCENT (BEAKER) (test code = 2801) CBC W/PLT COUNT & AUTO [id number] 11:58:14 Test Item Value Reference Range Interpretation Comments WHITE BLOOD CELL COUNT (BEAKER) 8.1 K/ L 3.5-10.5 (test code = 775) RED BLOOD CELL COUNT (BEAKER) 2.44 M/ L 3.93-5.22 L (test code = 761) HEMOGLOBIN (BEAKER) (test code = 7.4 GM/DL 11.2-15.7 L 410) HEMATOCRIT (BEAKER) (test code = 23.5 % 34.1-44.9 L 411) MEAN CORPUSCULAR VOLUME (BEAKER) 96.3 fL 79.4-94.8 H (test code = 753) MEAN CORPUSCULAR HEMOGLOBIN 30.3 pg 25.6-32.2 (BEAKER) (test code = 751) MEAN CORPUSCULAR HEMOGLOBIN CONC 31.5 GM/DL 32.2-35.5 L (BEAKER) (test code = 752) RED CELL DISTRIBUTION WIDTH 18.9 % 11.7-14.4 H (BEAKER) (test code = 412) PLATELET COUNT (BEAKER) (test code 93 K/CU MM 150-450 L = 756) MEAN PLATELET VOLUME (BEAKER) 9.6 fL 9.4-12.3 (test code = 754) NUCLEATED RED BLOOD CELLS (BEAKER) 0 /100 WBC 0-0 (test code = 413) NEUTROPHILS RELATIVE PERCENT 83 % (BEAKER) (test code = 429) LYMPHOCYTES RELATIVE PERCENT 7 % (BEAKER) (test code = 430) MONOCYTES RELATIVE PERCENT 9 % (BEAKER) (test code = 431) EOSINOPHILS RELATIVE PERCENT 0 % (BEAKER) (test code = 432) BASOPHILS RELATIVE PERCENT 0 % (BEAKER) (test code = 437) NEUTROPHILS ABSOLUTE COUNT 6.71 K/ L 1.56-6.13 H (BEAKER) (test code = 670) LYMPHOCYTES ABSOLUTE COUNT 0.56 K/ L 1.18-3.74 L (BEAKER) (test code = 414) MONOCYTES ABSOLUTE COUNT (BEAKER) 0.72 K/ L 0.24-0.36 H (test code = 415) EOSINOPHILS ABSOLUTE COUNT 0.03 K/ L 0.04-0.36 L (BEAKER) (test code = 416) BASOPHILS ABSOLUTE COUNT (BEAKER) 0.02 K/ L 0.01-0.08 (test code = 417) IMMATURE GRANULOCYTES-RELATIVE 1 % 0-1 PERCENT (BEAKER) (test code = 2801) POCT-GLUCOSE [id number] 11:23:34 Test Item Value Reference Range Interpretation Comments POC-GLUCOSE METER 111 mg/dL 70-110 H : TESTED A T [facility] 6720 (BEAKER) (test code = [place], 1538) [address]: Car Head Liner Installer/Techni bo ID = [id number] for DE STEPH[employer]IVER [employer] HEMOGLOBIN AND [id number] 06:31:50 Test Item Value Reference Range Interpretation Comments HEMOGLOBIN (BEAKER) (test code = 7.7 GM/DL 11.2-15.7 L 410) HEMATOCRIT (BEAKER) (test code = 24.2 % 34.1-44.9 L 411) Car Head Liner Installer ID - [id number] ID - [id number], CHEST, 1 VIEW, NON [id number] 06:30:00Reason for exam:->Monitor pulmonary edemaShould this be performed at the bedside?->Yes [facility] : 1965 Sex: FFINALREPORT HISTORY: Pulmonary edema COMPARISON: 01/03/2022 FINDINGS: Slight intervalincrease in the bilateral interstitial pulmonary opacities suggestive of interstitial pulmonary edema. Mild subsegmental atelectasis at the left lung base. No pleural effusions or pneumothorax. The heart shadow is normal in size. Sternotomy wires are present. Right central venous catheter tip is in the region of the atriocaval junction. Nasogastric tube tip is in the region of the stomach. There is stent graft in the thoracoabdominal aorta. Signed: Ra Rabago MDReport Verified Date/Time: 01/04/2022 06:30:58 CALCIUM, [id number] 03:50:16 Test Item Value Reference Range Interpretation Comments CALCIUM IONIZED (BEAKER) (test 1.11 mmol/L 1.12-1.27 L code = 698) PH, BLOOD (BEAKER) (test code = 7.38 1810) BASIC METABOLIC [id number] 03:46:59 Test Item Value Reference Range Interpretation Comments SODIUM (BEAKER) 142 meq/L 136-145 (test code = 381) POTASSIUM (BEAKER) 3.6 meq/L 3.5-5.1 (test code = 379) CHLORIDE (BEAKER) 108 meq/L 98-107 H (test code = 382) CO2 (BEAKER) (test 24 meq/L 22-29 code = 355) BLOOD UREA NITROGEN 13 mg/dL 7-21 (BEAKER) (test code = 354) CREATININE (BEAKER) 3.01 mg/dL 0.57-1.25 H (test code = 358) GLUCOSE RANDOM 108 mg/dL 70-105 H (BEAKER) (test code = 652) CALCIUM (BEAKER) 8.4 mg/dL 8.4-10.2 (test code = 697) EGFR (BEAKER) (test 16 mL/min/1.73 ESTIMA JANET GFR IS code = 1092) sq m NOT ACCURATE CREATININE CLEARANCE IN PREDICTING GLOMERULAR FILTRATION RATE . ESTIMATED GFR I S NOT APPLICABLE FOR DIALYSIS PATIEN TS. Car Head Liner Installer ID - TY MHEPATIC FUNCTION [id number] 03:46:48 Test Item Value Reference Range Interpretation Comments TOTAL PROTEIN (BEAKER) (test code = 5.6 gm/dL 6.0-8.3 L 770) ALBUMIN (BEAKER) (test code = 1145) 3.2 g/dL 3.5-5.0 L BILIRUBIN TOTAL (BEAKER) (test code 0.3 mg/dL 0.2-1.2 = 377) BILIRUBIN DIRECT (BEAKER) (test 0.1 mg/dL 0.1-0.5 code = 706) ALKALINE PHOSPHATASE (BEAKER) (test 62 U/L 40-150 code = 346) AST (SGOT) (BEAKER) (test code = 12 U/L 5-34 353) ALT (SGPT) (BEAKER) (test code = < U/L 6-55 L 347) Car Head Liner Installer ID - TY [id number] 03:40:24 Test Item Value Reference Range Interpretation Comments MAGNESIUM (BEAKER) (test code = 2.0 mg/dL 1.6-2.6 627) Car Head Liner Installer ID - TY [id number] 03:40:24 Test Item Value Reference Range Interpretation Comments PHOSPHORUS (BEAKER) (test code = 3.7 mg/dL 2.3-4.7 604) Car Head Liner Installer ID - TY MCBC W/PLT COUNT & AUTO [id number] 03:18:12 Test Item Value Reference Range Interpretation Comments WHITE BLOOD CELL COUNT (BEAKER) 7.2 K/ L 3.5-10.5 (test code = 775) RED BLOOD CELL COUNT (BEAKER) 2.49 M/ L 3.93-5.22 L (test code = 761) HEMOGLOBIN (BEAKER) (test code = 7.5 GM/DL 11.2-15.7 L 410) HEMATOCRIT (BEAKER) (test code = 23.8 % 34.1-44.9 L 411) MEAN CORPUSCULAR VOLUME (BEAKER) 95.6 fL 79.4-94.8 H (test code = 753) MEAN CORPUSCULAR HEMOGLOBIN 30.1 pg 25.6-32.2 (BEAKER) (test code = 751) MEAN CORPUSCULAR HEMOGLOBIN CONC 31.5 GM/DL 32.2-35.5 L (BEAKER) (test code = 752) RED CELL DISTRIBUTION WIDTH 18.3 % 11.7-14.4 H (BEAKER) (test code = 412) PLATELET COUNT (BEAKER) (test code 99 K/CU MM 150-450 L = 756) MEAN PLATELET VOLUME (BEAKER) 10.0 fL 9.4-12.3 (test code = 754) NUCLEATED RED BLOOD CELLS (BEAKER) 0 /100 WBC 0-0 (test code = 413) NEUTROPHILS RELATIVE PERCENT 79 % (BEAKER) (test code = 429) LYMPHOCYTES RELATIVE PERCENT 9 % (BEAKER) (test code = 430) MONOCYTES RELATIVE PERCENT 12 % (BEAKER) (test code = 431) EOSINOPHILS RELATIVE PERCENT 0 % (BEAKER) (test code = 432) BASOPHILS RELATIVE PERCENT 0 % (BEAKER) (test code = 437) NEUTROPHILS ABSOLUTE COUNT 5.65 K/ L 1.56-6.13 (BEAKER) (test code = 670) LYMPHOCYTES ABSOLUTE COUNT 0.63 K/ L 1.18-3.74 L (BEAKER) (test code = 414) MONOCYTES ABSOLUTE COUNT (BEAKER) 0.83 K/ L 0.24-0.36 H (test code = 415) EOSINOPHILS ABSOLUTE COUNT 0.01 K/ L 0.04-0.36 L (BEAKER) (test code = 416) BASOPHILS ABSOLUTE COUNT (BEAKER) 0.02 K/ L 0.01-0.08 (test code = 417) IMMATURE GRANULOCYTES-RELATIVE 1 % 0-1 PERCENT (BEAKER) (test code = 7871) POCT-GLUCOSE [id number] 00:00:55 Test Item Value Reference Range Interpretation Comments POC-GLUCOSE METER 102 mg/dL 70-110 : TESTED Liseth Martines [facility] 6720 (BOZE[place]) (test code = GAGE LIRIANO PA, 1538) [address]: Car Head Liner Installer/Techni bo ID = [id number] for Linda wright (contract), Nim oz CTA, CHEST, ABDOMEN - PELVIS, FOR [id number] 21:17:00Please evaluate right pseudoaneurysm, POD1 from fenestrated endovascular thoracic AAA repairReason for exam:->Evaluate right [facility]aneurysm [facility] : 1965 Sex: FFINALREPORT CLINICAL HISTORY: Unlisted Reason for ExamEvaluate right pseudoaneurysm FINDINGS: Multiple axial images of the chest, abdomen and pelvis were performed before and after the uncomplicated administration of IV contrast, utilizing a CTA protocol. Coronal and sagittal reformatswere created. 3-D imaging on an independent workstation was also performed for optimal visualizationof the arterial system in accordance with the aortogram protocol. Oral contrast was not given. This exam was performed according to our departmental dose-optimization program, which includes automated exposure control, adjustment of the mA and/or kV according to patient size and/or use of the iterative reconstruction technique. Comparison: 12/31/2021. 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 The stent graft lumen is patent with normal enhancement. There is a small amount of endoleak at the superior margin of the stent graft and at the inferior margin of the aorta at the level of the iliac stent grafts. There is extensive atherosclerotic calcification of the aorta and its major vascular branches. The excluded thoracic aortic aneurysm measures up to 4.5 cm at the diaphragmatic hiatus and 4.6 cm at the inferior abdominal aorta. The great vessels arising from the arch are normal in configuration and appear patent. The patient has undergone previous CABG. The coronary grafts appear patent. The celiac axis, SMA and its major branches enhance normally. Bilateral renal artery stents appear occluded. The SNEHA is occluded. The aortobifemoral bypass grafts are patent. The patient has undergone embolization of the right common iliac artery. There is atherosclerotic calcification of the common femoral arteries and proximal superficialfemoral arteries, which appear patent. There is a right inguinal subcutaneous hematoma measuring 6.0x 2.6 cm in cross-sectional dimension. There is superficial soft tissue ecchymosis in both inguinal regions. A compression device is present on the right inguinal region. Chest: Pulmonary arteries: No pulmonary embolism. Lung parenchyma: Emphysematous changes in the mid and upper lungs. Elevated left hemidiaphragm. Left greater than right bibasilar atelectasis. Pleural effusion: None. Pneumothorax: None. Tracheobronchial tree: No significant findings. Pulmonary vasculature: Dilated pulmonary trunk and right and left pulmonary arteries, measuring 3.6, 3.3 and 3.0 cm, respectively. Cardiac contours: C ardiomegaly Mediastinum: No significant findings. Lymph Nodes: No adenopathy in the mediastinum or jadon. Skeleton: No acute abnormality. Other:1.5 cm left thyroid nodule. Abdomen and pelvis: Liver: No significant findings. Gallbladder and biliary tree: Previous cholecystectomy. Spleen: No significant findings. Adrenal Glands: No significant findings. Kidneys and ureters: Atrophic kidneys. Stomach andDuodenum: Enteric tube in the proximal gastric lumen. Pancreas: No significant findings. Bowel: Leftcolonic diverticulosis without CT evidence for diverticulitis. There is a short segment of unobstructed bowel within an infraumbilical ventral midline hernia. The hernia neck measures 1.5 cm. Appendix:Normal. Bladder: Decompressed by Contreras catheter. Reproductive organs: Previous hysterectomy. Other: No free intraperitoneal air. Diffuse subcutaneous edema. Skeleton: No acute bony abnormality. 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 The stents and grafts appear patent. There is a small volume of endoleak at thesuperior and inferior margins of the abdominal aortic stent graft. 6.0 x 2.6 cm right inguinal subcutaneous hematoma. Cardiomegaly. Dilated central pulmonary arteries, a finding sometimes associated with pulmonary arterial hypertension or pulmonary valvular disease. Pulmonary emphysema. Left colonic diverticulosis without evidence for acute diverticulitis. Short segment of unobstructed bowel within an and umbilical ventral midline hernia. The hernia neck measures 1.5 cm. Signed: Reynaldo Bhakta MDReport Verified Date/Time: 01/03/2022 21:17:19 POCT-GLUCOSE [id number] 19:07:08 Test Item Value Reference Range Interpretation Comments POC-GLUCOSE METER 123 mg/dL 70-110 H : TESTED A T [facility] 6720 (BEAKER) (test code = [place], 1538) [address]: Car Head Liner Installer/Techni bo ID = [id number] for [place] CBC W/PLT COUNT & AUTO [id number] 19:07:08 Test Item Value Reference Range Interpretation Comments WHITE BLOOD CELL COUNT (BEAKER) 8.6 K/ L 3.5-10.5 (test code = 775) RED BLOOD CELL COUNT (BEAKER) 2.44 M/ L 3.93-5.22 L (test code = 761) HEMOGLOBIN (BEAKER) (test code = 7.5 GM/DL 11.2-15.7 L 410) HEMATOCRIT (BEAKER) (test code = 23.4 % 34.1-44.9 L 411) MEAN CORPUSCULAR VOLUME (BEAKER) 95.9 fL 79.4-94.8 H (test code = 753) MEAN CORPUSCULAR HEMOGLOBIN 30.7 pg 25.6-32.2 (BEAKER) (test code = 751) MEAN CORPUSCULAR HEMOGLOBIN CONC 32.1 GM/DL 32.2-35.5 L (BEAKER) (test code = 752) RED CELL DISTRIBUTION WIDTH 18.6 % 11.7-14.4 H (BEAKER) (test code = 412) PLATELET COUNT (BEAKER) (test 101 K/CU MM 150-450 L code = 756) MEAN PLATELET VOLUME (BEAKER) 9.6 fL 9.4-12.3 (test code = 754) NUCLEATED RED BLOOD CELLS 0 /100 WBC 0-0 (BEAKER) (test code = 413) NEUTROPHILS RELATIVE PERCENT 88 % (BEAKER) (test code = 429) LYMPHOCYTES RELATIVE PERCENT 5 % (BEAKER) (test code = 430) MONOCYTES RELATIVE PERCENT 6 % (BEAKER) (test code = 431) EOSINOPHILS RELATIVE PERCENT 0 % (BEAKER) (test code = 432) BASOPHILS RELATIVE PERCENT 0 % (BEAKER) (test code = 437) NEUTROPHILS ABSOLUTE COUNT 7.56 K/ L 1.56-6.13 H (BEAKER) (test code = 670) LYMPHOCYTES ABSOLUTE COUNT 0.42 K/ L 1.18-3.74 L (BEAKER) (test code = 414) MONOCYTES ABSOLUTE COUNT (BEAKER) 0.52 K/ L 0.24-0.36 H (test code = 415) EOSINOPHILS ABSOLUTE COUNT 0.01 K/ L 0.04-0.36 L (BEAKER) (test code = 416) BASOPHILS ABSOLUTE COUNT (BEAKER) 0.01 K/ L 0.01-0.08 (test code = 417) IMMATURE GRANULOCYTES-RELATIVE 1 % 0-1 PERCENT (BEAKER) (test code = 2801) CALCIUM, [id number] 18:59:26 Test Item Value Reference Range Interpretation Comments CALCIUM IONIZED (BEAKER) (test 1.11 mmol/L 1.12-1.27 L code = 698) PH, BLOOD (BEAKER) (test code = 7.42 1810) RAD, ABDOMEN/KUB, 1 VIEW [id number] 15:08:00Reason for exam:->Confirm NGT placementShould this be performed at the bedside?->Yes [facility] : 1965 Sex: FFINALREPORT EXAM: RAD, ABDOMEN/KUB, 1 VIEW AP History: Confirm NGT placement Comparison: 03/28/2017. Discussion: Enteric tube projects over left upper quadrant in the expected region of the proximal to mid gastric body.Abdominal aortic graft changes are noted extending into the common iliac arteries.Right upper quadrant cholecystectomy changes.No data loops of small bowel.Moderate stool burden.No acute osseous abnormality. IMPRESSION: NG tube projects over the proximal to mid stomach.Moderate stool burden. Signed: Luigi Aparicio MDReport Verified Date/Time: 01/03/2022 15:08:07 Reading Location: [facility] Radiology Reading Room Electronically signed by: LIUGI APARICIO MD on 12/07 03:08 PMCBC W/PLT COUNT & AUTO [id number] 11:44:42 Test Item Value Reference Range Interpretation Comments WHITE BLOOD CELL COUNT (BEAKER) 9.4 K/ L 3.5-10.5 (test code = 775) RED BLOOD CELL COUNT (BEAKER) 2.53 M/ L 3.93-5.22 L (test code = 761) HEMOGLOBIN (BEAKER) (test code = 7.9 GM/DL 11.2-15.7 L 410) HEMATOCRIT (BEAKER) (test code = 24.5 % 34.1-44.9 L 411) MEAN CORPUSCULAR VOLUME (BEAKER) 96.8 fL 79.4-94.8 H (test code = 753) MEAN CORPUSCULAR HEMOGLOBIN 31.2 pg 25.6-32.2 (BEAKER) (test code = 751) MEAN CORPUSCULAR HEMOGLOBIN CONC 32.2 GM/DL 32.2-35.5 (BEAKER) (test code = 752) RED CELL DISTRIBUTION WIDTH 18.8 % 11.7-14.4 H (BEAKER) (test code = 412) PLATELET COUNT (BEAKER) (test 120 K/CU MM 150-450 L code = 756) MEAN PLATELET VOLUME (BEAKER) 10.2 fL 9.4-12.3 (test code = 754) NUCLEATED RED BLOOD CELLS 0 /100 WBC 0-0 (BEAKER) (test code = 413) NEUTROPHILS RELATIVE PERCENT 82 % (BEAKER) (test code = 429) LYMPHOCYTES RELATIVE PERCENT 8 % (BEAKER) (test code = 430) MONOCYTES RELATIVE PERCENT 8 % (BEAKER) (test code = 431) EOSINOPHILS RELATIVE PERCENT 1 % (BEAKER) (test code = 432) BASOPHILS RELATIVE PERCENT 0 % (BEAKER) (test code = 437) NEUTROPHILS ABSOLUTE COUNT 7.69 K/ L 1.56-6.13 H (BEAKER) (test code = 670) LYMPHOCYTES ABSOLUTE COUNT 0.78 K/ L 1.18-3.74 L (BEAKER) (test code = 414) MONOCYTES ABSOLUTE COUNT (BEAKER) 0.74 K/ L 0.24-0.36 H (test code = 415) EOSINOPHILS ABSOLUTE COUNT 0.08 K/ L 0.04-0.36 (BEAKER) (test code = 416) BASOPHILS ABSOLUTE COUNT (BEAKER) 0.02 K/ L 0.01-0.08 (test code = 417) IMMATURE GRANULOCYTES-RELATIVE 1 % 0-1 PERCENT (BEAKER) (test code = 2801) POCT-GLUCOSE [id number] 11:36:39 Test Item Value Reference Range Interpretation Comments POC-GLUCOSE METER 103 mg/dL 70-110 : TESTED A T [facility] 6720 (BEAKER) (test code = [facility], 1538) [address]: Car Head Liner Installer/Techni bo ID = [id number] for ADAMSNOEL BLANKENSHIPLEY POCT-GLUCOSE [id number] 06:42:28 Test Item Value Reference Range Interpretation Comments POC-GLUCOSE METER 83 mg/dL 70-110 : TESTED A T [facility] 6720 (BEAKER) (test code = [facility], 1538) [address]25[address]: Car Head Liner Installer/Techni bo ID = [id number] for Jose Guadarrama CALCIUM, [id number] 06:29:48 Test Item Value Reference Range Interpretation Comments CALCIUM IONIZED (BEAKER) (test 0.72 mmol/L 1.12-1.27 LL code = 698) PH, BLOOD (BEAKER) (test code = 7.23 1810) RAD, CHEST, 1 VIEW, NON [id number] 06:19:00Reason for exam:->Monitor pulmonary edemaShould this be performed at the bedside?->Yes [facility] : 1965 Sex: FFINALREPORT RAD, CHEST, 1 VIEW, NON DEPT INDICATION: Monitor pulmonary edema COMPARISON: Prior day's exam FINDINGS: Portable frontal view of the chest. IMPRESSION: Support Lines: Stable. Lungs and pleura: Unchanged airspace and pleural opacities. No pneumothorax.Heart and mediastinum: Stable contours. Stable surgical changes.Additional findings: None. Signed: Virginie Velasco Verified Date/Time: 01/03/2022 06:19:23 BASIC METABOLIC PANEL 2022-01-03 04:43:52 Test Item Value Reference Range Interpretation Comments SODIUM (BEAKER) 136 meq/L 136-145 (test code = 381) POTASSIUM (BEAKER) 4.3 meq/L 3.5-5.1 (test code = 379) CHLORIDE (BEAKER) 106 meq/L 98-107 (test code = 382) CO2 (BEAKER) (test 18 meq/L 22-29 L code = 355) BLOOD UREA NITROGEN 32 mg/dL 7-21 H (BEAKER) (test code = 354) CREATININE (BEAKER) 5.26 mg/dL 0.57-1.25 H (test code = 358) GLUCOSE RANDOM 89 mg/dL 70-105 (BEAKER) (test code = 652) CALCIUM (BEAKER) 8.0 mg/dL 8.4-10.2 L (test code = 697) EGFR (BEAKER) (test 9 mL/min/1.73 ESTIMAT ED GFR IS code = 1092) sq m NOT ACCURATE CREATININE CLEARANCE IN PREDICTING GLOMERULAR FILTRATION RATE . ESTIMATED GFR I S NOT APPLICABLE FOR DIALYSIS PATIEN TS. Car Head Liner Installer ID - BSHEPATIC FUNCTION [id number] 04:43:46 Test Item Value Reference Range Interpretation Comments TOTAL PROTEIN (BEAKER) (test code = 5.9 gm/dL 6.0-8.3 L 770) ALBUMIN (BEAKER) (test code = 1145) 3.5 g/dL 3.5-5.0 BILIRUBIN TOTAL (BEAKER) (test code 0.3 mg/dL 0.2-1.2 = 377) BILIRUBIN DIRECT (BEAKER) (test 0.1 mg/dL 0.1-0.5 code = 706) ALKALINE PHOSPHATASE (BEAKER) (test 71 U/L 40-150 code = 346) AST (SGOT) (BEAKER) (test code = 12 U/L 5-34 353) ALT (SGPT) (BEAKER) (test code = < U/L 6-55 L 347) Car Head Liner Installer ID - [id number] 04:41:33 Test Item Value Reference Range Interpretation Comments MAGNESIUM (BEAKER) (test code = 1.6 mg/dL 1.6-2.6 627) Car Head Liner Installer ID - [id number] 04:41:33 Test Item Value Reference Range Interpretation Comments PHOSPHORUS (BEAKER) (test code = 5.2 mg/dL 2.3-4.7 H 604) Car Head Liner Installer ID - BSCBC W/PLT COUNT & AUTO [id number] 04:15:37 Test Item Value Reference Range Interpretation Comments WHITE BLOOD CELL COUNT (BEAKER) 8.5 K/ L 3.5-10.5 (test code = 775) RED BLOOD CELL COUNT (BEAKER) 2.75 M/ L 3.93-5.22 L (test code = 761) HEMOGLOBIN (BEAKER) (test code = 8.5 GM/DL 11.2-15.7 L 410) HEMATOCRIT (BEAKER) (test code = 26.7 % 34.1-44.9 L 411) MEAN CORPUSCULAR VOLUME (BEAKER) 97.1 fL 79.4-94.8 H (test code = 753) MEAN CORPUSCULAR HEMOGLOBIN 30.9 pg 25.6-32.2 (BEAKER) (test code = 751) MEAN CORPUSCULAR HEMOGLOBIN CONC 31.8 GM/DL 32.2-35.5 L (BEAKER) (test code = 752) RED CELL DISTRIBUTION WIDTH 18.6 % 11.7-14.4 H (BEAKER) (test code = 412) PLATELET COUNT (BEAKER) (test 116 K/CU MM 150-450 L code = 756) MEAN PLATELET VOLUME (BEAKER) 10.3 fL 9.4-12.3 (test code = 754) NUCLEATED RED BLOOD CELLS 0 /100 WBC 0-0 (BEAKER) (test code = 413) NEUTROPHILS RELATIVE PERCENT 79 % (BEAKER) (test code = 429) LYMPHOCYTES RELATIVE PERCENT 12 % (BEAKER) (test code = 430) MONOCYTES RELATIVE PERCENT 7 % (BEAKER) (test code = 431) EOSINOPHILS RELATIVE PERCENT 1 % (BEAKER) (test code = 432) BASOPHILS RELATIVE PERCENT 0 % (BEAKER) (test code = 437) NEUTROPHILS ABSOLUTE COUNT 6.67 K/ L 1.56-6.13 H (BEAKER) (test code = 670) LYMPHOCYTES ABSOLUTE COUNT 1.04 K/ L 1.18-3.74 L (BEAKER) (test code = 414) MONOCYTES ABSOLUTE COUNT (BEAKER) 0.63 K/ L 0.24-0.36 H (test code = 415) EOSINOPHILS ABSOLUTE COUNT 0.06 K/ L 0.04-0.36 (BEAKER) (test code = 416) BASOPHILS ABSOLUTE COUNT (BEAKER) 0.03 K/ L 0.01-0.08 (test code = 417) IMMATURE GRANULOCYTES-RELATIVE 1 % 0-1 PERCENT (BEAKER) (test code = 2801) POCT-GLUCOSE [id number] 23:46:49 Test Item Value Reference Range Interpretation Comments POC-GLUCOSE METER 90 mg/dL 70-110 : TESTED A T [facility] 6720 (BEAKER) (test code = [place], 1538) [address]: Car Head Liner Installer/Techni bo ID = [id number] for Spen cer, Jose HEMOGLOBIN AND [id number] 22:00:05 Test Item Value Reference Range Interpretation Comments HEMOGLOBIN (BEAKER) (test code = 7.7 GM/DL 11.2-15.7 L 410) HEMATOCRIT (BEAKER) (test code = 24.3 % 34.1-44.9 L 411) Car Head Liner Installer ID - [id number] ID - [id number] METABOLIC [id number] 17:13:02 Test Item Value Reference Range Interpretation Comments SODIUM (BEAKER) 139 meq/L 136-145 (test code = 381) POTASSIUM (BEAKER) 4.4 meq/L 3.5-5.1 (test code = 379) CHLORIDE (BEAKER) 110 meq/L 98-107 H (test code = 382) CO2 (BEAKER) (test 20 meq/L 22-29 L code = 355) BLOOD UREA NITROGEN 26 mg/dL 7-21 H (BEAKER) (test code = 354) CREATININE (BEAKER) 4.50 mg/dL 0.57-1.25 H (test code = 358) GLUCOSE RANDOM 104 mg/dL 70-105 (BEAKER) (test code = 652) CALCIUM (BEAKER) 8.4 mg/dL 8.4-10.2 (test code = 697) EGFR (BEAKER) (test 10 mL/min/1.73 ESTIMA JANET GFR IS code = 1092) sq m NOT ACCURATE CREATININE CLEARANCE IN PREDICTING GLOMERULAR FILTRATION RATE . ESTIMATED GFR I S NOT APPLICABLE FOR DIALYSIS PATIEN TS. Car Head Liner Installer ID - [id number] 17:11:44 Test Item Value Reference Range Interpretation Comments MAGNESIUM (BEAKER) (test code = 1.6 mg/dL 1.6-2.6 627) Car Head Liner Installer ID - [id number] 17:11:44 Test Item Value Reference Range Interpretation Comments PHOSPHORUS (BEAKER) (test code = 5.1 mg/dL 2.3-4.7 H 604) Car Head Liner Installer ID - BSHEPATIC FUNCTION [id number] 17:11:44 Test Item Value Reference Range Interpretation Comments TOTAL PROTEIN (BEAKER) (test code = 5.6 gm/dL 6.0-8.3 L 770) ALBUMIN (BEAKER) (test code = 1145) 3.2 g/dL 3.5-5.0 L BILIRUBIN TOTAL (BEAKER) (test code 0.5 mg/dL 0.2-1.2 = 377) BILIRUBIN DIRECT (BEAKER) (test 0.2 mg/dL 0.1-0.5 code = 706) ALKALINE PHOSPHATASE (BEAKER) (test 68 U/L 40-150 code = 346) AST (SGOT) (BEAKER) (test code = 13 U/L 5-34 353) ALT (SGPT) (BEAKER) (test code = 7 U/L 6-55 347) Car Head Liner Installer ID - BSCBC W/PLT COUNT & AUTO [id number] 16:55:16 Test Item Value Reference Range Interpretation Comments WHITE BLOOD CELL COUNT (BEAKER) 10.0 K/ L 3.5-10.5 (test code = 775) RED BLOOD CELL COUNT (BEAKER) 2.82 M/ L 3.93-5.22 L (test code = 761) HEMOGLOBIN (BEAKER) (test code = 8.7 GM/DL 11.2-15.7 L 410) HEMATOCRIT (BEAKER) (test code = 27.7 % 34.1-44.9 L 411) MEAN CORPUSCULAR VOLUME (BEAKER) 98.2 fL 79.4-94.8 H (test code = 753) MEAN CORPUSCULAR HEMOGLOBIN 30.9 pg 25.6-32.2 (BEAKER) (test code = 751) MEAN CORPUSCULAR HEMOGLOBIN CONC 31.4 GM/DL 32.2-35.5 L (BEAKER) (test code = 752) RED CELL DISTRIBUTION WIDTH 18.6 % 11.7-14.4 H (BEAKER) (test code = 412) PLATELET COUNT (BEAKER) (test 142 K/CU MM 150-450 L code = 756) MEAN PLATELET VOLUME (BEAKER) 9.9 fL 9.4-12.3 (test code = 754) NUCLEATED RED BLOOD CELLS 0 /100 WBC 0-0 (BEAKER) (test code = 413) NEUTROPHILS RELATIVE PERCENT 81 % (BEAKER) (test code = 429) LYMPHOCYTES RELATIVE PERCENT 10 % (BEAKER) (test code = 430) MONOCYTES RELATIVE PERCENT 6 % (BEAKER) (test code = 431) EOSINOPHILS RELATIVE PERCENT 2 % (BEAKER) (test code = 432) BASOPHILS RELATIVE PERCENT 0 % (BEAKER) (test code = 437) NEUTROPHILS ABSOLUTE COUNT 8.07 K/ L 1.56-6.13 H (BEAKER) (test code = 670) LYMPHOCYTES ABSOLUTE COUNT 1.01 K/ L 1.18-3.74 L (BEAKER) (test code = 414) MONOCYTES ABSOLUTE COUNT (BEAKER) 0.58 K/ L 0.24-0.36 H (test code = 415) EOSINOPHILS ABSOLUTE COUNT 0.19 K/ L 0.04-0.36 (BEAKER) (test code = 416) BASOPHILS ABSOLUTE COUNT (BEAKER) 0.02 K/ L 0.01-0.08 (test code = 417) IMMATURE GRANULOCYTES-RELATIVE 1 % 0-1 PERCENT (BEAKER) (test code = 2801) RAD, CHEST, 1 VIEW, NON [id number] 16:52:00Reason for exam:->Post-opShould this be performed at the bedside?->Yes [facility] : 1965 Sex: FFINALREPORT Chest, 1 view, 01/02/2022 4:41 PM. History: Postop. Comparison: 11/24/2021. Discussion: The cardiomediastinal silhouette and pulmonary vasculature are within normal limits fora portable exam. Left basilar linear opacities are present. Right lung is clear. Median sternotomy wires, CABG clips, and right IJ tunneled dialysis catheter are unchanged in position. A new left IJ central catheter terminates in the region of the left brachiocephalic vein. There is no evidence of pneumothorax. The soft tissues and osseous structures are intact. IMPRESSION: Left basilar atelectasis. Signed: Juan Pereira MDReport Verified Date/Time: 01/02/2022 16:52:50 Reading Location: [facility] Women BLOOD GAS, [id number] 16:47:55 Test Item Value Reference Range Interpretation Comments PH ARTERIAL (BEAKER) (test code = 7.31 7.35-7.45 L 383) PCO2 ARTERIAL (BEAKER) (test code 38 mm Hg 35-45 = 384) PO2 ARTERIAL (BEAKER) (test code 116 mm Hg 80-90 H = 385) O2 SATURATION ARTERIAL (BEAKER) 98.0 % 96.0-97.0 H (test code = 386) HCO3 ARTERIAL (BEAKER) (test code 19 mmol/L 21-29 L = 388) BASE EXCESS ARTERIAL (BEAKER) -7.0 mmol/L -2.0-3.0 L (test code = 387) PATIENT TEMPERATURE (BEAKER) 36.5 (test code = 1818) FIO2 (BEAKER) (test code = 1819) 36.0 CALCIUM, [id number] 16:40:38 Test Item Value Reference Range Interpretation Comments CALCIUM IONIZED (BEAKER) (test 1.12 mmol/L 1.12-1.27 code = 698) PH, BLOOD (BEAKER) (test code = 7.30 1810) POC ACTIVATED CLOTTING [id number] 14:52:09 Test Item Value Reference Range Interpretation Comments Activated Clotting Time 126 sec : 74 -137 seconds, (test code = 441) Baseline: TESTED AT [address], [address]: Car Head Liner Installer/Techni bo ID = [id number] for Ga rza (contract), Aar on [id number] 14:52:09 Test Item Value Reference Range Interpretation Comments ACTIVATED CLOTTING TIME 126 sec : 74 -137 seconds, (BEAKER) (test code = Baseli ne: TESTED AT 441) [facility] [address] [place] [address], 7[address] 30: Car Head Liner Installer/Techni bo ID = [id number] for Ga rza (contract), Aar on HEMOGLOBIN AND [id number] 14:43:22 Test Item Value Reference Range Interpretation Comments HEMOGLOBIN (BEAKER) (test code = 7.4 GM/DL 12.0-15.0 L 410) HEMATOCRIT (BEAKER) (test code = 22.0 % 36.0-45.0 L 411) [id number] 14:32:03 Test Item Value Reference Range Interpretation Comments ACTIVATED CLOTTING TIME 265 sec : 74 -137 seconds, (BEAKER) (test code = Baseli ne: TESTED AT 441) [address], [facility] 30: Car Head Liner Installer/Techni bo ID = [id number] for NICOLASA CHANG BLOOD GAS, [id number] 14:25:57 Test Item Value Reference Range Interpretation Comments PH ARTERIAL (BEAKER) (test code = 7.32 7.35-7.45 L 383) PCO2 ARTERIAL (BEAKER) (test code 42 mm Hg 35-45 = 384) PO2 ARTERIAL (BEAKER) (test code 124 mm Hg 80-90 H = 385) O2 SATURATION ARTERIAL (BEAKER) 98.2 % 96.0-97.0 H (test code = 386) HCO3 ARTERIAL (BEAKER) (test code 21 mmol/L 21-29 = 388) BASE EXCESS ARTERIAL (BEAKER) -4.4 mmol/L -2.0-3.0 L (test code = 387) PATIENT TEMPERATURE (BEAKER) 37.0 (test code = 1818) [id number] 13:50:40 Test Item Value Reference Range Interpretation Comments ACTIVATED CLOTTING TIME 306 sec : 74 -137 seconds, (BEAKER) (test code = Baseli ne: TESTED AT 441) [address], [facility] 30: Car Head Liner Installer/Techni bo ID = [id number] for Ga rza (contract), Aar on [id number] 13:18:43 Test Item Value Reference Range Interpretation Comments ACTIVATED CLOTTING TIME 277 sec : 74 -137 seconds, (BEAKER) (test code = Baseli ne: TESTED AT 441) [address], [facility] 30: Car Head Liner Installer/Techni bo ID = [id number] for Ga rza (contract), Aar on [id number] 12:50:30 Test Item Value Reference Range Interpretation Comments ACTIVATED CLOTTING TIME 306 sec : 74 -137 seconds, (BEAKER) (test code = Baseli ne: TESTED AT 441) [address], [facility] 30: Car Head Liner Installer/Techni bo ID = [id number] for Ga rza (contract), Aar on [id number] 12:22:29 Test Item Value Reference Range Interpretation Comments ACTIVATED CLOTTING TIME 283 sec : 74 -137 seconds, (BEAKER) (test code = Baseli ne: TESTED AT 441) [address], [facility] 30: Car Head Liner Installer/Techni bo ID = [id number] for Ga rza (contract), Aar on [id number] 11:53:26 Test Item Value Reference Range Interpretation Comments ACTIVATED CLOTTING TIME 271 sec : 74 -137 seconds, (BEAKER) (test code = Baseli ne: TESTED AT 441) [address], [facility] 30: Car Head Liner Installer/Techni bo ID = [id number] for NAOMI HARRINGTON [id number] 11:08:37 Test Item Value Reference Range Interpretation Comments ACTIVATED CLOTTING TIME 254 sec : 74 -137 seconds, (BEAKER) (test code = Baseli ne: TESTED AT 441) [address], [facility] 30: Car Head Liner Installer/Techni bo ID = [id number] for NAOMI HARRINGTON HGB/HCT (H&H)-Stat [id number] 10:58:13 Test Item Value Reference Range Interpretation Comments Hemoglobin (test code = 9.0 See_Comment L [Au tomated message] 786-4) The system [employer] generated this result transmitted ref erence range: 12.0 - 1 5.0 GM/DL. The refe rence range was not u sed to interpret this result as normal/abnor mal. Hematocrit (test code = 26.0 % 36.0-45.0 L 4544-3) Lab Interpretation (test Abnormal code = 09290-4) [facility] [id number] 10:58:13 Test Item Value Reference Range Interpretation Comments PH ARTERIAL (BEAKER) (test code = 7.38 7.35-7.45 383) PCO2 ARTERIAL (BEAKER) (test code 39 mm Hg 35-45 = 384) PO2 ARTERIAL (BEAKER) (test code 142 mm Hg 80-90 H = 385) O2 SATURATION ARTERIAL (BEAKER) 98.9 % 96.0-97.0 H (test code = 386) HCO3 ARTERIAL (BEAKER) (test code 23 mmol/L 21-29 = 388) BASE EXCESS ARTERIAL (BEAKER) -2.3 mmol/L -2.0-3.0 L (test code = 387) PATIENT TEMPERATURE (BEAKER) 35.0 (test code = 1818) FIO2 (BEAKER) (test code = 1819) 50.0 HGB/HCT (H&H) - STAT [id number] 10:58:13 Test Item Value Reference Range Interpretation Comments HEMOGLOBIN (BEAKER) (test code = 9.0 GM/DL 12.0-15.0 L 410) HEMATOCRIT (BEAKER) (test code = 26.0 % 36.0-45.0 L 411) Sodium Na-Stat [id number] 10:56:57 Test Item Value Reference Range Interpretation Comments Sodium (test code = 2951-2) 136 meq/L 136-145 Lab Interpretation (test code = Normal 18523-7) [facility] [id number] 10:56:57 Test Item Value Reference Range Interpretation Comments Potassium (test code = 2823-3) 3.9 meq/L 3.6-5.5 Lab Interpretation (test code = Normal 70736-8) [facility] [id number] 10:56:57 Test Item Value Reference Range Interpretation Comments SODIUM (BEAKER) (test code = 381) 136 meq/L 136-145 POTASSIUM-STAT [id number] 10:56:57 Test Item Value Reference Range Interpretation Comments POTASSIUM (BEAKER) (test code = 3.9 meq/L 3.6-5.5 379) Glucose-Stat [id number] 10:56:56 Test Item Value Reference Range Interpretation Comments Glucose (test code = 2345-7) 108 mg/dL 70-110 Lab Interpretation (test code = Normal 10445-3) [facility] [id number] 10:56:56 Test Item Value Reference Range Interpretation Comments GLUCOSE RANDOM (BEAKER) (test code 108 mg/dL 70-110 = 652) [id number] 10:44:12 Test Item Value Reference Range Interpretation Comments ACTIVATED CLOTTING TIME 242 sec : 74 -137 seconds, (BEAKER) (test code = Baseli ne: TESTED AT 441) [facility] [address] [facility], [address]: [employer] Installer/Techni bo ID = [id number] for NAOMI HARRINGTON [id number] 10:28:11 Test Item Value Reference Range Interpretation Comments ACTIVATED CLOTTING TIME 208 sec : 74 -137 seconds, (BEAKER) (test code = Baseli ne: TESTED AT 441) [facility] [address] [facility], [address]: [employer] Installer/Techni bo ID = [id number] for NAOMI HARRINGTON BASIC METABOLIC [id number] 05:45:02 Test Item Value Reference Range Interpretation Comments SODIUM (BEAKER) 139 meq/L 136-145 (test code = 381) POTASSIUM (BEAKER) 4.0 meq/L 3.5-5.1 (test code = 379) CHLORIDE (BEAKER) 104 meq/L 98-107 (test code = 382) CO2 (BEAKER) (test 25 meq/L 22-29 code = 355) BLOOD UREA NITROGEN 27 mg/dL 7-21 H (BEAKER) (test code = 354) CREATININE (BEAKER) 4.46 mg/dL 0.57-1.25 H (test code = 358) GLUCOSE RANDOM 102 mg/dL 70-105 (BEAKER) (test code = 652) CALCIUM (BEAKER) 9.4 mg/dL 8.4-10.2 (test code = 697) EGFR (BEAKER) (test 10 mL/min/1.73 ESTIMA JANET GFR IS code = 1092) sq m NOT ACCURATE CREATININE CLEARANCE IN PREDICTING GLOMERULAR FILTRATION RATE . ESTIMATED GFR I S NOT APPLICABLE FOR DIALYSIS PATIEN TS. [employer] Installer ID - EDITH [id number] 05:43:54 Test Item Value Reference Range Interpretation Comments PHOSPHORUS (BEAKER) (test code = 3.2 mg/dL 2.3-4.7 604) Car Head Liner Installer ID - EDITH [id number] 05:43:53 Test Item Value Reference Range Interpretation Comments MAGNESIUM (BEAKER) (test code = 2.0 mg/dL 1.6-2.6 627) Car Head Liner Installer ID - KIRSTENAYA LCBC W/PLT COUNT & AUTO [id number] 05:04:15 Test Item Value Reference Range Interpretation Comments WHITE BLOOD CELL COUNT (BEAKER) 6.3 K/ L 3.5-10.5 (test code = 775) RED BLOOD CELL COUNT (BEAKER) 3.08 M/ L 3.93-5.22 L (test code = 761) HEMOGLOBIN (BEAKER) (test code = 9.5 GM/DL 11.2-15.7 L 410) HEMATOCRIT (BEAKER) (test code = 30.4 % 34.1-44.9 L 411) MEAN CORPUSCULAR VOLUME (BEAKER) 98.7 fL 79.4-94.8 H (test code = 753) MEAN CORPUSCULAR HEMOGLOBIN 30.8 pg 25.6-32.2 (BEAKER) (test code = 751) MEAN CORPUSCULAR HEMOGLOBIN CONC 31.3 GM/DL 32.2-35.5 L (BEAKER) (test code = 752) RED CELL DISTRIBUTION WIDTH 18.3 % 11.7-14.4 H (BEAKER) (test code = 412) PLATELET COUNT (BEAKER) (test 197 K/CU MM 150-450 code = 756) MEAN PLATELET VOLUME (BEAKER) 10.0 fL 9.4-12.3 (test code = 754) NUCLEATED RED BLOOD CELLS 0 /100 WBC 0-0 (BEAKER) (test code = 413) NEUTROPHILS RELATIVE PERCENT 57 % (BEAKER) (test code = 429) LYMPHOCYTES RELATIVE PERCENT 28 % (BEAKER) (test code = 430) MONOCYTES RELATIVE PERCENT 8 % (BEAKER) (test code = 431) EOSINOPHILS RELATIVE PERCENT 7 % (BEAKER) (test code = 432) BASOPHILS RELATIVE PERCENT 0 % (BEAKER) (test code = 437) NEUTROPHILS ABSOLUTE COUNT 3.58 K/ L 1.56-6.13 (BEAKER) (test code = 670) LYMPHOCYTES ABSOLUTE COUNT 1.74 K/ L 1.18-3.74 (BEAKER) (test code = 414) MONOCYTES ABSOLUTE COUNT (BEAKER) 0.50 K/ L 0.24-0.36 H (test code = 415) EOSINOPHILS ABSOLUTE COUNT 0.44 K/ L 0.04-0.36 H (BEAKER) (test code = 416) BASOPHILS ABSOLUTE COUNT (BEAKER) 0.02 K/ L 0.01-0.08 (test code = 417) IMMATURE GRANULOCYTES-RELATIVE 0 % 0-1 PERCENT (BEAKER) (test code = 2801) SARS-COV2/RT-PCR ([facility])2022-01-01 09:38:57 Test Item Value Reference Range Interpretation Comments SARS-COV2/RT-PCR (test Negative Not Detected, Negative, code = 6993989) See external report for linked test SARS-COV-2 PERFORMING LAB [facility]KO (test code = 3480899) Negative result for this test determines that SARS-CoV-2 RNA was not present in the specimen above the Limit of Detection (LOD). However, Negative results do not preclude SARS-CoV-2 infection and should not be used as the sole basis for treatment or patient management decisions. Negative results must be combined with clinical observations, patient history, and epidemiological information. A false negative result may occur if a specimen is improperly collected, transported or handled. A false negative result should be considered if patient's recent exposures or clinical presentation indicate that COVID-19 (SARS-CoV-2) is likely and diagnostic tests for other causes of illness are negative. Re-testing should be considered in cases of suspected false negatives.The limit of detection for this assay is 800 copies/mL.This SARS CoV-2 test is a real-time RT-PCR test intended for the qualitative detection of nucleic acid from SARS-CoV-2 in a nasopharyngeal swab specimen collected from individuals suspected of COVID-19 by their healthcare provider.This test has not been Food and Drug Administration (FDA) cleared or approved. This is a modified version of an approved Emergency Use Authorization (EUA) and is in the process of review by the FDA. Once authorized by the FDA, the issued EUA will be effective until the declaration that circumstances exist justifying the authorization of the emergency use ofin vitro diagnostic tests for detection and/or diagnosis of COVID-19 is terminated under Section 564(b)(2) of the Act or the EUA is revoked under Section 564(g) of the Act.Fact Sheet for Healthcare Prov iders:https://www.[employer]/sites/default/files/product/documents/Fact_Sheet_HC _Vjnckrcsh_Yqin_QGKW-IjQ-9.pdfFact Sheet for Healthcare Patients:https://www.[employer]/sites/default/files/product/docume nts/Wwom_Fjfwl_Hctzxgfs_Arwl_ZUWS-JwN-7.pdfPerforming Laboratory:[facility], [place] [address]QXXAVAFRV B SURFACE [id number] 05:07:24 Test Item Value Reference Range Interpretation Comments HEPATITIS B SURFACE ANTIGEN (2) Nonreactive Nonreactive (BEAKER) (test code = 2585) Specimen is considered negative for HBsAg.BASIC METABOLIC [id number] 04:54:16 Test Item Value Reference Range Interpretation Comments SODIUM (BEAKER) 139 meq/L 136-145 (test code = 381) POTASSIUM (BEAKER) 5.0 meq/L 3.5-5.1 (test code = 379) CHLORIDE (BEAKER) 106 meq/L 98-107 (test code = 382) CO2 (BEAKER) (test 24 meq/L 22-29 code = 355) BLOOD UREA NITROGEN 42 mg/dL 7-21 H (BEAKER) (test code = 354) CREATININE (BEAKER) 6.44 mg/dL 0.57-1.25 H (test code = 358) GLUCOSE RANDOM 101 mg/dL 70-105 (BEAKER) (test code = 652) CALCIUM (BEAKER) 9.0 mg/dL 8.4-10.2 (test code = 697) EGFR (BEAKER) (test 7 mL/min/1.73 ESTIMAT ED GFR IS code = 1092) sq m NOT ACCURATE CREATININE CLEARANCE IN PREDICTING GLOMERULAR FILTRATION RATE . ESTIMATED GFR I S NOT APPLICABLE FOR DIALYSIS PATIEN TS. Car Head Liner Installer ID - BRITTA [id number] 04:49:15 Test Item Value Reference Range Interpretation Comments MAGNESIUM (BEAKER) (test code = 1.9 mg/dL 1.6-2.6 627) Car Head Liner Installer ID - BRITTA [id number] 04:49:15 Test Item Value Reference Range Interpretation Comments PHOSPHORUS (BEAKER) (test code = 3.2 mg/dL 2.3-4.7 604) Car Head Liner Installer ID - BRITTA GCBC W/PLT COUNT & AUTO [id number] 04:18:57 Test Item Value Reference Range Interpretation Comments WHITE BLOOD CELL COUNT (BEAKER) 6.7 K/ L 3.5-10.5 (test code = 775) RED BLOOD CELL COUNT (BEAKER) 2.55 M/ L 3.93-5.22 L (test code = 761) HEMOGLOBIN (BEAKER) (test code = 7.8 GM/DL 11.2-15.7 L 410) HEMATOCRIT (BEAKER) (test code = 25.4 % 34.1-44.9 L 411) MEAN CORPUSCULAR VOLUME (BEAKER) 99.6 fL 79.4-94.8 H (test code = 753) MEAN CORPUSCULAR HEMOGLOBIN 30.6 pg 25.6-32.2 (BEAKER) (test code = 751) MEAN CORPUSCULAR HEMOGLOBIN CONC 30.7 GM/DL 32.2-35.5 L (BEAKER) (test code = 752) RED CELL DISTRIBUTION WIDTH 18.6 % 11.7-14.4 H (BEAKER) (test code = 412) PLATELET COUNT (BEAKER) (test 170 K/CU MM 150-450 code = 756) MEAN PLATELET VOLUME (BEAKER) 10.4 fL 9.4-12.3 (test code = 754) NUCLEATED RED BLOOD CELLS 0 /100 WBC 0-0 (BEAKER) (test code = 413) NEUTROPHILS RELATIVE PERCENT 50 % (BEAKER) (test code = 429) LYMPHOCYTES RELATIVE PERCENT 35 % (BEAKER) (test code = 430) MONOCYTES RELATIVE PERCENT 9 % (BEAKER) (test code = 431) EOSINOPHILS RELATIVE PERCENT 7 % (BEAKER) (test code = 432) BASOPHILS RELATIVE PERCENT 0 % (BEAKER) (test code = 437) NEUTROPHILS ABSOLUTE COUNT 3.34 K/ L 1.56-6.13 (BEAKER) (test code = 670) LYMPHOCYTES ABSOLUTE COUNT 2.33 K/ L 1.18-3.74 (BEAKER) (test code = 414) MONOCYTES ABSOLUTE COUNT (BEAKER) 0.57 K/ L 0.24-0.36 H (test code = 415) EOSINOPHILS ABSOLUTE COUNT 0.47 K/ L 0.04-0.36 H (BEAKER) (test code = 416) BASOPHILS ABSOLUTE COUNT (BEAKER) 0.02 K/ L 0.01-0.08 (test code = 417) IMMATURE GRANULOCYTES-RELATIVE 0 % 0-1 PERCENT (BEAKER) (test code = 2801) B-TYPE NATRIURETIC FACTOR (BNP)2021-12-31 20:02:04 Test Item Value Reference Range Interpretation Comments B-TYPE NATRIURETIC PEPTIDE 1517 pg/mL 0-100 H (BEAKER) (test code = 700) Car Head Liner Installer ID - ADMINBASIC METABOLIC [id number] 19:43:12 Test Item Value Reference Range Interpretation Comments SODIUM (BEAKER) 138 meq/L 136-145 (test code = 381) POTASSIUM (BEAKER) 4.5 meq/L 3.5-5.1 (test code = 379) CHLORIDE (BEAKER) 103 meq/L 98-107 (test code = 382) CO2 (BEAKER) (test 22 meq/L 22-29 code = 355) BLOOD UREA NITROGEN 40 mg/dL 7-21 H (BEAKER) (test code = 354) CREATININE (BEAKER) 6.44 mg/dL 0.57-1.25 H (test code = 358) GLUCOSE RANDOM 104 mg/dL 70-105 (BEAKER) (test code = 652) CALCIUM (BEAKER) 9.1 mg/dL 8.4-10.2 (test code = 697) EGFR (BEAKER) (test 7 mL/min/1.73 ESTIMAT ED GFR IS code = 1092) sq m NOT ACCURATE CREATININE CLEARANCE IN PREDICTING GLOMERULAR FILTRATION RATE . ESTIMATED GFR I S NOT APPLICABLE FOR DIALYSIS PATIEN TS. Car Head Liner Installer ID - [id number] 19:41:26 Test Item Value Reference Range Interpretation Comments PHOSPHORUS (BEAKER) (test code = 2.9 mg/dL 2.3-4.7 604) Car Head Liner Installer ID - ADMINHEPATIC FUNCTION [id number] 19:41:26 Test Item Value Reference Range Interpretation Comments TOTAL PROTEIN (BEAKER) (test code = 6.9 gm/dL 6.0-8.3 770) ALBUMIN (BEAKER) (test code = 1145) 4.1 g/dL 3.5-5.0 BILIRUBIN TOTAL (BEAKER) (test code 0.4 mg/dL 0.2-1.2 = 377) BILIRUBIN DIRECT (BEAKER) (test 0.1 mg/dL 0.1-0.5 code = 706) ALKALINE PHOSPHATASE (BEAKER) (test 105 U/L 40-150 code = 346) AST (SGOT) (BEAKER) (test code = 7 U/L 5-34 353) ALT (SGPT) (BEAKER) (test code = 6 U/L 6-55 347) Car Head Liner Installer ID - [id number] 19:41:25 Test Item Value Reference Range Interpretation Comments MAGNESIUM (BEAKER) (test code = 1.9 mg/dL 1.6-2.6 627) Car Head Liner Installer ID - ADMINPT/[id number] 18:31:42 Test Item Value Reference Range Interpretation Comments PROTIME (BEAKER) (test 14.1 seconds 11.9-14.2 code = 759) INR (BEAKER) (test 1.11 See_Comment [Automat ed code = 370) message] The sy stem which generated this result transmitted reference range : <=5.90. The reference range was not used to interpret this result as normal/abnormal . PARTIAL THROMBOPLASTIN 32.8 seconds 22.5-36.0 TIME (BEAKER) (test code = 760) RECOMMENDED COUMADIN/WARFARIN INR THERAPY RANGESSTANDARD DOSE: 2.0 - 3.0 Includes: PROPHYLAXIS for venous thrombosis, systemic embolization; TREATMENT for venous thrombosis and/or pulmonary embolus.HIGH RISK: Target INR is 2.5-3.5 for patients with mechanical heart valves.CBC W/PLT COUNT & AUTO [id number] 18:13:24 Test Item Value Reference Range Interpretation Comments WHITE BLOOD CELL COUNT (BEAKER) 6.6 K/ L 3.5-10.5 (test code = 775) RED BLOOD CELL COUNT (BEAKER) 2.74 M/ L 3.93-5.22 L (test code = 761) HEMOGLOBIN (BEAKER) (test code = 8.5 GM/DL 11.2-15.7 L 410) HEMATOCRIT (BEAKER) (test code = 27.2 % 34.1-44.9 L 411) MEAN CORPUSCULAR VOLUME (BEAKER) 99.3 fL 79.4-94.8 H (test code = 753) MEAN CORPUSCULAR HEMOGLOBIN 31.0 pg 25.6-32.2 (BEAKER) (test code = 751) MEAN CORPUSCULAR HEMOGLOBIN CONC 31.3 GM/DL 32.2-35.5 L (BEAKER) (test code = 752) RED CELL DISTRIBUTION WIDTH 18.3 % 11.7-14.4 H (BEAKER) (test code = 412) PLATELET COUNT (BEAKER) (test 190 K/CU MM 150-450 code = 756) MEAN PLATELET VOLUME (BEAKER) 10.3 fL 9.4-12.3 (test code = 754) NUCLEATED RED BLOOD CELLS 0 /100 WBC 0-0 (BEAKER) (test code = 413) NEUTROPHILS RELATIVE PERCENT 49 % (BEAKER) (test code = 429) LYMPHOCYTES RELATIVE PERCENT 34 % (BEAKER) (test code = 430) MONOCYTES RELATIVE PERCENT 9 % (BEAKER) (test code = 431) EOSINOPHILS RELATIVE PERCENT 7 % (BEAKER) (test code = 432) BASOPHILS RELATIVE PERCENT 1 % (BEAKER) (test code = 437) NEUTROPHILS ABSOLUTE COUNT 3.23 K/ L 1.56-6.13 (BEAKER) (test code = 670) LYMPHOCYTES ABSOLUTE COUNT 2.21 K/ L 1.18-3.74 (BEAKER) (test code = 414) MONOCYTES ABSOLUTE COUNT (BEAKER) 0.59 K/ L 0.24-0.36 H (test code = 415) EOSINOPHILS ABSOLUTE COUNT 0.49 K/ L 0.04-0.36 H (BEAKER) (test code = 416) BASOPHILS ABSOLUTE COUNT (BEAKER) 0.04 K/ L 0.01-0.08 (test code = 417) IMMATURE GRANULOCYTES-RELATIVE 1 % 0-1 PERCENT (BEAKER) (test code = 2801) CT, CHEST, WITHOUT [id number] 01:29:00Unlisted Reason for Exam - Click Yes and Enter Reason Below->No [facility] : 1965 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 This exam was performed according to our departmental dose-optimization program, which includes automated exposure control, adjustment of the mA and/or kV according to patient size and/or use of the iterative reconstruction technique. FINDINGS: Lung parenchyma: Pulmonary hyperinflation. Moderate emphysematous changes in the mid and upper lungs. Bilateral dependent atelectasis versus scarring. Pleural effusion: None. Pneumothorax: None. Tracheobronchial tree: Peribronchial thickening in the lower lungs with scattered associated endobronchial opacity. Pulmonary vasculature: No significant findings. Cardiac contours and great vessels: Cardiomegaly. Previous CABG. Atherosclerotic calcifications of the coronary arteries, aorta and great vessels arising from the arch. 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 Mediastinum: No significant findings. Lymph Nodes: No adenopathy in the mediastinum or jadon. Skeleton: No acute abnormality. Other:A tunneled right IJ dialysis catheter is in place. Limitedimages of upper abdomen: Persistent nephrograms in the right greater than left kidneys, which are atrophic. Stent in the celiac axis origin. IMPRESSION: Pulmonary hyperinflation and moderate emphysematous changes in the mid and upper lungs. Peribronchial thickening in the lower lungs with scattered endobronchial opacification possibly bronchitis. Aspiration should be excluded clinically. Cardiomegaly. Severe atherosclerosis. 4.6 cm aneurysm of the aorta at the level of the diaphragmatic hiatus. Vascular specialist evaluation is recommended. Persistent renal nephrograms in the atrophic kidneys, consistent with chronic renal disease. Signed: Reynaldo Bhakta MDReport Verified Date/Time: 11/27/2021 01:29:43 BASIC METABOLIC [id number] 05:31:15 Test Item Value Reference Range Interpretation Comments SODIUM (BEAKER) 139 meq/L 136-145 (test code = 381) POTASSIUM (BEAKER) 4.0 meq/L 3.5-5.1 (test code = 379) CHLORIDE (BEAKER) 100 meq/L 98-107 (test code = 382) CO2 (BEAKER) (test 25 meq/L 22-29 code = 355) BLOOD UREA NITROGEN 58 mg/dL 7-21 H (BEAKER) (test code = 354) CREATININE (BEAKER) 6.35 mg/dL 0.57-1.25 H (test code = 358) GLUCOSE RANDOM 88 mg/dL 70-105 (BEAKER) (test code = 652) CALCIUM (BEAKER) 9.0 mg/dL 8.4-10.2 (test code = 697) EGFR (BEAKER) (test 7 mL/min/1.73 ESTIMAT ED GFR IS code = 1092) sq m NOT ACCURATE CREATININE CLEARANCE IN PREDICTING GLOMERULAR FILTRATION RATE . ESTIMATED GFR I S NOT APPLICABLE FOR DIALYSIS PATIEN TS. Car Head Liner Installer ID - EDITH [id number] 05:20:17 Test Item Value Reference Range Interpretation Comments LIPASE (BEAKER) (test code = 749) 37 U/L 8-78 Car Head Liner Installer ID - EDITH [id number] 05:20:16 Test Item Value Reference Range Interpretation Comments AMYLASE (BEAKER) (test code = 349) 72 U/L 25-125 Car Head Liner Installer ID - EDITH LLACTATE DEHYDROGENASE (LDH)2021-11-26 05:20:16 Test Item Value Reference Range Interpretation Comments LACTATE DEHYDROGENASE (BEAKER) (test 211 U/L 125-220 code = 635) Car Head Liner Installer ID - EDITH LHEPATIC FUNCTION [id number] 05:20:15 Test Item Value Reference Range Interpretation Comments TOTAL PROTEIN (BEAKER) (test code = 6.9 gm/dL 6.0-8.3 770) ALBUMIN (BEAKER) (test code = 1145) 3.8 g/dL 3.5-5.0 BILIRUBIN TOTAL (BEAKER) (test code 0.5 mg/dL 0.2-1.2 = 377) BILIRUBIN DIRECT (BEAKER) (test 0.2 mg/dL 0.1-0.5 code = 706) ALKALINE PHOSPHATASE (BEAKER) (test 95 U/L 40-150 code = 346) AST (SGOT) (BEAKER) (test code = 21 U/L 5-34 353) ALT (SGPT) (BEAKER) (test code = 30 U/L 6-55 347) Car Head Liner Installer ID - EDITH LLACTIC ACID, [id number] 05:01:07 Test Item Value Reference Range Interpretation Comments LACTATE BLOOD VENOUS (2) (BEAKER) 0.65 mmol/L 0.50-2.20 (test code = 2872) Car Head Liner Installer LEIA SHARMA LCBC W/PLT COUNT & AUTO [id number] 04:48:39 Test Item Value Reference Range Interpretation Comments WHITE BLOOD CELL COUNT (BEAKER) 10.3 K/ L 3.5-10.5 (test code = 775) RED BLOOD CELL COUNT (BEAKER) 3.20 M/ L 3.93-5.22 L (test code = 761) HEMOGLOBIN (BEAKER) (test code = 9.3 GM/DL 11.2-15.7 L 410) HEMATOCRIT (BEAKER) (test code = 28.8 % 34.1-44.9 L 411) MEAN CORPUSCULAR VOLUME (BEAKER) 90.0 fL 79.4-94.8 (test code = 753) MEAN CORPUSCULAR HEMOGLOBIN 29.1 pg 25.6-32.2 (BEAKER) (test code = 751) MEAN CORPUSCULAR HEMOGLOBIN CONC 32.3 GM/DL 32.2-35.5 (BEAKER) (test code = 752) RED CELL DISTRIBUTION WIDTH 15.0 % 11.7-14.4 H (BEAKER) (test code = 412) PLATELET COUNT (BEAKER) (test 155 K/CU MM 150-450 code = 756) MEAN PLATELET VOLUME (BEAKER) 10.1 fL 9.4-12.3 (test code = 754) NUCLEATED RED BLOOD CELLS 0 /100 WBC 0-0 (BEAKER) (test code = 413) NEUTROPHILS RELATIVE PERCENT 74 % (BEAKER) (test code = 429) LYMPHOCYTES RELATIVE PERCENT 16 % (BEAKER) (test code = 430) MONOCYTES RELATIVE PERCENT 7 % (BEAKER) (test code = 431) EOSINOPHILS RELATIVE PERCENT 2 % (BEAKER) (test code = 432) BASOPHILS RELATIVE PERCENT 1 % (BEAKER) (test code = 437) NEUTROPHILS ABSOLUTE COUNT 7.59 K/ L 1.56-6.13 H (BEAKER) (test code = 670) LYMPHOCYTES ABSOLUTE COUNT 1.68 K/ L 1.18-3.74 (BEAKER) (test code = 414) MONOCYTES ABSOLUTE COUNT (BEAKER) 0.70 K/ L 0.24-0.36 H (test code = 415) EOSINOPHILS ABSOLUTE COUNT 0.20 K/ L 0.04-0.36 (BEAKER) (test code = 416) BASOPHILS ABSOLUTE COUNT (BEAKER) 0.05 K/ L 0.01-0.08 (test code = 417) IMMATURE GRANULOCYTES-RELATIVE 1 % 0-1 PERCENT (BEAKER) (test code = 2801) COMPREHENSIVE METABOLIC [id number] 06:14:56 Test Item Value Reference Range Interpretation Comments TOTAL PROTEIN 8.0 gm/dL 6.0-8.3 (BEAKER) (test code = 770) ALBUMIN (BEAKER) 4.5 g/dL 3.5-5.0 (test code = 1145) ALKALINE PHOSPHATASE 125 U/L 40-150 (BEAKER) (test code = 346) BILIRUBIN TOTAL 0.6 mg/dL 0.2-1.2 (BEAKER) (test code = 377) SODIUM (BEAKER) (test 143 meq/L 136-145 code = 381) POTASSIUM (BEAKER) 4.3 meq/L 3.5-5.1 (test code = 379) CHLORIDE (BEAKER) 98 meq/L 98-107 (test code = 382) CO2 (BEAKER) (test 24 meq/L 22-29 code = 355) BLOOD UREA NITROGEN 27 mg/dL 7-21 H (BEAKER) (test code = 354) CREATININE (BEAKER) 4.60 mg/dL 0.57-1.25 H (test code = 358) GLUCOSE RANDOM 113 mg/dL 70-105 H (BEAKER) (test code = 652) CALCIUM (BEAKER) 10.1 mg/dL 8.4-10.2 (test code = 697) AST (SGOT) (BEAKER) 32 U/L 5-34 (test code = 353) ALT (SGPT) (BEAKER) 39 U/L 6-55 (test code = 347) EGFR (BEAKER) (test 10 mL/min/1.73 ESTIMA JANET GFR IS code = 1092) sq m NOT ACCURATE CREATININE CLEARANCE IN PREDICTING GLOMERULAR FILTRATION RATE . ESTIMATED GFR I S NOT APPLICABLE FOR DIALYSIS PATIEN TS. Car Head Liner Installer ID - TY MOperator ID - TY [id number] 06:00:36 Test Item Value Reference Range Interpretation Comments MAGNESIUM (BEAKER) (test code = 2.2 mg/dL 1.6-2.6 627) Car Head Liner Installer LEIA - TY MCBC W/PLT COUNT & AUTO [id number] 05:35:07 Test Item Value Reference Range Interpretation Comments WHITE BLOOD CELL COUNT (BEAKER) 12.3 K/ L 3.5-10.5 H (test code = 775) RED BLOOD CELL COUNT (BEAKER) 3.27 M/ L 3.93-5.22 L (test code = 761) HEMOGLOBIN (BEAKER) (test code = 9.3 GM/DL 11.2-15.7 L 410) HEMATOCRIT (BEAKER) (test code = 28.8 % 34.1-44.9 L 411) MEAN CORPUSCULAR VOLUME (BEAKER) 88.1 fL 79.4-94.8 (test code = 753) MEAN CORPUSCULAR HEMOGLOBIN 28.4 pg 25.6-32.2 (BEAKER) (test code = 751) MEAN CORPUSCULAR HEMOGLOBIN CONC 32.3 GM/DL 32.2-35.5 (BEAKER) (test code = 752) RED CELL DISTRIBUTION WIDTH 15.1 % 11.7-14.4 H (BEAKER) (test code = 412) PLATELET COUNT (BEAKER) (test 188 K/CU MM 150-450 code = 756) MEAN PLATELET VOLUME (BEAKER) 9.6 fL 9.4-12.3 (test code = 754) NUCLEATED RED BLOOD CELLS 0 /100 WBC 0-0 (BEAKER) (test code = 413) NEUTROPHILS RELATIVE PERCENT 82 % (BEAKER) (test code = 429) LYMPHOCYTES RELATIVE PERCENT 8 % (BEAKER) (test code = 430) MONOCYTES RELATIVE PERCENT 10 % (BEAKER) (test code = 431) EOSINOPHILS RELATIVE PERCENT 0 % (BEAKER) (test code = 432) BASOPHILS RELATIVE PERCENT 0 % (BEAKER) (test code = 437) NEUTROPHILS ABSOLUTE COUNT 10.04 K/ L 1.56-6.13 H (BEAKER) (test code = 670) LYMPHOCYTES ABSOLUTE COUNT 0.97 K/ L 1.18-3.74 L (BEAKER) (test code = 414) MONOCYTES ABSOLUTE COUNT (BEAKER) 1.19 K/ L 0.24-0.36 H (test code = 415) EOSINOPHILS ABSOLUTE COUNT 0.00 K/ L 0.04-0.36 L (BEAKER) (test code = 416) BASOPHILS ABSOLUTE COUNT (BEAKER) 0.03 K/ L 0.01-0.08 (test code = 417) IMMATURE GRANULOCYTES-RELATIVE 1 % 0-1 PERCENT (BEAKER) (test code = 2801) CT, ABDOMEN, WITHOUT [id number] 21:34:00Patient with known suprarenal AAA, bilateral renal artery occlusion, biliat aorto-bifemoral bypass, recent SMA stent 11/23/21 Now with elevated lipase, nausea, vomiting. Also rule out RP bleed.Unlisted Reason for Exam - Click Yes and Enter Reason Below->NoWill this procedure require oral contrast?->No [facility] : 1965 Sex: FFINALREPORT ABDOMINAL CT DATED 11/24/2021 COMPARISON: October 18, 2021 CLINICAL INFORMATION: Nausea/vomitingPancreatitis suspected, atypical presentation/labs TECHNIQUE: Axial images of the abdomen were obtained from diaphragm to the iliac crest with oral contrast. Intravenous contrast was not given. This exam was performed according to our departmental dose-optimization program, which in cludes automated exposure control, adjustment of the mA and/or kV according to patient size and/or use of interactive reconstruction technique. COMMENT: Heart is enlarged. Distal descending thoracic aorta is enlarged measuring 3.6 x 4.1 cm. Liver and spleen are normal in size without focal abnormality. Gallbladder is surgically absent. No biliary dilatation is noted. Pancreas and adrenals are unremarkable. Both kidneys are normal in size atrophic. There is persistent nephrogram in the right kidney compatible with medical renal disease. The opacified small bowel is normal in caliber. The evaluation of the large bowel is somewhat limited secondary to lack of sufficient GI contrast. Diverticular disea se is seen large bowel without diverticulitis. Appendix is not visualized. Fusiform abdominal aorticaneurysm is seen measuring 4.7 x 4.6 cm. Vascular calcification is seen in the abdominal aorta, splenic, superior mesenteric arteries. No mass, adenopathy or ascites is present. IMPRESSION: 1. Distal de scending thoracic and abdominal aortic aneurysm. An abdominal aortic aneurysm measures 4.7 cm in diameter. A follow-up examination is recommended every 6 months, and a vascular surgery consultation is recommended.2. Atrophic kidneys with persistent nephrogram on the right consistent with end-stage renal disease.3. Cardiomegaly.4. Diverticulosis without diverticulitis.5. No mechanical obstruction or ileus.6. No CT evidence of pancreatitis. Signed: Iwona Negron MDReport Verified Date/Time: 11/24/2021 21:34:43 RAD, CHEST, 1 VIEW, NON [id number] 15:49:00Reason for exam:->shortness of breathShould this be performed at the bedside?->YesBULMARO [facility]N : 1965 Sex: FFINALREPORT Exam: RAD, CHEST, 1 VIEW, NON DEPTDate: 11/24/2021 3:48 PM Indication:shortness of breathComparison: 11/22/2021 FINDINGS: Lines/Tubes/Devices: Right IJ tunneled dialysis catheter in place with distal tip projecting over the superior right atrium. Status post sternotomy. Overlying EKG leads. Lungs/pleura:Lungs are well inflated. Mildly elevated left hemidiaphragm. Mild interstitial prominence. No pleural effusion. No pneumothorax. Heart/Mediastinum:Unchanged. Tortuous aorta displaying atherosclerotic calcifications. Bones/Soft Tissues: No acute osseous abnormality. Upper abdomen: Unremarkable. IMPRESSION:Right IJ tunneled hemodialysis catheter as above.Mildly elevated lefthemidiaphragm.Mild interstitial prominence, may represent component of interstitial edema. Signed: Hudson Bermudez MDReport Verified Date/Time: 11/24/2021 15:49:04 Reading Location: [facility] Radiology Reading Room LACTIC ACID, [id number] 11:33:04 Test Item Value Reference Range Interpretation Comments LACTATE BLOOD VENOUS (2) (BEAKER) 1.13 mmol/L 0.50-2.20 (test code = 2872) [employer] Installer ID - TY [id number] 11:28:50 Test Item Value Reference Range Interpretation Comments LIPASE (BEAKER) (test code = 749) 346 U/L 8-78 H Car Head Liner Installer ID - TY [id number] 11:28:49 Test Item Value Reference Range Interpretation Comments AMYLASE (BEAKER) (test code = 349) 171 U/L 25-125 H Car Head Liner Installer ID - TY MHEPATITIS B SURFACE [id number] 05:15:25 Test Item Value Reference Range Interpretation Comments HEPATITIS B SURFACE ANTIGEN (2) Nonreactive Nonreactive (BEAKER) (test code = 2585) Specimen is considered negative for HBsAg.BASIC METABOLIC [id number] 04:34:58 Test Item Value Reference Range Interpretation Comments SODIUM (BEAKER) 132 meq/L 136-145 L (test code = 381) POTASSIUM (BEAKER) 5.2 meq/L 3.5-5.1 H (test code = 379) CHLORIDE (BEAKER) 98 meq/L 98-107 (test code = 382) CO2 (BEAKER) (test 16 meq/L 22-29 L code = 355) BLOOD UREA NITROGEN 59 mg/dL 7-21 H (BEAKER) (test code = 354) CREATININE (BEAKER) 6.68 mg/dL 0.57-1.25 H (test code = 358) GLUCOSE RANDOM 96 mg/dL 70-105 (BEAKER) (test code = 652) CALCIUM (BEAKER) 9.9 mg/dL 8.4-10.2 (test code = 697) EGFR (BEAKER) (test 6 mL/min/1.73 ESTIMAT ED GFR IS code = 1092) sq m NOT ACCURATE CREATININE CLEARANCE IN PREDICTING GLOMERULAR FILTRATION RATE . ESTIMATED GFR I S NOT APPLICABLE FOR DIALYSIS PATIEN TS. Car Head Liner Installer ID - TY [facility] (HEMOGRAM ONLY)2021-11-24 03:54:18 Test Item Value Reference Range Interpretation Comments WHITE BLOOD CELL COUNT (BEAKER) 11.3 K/ L 3.5-10.5 H (test code = 775) RED BLOOD CELL COUNT (BEAKER) 3.37 M/ L 3.93-5.22 L (test code = 761) HEMOGLOBIN (BEAKER) (test code = 9.7 GM/DL 11.2-15.7 L 410) HEMATOCRIT (BEAKER) (test code = 30.0 % 34.1-44.9 L 411) MEAN CORPUSCULAR VOLUME (BEAKER) 89.0 fL 79.4-94.8 (test code = 753) MEAN CORPUSCULAR HEMOGLOBIN 28.8 pg 25.6-32.2 (BEAKER) (test code = 751) MEAN CORPUSCULAR HEMOGLOBIN CONC 32.3 GM/DL 32.2-35.5 (BEAKER) (test code = 752) RED CELL DISTRIBUTION WIDTH 14.7 % 11.7-14.4 H (BEAKER) (test code = 412) PLATELET COUNT (BEAKER) (test 169 K/CU MM 150-450 code = 756) MEAN PLATELET VOLUME (BEAKER) 9.2 fL 9.4-12.3 L (test code = 754) NUCLEATED RED BLOOD CELLS 0 /100 WBC 0-0 (BEAKER) (test code = 413) POC ACTIVATED CLOTTING [id number] 15:38:44 Test Item Value Reference Range Interpretation Comments Activated Clotting Time 232 sec : 74 -137 seconds, (test code = 441) Baseline: TESTED AT [address], [facility] 30: Car Head Liner Installer/Techni bo ID = [id number] for CO NDE, ARMAND [facility] ACTIV[facility] CLOTT[facility] [id number] 15:38:44 Test Item Value Reference Range Interpretation Comments Activated Clotting Time 232 sec : 74 -137 seconds, (test code = 441) Baseline: TESTED AT [address], [facility] 30: Car Head Liner Installer/Techni bo ID = [id number] for CO NDE, ARMAND [facility]aPOCT-[id number] 15:38:44 Test Item Value Reference Range Interpretation Comments ACTIVATED CLOTTING TIME 232 sec : 74 -137 seconds, (BEAKER) (test code = Baseli ne: TESTED AT 441) [place] [address] 30: Car Head Liner Installer/Techni bo ID = [id number] for CO NDE, ARMAND HIEW-[id number] 15:21:21 Test Item Value Reference Range Interpretation Comments ACTIVATED CLOTTING TIME 196 sec : 74 -137 seconds, (BEAKER) (test code = Baseli ne: TESTED AT 441) [place] [address] 30: Car Head Liner Installer/Techni bo ID = [id number] for CO NDE, ARMAND Prepare Leuko-Red [id number] 14:01:00 Test Item Value Reference Range Interpretation Comments CROSSMATCH (test code = 2264) COMPATIBLE Unit ABO (test code = O Neg 6355184) UNIT NUMBER (test code = [id number] 934-0) Status (test code = 7879428) READY Blood Bank Product (test code RED BLOOD CELLS = 2263) PRODUCT CODE (test code = E2875B98 933-2) [facility] [id number] 14:01:00 Test Item Value Reference Range Interpretation Comments CROSSMATCH (test code = 2264) COMPATIBLE Unit ABO (test code = O Neg 8380660) UNIT NUMBER (test code = [id number] 934-0) Status (test code = 2173487) READY Blood Bank Product (test code RED BLOOD CELLS = 2263) PRODUCT CODE (test code = N1533A80 933-2) [facility] [id number] 11:49:18 Test Item Value Reference Range Interpretation Comments POTASSIUM (BEAKER) (test code = 4.5 meq/L 3.6-5.5 379) SARS-CoV2/RT-PCR ([facility])2021-11-22 20:28:42 Test Item Value Reference Range Interpretation Comments SARS-COV2/RT-PCR (test Negative Negative code = 58557-1) DALE (test code = DALE) Negative result for this test determines that SARS-CoV-2 RNA was not present in the specimen above the Limit of Detection (LOD). However, Negative results do not preclude SARS-CoV-2 infection and should not be used as the sole basis for treatment or patient management decisions. Negative results must be combined with clinical observations, patient history, and epidemiological information. A false negative result may occur if a specimen is improperly collected, transported, or handled. A false negative result should be considered if patient's recent exposures or clinical presentation indicate that COVID-19 (SARS-CoV-2) is likely and diagnostic tests for other causes of illness are negative. Re-testing should be considered in cases of suspected false negatives. The limit of detection for this assay is 100 copies/mL. This SARS-CoV-2 test is a real-time RT_PCR test intended for the qualitative detection of nucleic acid from SARS-CoV-2 in a nasopharyngeal swab specimen collected from individuals suspected of COVID-19 by their healthcare provider. This test has not been Food and Drug Administration (FDA) cleared or approved. This is a modified version of an approved Emergency Use Authorization (EUA) and is in the process of review by the FDA. Once authorized by the FDA, the issued EUA will be effective until the declaration that circumstances exist justifying the authorization of the emergency use of in vitro diagnostic tests for detection and/or diagnosis of COVID-19 is terminated under Section 564(b)(2) of the Act or the EUA is revoked under Section 564(g) of the Act. Testing was performed using the [employer] SARS-CoV-2 assay. Fact Sheet for Healthcare Providers:https://www.robinson montalvo/brianna/RT SARS-CoV-2 HCP Fact Sheet 51-679311.pdf Fact Sheet for Healthcare Patients:https://www.mo lecular.albright/brianna/RT SARS-CoV-2 Patient Fact Sheet EN 51-261886A1.pdf Lab Interpretation Normal (test code = 06729-4) [facility]2021-11-22 20:28:42 Test Item Value Reference Range Interpretation Comments SARS-COV2/RT-PCR (test Negative Negative code = 65561-4) DALE (test code = DALE) Negative result for this test determines that SARS-CoV-2 RNA was not present in the specimen above the Limit of Detection (LOD). However, Negative results do not preclude SARS-CoV-2 infection and should not be used as the sole basis for treatment or patient management decisions. Negative results must be combined with clinical observations, patient history, and epidemiological information. A false negative result may occur if a specimen is improperly collected, transported, or handled. A false negative result should be considered if patient's recent exposures or clinical presentation indicate that COVID-19 (SARS-CoV-2) is likely and diagnostic tests for other causes of illness are negative. Re-testing should be considered in cases of suspected false negatives. The limit of detection for this assay is 100 copies/mL. This SARS-CoV-2 test is a real-time RT_PCR test intended for the qualitative detection of nucleic acid from SARS-CoV-2 in a nasopharyngeal swab specimen collected from individuals suspected of COVID-19 by their healthcare provider. This test has not been Food and Drug Administration (FDA) cleared or approved. This is a modified version of an approved Emergency Use Authorization (EUA) and is in the process of review by the FDA. Once authorized by the FDA, the issued EUA will be effective until the declaration that circumstances exist justifying the authorization of the emergency use of in vitro diagnostic tests for detection and/or diagnosis of COVID-19 is terminated under Section 564(b)(2) of the Act or the EUA is revoked under Section 564(g) of the Act. Testing was performed using the [employer] SARS-CoV-2 assay. Fact Sheet for Healthcare Providers:https://www.robinson montalvo/brianna/RT SARS-CoV-2 HCP Fact Sheet 51-503624.pdf Fact Sheet for Healthcare Patients:https://www.alex vidales/brianna/RT SARS-CoV-2 Patient Fact Sheet EN 51-765361B7.pdf Lab Interpretation Normal (test code = 93933-8) [facility])2021-11-22 20:28:42 Test Item Value Reference Range Interpretation Comments SARS-COV2/RT-PCR (test code = Negative Negative 7351400) Negative result for this test determines that SARS-CoV-2 RNA was not present in the specimen above the Limit of Detection (LOD). However, Negative results do not preclude SARS-CoV-2 infection and should not be used as the sole basis for treatment or patient management decisions. Negative results must be combined with clinical observations, patient history, and epidemiological information. A false negative result may occur if a specimen is improperly collected, transported, or handled. A false negative result should be considered if patient's recent exposures or clinical presentation indicate that COVID-19 (SARS-CoV-2) is likely and diagnostic tests for other causes of illness are negative. Re-testing should be considered in cases of suspected false negatives.The limit of detection for this assay is 100 copies/mL.This SARS-CoV-2 test is a real-time RT_PCR test intended for the qualitative detection of nucleic acid from SARS-CoV-2 in a nasopharyngeal swab specimen collected from individuals suspected of COVID-19 by their healthcare provider.This test has not been Food and Drug Administration (FDA) cleared or approved. This is a modified version of an approved Emergency Use Authorization (EUA) and is in the process of review by the FDA. Once authorized by the FDA, the issued EUA will be effective until the declaration that circumstances exist justifying the authorization of the emergency use of in vitro diagnostic tests for detection and/or diagnosis of COVID-19 is terminated under Section 564(b)(2) of the Act or the EUA is revoked under Section 564(g) of the Act.Testing was performed using [employer] en[employer] SARS-CoV-2 assay.Fact Sheet for Healthcare Providers:https://www.Comeet.albright/brianna/RT SARS-CoV-2 HCP Fact Sheet 51- 550807.pdfFact Sheet for Healthcare Patients:https://www.Comeet.albright/brianna/RT SARS-CoV-2 Patient Fact Sheet EN 51-341269G3.pdfHEMOGLOBIN [id number] 14:25:29 Test Item Value Reference Range Interpretation Comments HEMOGLOBIN A1C 5.7 % See_Comment H [Automated m essage] ELECTROPHORESIS (BEAKER) The system which (test code = 3811) generated this result transmitted ref erence range: <=5.6%. The reference range was not used to int erpret this result as normal/abnormal . "The A1c is measured using a NGSP-certified method. HbA1c value equal to or greater than 6.5% as thediagnosis cutoff for diabetes. An HbA1c value of 5.7- 6.4% indicates increased risk for diabetes (prediabetes)."Car Head Liner Installer ID - ADM COMPREHENSIVE METABOLIC [id number] 13:39:44 Test Item Value Reference Range Interpretation Comments TOTAL PROTEIN 8.1 gm/dL 6.0-8.3 (BEAKER) (test code = 770) ALBUMIN (BEAKER) 4.5 g/dL 3.5-5.0 (test code = 1145) ALKALINE PHOSPHATASE 109 U/L 40-150 (BEAKER) (test code = 346) BILIRUBIN TOTAL 0.3 mg/dL 0.2-1.2 (BEAKER) (test code = 377) SODIUM (BEAKER) (test 140 meq/L 136-145 code = 381) POTASSIUM (BEAKER) 4.7 meq/L 3.5-5.1 (test code = 379) CHLORIDE (BEAKER) 102 meq/L 98-107 (test code = 382) CO2 (BEAKER) (test 27 meq/L 22-29 code = 355) BLOOD UREA NITROGEN 27 mg/dL 7-21 H (BEAKER) (test code = 354) CREATININE (BEAKER) 3.99 mg/dL 0.57-1.25 H (test code = 358) GLUCOSE RANDOM 78 mg/dL 70-105 (BEAKER) (test code = 652) CALCIUM (BEAKER) 9.8 mg/dL 8.4-10.2 (test code = 697) AST (SGOT) (BEAKER) 13 U/L 5-34 (test code = 353) ALT (SGPT) (BEAKER) 8 U/L 6-55 (test code = 347) EGFR (BEAKER) (test 12 mL/min/1.73 ESTIMA JANET GFR IS code = 1092) sq m NOT ACCURATE CREATININE CLEARANCE IN PREDICTING GLOMERULAR FILTRATION RATE . ESTIMATED GFR I S NOT APPLICABLE FOR DIALYSIS PATIEN TS. Car Head Liner Installer ID - BRITTA GLIPID [id number] 13:35:45 Test Item Value Reference Range Interpretation Comments TRIGLYCERIDES (BEAKER) (test code = 192 mg/dL 540) CHOLESTEROL (BEAKER) (test code = 145 mg/dL 631) HDL CHOLESTEROL (BEAKER) (test code 61 mg/dL = 976) LDL CHOLESTEROL CALCULATED (BEAKER) 46 mg/dL (test code = 633) Triglyceride Reference Range: Low Risk <150 Borderline 150-199 High Risk 200- 499 Very High Risk >=500Cholesterol Reference Range: Low Risk <200 Borderline 200-239 High Risk >240HDL Cholesterol Reference Range: Low Risk >=60 High Risk <40LDL Cholesterol Reference Range: Optimal <100 Near Optimal 100-129 Borderline 130-159 High 160-189 Very High >=190 Car Head Liner Installer ID - BRITTA GRAD, CHEST, 2 [id number] 13:23:00Reason for Exam:->[facility]op [facility]: RODRIGO KRISHNAN : 1965 Sex: FFINALREPORT Exam: RAD, CHEST, 2 VIEWSDate: 11/22/2021 1:23 PM Indication:PreopComparison: 04/01/2017 FINDINGS: Lines/Tubes:Right IJ tunneled dialysis catheter noted with tip projecting atthe upper right atrium. Stable midline sternotomy changes. Lungs:The lungs are well inflated. No focal consolidation or pulmonary edema. Pleura:No pleural effusion. No pneumothorax. Heart/Mediastinum:The cardiomediastinal silhouette is within normal limits. Tortuous thoracic aorta. Bones/Soft Tissues:No acute osseous abnormality. Upper abdomen: Unremarkable. IMPRESSION:Negative for acute intrathoracic process. Signed: Luigi Aparicio MDReport Verified Date/Time: 11/22/2021 13:23:22 Reading Location: [facility] Radiology Reading Room CBC W/PLT COUNT & AUTO DIFFERENTIAL 2021-11-22 13:14:17 Test Item Value Reference Range Interpretation Comments WHITE BLOOD CELL COUNT (BEAKER) 7.4 K/ L 3.5-10.5 (test code = 775) RED BLOOD CELL COUNT (BEAKER) 3.91 M/ L 3.93-5.22 L (test code = 761) HEMOGLOBIN (BEAKER) (test code = 11.2 GM/DL 11.2-15.7 410) HEMATOCRIT (BEAKER) (test code = 35.0 % 34.1-44.9 411) MEAN CORPUSCULAR VOLUME (BEAKER) 89.5 fL 79.4-94.8 (test code = 753) MEAN CORPUSCULAR HEMOGLOBIN 28.6 pg 25.6-32.2 (BEAKER) (test code = 751) MEAN CORPUSCULAR HEMOGLOBIN CONC 32.0 GM/DL 32.2-35.5 L (BEAKER) (test code = 752) RED CELL DISTRIBUTION WIDTH 14.6 % 11.7-14.4 H (BEAKER) (test code = 412) PLATELET COUNT (BEAKER) (test 210 K/CU MM 150-450 code = 756) MEAN PLATELET VOLUME (BEAKER) 9.7 fL 9.4-12.3 (test code = 754) NUCLEATED RED BLOOD CELLS 0 /100 WBC 0-0 (BEAKER) (test code = 413) NEUTROPHILS RELATIVE PERCENT 56 % (BEAKER) (test code = 429) LYMPHOCYTES RELATIVE PERCENT 31 % (BEAKER) (test code = 430) MONOCYTES RELATIVE PERCENT 10 % (BEAKER) (test code = 431) EOSINOPHILS RELATIVE PERCENT 3 % (BEAKER) (test code = 432) BASOPHILS RELATIVE PERCENT 1 % (BEAKER) (test code = 437) NEUTROPHILS ABSOLUTE COUNT 4.16 K/ L 1.56-6.13 (BEAKER) (test code = 670) LYMPHOCYTES ABSOLUTE COUNT 2.29 K/ L 1.18-3.74 (BEAKER) (test code = 414) MONOCYTES ABSOLUTE COUNT (BEAKER) 0.72 K/ L 0.24-0.36 H (test code = 415) EOSINOPHILS ABSOLUTE COUNT 0.19 K/ L 0.04-0.36 (BEAKER) (test code = 416) BASOPHILS ABSOLUTE COUNT (BEAKER) 0.04 K/ L 0.01-0.08 (test code = 417) IMMATURE GRANULOCYTES-RELATIVE 0 % 0-1 PERCENT (BEAKER) (test code = 2801) CT, CTA [id number] 16:14:00 [facility] : 1965 Sex: FAddendum BeginsREPORT STATUS:A I have reviewed the CT images for this study and I concur with the nonvascular imaging findings as dictated. Signed: Poncho Barrios MDReport Verified Date/Time: 10/19/2021 16:14:36 Reading Location: [facility] Radiology Reading RoomAddendum EndsFINAL REPORT CT angiography of the abdominal aorta and pelvic arteries, 18-Oct-21 INDICATION: This is a 56 year old female with diagnosis of aortic aneurysm presents for assessment. TECHNIQUE: Spiral acquisition before and during intravenous contrast administration using a Amita CT scanner. Images were obtained before and during the dynamic passage of intravenous contrast material. Multi-planar 3-D volume-rendering reconstruction was performed using an independent workstation interactively by the interpreting physician as well as the 3-D specialist for optimal visualisation of the abdominal aorta, pelvic arteries, and its proximal branches. Please refer to the contrast sheet scanned in the EPIC system for the amount and route of contrast given. This exam was performed according to our departmental dose-optimisation programme, which includes automated exposure control, adjustment of the mA and/or kV according to patient size and/or use of iterative reconstruction technique. Dose modulation, iterative reconstruction, and/or weight based adjustment of the mA/kV was utilized to reduce the radiation dose to as low as reasonably achievable. FINDINGS: VASCULAR: Mitral annular calcification is seen posteriorly. A bypass graft is identified to the RCA territory. Calcification is seen in the [place] RCA. Left ventricular enlargement is identified. The descending thoracic aorta has diffuse noncalcific atherosclerosis and diffuse calcification identified. Dilation is identified at the diaphragmatic hiatus. The abdominal aorta at the mesenteric level has protruding noncalcific atheroma identified,and the thickness of the atheroma, for example at image 58 is up to eight and 9 mm. Furthermore, aneurysmal dilation is identified in the infrarenal abdominal aorta, with circumferential nonobstructivethrombus present. The proximal neck of the aneurysmal dilation measures immediately below the left and right renal arteries is approximately 2.1 x 2.2 cm in diameter. The length of the aneurysmal dilation is at least 12 cm in length. The infrarenal abdominal aorta has a maximum diameter of 4.9 x 4.8 cm in diameter. In fact, the [place] left common iliac artery is occluded and patient is post aortobifemoral bypass graft, with no proximal or distal anastomotic stenosis identified. Note, immediately distal to the anastomotic site in the right, image 249, substantial calcification is seen, and at this level, the minimum luminal diameter is estimated to be approximately 4.4 x 3.9 mm in diameter. This islocated inferior to the mid level of the right femoral head. The left femoral system at the level ofthe mid left femoral head at image 245 measures approximately 7.9 x 6.8 mm. The SMA is widely patentwith only minimal calcification identified. The SMA gives rise to the hepatic artery. A stenosis is seen at the ostium of the coeliac axis and remainder of the coeliac axis is widely patent. Calcification is seen diffusely along the splenic artery. The SNEHA fills retrogradely by surrounding collaterals. Stent is identified in the abdominal aorta extending into the left renal artery, and limited comment can be made. Thereafter the [place] left renal artery appears to be has limited enhancement. Probable stent is identified in the proximal right renal artery and again limited comment can be made. The next 2 cm of the right renal artery is enhanced by contrast and subsequently bifurcates at the level of the right renal pelvis. Quantitative dimensions of the abdominal aorta are as follows: 4.3 x 4.3 cmat the diaphragmatic hiatus;; 3.6 x 3.9 cm at the mesenteric level. NON-VASCULAR: Lung bases unremarkable. No pleural effusion is seen. Atelectatic changes is noted in the left. In the abdomen, the liver and spleen appears unremarkable. The liver edge is smooth. Patient is post cholecystectomy. The adrenal glands are not enlarged. The pancreas have no abnormality identified. No acute renal pathology seen and no hydronephrosis or perirenal fluid collection is identified. The enhancement of the kidneyappears to be better in the delay data set. Small renal cysts are identified in the right kidney in the delay data set. Bowel is incompletely assessed by CT angiography as as enteric contrast is not given. No bowel dilation is seen. Scattered colonic diverticulum is present. Fecal material seen throughout the colon. The bladder appears unremarkable. The uterus is not identified. No abnormal adnexal mass is seen. No free air or free fluid is seen in the abdomen pelvis and no significant retrocrural peritoneal adenopathy is identified. No acute bony pathology. CONCLUSIONS: 1. Atherosclerosis identified in the distal descending thoracic aorta. Dilation is seen at the diaphragmatic hiatus. Aneurysmal dilation is seen in the infrarenal abdominal aorta, with maximum diameter of approximately 4.9 x 4.8 cm, with circumferential intraluminal thrombus identified. The [place] left common iliac artery is occluded and patient is post aortobifemoral bypass graft with no proximal or distal anastomotic stenosisidentified. The proximal anastomotic site is in the distal infrarenal abdominal aorta, and increasedcalcification is seen immediately distal to the right anastomotic site. Please see above for details. Quantitative dimension of the abdominal aorta are as noted. Radiology department requires follow duration to be dictated that is unnecessary. 2. There is likely stents in the [place] left and right renal arteries; limited comment can be made. Limited enhancement is identified in the [place] left renal artery distal to the stent. The SMA is patent. Stenosis is seen at the takeoff of the coeliac axis. The SNEHA fills retrogradely by surrounding collaterals. 3. Other findings as described above. 4. An addendum will be dictated by the [employer] Radiologist regarding the nonvascular findings. THE REPORT WILL ONLY BE CONSIDERED COMPLETE AFTER THE ADDENDUM HAS BEEN DICTATED. Signed: Lauri Benavidezeport Verified Date/Time: 10/19/2021 14:50:51 [id number] 18:14:00 Test Item Value Reference Range Interpretation Comments CO2 (test code = CO2) 24 1 21-32 [facility] HermannCreatine kinase [id number] 18:14:00 Test Item Value Reference Range Interpretation Comments Creatine kinase measurement (test code 53 1 20-180 = Creatine kinase measurement) [facility]ann[facility] [id number] 18:14:00 Test Item Value Reference Range Interpretation Comments Creatinine measurement (test code = 4.6 1 0.50-0.90 Creatinine measurement) [facility] HermannEosinophil %2019-10-04 18:14:00 Test Item Value Reference Range Interpretation Comments Eosinophil % (test code 1.9 1 See_Comment [Au tomated message] The = Eosinophil %) system which generated this result tra nsmitted reference range : <=5.4. The reference r belem was not used to int erpret this result as normal/abnormal . [facility] HospitalannEstimated glomerular filtration rate (GFR) determination 2019-10-04 18:14:00 Test Item Value Reference Range Interpretation Comments Estimated glomerular filtration rate 10.01 1 (GFR) determination (test code = Estimated glomerular filtration rate (GFR) determination) [facility] HermannGlobulin [id number] 18:14:00 Test Item Value Reference Range Interpretation Comments Globulin ser (test code = Globulin ser) 4.1 1 [facility] [id number] 18:14:00 Test Item Value Reference Range Interpretation Comments Hematocrit (test code = Hematocrit) 34.7 1 34.0-50.0 [facility] Hospit[id number] 18:14:00 Test Item Value Reference Range Interpretation Comments Hemoglobin (test code = Hemoglobin) 10.6 1 10.5-15.7 [facility] HospitalannLymphocyte %2019-10-04 18:14:00 Test Item Value Reference Range Interpretation Comments Lymphocyte % (test code = Lymphocyte 21.4 1 10.0-50.0 %) [facility] [id number] 18:14:00 Test Item Value Reference Range Interpretation Comments Magnesium (test code = Magnesium) 2.5 1 1.6-2.6 [facility] HospitalannaleeMCV (mean corpuscular volume) [id number] 18:14:00 Test Item Value Reference Range Interpretation Comments MCV (mean corpuscular volume) 90.1 1 86-100 determination (test code = MCV (mean corpuscular volume) determination) [facility]annaleeOran corpuscular hemoglobin (MCH) [id number] 18:14:00 Test Item Value Reference Range Interpretation Comments Mean corpuscular hemoglobin (MCH) 27.5 1 26.2-33.4 determination (test code = Mean corpuscular hemoglobin (MCH) determination) [facility] corpuscular hemoglobin concentration (MCHC) determination 2019-10-04 18:14:00 Test Item Value Reference Range Interpretation Comments Mean corpuscular hemoglobin 30.5 1 30-34 concentration (MCHC) determination (test code = Mean corpuscular hemoglobin concentration (MCHC) determination) [facility]annaleeOrmariano platelet [id number] 18:14:00 Test Item Value Reference Range Interpretation Comments Mean platelet volume (test code = Mean 9.5 1 9.4-12.6 platelet volume) [facility]annaleeMonocyte %2019-10-04 18:14:00 Test Item Value Reference Range Interpretation Comments Monocyte % (test code = Monocyte %) 7.0 1 3.6-12.0 [facility] HospitalQjnpqcePqiwzjdzu7911-45-18 18:14:00 Test Item Value Reference Range Interpretation Comments Myoglobin (test code = Myoglobin) 59 1 25-58 [facility]annaleeNeutrophils seg % [id number] 18:14:00 Test Item Value Reference Range Interpretation Comments Neutrophils seg % bld (test code = 69.1 1 44.4-80.1 Neutrophils seg % bld) [facility] HospitalannNT-proBNP [id number] 18:14:00 Test Item Value Reference Range Interpretation Comments NT-proBNP measurement 6418 1 See_Comment [Auto mated message] (test code = NT-proBNP The s ystem which measurement) generated this result transmitted ref erence range: <=125. T he reference range was not used to interpr et this result as normal/abnormal . [facility] HospitalannNucleated red blood cell [id number] 18:14:00 Test Item Value Reference Range Interpretation Comments Nucleated red blood cell 0 1 See_Comment [A utomated message] The percentage (test code = syst em which generated Nucleated red blood cell thi s result transmitted percentage) reference range : <=0.2. The reference r belem was not used to int erpret this result as normal/abnormal . [facility] HermannOsmolality [id number] 18:14:00 Test Item Value Reference Range Interpretation Comments Osmolality ser (test code = Osmolality 308 1 280-300 ser) [facility] HospitalannPlatelet [id number] 18:14:00 Test Item Value Reference Range Interpretation Comments Platelet count (test code = Platelet 319 1 165-450 count) [facility] Ho[id number] 18:14:00 Test Item Value Reference Range Interpretation Comments Potassium (test code = Potassium) 5.1 1 3.5-5.2 [facility] HospitalannProthrombin [id number] 18:14:00 Test Item Value Reference Range Interpretation Comments Prothrombin time (test code = 10.2 1 10.3-12.3 Prothrombin time) [facility] HospitalannRBC [id number] 18:14:00 Test Item Value Reference Range Interpretation Comments RBC count (test code = RBC count) 3.85 1 3.80-5.20 [facility] HermannRBC distribution width coefficient of [id number] 18:14:00 Test Item Value Reference Range Interpretation Comments RBC distribution width coefficient of 14.6 1 12.0-15.5 variation (test code = RBC distribution width coefficient of variation) [facility] HospitalannSerum or plasma creatine kinase MB (CK-MB) measurement by immunoassay (mass/volume)2019-10-04 18:14:00 Test Item Value Reference Range Interpretation Comments Serum or plasma creatine 2.6 1 See_Comment [A utomated message] The kinase MB (CK-MB) system [facility] generated measurement by this result t ransmitted immunoassay reference range : <=3.6. (mass/volume) (test code The reference range was = Serum or plasma not used t o interpret creatine kinase MB this resu lt as (CK-MB) measurement by diaz l/abnormal. immunoassay (mass/volume)) [facility] HospitalannSerum or plasma glucose measurement (mass/volume)2019-10-04 18:14:00 Test Item Value Reference Range Interpretation Comments Serum or plasma glucose measurement 120 1 74-106 (mass/volume) (test code = Serum or plasma glucose measurement (mass/volume)) [facility] HospitalannSerum or plasma urea nitrogen measurement (mass/volume) 2019-10-04 18:14:00 Test Item Value Reference Range Interpretation Comments Serum or plasma urea nitrogen 98 1 6-20 measurement (mass/volume) (test code = Serum or plasma urea nitrogen measurement (mass/volume)) [facility] HospitalannSerum or plasma urea nitrogen/creatinine [id number] 18:14:00 Test Item Value Reference Range Interpretation Comments Serum or plasma urea 21.3 1 12-20 nitrogen/creatinine ratio (test code = Serum or plasma urea nitrogen/creatinine ratio) [facility] HospitalS[facility] [id number] 18:14:00 Test Item Value Reference Range Interpretation Comments Sodium level (test code = Sodium level) 138 1 135-145 [facility] HospitalTotal [id number] 18:14:00 Test Item Value Reference Range Interpretation Comments Total protein (test code = Total 7.9 1 6.6-8.7 protein) [facility] HospitalTroponin I ser/[id number] 18:14:00 Test Item Value Reference Range Interpretation Comments Troponin I ser/plas < 0.30 See_Comment [Automa janet message] The (test code = Troponin system which generated I ser/plas) this result tra nsmitted reference range : <=0.5. The reference r belem was not used to int erpret this result as normal/abnormal . [facility] HospitalUric acid, [id number] 18:14:00 Test Item Value Reference Range Interpretation Comments Uric acid, serum (test code = Uric 9.2 1 2.4-5.7 acid, serum) [facility] blood cell [id number] 18:14:00 Test Item Value Reference Range Interpretation Comments White blood cell count (test code = 9.1 1 4.0-11.5 White blood cell count) [facility] blood INR [id number] 18:14:00 Test Item Value Reference Range Interpretation Comments Whole blood INR measurement (test code 0.94 1 = Whole blood INR measurement) [facility] HermannAbsolute basophil [id number] 18:14:00 Test Item Value Reference Range Interpretation Comments Absolute basophil count (test code = 0.04 1 0.01-0.08 Absolute basophil count) [facility] HermannAbsolute eosinophil [id number] 18:14:00 Test Item Value Reference Range Interpretation Comments Absolute eosinophil count (test code = 0.17 1 0.04-0.36 Absolute eosinophil count) [facility] HermannAbsolute immature granulocyte [id number] 18:14:00 Test Item Value Reference Range Interpretation Comments Absolute immature 0.2 1 See_Comment [Automate d message] The granulocyte count (test syst em which generated code = Absolute immature thi s result transmitted granulocyte count) reference range: <=0.4. The reference r belem was not used to int erpret this result as normal/abnormal . [facility] HermannAbsolute lymphocyte [id number] 18:14:00 Test Item Value Reference Range Interpretation Comments Absolute lymphocyte count (test code = 1.9 1 1.18-3.74 Absolute lymphocyte count) [facility] HermannAbsolute monocyte [id number] 18:14:00 Test Item Value Reference Range Interpretation Comments Absolute monocyte count (test code = 0.63 1 0.24-0.86 Absolute monocyte count) [facility] HermannAbsolute NRBC [id number] 18:14:00 Test Item Value Reference Range Interpretation Comments Absolute NRBC count (test code = 0 1 Absolute NRBC count) [facility] Hos[id number] 18:14:00 Test Item Value Reference Range Interpretation Comments Albumin (test code = Albumin) 3.8 1 3.5-5.2 [facility] HermannAlbumin-globulin ratio [id number] 18:14:00 Test Item Value Reference Range Interpretation Comments Albumin-globulin ratio ser (test code = 0.9 1 Albumin-globulin ratio ser) [facility] HospitalannALP ser/[id number] 18:14:00 Test Item Value Reference Range Interpretation Comments ALP ser/plas (test code = ALP ser/plas) 102 1 35-105 [facility] HermannALT (SGPT) ser/[id number] 18:14:00 Test Item Value Reference Range Interpretation Comments ALT (SGPT) ser/plas 8 1 See_Comment [Automa janet message] The (test code = ALT system whic h generated this (SGPT) ser/plas) result cross smitted reference range : <=33. The reference range was not used to interpr et this result as diaz l/abnormal. [facility] HermannAnion gap [id number] 18:14:00 Test Item Value Reference Range Interpretation Comments Anion gap measurement (test code = 17.1 1 12-20 Anion gap measurement) [facility] [id number] 18:14:00 Test Item Value Reference Range Interpretation Comments AST (test code = AST) 9 1 15-32 [facility] HospitalannAutomated erythrocyte sedimentation rate (ESR)2019-10-04 18:14:00 Test Item Value Reference Range Interpretation Comments Automated erythrocyte 127 1 See_Comment [Auto mated message] sedimentation rate (ESR) The system which (test code = Automated gener ated this result erythrocyte sedimentation tr ansmitted reference rate (ESR)) range: <=20. Th e reference range was not used to interpr et this result as normal/abnormal . [facility] HermannBasophil %2019-10-04 18:14:00 Test Item Value Reference Range Interpretation Comments Basophil % (test code = Basophil %) 0.4 1 0.1-1.2 [facility] HermannBilirubin [id number] 18:14:00 Test Item Value Reference Range Interpretation Comments Bilirubin total (test < 0.3 See_Comment [Auto mated message] The code = Bilirubin total) syst em which generated this result tra nsmitted reference range : <=1.2. The reference r belem was not used to int erpret this result as normal/abnormal . [facility] HospitalannBlood band neutrophils count (number/volume)2019-10-04 18:14:00 Test Item Value Reference Range Interpretation Comments Blood band neutrophils count 6.25 1 1.56-6.13 (number/volume) (test code = Blood band neutrophils count (number/volume)) [facility] HospitalannCalcium [id number] 18:14:00 Test Item Value Reference Range Interpretation Comments Calcium level (test code = Calcium 9.2 1 8.6-10.0 level) [facility] HospitalannChloride [id number] 18:14:00 Test Item Value Reference Range Interpretation Comments Chloride measurement (test code = 102 1 98-108 Chloride measurement) [facility] CardenasannRheumatoid [id number] 20:35:00 Test Item Value Reference Range Interpretation Comments Rheumatoid factor (test 10.2 1 See_Comment [Au tomated message] The code = Rheumatoid system whi ch generated factor) this result tra nsmitted reference range : <=14. The reference r belem was not used to int erpret this result as normal/abnormal . [facility] RonaldannScl-70 antibody [id number] 20:35:00 Test Item Value Reference Range Interpretation Comments Scl-70 antibody assay <0.2 See_Comment [Auto mated message] The (test code = Scl-70 system w hich generated antibody assay) this result transmitted reference range : <=0.9. The reference r belem was not used to int erpret this result as normal/abnormal . [facility] BrandenSer tissue transglutaminase IgA antibody [id number] 20:35:00 Test Item Value Reference Range Interpretation Comments Serum tissue <2 See_Comment [Automated mes nereyda] transglutaminase IgA The sys tem which antibody detection (test gen erated this result code = Serum tissue transmit janet reference transglutaminase IgA range: <=3. The antibody detection) referenc e range was not used to int erpret this result as normal/abnormal . [facility] Afmpazq45-htazrhuemqbjnv D [id number] 23:22:00 Test Item Value Reference Range Interpretation Comments 25-hydroxyvitamin D measurement (test 18.60 1 6.4-49.5 code = 25-hydroxyvitamin D measurement) [facility] HospitalannArterial blood ionized calcium measurement (mass/volume) 2019-08-07 23:22:00 Test Item Value Reference Range Interpretation Comments Arterial blood ionized calcium 5.12 1 4.34-5.00 measurement (mass/volume) (test code = Arterial blood ionized calcium measurement (mass/volume)) [facility] RonaldannC-reactive protein measurement by high sensitivity method 2019-08-07 23:22:00 Test Item Value Reference Range Interpretation Comments C-reactive protein 10.5 1 See_Comment [Automat ed message] measurement by high The syst em which sensitivity method (test gen erated this result code = C-reactive transmitte d reference protein measurement by range : <=5.0. The high sensitivity method) ref erence range was not used to interpr et this result as normal/abnormal . [facility]annColor of Urine by [id number] 23:22:00 Test Item Value Reference Range Interpretation Comments Color of Urine by Auto (test LIGHT YELLOW code = Color of Urine by Auto) [facility] HermannComplement [id number] 23:22:00 Test Item Value Reference Range Interpretation Comments Complement C4 (test code = Complement 40 1 14-44 C4) [facility] HermannEpithelial cells detection in urine sediment by light microscopy 2019-08-07 23:22:00 Test Item Value Reference Range Interpretation Comments Epithelial cells 6-10 See_Comment [Automated message] The detection in urine system wh ich generated sediment by light this resul t transmitted microscopy (test code = refe rence range: <=5. Epithelial cells The referen ce range was detection in urine not used to interpret sediment by light this resul t as microscopy) normal/abnormal . [facility] HermannGlucose [Presence] in Urine by Automated test [id number] 23:22:00 Test Item Value Reference Range Interpretation Comments Glucose [Presence] in Urine by NEGATIVE Automated test strip (test code = Glucose [Presence] in Urine by Automated test strip) [facility] HermannHemoglobin [id number] 23:22:00 Test Item Value Reference Range Interpretation Comments Hemoglobin A1c (test code = Hemoglobin 5.6 1 4.0-6.0 A1c) [facility] HermannKetones [Mass/volume] in Urine by Automated test [id number] 23:22:00 Test Item Value Reference Range Interpretation Comments Ketones [Mass/volume] in Urine by NEGATIVE Automated test strip (test code = Ketones [Mass/volume] in Urine by Automated test strip) [facility] HermannLeukocytes [#/area] in Urine sediment by Automated count 2019-08-07 23:22:00 Test Item Value Reference Range Interpretation Comments Leukocytes [#/area] in >50 See_Comment [Aut omated message] The Urine sediment by system whi ch generated Automated count (test this r esult transmitted code = Leukocytes reference range: <=5. [#/area] in Urine The refere nce range was sediment by Automated not us ed to interpret count) this result as normal/abnormal . [facility] HermannNitrite ur [id number] 23:22:00 Test Item Value Reference Range Interpretation Comments Nitrite ur dipstick (test code = NEGATIVE Nitrite ur dipstick) [facility] Hospit[id number] 23:22:00 Test Item Value Reference Range Interpretation Comments Phosphorus (test code = Phosphorus) 3.9 1 2.5-4.5 [facility] count ur [id number] 23:22:00 Test Item Value Reference Range Interpretation Comments RBC count ur auto 1-5 See_Comment [Automate d message] The (test code = RBC system whic h generated this count ur auto) result transm itted reference range : <=5. The reference range was not used to interpr et this result as diaz l/abnormal. [facility] antinuclear antibody assay with reflex to double-stranded DNA, ribonucleoprotein, Sjogren's A,Sjogren's B, and Krishnan [id number] 23:22:00 Test Item Value Reference Range Interpretation Comments Serum antinuclear 1 1 See_Comment [Automate d message] The antibody assay with system w hich generated reflex to this result tra nsmitted double-stranded DNA, referen ce range: <=9. ribonucleoprotein, The refer ence range was Sjogren's A, not used t o interpret Sjogren's B, and Krishnan this result as antibodies (test code = norm al/abnormal. Serum antinuclear antibody assay with reflex to double-stranded DNA, ribonucleoprotein, Sjogren's A, Sjogren's B, and Krishnan antibodies) [facility] HospitalSerum or plasma complement C3 [id number] 23:22:00 Test Item Value Reference Range Interpretation Comments Serum or plasma complement C3 detection 148 1 82-167 (test code = Serum or plasma complement C3 detection) [facility] HospitalannSerum or plasma thyroid stimulating hormone (TSH) measurement 2019-08-07 23:22:00 Test Item Value Reference Range Interpretation Comments Serum or plasma thyroid stimulating 1.99 1 0.36-3.74 hormone (TSH) measurement (test code = Serum or plasma thyroid stimulating hormone (TSH) measurement) [facility] HospitalSpecific gravity of Urine by Automated test [id number] 23:22:00 Test Item Value Reference Range Interpretation Comments Specific gravity of Urine by 1.016 1 1.003-1.030 Automated test strip (test code = Specific gravity of Urine by Automated test strip) [facility] HospitalannT3 [id number] 23:22:00 Test Item Value Reference Range Interpretation Comments T3 uptake (test code = T3 uptake) 34.3 1 24.0-39.0 [facility] [id number] 23:22:00 Test Item Value Reference Range Interpretation Comments T4 (test code = T4) 10.1 1 4.5-11.7 [facility] HospitalannUrine appearance [id number] 23:22:00 Test Item Value Reference Range Interpretation Comments Urine appearance determination SL CLOUDY (test code = Urine appearance determination) [facility] HospitalUrine blood detection by [id number] 23:22:00 Test Item Value Reference Range Interpretation Comments Urine blood detection by dipstick (test TRACE code = Urine blood detection by dipstick) [facility] leukocyte esterase detection by automated test strip 2019-08-07 23:22:00 Test Item Value Reference Range Interpretation Comments Urine leukocyte esterase detection by 4+ automated test strip (test code = Urine leukocyte esterase detection by automated test strip) [facility] HospitalUrine pH [id number] 23:22:00 Test Item Value Reference Range Interpretation Comments Urine pH measurement (test code = 5.500 1 5-9 Urine pH measurement) [facility] protein test by [id number] 23:22:00 Test Item Value Reference Range Interpretation Comments Urine protein test by dipstick (test TRACE code = Urine protein test by dipstick) [facility] total bilirubin measurement (mass/volume)2019-08-07 23:22:00 Test Item Value Reference Range Interpretation Comments Urine total bilirubin measurement NEGATIVE (mass/volume) (test code = Urine total bilirubin measurement (mass/volume)) [facility] Trichomonas [id number] 23:22:00 Test Item Value Reference Range Interpretation Comments Urine Trichomonas examination (test 1-2 code = Urine Trichomonas examination) [facility] urobilinogen [id number] 23:22:00 Test Item Value Reference Range Interpretation Comments Urine urobilinogen detection (test NORMAL 0.2-1.0 code = Urine urobilinogen detection) [facility] HospitalVitamin B12 [id number] 23:22:00 Test Item Value Reference Range Interpretation Comments Vitamin B12 measurement (test code = 507.4 1 211-946 Vitamin B12 measurement) [facility]annBacterial urine [id number] 23:22:00 Test Item Value Reference Range Interpretation Comments Bacterial urine culture (test code = TRACE Bacterial urine culture) [facility] RonaldannUrine [id number] 23:22:00 Test Item Value Reference Range Interpretation Comments Urine culture (test code = ESCHERICHIA COLI Urine culture) [facility] HospitalLipid [id number] 22:10:23 Test Item Value Reference Range Interpretation Comments Cholesterol Total 190 mg/dL 0-200 RISK OF HE ART (test code = DISEASEPublishe d by Cholesterol Total) [employer] Terra lyte Optimal Borderl ine Increased RiskC HOL <200 200-239 >240TRI G <150 150-199 >200HDL Male >60 <40HDL Fema le >60 <50LDL <100 130 -159 >160LDL Near op timal is 100-129 Triglycerides (test 140 mg/dL 9-200 code = Triglycerides) HDL (test code = HDL) 48 mg/dL 50-60 L LDL (test code = LDL) 114 mg/dL 0-130 The eq uation being used in this calcula tion is LDL = (Chol - H DL) - (Trig / 5) VLDL (test code = 28 mg/dL 5-40 The equati on being used VLDL) in this calcula tion is VLDL = Trig / 5 Chol/HDL (test code = 4.0 ratio 0.0-4.4 Chol/HDL) LDL/HDL Ratio (test 2 N The equa tion being used code = LDL/HDL Ratio) in thi s calculation is LDL/HDL Ratio=L DL Calc/HDL Chol Pro B Natriuretic [id number] 22:10:23 Test Item Value Reference Range Interpretation Comments NT-proBNP (test code = NT-proBNP) 1212 pg/mL 0-124 [facility] [id number] 22:10:22 Test Item Value Reference Range Interpretation [...] A/G 1.5 ratio N Ratio) [facility] [id number] 22:10:22 Test Item Value Reference Range Interpretation [...] ag e have not been validated by th e MDRD study and should be interpreted wit h caution. eGFR R esult Interpretation: eGFR > or = 60 is in the Normal RangeeGF R < 60 may mean kid gualberto diseaseeGFR < 1 5 may mean kidney failure Rang es recommended by the National Kidney Foundation, http://nkdep.ni h.gov Comprehensive Metabolic [id number] 22:10:22 Test Item Value Reference Range Interpretation [...] ag e have not been validated by th e MDRD study and should be interpreted [...] ag e have not been validated by th e MDRD study and should be interpreted wit h caution. eGFR R esult Interpretation: eGFR > or = 60 is in the Normal RangeeGF R < 60 may mean kid gualberto diseaseeGFR < 1 5 may mean kidney failure Rang es recommended by the National Kidney Foundation, http://nkdep.ni h.gov Complete Blood Count with [id number] 21:57:08 Test Item Value Reference Range Interpretation [...] code = IPF) 0 % N Automated [id number] 21:57:08 Test Item Value Reference Range Interpretation Comments Neutro Auto (test code = Neutro 56.5 % 36.0-70.0 Auto) Lymph Auto (test code = Lymph Auto) 32.4 % 12.0-44.0 [place] Auto (test code = [place] Auto) 8.7 % 0.0-11.0 Eos, Auto (test code = Eos, Auto) 1.9 % 0.0-7.0 Basophil Auto (test code = Basophil 0.3 % 0.0-2.0 Auto) Neutro Absolute (test code = Neutro 5.3 x10 1.6-7.4 Absolute) Lymph Absolute (test code = Lymph 3.03 x10 .50-4.60 Absolute) [place] Absolute (test code = [place] .81 x10 .00-1.20 Absolute) Eos Absolute (test code = Eos 0.18 x10 0.00-0.74 Absolute) Baso Absolute (test code = Baso 0.03 x10 0.00-0.21 Absolute) IG [id number] 21:57:08 Test Item Value Reference Range Interpretation Comments IG (test code = IG) 0.2 % 0.0-5.0 IG Abs (test code = IG Abs) 0 x10 N XR ABDOMEN ACUTE COMPLETE W [id number] 11:24:09XR ABDOMEN ACUTE COMPLETE W CHESTLOCATION: [id number]: SBOCOMPARISON: KUB 07/29/2017, CT of the abdomen and pelvis 07/28/2017,chest radiograph 07/29/2017FINDINGS: Median sternotomy changes are noted. LeftIJ central line terminatesover the upper SVC.The lungs [...] may be due to atelectasis orscarring.Basic Metabolic [id number] 06:01:00 Test Item Value Reference Range Interpretation [...] Kidney Foundation,http :[email or web address] ep.nih.gov XR ABDOMEN KUB [id number] 15:39:25ABDOMEN, 1 VIEWCLINICAL INFORMATION: SBO COMPARISONS: CT dated July 28, 2017FINDINGS:The small bowel loops in the upper abdomen are gas distended up to 4.3cm. The rectal vault is essentially airless. Moderate degenerativechanges are seen at L5-S1.IMPRESSION: Small bowel loops remain gas distended up to 4.3 cm.Location: [id number] CHEST 1 [id number] 14:38:38EXAM: Portable AP chest x-rayLOCATION: R16 INDICATION: PT. is post op fem pop Day 1COMPARISON: 07/28/2017FINDINGS:A left internal jugular catheter terminates in the SVC.The cardiomediastinal silhouette is unremarkable. Post sternotomychanges are identified.There is no focal consolidation. Stable mild co ngestive changes. Stable scarring versus atelectasis at the left costophrenic angle. Nolarge pleuraleffusion or discernible pneumothorax.IMPRESSION:Stable mild congestive changes.Stable left basilar scarring and/or atelectasis. Magnesium, [id number] 06:01:00 Test Item Value Reference Range Interpretation Comments Magnesium (test code = MG) 2.0 mg/dL 1.7-2.5 N Basic Metabolic [id number] 05:54:00 Test Item Value Reference Range Interpretation [...] National Kidney Foundation,http ://nkd ep.nih.gov CBC with [id number] 05:42:00 Test Item Value Reference Range Interpretation [...] code = ALYMPH) 3.0 K/cumm 0.5-4.6 N [place] Abs (test code = AMONO) 0.6 K/cumm 0.0-1.2 N Eos Abs (test code = AEOS) 0.34 K/cumm 0.00-0.74 N Baso Abs (test code = ABASO) 0.0 K/cumm 0.00-0.21 N 35214&PELVIS W/[id number] 20:17:50CT Scan of the Abdomen and Pelvis With ContrastLocation Code U00Pbwdybh: lower GI bleed/N/V/Abd painTechnique: Axial and reconstructed coronal [facility] post IV contrast.One or more of the following dose reduction techniques were used:Automated exposure control, adjustment of the mA and/or kV according topatient size, and/or utilization of iterative reconstruction techn ique.Findings: There is a small left pleural effusion. Bilateral lower lobe atelectaticchanges are seen.There is mild ascites in the abdomen and pelvis. The liver surface isslightly nodular. The right lobe is slightly enlarged. There is noabnormal lumbar splenic enhancement. There is pericholecystic fluid butthis is nonspecific in the setting of ascites. There are noperipancreatic inflammatory changes.Adrenal glands are symmetric. There is no hydronephrosis in eitherkidney. Bladder is within normal limits.There are several loops of small bowel which are dilated fluid-filled.There are at least 2 transition points seen in the abdomen located inthe left lower quadrant and in the right lower quadrant.These findingsmay be consistent with ileus or partial small bowel obstruction. Thereis no pneumatosis. The appendix and colon are within normal limits.Extensive soft and calcified plaque formations areseen in the abdominalaorta. 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 Aprior aortobiiliac repair is noted. There is near completestenosis of the distal external iliac anastomosis on the left but flowis seen distal to this segment. There is moderate stenosis on the right.Im pression:1. Partial small bowel obstruction versus small bowel ileus. No freeair.2. Mild ascites. Subtle liver surface nodularity which maybe consistentwith cirrhosis.3. Small left pleural effusion.4. Aortobiiliac repair. Near complete stenosis of the distal leftexternal iliac anastomosis. Flow is noted distal to this segment. Noprior is available for comparison. Clinical correlation recommended.XR CHEST 1 [id number] 10:05:52Exam: Chest portable erectLocation: A9Bpfwiyk: PostopComparison: 07/27/2016.Findings:No change has oc curred in the aeration of the lungs. The heart size isunchanged. Postoperative changes of CABG are present. The mediastinalsilhouette is unremarkable. The left IJ line remains in place.Impression:Stable chest.Comprehensive Metabolic Panel 2017-07-28 04:50:00 Test Item Value Reference Range Interpretation [...] the National Kidney Foundation,http ://nkd ep.nih.gov Magnesium, [id number] 04:49:00 Test Item Value Reference Range Interpretation Comments Magnesium (test code = MG) 1.8 mg/dL 1.7-2.5 N CBC with [id number] 04:45:00 Test Item Value Reference Range Interpretation [...] code = ALYMPH) 3.0 K/cumm 0.5-4.6 N [place] Abs (test code = AMONO) 0.7 K/cumm 0.0-1.2 N Eos Abs (test code = AEOS) 0.34 K/cumm 0.00-0.74 N Baso Abs (test code = ABASO) 0.0 K/cumm 0.00-0.21 N XR CHEST 1 [id number] 13:31:06Exam: Chest portable erectLocation: H0Tzysxrb: PostopComparison: 07/26/2017.Findings:There has been interval improvement in the aeration of the lungs. Thelungs are now clear. The pulmonary vasculature is normal. The heart sizeis unchanged. Postoperative changes [...] the National Kidney Foundation,http ://nkd ep.nih.gov Magnesium, [id number] 05:49:00 Test Item Value Reference Range Interpretation Comments Magnesium (test code = MG) 2.0 mg/dL 1.7-2.5 N CBC with [id number] 05:04:00 Test Item Value Reference Range Interpretation [...] code = ALYMPH) 1.8 K/cumm 0.5-4.6 N [place] Abs (test code = AMONO) 0.6 K/cumm 0.0-1.2 N Eos Abs (test code = AEOS) 0.02 K/cumm 0.00-0.74 N Baso Abs (test code = ABASO) 0.0 K/cumm 0.00-0.21 N Hypochromic (test code = HYPO) Slight XR CHEST 1 [id number] 09:30:58EXAM: Portable AP chest x-rayLOCATION: R16 INDICATION: post op enderectomyCOMPARISON: 07/25/17INDINGS:A left internal jugular catheter is unchanged.The cardiac silhouette is stable and enlarged. There are poststernotomychanges. Congestive changes are seen bilaterally. There is a stable left basilaropacity. There is no large pleural effusion or discerniblepneumothorax.IMPRESSION:Stable cardiomegaly and congestive changes. Basic Metabolic [id number] 06:04:00 Test Item Value Reference Range Interpretation [...] the National Kidney Foundation,http ://nkd ep.nih.gov Magnesium, [id number] 06:04:00 Test Item Value Reference Range Interpretation Comments Magnesium (test code = MG) 2.1 mg/dL 1.7-2.5 N CBC with [id number] 05:49:00 Test Item Value Reference Range Interpretation [...] code = ALYMPH) 1.6 K/cumm 0.5-4.6 N [place] Abs (test code = AMONO) 0.5 K/cumm 0.0-1.2 N Eos Abs (test code = AEOS) 0.20 K/cumm 0.00-0.74 N Baso Abs (test code = ABASO) 0.0 K/cumm 0.00-0.21 N Basic Metabolic [id number] 11:43:00 Test Item Value Reference Range Interpretation [...] is not provided , and the patient isAfrican-Amstephanie can, multiply by 1.2 12. If sex [...] the National Kidney Foundation,http ://nkd ep.nih.gov Magnesium, [id number] 11:43:00 Test Item Value Reference Range Interpretation Comments Magnesium (test code = MG) 1.8 mg/dL 1.7-2.5 N XR CHEST 1 [id number] 11:28:35XR CHEST 1 VIEWLOCATION: [id number]: chest radiograph 07/24/2017INDICATION: PT. is post op [...] basilar opacity.3. Stable, enlarged cardiac silhouette.CBC with [id number] 11:06:00 Test Item Value Reference Range Interpretation [...] code = ALYMPH) 2.0 K/cumm 0.5-4.6 N [place] Abs (test code = AMONO) 0.3 K/cumm 0.0-1.2 N Eos Abs (test code = AEOS) 0.35 K/cumm 0.00-0.74 N Baso Abs (test code = ABASO) 0.1 K/cumm 0.00-0.21 N XR CHEST 1 [id number] 08:05:00EXAM: Portable AP chest x-rayLOCATION: R16 INDICATION: [...] code = ALYMPH) 2.3 K/cumm 0.5-4.6 N [place] Abs (test code = AMONO) 0.7 K/cumm 0.0-1.2 N Eos Abs (test code = AEOS) 0.07 K/cumm 0.00-0.74 N Baso Abs (test code = ABASO) 0.1 K/cumm 0.00-0.21 N Basic Metabolic [id number] 03:18:00 Test Item Value Reference Range Interpretation [...] the National Kidney Foundation,http ://nkd ep.nih.gov Magnesium, [id number] 03:18:00 Test Item Value Reference Range Interpretation Comments Magnesium (test code = MG) 2.4 mg/dL 1.7-2.5 N XR CHEST 1 [id number] 08:05:36EXAM: Portable AP chest x-rayLOCATION: R16 INDICATION: PT. is post op fem pop Day 1COMPARISON: 018FINDINGS:Nasogastric tube is still coiled within the stomach. Left internaljugular catheter terminates at the junction of the brachiocephalicvein/SVC.The cardiomediastinal silhouette is unremarkable. Post sternotomychanges are identified. There are bibasilar opacities. There is no largepleural effusion or pneumothorax. IMPRESSION:Bibasilar opacities likely represents scarring and/or atelectasisBasic Metabolic [id number] 04:42:00 Test Item Value Reference Range Interpretation [...] the National Kidney Foundation,http ://nkd ep.nih.gov Magnesium, [id number] 04:42:00 Test Item Value Reference Range Interpretation Comments Magnesium (test code = MG) 1.7 mg/dL 1.7-2.5 N Partial Thromboplastin [id number] 04:33:00 Test Item Value Reference Range Interpretation Comments aPTT (test code = PTT) 29.50 seconds 24.39-37.25 N Prothrombin [id number] 04:33:00 Test Item Value Reference Range Interpretation Comments PT (test code = PT) 12.40 seconds 9.78-13.35 N INR (test code = INR) 1.10 Ratio 0.6-1.2 N CBC with [id number] 04:26:00 Test Item Value Reference Range Interpretation [...] code = ALYMPH) 2.3 K/cumm 0.5-4.6 N [place] Abs (test code = AMONO) 0.7 K/cumm 0.0-1.2 N Eos Abs (test code = AEOS) 0.12 K/cumm 0.00-0.74 N Baso Abs (test code = ABASO) 0.0 K/cumm 0.00-0.21 N XR CHEST 1 [id number] 15:57:45XR CHEST 1 VIEWLOCATION: [id number]: chest radiograph 07/15/2017INDICATION: eval central lineDISCUSSION:A single [...] due to atelectasis.3. Prominent cardiac silhouette.Basic Metabolic [id number] 15:31:00 Test Item Value Reference Range Interpretation [...] ars ofage have not been validated by adrian queen MDRD study and glenis dyson be interpretedwith caution.eGFR Re sult Interpretation: eGFR > or = 60 is in t he Normal RangeeGF R < 60 may mean kidney diseaseeGFR < 1 5 may mean kidney failureRange s recommended by the National Kidney Foundation,http ://nkd ep.nih.gov CBC with Vuvajsgbqeaj2801-07-91 14:34:00 Test Item Value Reference Range Interpretation [...] code = ALYMPH) 2.0 K/cumm 0.5-4.6 N [place] Abs (test code = AMONO) 0.8 K/cumm 0.0-1.2 N Eos Abs (test code = AEOS) 0.10 K/cumm 0.00-0.74 N Baso Abs (test code = ABASO) 0.0 K/cumm 0.00-0.21 N Blood Gas+Lytes+Glu+Ca+Hgb+Hct+[id number] 08:35:00 Test Item Value Reference Range Interpretation [...] code 0 = RESP RATE) Comprehensive Metabolic [id number] 17:23:00 Test Item Value Reference Range Interpretation [...] National Kidney Foundation,http ://nkd ep.nih.gov CBC with [id number] 17:20:00 Test Item Value Reference Range Interpretation [...] code = ALYMPH) 4.6 K/cumm 0.5-4.6 N [place] Abs (test code = AMONO) 0.7 K/cumm 0.0-1.2 N Eos Abs (test code = AEOS) 0.32 K/cumm 0.00-0.74 N Baso Abs (test code = ABASO) 0.1 K/cumm 0.00-0.21 N XR CHEST 2V, [id number] 15:01:18EXAM: Chest x-ray, 2 viewsLOCATION: [id number]: NoneINDICATION: I73.9: PERIPHERAL VASCULAR DISEASE, UNSPECIFIEDDISCUSSION:PA and lateral chest radiographs were submitted for interpretation (2total).Median sternotomy changes are noted.The lungs are well- inflated.No consolidation, pleural effusion, or pneumothorax is seen. Mild aortic calcifications are present.The cardiomediastinal silhouette is within normal limits. No acute osseous abnormalities are identified. IMPRESSION:No acute cardiopulmonary abnormalities.CBC with [id number] 00:41:00 Test Item Value Reference Range Interpretation [...] code = 3.7 K/cumm 0.5-4.6 N ALYMPH) [place] Abs (test code = 0.4 K/cumm 0.0-1.2 N AMONO) Eos Abs (test code = 0.21 K/cumm 0.00-0.74 N AEOS) Baso Abs (test code = 0.0 K/cumm 0.00-0.21 N ABASO) RBC Morphology (test Not Indicated code = RBCMRPH) Platelet Est (test code Adequate Platelets on = PLTEST) Smear Lipid [id number] 23:38:00 Test Item Value Reference Range Interpretation [...] (test code = LDLC) DISEASEPu blished by [place] Heart AssociationAnal yte Optimal Boderli ne Increased RiskC HOL <200 200-239 >240TRI G <150 150-199 >200HDL Male: >60 <40HDL Fema le: >60 <50LDL <100 130 -159 >160LDL NEAR OP TIMAL IS 100-129 VLDL (test code = 41 mg/dL 5-40 H VLDL) LDL/HDL (test code = 2 LDLPHDL) Ktf-[id number] 23:38:00 Test Item Value Reference Range Interpretation Comments NT ProBnp (test code = PBNP) 5902 pg/mL 0-124 H Comprehensive Metabolic [id number] 23:38:00 Test Item Value Reference Range Interpretation [...] validated by th e MDRD study and errolul d be interpretedwith caution.eGFR Re sult Interpretation: eGFR > or = 60 is in t he Normal RangeeGF R < 60 may mean kidney diseaseeGFR < 1 5 may mean kidney failureRange s recommended by the National Kidney Foundation,http ://nkd ep.nih.gov SPUTUM CULTURE + GRAM [id number] 12:35:00 Test Item Value Reference Range Interpretation Comments CULTURE (BEAKER) A 4+ Haemophi venkatesh (test code = influenzaeBeta- lact 1095) amase negative GRAM STAIN 3+ WBCs RESULT (BEAKER) (test code = 1123) GRAM STAIN 0-5 epithelial RESULT (BEAKER) cells (test code = 694716) GRAM STAIN <1+ gram negative RESULT (BEAKER) rods (test code = 292110) GRAM STAIN 3+ gram positive RESULT (BEAKER) cocci in chains, (test code = pairs and clusters 882004) 4+ Normal respiratory landry presentBASIC METABOLIC [id number] 05:32:00 Test Item Value Reference Range Interpretation [...] 0-0 (BEAKER) (test code = 413) TISSUE [id number] 14:15:00Surgical Pathology Report Case: [id number] Authorizing Provider: Ra Ellis MD Collected: 03/27/2017 1413 Ordering Location: 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 The wall ranges from 0.1 to 0.3 cm in thickness, with a solorio-pink congested cut surface. Idea Worker sections are submitted in cassette A1. SA/ewPerformedRAD, CHEST, 1 VIEW, NON [id number] 07:23:00Reason for exam:- >s/p sternotomyIs the patient ?->NoShould this be performed at the bedside?->YesFINAL REPORT Chest one view. Clinical history: s/p sternotomy Comparison: 03/31/2017 Discussion: A frontal chest is provided. Cardiac silhouette appears enlarged, as before. There is persistent left basilar opacity that likely reflects accommodation of pleural effusion and atelectasis/consolidation. There is mild degree of interstitial edema. No pneumothorax. There may be trace effusion on the right as well. Signed: Yael, Annalee MDReport Verified Date/Time: 04/01/2017 07:23:22 Reading Location: [facility] Radiology Reading Room [id number] 13:19:00 Test Item Value Reference Range Interpretation Comments MAGNESIUM (BEAKER) (test code = 1.9 mg/dL 1.6-2.6 627) BASIC METABOLIC [id number] 13:19:00 Test Item Value Reference Range Interpretation [...] 697) EGFR (BEAKER) (test 98 mL/min/1.73 ESTIMA JANET GFR IS code = 1092) sq m NOT ACCURATE CREATININE CLEARANCE IN PREDICTING GLOMERULAR FILTRATION RATE . ESTIMATED GFR I S NOT APPLICABLE FOR DIALYSIS PATIEN TS. RAD, CHEST, 1 VIEW, NON [id number] 08:03:00Reason for exam:->s/p sternotomyIs the patient ?->NoShould this be performed at the bed side?->YesFINAL REPORT History: Status post sternotomy Comparison: 03/30/2017 Findings: Mild persistent interstitial edema, unchanged or sightly decreased since the prior study. Small bilateral pleural effusions, left greater than right, and left lower lobe atelectasis are similar in appearance. No pneumothorax is identified. The cardiac shadow is partially obscured. Sternotomy wires are present. Signed: Ra Rabago Verified Date/Time: 03/31/2017 08:03:27 Reading Location: [facility] [id number] Ortho Consult Reading Room RAD, CHEST, 1 VIEW, NON [id number] 07:53:00Reason for exam:->s/p sternotomyIs the patient ?->NoShould this be performed at the bedside?->YesFINAL REPORT Chest one view compared to March 29 Discussion: Pulmonary congestion is noted with bilateral lower opacities left more than right. I could not exclude small left effusion. A small left upper chest pneumothorax is grossly similar in size albeit somewhat more conspicuous, with apical pleural separation of approximately 12 mm. IMPRESSIONS: Right base opacity probably atelectasis is worse. Otherwise similar chest appearance. Signed: Poncho Brooks Verified Date/Time: 03/30/2017 07:53:32 Reading Location: [address] Reading Room CALCIUM, [id number] 06:23:00 Test Item Value Reference Range Interpretation Comments CALCIUM IONIZED (BEAKER) (test 1.22 mmol/L 1.12-1.27 code = 698) PH, BLOOD (BEAKER) (test code = 7.30 1810) [id number] 06:23:00 Test Item Value Reference Range Interpretation Comments PHOSPHORUS (BEAKER) (test code = 2.5 mg/dL 2.3-4.7 604) [id number] 06:23:00 Test Item Value Reference Range Interpretation Comments MAGNESIUM (BEAKER) (test code = 1.9 mg/dL 1.6-2.6 627) BASIC METABOLIC [id number] 06:23:00 Test Item Value Reference Range Interpretation [...] 697) EGFR (BEAKER) (test 86 mL/min/1.73 ESTIMA JANET GFR IS code = 1092) sq m NOT ACCURATE CREATININE CLEARANCE IN PREDICTING GLOMERULAR FILTRATION RATE . ESTIMATED GFR I S NOT APPLICABLE FOR DIALYSIS PATIEN TS. CBC W/PLT COUNT & AUTO [id number] 05:52:00 Test Item Value Reference Range Interpretation [...] PERCENT (BEAKER) (test code = 2801) POCT-GLUCOSE [id number] 16:56:00 Test Item Value Reference Range Interpretation Comments POC-GLUCOSE METER 144 mg/dL 70-110 H TESTED AT [place] [address] ([facility]) (test code = [facility] 1538) [address] POCT-GLUCOSE [id number] 12:17:00 Test Item Value Reference Range Interpretation Comments POC-GLUCOSE METER 110 mg/dL 70-110 TESTED AT [place] [address] ([facility]) (test code = [facility] 1538) [address] POCT-GLUCOSE [id number] 08:04:00 Test Item Value Reference Range Interpretation Comments POC-GLUCOSE METER 84 mg/dL 70-110 TESTED AT [place] [address] ([facility]) (test code = [facility] [address] 1538) RAD, CHEST, 1 VIEW, NON [id number] 07:38:00while patient is intubated or has chest tubes.Reason for exam:->s/p sternotomyIs the patient ?- >NoShould this be performed at the bedside?->YesFINAL REPORT HISTORY : s/p sternotomy. Comparison: 03/28/2017 Comment: Single por table view of the chest was obtained. The cardiac silhouette size is enlarged. The patient is statuspost sternotomy. There are findings of pulmonary venous congestion. There is a small left-sided pleural effusion with some adjacent airspace disease. There is a left-sided IJ sheath with the tip projecting possibly over the brachiocephalic vein or the left jugular vein. A left-sided chest tube is present. Some patchy airspace disease bilaterally could represent interstitial edema or a nonspecific pneumonitis. No pneumothorax is visualized. Signed: Merlin Vegas MDReport Verified Date/Time: 03/29/201707:38:27 Reading Location: [facility] Diagnostic Imaging Reading Room - [place] [address] CBC W/PLT COUNT & AUTO [id number] 07:37:00 Test Item Value Reference Range Interpretation [...] PERCENT (BEAKER) (test code = 2801) CALCIUM, [id number] 07:15:00 Test Item Value Reference Range Interpretation Comments CALCIUM IONIZED (BEAKER) (test 1.10 mmol/L 1.12-1.27 L code = 698) PH, BLOOD (BEAKER) (test code = 7.30 1810) [id number] 06:51:00 Test Item Value Reference Range Interpretation Comments PHOSPHORUS (BEAKER) (test code = 2.6 mg/dL 2.3-4.7 604) [id number] 06:51:00 Test Item Value Reference Range Interpretation Comments MAGNESIUM (BEAKER) (test code = 2.0 mg/dL 1.6-2.6 627) BASIC METABOLIC [id number] 06:51:00 Test Item Value Reference Range Interpretation [...] 8.4-10.2 L (test code = 697) EGFR ([facility]) (test 92 mL/min/1.73 ESTIMA JANET GFR IS code = 1092) sq m NOT ACCURATE CREATININE CLEARANCE IN PREDICTING GLOMERULAR FILTRATION RATE . ESTIMATED GFR I S NOT APPLICABLE FOR DIALYSIS PATIEN TS. RAD, ABDOMEN/KUB, 1 VIEW [id number] 12:54:00Reason for exam:->abd distensionFINAL REPORT Two abdomen images Discussion: Air- filled large bowel is seen in the left abdomen but without definitive small bowel distention. No evidence of free intraperitoneal air. Signed: Poncho [place] Verified Date/Time: 03/28/2017 12:54:23 Reading Location: [facility] Radiology Reading Room POCT-GLUCOSE [id number] 08:44:00 Test Item Value Reference Range Interpretation Comments POC-GLUCOSE METER 85 mg/dL 70-110 TESTED AT [place] [address] ([facility]) (test code = [facility] [address] 1538) POCT-GLUCOSE [id number] 06:10:00 Test Item Value Reference Range Interpretation Comments POC-GLUCOSE METER 113 mg/dL 70-110 H TESTED AT [place] [address] ([facility]) (test code = [facility] 1538) [address] CBC W/PLT COUNT & AUTO [id number] 04:49:00 Test Item Value Reference Range Interpretation Comments WHITE BLOOD CELL COUNT ([facility]) 9.3 K/ L 3.5-10.5 (test code = 775) RED BLOOD CELL COUNT ([facility]) 3.00 M/ L 3.93-5.22 L (test code = 761) HEMOGLOBIN (BEAKER) (test code = 8.9 GM/DL 11.2-15.7 L 410) HEMATOCRIT ([facility]) (test code = 26.5 % 34.1-44.9 L 411) MEAN CORPUSCULAR VOLUME ([facility]) 88.3 fL 79.4-94.8 (test code = 753) MEAN CORPUSCULAR HEMOGLOBIN 29.7 pg 25.6-32.2 (AKER) (test code = 751) MEAN CORPUSCULAR HEMOGLOBIN [...] = 2801) RAD, CHEST, 1 VIEW, NON [id number] 04:40:00while patient is intubated or has chest tubes.Reason for exam:->s/p sternotomyIs the patient ?- >NoShould this be performed at the bedside?->YesFINAL REPORT EXAMINATION: AP PORTABLE CHEST RADIOGRAPH CLINICAL INDICATION: Chest tubes IMPRESSION: Compared with 03/27/2017. The endotracheal and nasogastric tubes have been removed in the interval. Support tube and catheter positions are otherwise unchanged. The heart is enlargedas before. Opacities persist in the perihilar regions and lung bases worrisome for a combination of edema and atelectasis. Grossly stable small superimposed pleural effusions are again suspected. No evidence of a pneumothorax. There is new gaseous distention of the stomach following removal of the nasogastric tube. In summary, constellation of findings worrisome for fluid overload/heart failure. Signed: Luke Natarajan MDReport Verified Date/Time: 03/28/2017 04:40:52 Reading Location: [address] Reading Room POCT-GLUCOSE [id number] 04:25:00 Test Item Value Reference Range Interpretation Comments POC-GLUCOSE METER 115 mg/dL 70-110 H TESTED AT [facility] 6720 (BEAKER) (test code = [place] [address] 1538) [address] [id number] 03:59:00 Test Item Value Reference Range Interpretation Comments PHOSPHORUS (BEAKER) (test code = 3.2 mg/dL 2.3-4.7 604) [id number] 03:59:00 Test Item Value Reference Range Interpretation Comments MAGNESIUM (BEAKER) (test code = 2.3 mg/dL 1.6-2.6 627) BASIC METABOLIC [id number] 03:59:00 Test Item Value Reference Range Interpretation [...] 697) EGFR (BEAKER) (test 78 mL/min/1.73 ESTIMA JANET GFR IS code = 1092) sq m NOT ACCURATE CREATININE CLEARANCE IN PREDICTING GLOMERULAR FILTRATION RATE . ESTIMATED GFR I S NOT APPLICABLE FOR DIALYSIS PATIEN TS. LACTIC ACID, ARTERIAL, WHOLE [id number] 03:55:00 Test Item Value Reference Range Interpretation Comments LACTATE BLOOD ARTERIAL (2) 0.8 mmol/L 0.5-2.2 (BEAKER) (test code = 2874) Effective 11/09/2015: Units/Reference Range ChangeNew: 0.5-2.2 mmol/L Previous: 5- 20 mg/dLCALCIUM, [id number] 03:39:00 Test Item Value Reference Range Interpretation Comments CALCIUM IONIZED (BEAKER) (test 1.15 mmol/L 1.12-1.27 code = 698) PH, BLOOD (BEAKER) (test code = 7.34 1810) OXYGEN SATURATION, [id number] 03:39:00 Test Item Value Reference Range Interpretation Comments O2 SATURATION (MEASURED) (BEAKER) 60.9 % (test code = 1455) POCT-GLUCOSE [id number] 03:15:00 Test Item Value Reference Range Interpretation Comments POC-GLUCOSE METER 105 mg/dL 70-110 TESTED AT [place] [address] ([facility]) (test code = [facility] 1538) [address] POCT-GLUCOSE [id number] 02:20:00 Test Item Value Reference Range Interpretation Comments POC-GLUCOSE METER 119 mg/dL 70-110 H TESTED AT [place] [address] ([facility]) (test code = [facility] 1538) [address] POCT-GLUCOSE [id number] 01:48:00 Test Item Value Reference Range Interpretation Comments POC-GLUCOSE METER 114 mg/dL 70-110 H TESTED AT [place] [address] ([facility]) (test code = [facility] 1538) [address] BLOOD GAS, [id number] 00:09:00 Test Item Value Reference Range Interpretation [...] (test code = 1819) 36.0 % POCT-GLUCOSE [id number] 00:00:00 Test Item Value Reference Range Interpretation Comments POC-GLUCOSE METER 103 mg/dL 70-110 TESTED AT [place] [address] ([facility] (test code = [facility] [place] 1538) [address] BLOOD GAS, [id number] 22:46:00 Test Item Value Reference Range Interpretation [...] (test code = 1819) 40.0 % POCT-GLUCOSE [id number] 22:41:00 Test Item Value Reference Range Interpretation Comments POC-GLUCOSE METER 110 mg/dL 70-110 TESTED AT [place] [address] ([facility] (test code = [facility] [place] 1538) [address] POCT-GLUCOSE [id number] 22:41:00 Test Item Value Reference Range Interpretation Comments POC-GLUCOSE METER 123 mg/dL 70-110 H TESTED AT [place] [address] ([facility]) (test code = [facility] [place] 1538) [address] LACTIC ACID, ARTERIAL, WHOLE [id number] 20:44:00 Test Item Value Reference Range Interpretation Comments LACTATE BLOOD 2.5 mmol/L 0.5-2.2 H Specimen sligh tly ARTERIAL (2) (BEAKER) hemoly zed (test code = 1654) Effective 11/09/2015: Units/Reference Range ChangeNew: 0.5-2.2 mmol/L Previous: 5- 20 mg/dLHGB/HCT (H&H) - STAT [id number] 20:39:00 Test Item Value Reference Range Interpretation Comments HEMOGLOBIN (BEAKER) (test code = 9.6 g/dL 12.0-15.0 L 410) HEMATOCRIT (BEAKER) (test code = 28.0 % 36.0-45.0 L 411) BLOOD GAS, [id number] 20:39:00 Test Item Value Reference Range Interpretation [...] (test code = 1819) 40.0 % POCT-GLUCOSE [id number] 20:24:00 Test Item Value Reference Range Interpretation Comments POC-GLUCOSE METER 147 mg/dL 70-110 H TESTED AT [facility] 6720 (BEAKER) (test code = [place] 1538) [address] LACTIC ACID, ARTERIAL, WHOLE [id number] 19:11:00 Test Item Value Reference Range Interpretation Comments LACTATE BLOOD 2.6 mmol/L 0.5-2.2 H Specimen sligh tly ARTERIAL (2) (BEAKER) hemoly zed (test code = 2874) Effective 11/09/2015: Units/Reference Range ChangeNew: 0.5-2.2 mmol/L Previous: 5- 20 mg/dLGLUCOSE-STAT [id number] 18:44:00 Test Item Value Reference Range Interpretation Comments GLUCOSE RANDOM (BEAKER) (test code 209 mg/dL 70-110 H = 652) HGB/HCT (H&H) - STAT [id number] 18:44:00 Test Item Value Reference Range Interpretation Comments HEMOGLOBIN (BEAKER) (test code = 11.2 g/dL 12.0-15.0 L 410) HEMATOCRIT (BEAKER) (test code = 33.0 % 36.0-45.0 L 411) POTASSIUM-STAT [id number] 18:43:00 Test Item Value Reference Range Interpretation Comments POTASSIUM (BEAKER) (test code = 4.3 meq/L 3.6-5.5 379) OXYGEN SATURATION, [id number] 18:35:00 Test Item Value Reference Range Interpretation Comments O2 SATURATION (MEASURED) (BEAKER) 62.1 % (test code = 1455) BLOOD GAS, [id number] 18:35:00 Test Item Value Reference Range Interpretation [...] = 1414) CBC W/PLT COUNT & AUTO [id number] 17:32:00 Test Item Value Reference Range Interpretation [...] = 2801) RAD, CHEST, 1 VIEW, NON [id number] 17:25:00Reason for exam:->immediate post cardiothoracic surgery/intubationShould this be performed at the bedside?->YesFINAL REPORT INDICATION: immediate post cardiothoracic surgery/intubation COMPARISON: March 26, 2017 TECHNIQUE: Chest radiograph, single view, portable technique. FINDINGS / IMPRESSION: Endotracheal tube terminates in the mid trachea. Left internal jugular [place]-Adam catheter terminates in the main pulmonary artery. There is a single mediastinal tube and a single left chest tube. Nasogastric tube terminates in the stomach. No pulmonary edema, aspiration, or pneumothorax is demonstrated. Left retrocardiac opacity most likely represent subsegmental atelectasis. Heart shadow isnot enlarged. In summary, no evidence of postoperative complication. Signed: Maylin Lowery MDReport Verified Date/Time: 03/27/2017 17:25:48 Reading Location: [address] Consult Reading Room LACTIC ACID, ARTERIAL, WHOLE [id number] 16:46:00 Test Item Value Reference Range Interpretation Comments LACTATE BLOOD 2.3 mmol/L 0.5-2.2 H Specimen sligh tly ARTERIAL (2) (BEAKER) hemoly zed (test code = 2874) Effective 11/09/2015: Units/Reference Range ChangeNew: 0.5-2.2 mmol/L Previous: 5- 20 mg/[id number] 16:13:00 Test Item Value Reference Range Interpretation Comments PHOSPHORUS (BEAKER) (test code = 2.6 mg/dL 2.3-4.7 604) [id number] 16:13:00 Test Item Value Reference Range Interpretation Comments MAGNESIUM (BEAKER) (test code = 3.2 mg/dL 1.6-2.6 H 627) BASIC METABOLIC [id number] 16:13:00 Test Item Value Reference Range Interpretation [...] 697) EGFR (BEAKER) (test 78 mL/min/1.73 ESTIMA JANET GFR IS code = 1092) sq m NOT ACCURATE CREATININE CLEARANCE IN PREDICTING GLOMERULAR FILTRATION RATE . ESTIMATED GFR I S NOT APPLICABLE FOR DIALYSIS PATIEN TS. [id number] 16:00:00 Test Item Value Reference Range Interpretation Comments FIBRINOGEN LEVEL (BEAKER) (test 340 mg/dl 225-434 code = 658) [id number] 16:00:00 Test Item Value Reference Range Interpretation Comments PARTIAL THROMBOPLASTIN TIME 33.1 seconds 22.5-36.0 (BEAKER) (test code = 760) PROTHROMBIN [id number] 15:59:00 Test Item Value Reference Range Interpretation Comments PROTIME (BEAKER) (test code = 18.4 seconds 11.7-14.7 H 759) INR (BEAKER) (test code = 370) 1.5 <=5.9 RECOMMENDED COUMADIN/WARFARIN INR THERAPY RANGESSTANDARD DOSE: 2.0 - 3.0 Includes: PROPHYLAXIS for venous thrombosis, systemic embolization; TREATMENT for venous thrombosis and/or pulmonary embolus.HIGH RISK: Target INR is 2.5-3.5 for patients with mechanical heart valves.CALCIUM, [id number] 15:54:00 Test Item Value Reference Range Interpretation Comments CALCIUM IONIZED (BEAKER) (test 1.29 mmol/L 1.12-1.27 H code = 698) PH, BLOOD (BEAKER) (test code = 7.34 1810) BLOOD GAS, [id number] 15:51:00 Test Item Value Reference Range Interpretation [...] (test code = 1819) 60.0 % GLUCOSE-STAT [id number] 15:51:00 Test Item Value Reference Range Interpretation Comments GLUCOSE RANDOM (BEAKER) (test code 202 mg/dL 70-110 H = 652) HGB/HCT (H&H) - STAT [id number] 15:51:00 Test Item Value Reference Range Interpretation Comments HEMOGLOBIN (BEAKER) (test code = 9.3 g/dL 12.0-15.0 L 410) HEMATOCRIT (BEAKER) (test code = 27.0 % 36.0-45.0 L 411) SODIUM NA-STAT [id number] 15:51:00 Test Item Value Reference Range Interpretation Comments SODIUM (BEAKER) (test code = 381) 134 meq/L 135-148 L POTASSIUM-STAT [id number] 15:45:00 Test Item Value Reference Range Interpretation Comments POTASSIUM (BEAKER) (test code = 4.0 meq/L 3.6-5.5 379) OXYGEN SATURATION, [id number] 15:45:00 Test Item Value Reference Range Interpretation [...] 1413) Corrected report OR MD AT 1515.PLATELET [id number] 14:58:00 Test Item Value Reference Range Interpretation Comments PLATELET COUNT (BEAKER) (test 128 K/CU MM 150-450 L code = 756) BLOOD GAS, [id number] 14:42:00 Test Item Value Reference Range Interpretation [...] 0 % on 03/27/2017 at 1433 CDT [id number] 14:36:00 Test Item Value Reference Range Interpretation Comments ACTIVATED CLOTTING TIME 131 sec TEST ED AT [place] [address] (BEAKER) (test code = [place] [address]) [address] [id number] 14:36:00 Test Item Value Reference Range Interpretation Comments ACTIVATED CLOTTING TIME 654 sec TEST ED AT [place] [address] ([facility] (test code = [place] [address]) [address] [id number] 14:36:00 Test Item Value Reference Range Interpretation Comments ACTIVATED CLOTTING TIME 973 sec TEST ED AT [place] [address] (BEAKER) (test code = [place] [address]) [address] GLUCOSE-STAT [id number] 14:33:00 Test Item Value Reference Range Interpretation Comments GLUCOSE RANDOM (BEAKER) (test code 177 mg/dL 70-110 H = 652) SODIUM NA-STAT [id number] 14:33:00 Test Item Value Reference Range Interpretation Comments SODIUM (BEAKER) (test code = 381) 134 meq/L 135-148 L HGB/HCT (H&H) - STAT [id number] 14:33:00 Test Item Value Reference Range Interpretation Comments HEMOGLOBIN (BEAKER) (test code = 8.9 g/dL 12.0-15.0 L 410) HEMATOCRIT (BEAKER) (test code = 26.0 % 36.0-45.0 L 411) CALCIUM, [id number] 14:33:00 Test Item Value Reference Range Interpretation Comments CALCIUM IONIZED (BEAKER) (test 1.05 mmol/L 1.12-1.27 L code = 698) PH, BLOOD (BEAKER) (test code = 7.29 1810) POTASSIUM-STAT [id number] 14:32:00 Test Item Value Reference Range Interpretation Comments POTASSIUM (BEAKER) (test code = 3.9 meq/L 3.6-5.5 379) [id number] 14:12:00 Test Item Value Reference Range Interpretation Comments PARTIAL THROMBOPLASTIN TIME 43.6 seconds 22.5-36.0 H (BEAKER) (test code = 760) CALCIUM, [id number] 14:11:00 Test Item Value Reference Range Interpretation Comments CALCIUM IONIZED (BEAKER) (test 1.30 mmol/L 1.12-1.27 H code = 698) PH, BLOOD (BEAKER) (test code = 7.34 1810) PROTHROMBIN [id number] 14:11:00 Test Item Value Reference Range Interpretation Comments PROTIME (BEAKER) (test code = 23.6 seconds 11.7-14.7 H 759) INR (BEAKER) (test code = 370) 2.1 <=5.9 RECOMMENDED COUMADIN/WARFARIN INR THERAPY RANGESSTANDARD DOSE: 2.0 - 3.0 Includes: PROPHYLAXIS for venous thrombosis, systemic embolization; TREATMENT for venous thrombosis and/or pulmonary embolus.HIGH RISK: Target INR is 2.5-3.5 for patients with mechanical heart valves.[id number] 14:11:00 Test Item Value Reference Range Interpretation Comments FIBRINOGEN LEVEL (BEAKER) (test 295 mg/dl 225-434 code = 658) BLOOD GAS, [id number] 14:09:00 Test Item Value Reference Range Interpretation [...] (test code = 1819) 100.0 % GLUCOSE-STAT [id number] 14:09:00 Test Item Value Reference Range Interpretation Comments GLUCOSE RANDOM (BEAKER) (test code 126 mg/dL 70-110 H = 652) SODIUM NA-STAT [id number] 14:09:00 Test Item Value Reference Range Interpretation Comments SODIUM (BEAKER) (test code = 381) 130 meq/L 135-148 L HGB/HCT (H&H) - STAT [id number] 14:09:00 Test Item Value Reference Range Interpretation Comments HEMOGLOBIN (BEAKER) (test code = 7.8 g/dL 12.0-15.0 L 410) HEMATOCRIT (BEAKER) (test code = 23.0 % 36.0-45.0 L 411) POTASSIUM-STAT [id number] 14:05:00 Test Item Value Reference Range Interpretation Comments POTASSIUM (BEAKER) (test code = 4.3 meq/L 3.6-5.5 379) PLATELET AGGREGATION: FUNCTION [id number] 13:43:00 Test Item Value Reference Range Interpretation Comments WEAK ADP 36 % 60-91 L RESULT(BEAKER) (test code = 2135) PLATELET FUNCTION 0-39% indicates marked SCREEN INTERP platelet dysfunction (BEAKER) (test code = 2173) [id number] Joleen Blackwell MD (BEAKER) (test code = (electronic signature) 1112) PLATELET COUNT AGG 246 K/CU MM 150-450 (BEAKER) (test code = 2656) for patients on clopidogrel in past two weeksGLUCOSE-STAT [id number] 13:33:00 Test Item Value Reference Range Interpretation Comments GLUCOSE RANDOM (BEAKER) (test code 109 mg/dL 70-110 = 652) POTASSIUM-STAT [id number] 13:33:00 Test Item Value Reference Range Interpretation Comments POTASSIUM (BEAKER) (test code = 5.1 meq/L 3.6-5.5 379) BLOOD GAS, [id number] 13:33:00 Test Item Value Reference Range Interpretation [...] code = 1819) 60.0 % SODIUM NA-STAT [id number] 13:33:00 Test Item Value Reference Range Interpretation Comments SODIUM (BEAKER) (test code = 381) 130 meq/L 135-148 L HGB/HCT (H&H) - STAT [id number] 13:33:00 Test Item Value Reference Range Interpretation Comments HEMOGLOBIN (BEAKER) (test code = 7.3 g/dL 12.0-15.0 L 410) HEMATOCRIT (BEAKER) (test code = 21.0 % 36.0-45.0 L 411) GLUCOSE-STAT [id number] 13:23:00 Test Item Value Reference Range Interpretation Comments GLUCOSE RANDOM (BEAKER) (test code 104 mg/dL 70-110 = 652) POTASSIUM-STAT [id number] 13:23:00 Test Item Value Reference Range Interpretation Comments POTASSIUM (BEAKER) (test code = 4.5 meq/L 3.6-5.5 379) BLOOD GAS, [id number] 13:23:00 Test Item Value Reference Range Interpretation [...] 1819) 55.0 % HGB/HCT (H&H) - STAT [id number] 13:23:00 Test Item Value Reference Range Interpretation Comments HEMOGLOBIN (BEAKER) (test code = 7.3 g/dL 12.0-15.0 L 410) HEMATOCRIT (BEAKER) (test code = 21.0 % 36.0-45.0 L 411) SODIUM NA-STAT [id number] 13:23:00 Test Item Value Reference Range Interpretation Comments SODIUM (BEAKER) (test code = 381) 131 meq/L 135-148 L SODIUM NA-STAT [id number] 13:04:00 Test Item Value Reference Range Interpretation Comments SODIUM (BEAKER) (test code = 381) 130 meq/L 135-148 L BLOOD GAS, [id number] 13:04:00 Test Item Value Reference Range Interpretation [...] code = 1819) 70.0 % BLOOD GAS, [id number] 13:02:00 Test Item Value Reference Range Interpretation [...] 1819) 70.0 % HGB/HCT (H&H) - STAT [id number] 13:02:00 Test Item Value Reference Range Interpretation Comments HEMOGLOBIN (BEAKER) (test code = 7.5 g/dL 12.0-15.0 L 410) HEMATOCRIT (BEAKER) (test code = 22.0 % 36.0-45.0 L 411) GLUCOSE-STAT [id number] 13:00:00 Test Item Value Reference Range Interpretation Comments GLUCOSE RANDOM (BEAKER) (test code 105 mg/dL 70-110 = 652) POTASSIUM-STAT [id number] 13:00:00 Test Item Value Reference Range Interpretation Comments POTASSIUM (BEAKER) (test code = 3.5 meq/L 3.6-5.5 L 379) BLOOD GAS, [id number] 12:02:00 Test Item Value Reference Range Interpretation [...] (test code = 1819) 100.0 % GLUCOSE-STAT [id number] 12:02:00 Test Item Value Reference Range Interpretation Comments GLUCOSE RANDOM (BEAKER) (test code 111 mg/dL 70-110 H = 652) CALCIUM, [id number] 12:02:00 Test Item Value Reference Range Interpretation Comments CALCIUM IONIZED (BEAKER) (test 1.10 mmol/L 1.12-1.27 L code = 698) PH, BLOOD (BEAKER) (test code = 7.41 1810) SODIUM NA-STAT [id number] 11:57:00 Test Item Value Reference Range Interpretation Comments SODIUM (BEAKER) (test code = 381) 136 meq/L 135-148 POTASSIUM-STAT [id number] 11:57:00 Test Item Value Reference Range Interpretation Comments POTASSIUM (BEAKER) (test code = 3.6 meq/L 3.6-5.5 379) HGB/HCT (H&H) - STAT [id number] 11:57:00 Test Item Value Reference Range Interpretation Comments HEMOGLOBIN (BEAKER) (test code = 12.1 g/dL 12.0-15.0 410) HEMATOCRIT (BEAKER) (test code = 36.0 % 36.0-45.0 411) TROPONIN [id number] 04:30:00 Test Item Value Reference Range Interpretation [...] failure, acidosis, acute neurological disease, and persistent tachyarrhythmia.[id number] 04:27:00 Test Item Value Reference Range Interpretation Comments MAGNESIUM (BEAKER) 2.0 mg/dL 1.6-2.6 Specimen slightly (test code = 627) hemolyzed BASIC METABOLIC [id number] 04:27:00 Test Item Value Reference Range Interpretation [...] 697) EGFR (BEAKER) (test 92 mL/min/1.73 ESTIMA JANET GFR IS code = 1092) sq m NOT ACCURATE CREATININE CLEARANCE IN PREDICTING GLOMERULAR FILTRATION RATE . ESTIMATED GFR I S NOT APPLICABLE FOR DIALYSIS PATIEN TS. LIPID [id number] 04:27:00 Test Item Value Reference Range Interpretation [...] 100-129 Borderline 130-159 High 160-189 Very High >=190PT/APTT 2017-03-27 04:16:00 Test Item Value Reference Range Interpretation Comments PROTIME (BEAKER) (test code = 14.0 seconds 11.7-14.7 759) INR (BEAKER) (test code = 370) 1.1 <=5.9 PARTIAL THROMBOPLASTIN TIME 32.0 seconds 22.5-36.0 (BEAKER) (test code = 760) RECOMMENDED COUMADIN/WARFARIN INR THERAPY RANGESSTANDARD DOSE: 2.0 - 3.0 Includes: PROPHYLAXIS for venous thrombosis, systemic embolization; TREATMENT for venous thrombosis and/or pulmonary embolus.HIGH RISK: Target INR is 2.5-3.5 for patients with mechanical heart valves.CBC W/PLT COUNT & AUTO [id number] 04:04:00 Test Item Value Reference Range Interpretation [...] = 2801) RAD, CHEST, 1 VIEW, NON [id number] 21:55:00Reason for exam:->NSTEMIReason for exam:->pre op evalIs the patient ?->NoShould this be performed at the bedside?->YesFINAL REPORT INDICATION: NSTEMIpre op eval COMPARISON: None. TECHNIQUE: Chest radiograph, single view, portable technique. FINDINGS / IMPRESSION: There is moderate enlargement cardiac silhouette and widening of the superior mediastinal contour as well. There is pulmonary venous congestion without overt pulmonary edema. No pneumothorax or pleural effusion is demonstrated. Osseous structures are unremarkable. Signed: Maylin Lowery MDReport Verified Date/Time: 03/26/2017 21:55:33 Reading Location: [facility] B1 [id number] Consult Reading Room TROPONIN [id number] 20:47:00 Test Item Value Reference Range Interpretation Comments TROPONIN I (BEAKER) (test code = 5.49 ng/mL 0.00-0.03 HH 397) Troponin I (TnI) [...] acidosis, acute neurological disease, and persistent tachyarrhythmia.HEMOGLOBIN [id number] 20:43:00 Test Item Value Reference Range Interpretation Comments HEMOGLOBIN A1C (BEAKER) (test code = 5.2 % 4.3-6.1 368) CREATINE KINASE (CK), TOTAL AND [id number] 20:33:00 Test Item Value Reference Range Interpretation Comments CREATINE KINASE TOTAL (BEAKER) 174 U/L 29-200 (test code = 380) CREATINE KINASE-MB (BEAKER) (test 7.7 ng/mL 0.0-6.6 H code = 750) CREATINE KINASE-MB INDEX (BEAKER) 4.4 % (test code = 395) CK-MB Reference Range:<6.7 Normal6.7-10.0 Borderline>10.0 AbnormalHEPATIC FUNCTION [id number] 20:26:00 Test Item Value Reference Range Interpretation [...] 10 U/L 6-55 347) TSH/FREE T4 IF [id number] 19:08:00 Test Item Value Reference Range Interpretation Comments THYROID STIMULATING HORMONE 0.69 uIU/mL 0.35-4.94 (BEAKER) (test code = 772) [id number] 17:34:00 Test Item Value Reference Range Interpretation Comments PROTIME (BEAKER) (test code = 13.4 seconds 11.7-14.7 759) INR (BEAKER) (test code = 370) 1.0 <=5.9 PARTIAL THROMBOPLASTIN TIME 34.1 seconds 22.5-36.0 (BEAKER) (test code = 760) RECOMMENDED COUMADIN/WARFARIN INR THERAPY RANGESSTANDARD DOSE: 2.0 - 3.0 Includes: PROPHYLAXIS for venous thrombosis, systemic embolization; TREATMENT for venous thrombosis and/or pulmonary embolus.HIGH RISK: Target INR is 2.5-3.5 for patients with mechanical heart valves.B-TYPE NATRIURETIC FACTOR (BNP) 2017-03-26 17:24:00 Test Item Value Reference Range Interpretation Comments B-TYPE NATRIURETIC PEPTIDE 1900 pg/mL 0-100 H (BEAKER) (test code = 700) BASIC METABOLIC [id number] 15:51:00 Test Item Value Reference Range Interpretation [...] 697) EGFR (BEAKER) (test 92 mL/min/1.73 ESTIMA JANET GFR IS code = 1092) sq m NOT ACCURATE CREATININE CLEARANCE IN PREDICTING GLOMERULAR FILTRATION RATE . ESTIMATED GFR I S NOT APPLICABLE FOR DIALYSIS PATIEN TS. PROTHROMBIN [id number] 15:45:00 Test Item Value Reference Range Interpretation Comments PROTIME (BEAKER) (test code = 13.7 seconds 11.7-14.7 759) INR (BEAKER) (test code = 370) 1.1 <=5.9 RECOMMENDED COUMADIN/WARFARIN INR THERAPY RANGESSTANDARD DOSE: 2.0 - 3.0 Includes: PROPHYLAXIS for venous thrombosis, systemic embolization; TREATMENT for venous thrombosis and/or pulmonary embolus.HIGH RISK: Target INR is 2.5-3.5 for patients with mechanical heart valves.CBC W/PLT COUNT & AUTO [id number] 15:38:00 Test Item Value Reference Range Interpretation [...] % 0-1 PERCENT (BEAKER) (test code = 2802)
[2022-03-26 10:50] LABS: Absolute Lymphocytes (CBC) 0.4 K/uL (0.7-4.9); Hematocrit 27.6 % (36.0-45.0); Lymphocytes % 4.3 % (15.3-44.8); MCV 90.3 fL (80-100); MPV 9.9 fL (7.6-11.3); RBC Red Blood Cell Count 3.06 M/uL (3.86-4.86)
--- NOTE | 2022-03-26 11:01 | RAD REPORT ---
EXAM DESCRIPTION: CT - Head C Spine Cap Loly Con - 03/26/2022 10:51 am CLINICAL HISTORY: Trauma, head and neck injury. Chest, abdomen and pelvis pain. Multiple falls, head injury, rib pain COMPARISON: No comparisons TECHNIQUE: CT head without contrast. CT cervical spine without contrast with coronal and sagittal reformatted images. CT chest, abdomen and pelvis with IV contrast (approximately 100 mL nonionic IV contrast) with iqbal l and sagittal reformatted images of the spine. All CT scans are performed using dose optimization technique as appropriate and may include automated exposure control or mA/KV adjustment according to patient size. FINDINGS: CT HEAD WITHOUT CONTRAST: No intracranial hemorrhage, hydrocephalus or extra-axial fluid collection. Mild brain atrophy is note d. No areas of brain edema or midline shift. Right vertebral artery is atherosclerotic. The paranasal sinuses and mastoids are clear. The calvarium is intact. CT CERVICAL SPINE WITHOUT CONTRAST: No fracture or subluxation. Mild lower lumbar degenerative changes. The prevertebral soft tissues are normal in thickness.Vertebral atherosclerosis. CT CHEST, ABDOMEN, PELVIS WITH CONTRAST: Emphysematous changes are present throughout the lungs. Small patchy areas of opacities in both lungs peripherally are nonspecific.Stent material seen in the descending thoracic and abdominal aorta.No p neumothorax or pericardial/pleural fluid. No evidence of intra-abdominal visceral injury, free fluid or free air. Sigmoid diverticulosis coli without diverticulitis. No acute fracture is discerned. IMPRESSION: Negative for acute traumatic findings.
[2022-03-26 11:37] LABS: Albumin 2.9 g/dL (3.4-5.0); Bilirubin Total 0.3 mg/dL (0.2-1.0)
[2022-03-26 11:55] LABS: Magnesium 2.4 mg/dL (1.8-2.4)
[2022-03-26 12:00] LABS: Potassium 8.2 mmol/L (3.5-5.1); Troponin High Sensitivity 123.2 pg/mL (<58.9)
[2022-03-26 12:21] LABS: Blood Morphology Comment NOT SEEN (NOT SEEN); Platelet Estimate DECR
[2022-03-26] MEDS ORDERED: DEXTROSE 10%-WATER 250 ML IV ONE (13:00)
[2022-03-26] MEDS ORDERED: LABETALOL 20 MG/4ML SYRINGE IV ONE (13:00)
[2022-03-26] MEDS ORDERED: INSULIN -REGULAR HUMAN 50 UNIT/0.5 ML ML IV ONE (13:00)
[2022-03-26] MEDS ORDERED: SODIUM BICARB 50 MEQ/50ML VIAL IV ONE (13:00)
[2022-03-26] MEDS ORDERED: SOD POLYSTYREN SUL 15 GM/60 ML UCUP PO ONE (13:00)
[2022-03-26] MEDS ORDERED: Calcium Gluconate 9.3 mEq (=2gm)/NS 100 mL IVPB IV ONE ×2 (13:00)
[2022-03-26] MEDS ORDERED: FUROSEMIDE 40 MG/4 ML VIAL IV ONE (13:00)
[2022-03-26] MEDS ORDERED: ALBUTEROL 2.5 MG/3 ML NEB SOL NEB ONE (13:00)
--- NOTE | 2022-03-26 14:27 | EDPHYS ---
Physician Documentation [facility] Name: Nicolasa Krishnan Age: 57 yrs Sex: Female : 1965 Arrival Date: 03/26/2022 Time: 10:20 Bed 4 Private MD: ED Physician Anni Rowe HPI: 03/26 10:39 This 57 yrs old Female presents to ER via EMS with complaints of Weakness, Fall Injury. sd2 10:39 57-year-old female with a history of end-stage renal disease on dialysis presents via sd2 EMS with chief complaint of recurrent falls. She reports she has fallen at least 5 times over the past couple of days. She has had a head injury and complains of neck pain. C-collar was placed upon arrival. She also has not received dialysis since last Saturday and she normally receives it on Saturday, Saturday and Saturday. She reports she was diagnosed with COVID 13 days ago and in that timeframe, her mother has also possibly from COVID. She reports increased stress due to her family blaming her for her mother's . She was noted to be hypertensive in route. She does report that she has taken all of her medications today including her blood pressure medications. She denies any significant chest pain or shortness of breath at this time.. ORDER RUNNER: 14:44 LMP N/A - Post-menopause ap3 Historical: - Allergies: 10:22 Codeine; ll1 - PMHx: 10:22 Abdominal aneurysm; MENDOZA leg stents; Dialysis; PVD; ll1 - PSHx: 10:22 AAA; aneurysm repair; "Kidney stents"; ll1 - Immunization history:: Client reports receiving the 2nd dose of the Covid vaccine. - Social history:: Smoking status: Patient reports the use of cigarette tobacco products, smokes one pack cigarettes per day. - Immunization history: Last tetanus immunization:. ROS: 10:39 Constitutional: Negative for fever, chills, and weight loss, Eyes: Negative for injury, sd2 pain, redness, and discharge, Cardiovascular: Negative for chest pain, palpitations, and edema, Respiratory: Negative for shortness of breath, cough, wheezing. Abdomen/GI: Negative for abdominal pain, nausea, vomiting, diarrhea. Back: Positive for injury and pain. MS/Extremity: Positive for injury. Negative for deformity. Skin: Negative for injury, rash, and discoloration, Neuro: Positive for headache, Negative for numbness and tingling. Exam: 10:39 Constitutional: This is a well developed, well nourished patient who is awake, alert, sd2 and in no acute distress. Head/Face: Normocephalic, hematoma noted to mid forehead Eyes: EOMI, normal conjunctiva bilaterally Chest/axilla: Normal chest wall appearance and motion. Nontender with no deformity. HD catheter in place to R upper chest wall Cardiovascular: Tachycardic rate and regular rhythm with a normal S1 and S2. No gallops, murmurs, or rubs. 2+ distal pulses. Respiratory: Lungs have equal breath sounds bilaterally, clear to auscultation and percussion. No rales, rhonchi or wheezes noted. No increased work of breathing, no retractions or nasal flaring. Abdomen/GI: Soft, non-tender, with normal bowel sounds. No guarding or rebound. No evidence of tenderness throughout. Back: Midline cervical and thoracic spinal tenderness. NO stepoffs or deformities. No costovertebral tenderness. Full range of motion. Skin: Warm, dry with normal turgor. Normal color with no rashes, no lesions, and no evidence of cellulitis. Scattered bruises noted to all extremities MS/ Extremity: Pulses equal, no cyanosis. Neurovascular intact. Full, normal range of motion. Psych: Awake, alert, with orientation to person, place and time. Behavior, mood, and affect are within normal limits. 11:24 ECG was reviewed by the Attending Physician. NSR, rate 64, no STEMI criteria, ST sd2 depression noted in inferior leads with TWIs in leads I and aVL Vital Signs: 10:20 Pulse 63; Pulse Ox 97% ; Weight 49.9 kg; Height 5 ft. 4 in. (162.56 cm); Pain 9/10; ll1 10:22 BP 204 / 109; Pulse 66; Pulse Ox 97% on R/A; ap3 11:43 BP 206 / 105; Pulse 66; Pulse Ox 97% ; ap3 11:46 Pulse 71; ap3 12:24 BP 214 / 90; Pulse 77; Pulse Ox 98% on R/A; ap3 13:14 BP 214 / 101; Pulse 74; Pulse Ox 98% on R/A; ap3 13:51 BP 194 / 135; Pulse 79; Pulse Ox 97% on R/A; ap3 14:06 BP 181 / 97; Pulse 78; Pulse Ox 97% on R/A; ap3 18:35 BP 183 / 90; Pulse 81; Pulse Ox 97% on R/A; ap3 19:28 BP 189 / 96; Pulse 93; Resp 15; Temp 98.0(O); Pulse Ox 96% on R/A; aa9 10:20 Body Mass Index 18.88 (49.90 kg, 162.56 cm) ll1 [place] Coma Score: 11:43 Eye Response: spontaneous(4). Verbal Response: oriented(5). Motor Response: obeys ap3 commands(6). Total: 15. 11:49 Eye Response: spontaneous(4). Verbal Response: oriented(5). Motor Response: obeys ap3 commands(6). Total: 15. 12:24 Eye Response: spontaneous(4). Verbal Response: oriented(5). Motor Response: obeys ap3 commands(6). Total: 15. 13:14 Eye Response: spontaneous(4). Verbal Response: oriented(5). Motor Response: obeys ap3 commands(6). Total: 15. 13:51 Eye Response: spontaneous(4). Verbal Response: oriented(5). Motor Response: obeys ap3 commands(6). Total: 15. 14:06 Eye Response: spontaneous(4). Verbal Response: oriented(5). Motor Response: obeys ap3 commands(6). Total: 15. 18:35 Eye Response: spontaneous(4). Verbal Response: oriented(5). Motor Response: obeys ap3 commands(6). Total: 15. Trauma Score (Adult): 10:22 Eye Response: spontaneous(1); Verbal Response: oriented(1); Motor Response: obeys ap3 commands(2); Systolic BP: > 89 mm Hg(4); Respiratory Rate: 10 to 29 per min(4); [place] Score: 15; Trauma Score: 12 11:49 Eye Response: spontaneous(1); Verbal Response: oriented(1); Motor Response: obeys ap3 commands(2); Systolic BP: > 89 mm Hg(4); Respiratory Rate: 10 to 29 per min(4); Yari Score: 15; Trauma Score: 12 MDM: 10:34 Patient medically screened. sd2 10:39 Data reviewed: vital signs, nurses notes, EMS record. ED course: Differential diagnosis sd2 includes but is not limited to: Fracture, contusion, abrasion, closed head injury, pneumothorax, intra-abdominal injury, intracranial hemorrhage, spinal injury among others. 13:43 Physician consultation: Kashif Carbajal MD was called at 15:15, was contacted at ok2 15:15, regarding consult, States she is not the one exceptional student education teacher despite her name being on the call list. She will call Dr. Lepe who is exceptional student education teacher for the hospital and ask him to call the ER for consult. . 14:24 ED course: Dr. Lepe aware and emergent HD orders in place. Pt to be admitted to [facility] hospitalist service under Dr. Hoffmann. . 03/26 10:32 Order name: CBC with Diff; Complete Time: 13:19 sd2 03/26 10:32 Order name: CMP; Complete Time: 12:07 03/26 10:32 Order name: Magnesium; Complete Time: 12:07 sd2 03/26 10:32 Order name: Troponin High Sensitivity; Complete Time: 12:07 sd2 03/26 10:32 Order name: BNP; Complete Time: 12:07 2 03/26 10:32 Order name: ABG: Venous please sd2 03/26 10:32 Order name: CT Traumagram (Head C Spine CAP W Con); Complete Time: 11:14 sd2 03/26 12:22 Order name: Manual Differential; Complete Time: 13:19 EDMS 03/26 14:09 Order name: COVID-19 SARS RT PCR (Document "Date of Onset" if Symptomatic) ap3 03/26 10:32 Order name: EKG - Nurse/Tech; Complete Time: 11:11 sd2 Administered Medications: 12:50 Drug: Calcium Gluconate 2 grams Route: IVPB; Infused Over: 60 mins; Site: right ap3 antecubital; 14:46 Follow up: IV Status: Completed infusion; IV Intake: 100ml ap3 12:55 Drug: Lasix (furosemide) 80 mg Route: IVP; Site: right antecubital; ap3 14:46 Follow up: Response: No adverse reaction ap3 13:00 Drug: Insulin Regular Human 10 units {Co-Signature: ll1 (Piter Menchaca RN).} Route: IVP; ap3 Site: left antecubital; 14:46 Follow up: Response: No adverse reaction ap3 13:04 Drug: D50W 50 ml Route: IVP; Site: left antecubital; ap3 14:46 Follow up: Response: No adverse reaction ap3 13:12 Drug: Albuterol 10 mg Route: Inhalation; ap3 13:12 Drug: Kayexalate (polystyrene) 30 grams Route: PO; ap3 14:46 Follow up: Response: No adverse reaction ap3 13:12 Drug: Labetalol 20 mg Route: IV; Rate: bolus; Infused Over: 2 mins; Site: left ap3 antecubital; 14:46 Follow up: Response: No adverse reaction; Blood pressure is lowered; IV Status: ap3 Completed infusion 13:13 Drug: Sodium Bicarbonate 1 amp Route: IVP; Site: left antecubital; ap3 14:46 Follow up: Response: No adverse reaction ap3 Disposition Summary: 03/26/22 14:27 Hospitalization Ordered Hospitalization Status: Inpatient Admission sd2 Provider: Lakhwinder Hoffmann sd2 Condition: Stable sd2 Problem: an acute exacerbation sd2 Symptoms: are unchanged sd2 Bed/Room Type: Standard sd2 Location: Intensive Care Unit(03/26/22 21:45) cg Room Assignment: 8-(03/26/22 21:45) cg Diagnosis - Hyperkalemia sd2 - Non-compliance with renal dialysis sd2 - Fluid overload sd2 - COVID-19 sd2 - Recurrent falls sd2 - Closed Head Injury sd2 Forms: - Medication Reconciliation Form sd2 - SBAR form sd2 Signatures: Dispatcher [employer] Sherice Dowd RN RN cg Philly Merlos RN RN ap3 Piter Menchaca RN RN ll1 Anni Rowe MD MD sd2 Taty Menchaca RN RN ll4 Piter Menchaca RN ll1 Corrections: (The following items were deleted from the chart) 15:54 14:27 Intensive Care Unit sd2 ll4 15:54 14:27 sd2 ll4 15:54 15:54 ll4 ll4 21:45 15:54 [facility] ER HOLD ll4 cg :45 15:54 ERHOLD- ll4 cg
--- NOTE | 2022-03-26 14:27 | ER ---
Nurse's Notes [facility] Name: Nicolasa Krishnan Age: 57 yrs Sex: Female : 1965 Arrival Date: 03/26/2022 Time: 10:20 Bed 4 Private MD: Diagnosis: Hyperkalemia;Non-compliance with renal dialysis;Fluid overload;COVID-19;Recurrent falls;Closed Head Injury Presentation: 03/26 10:20 Chief complaint: Patient states: Covid positive for 13 days. Generalized weakness with ll1 5-6 falls since last night. Coronavirus screen: Vaccine status: Patient reports receiving the 2nd dose of the covid vaccine. Client denies travel out of the [place] in the last 14 days. cough unrelated to allergies, difficulty breathing, fatigue, shortness of breath, Client presents with at least one sign or symptom that may indicate coronavirus-19. Standard/surgical mask placed on the client. Ebola Screen: Patient denies travel to an Ebola-affected area in the 21 days before illness onset. No acute neurological deficit is noted. Initial Sepsis Screen: Does the patient meet any 2 criteria? No. Patient's initial sepsis screen is negative. Does the patient have a suspected source of infection? Yes: Productive cough/pneumonia. Risk Assessment: Do you want to hurt yourself or someone else? Patient reports no desire to harm self or others. Onset of symptoms was March 13, 2022. 10:20 Method Of Arrival: EMS ll1 10:20 Acuity: YOLIS 3 ll1 10:22 Mechanism of Injury: Fall multiple falls overnight. Trauma event details: Injury ap3 occurred in the [facility], Injury occurred: at home. Injury occurred: March 25, 2022. 10:23 Acuity: YOLIS 2 jl7 10:26 Chief complaint: EMS states: BP 230/120. Missed last 3 dialysis sessions. No LOC during ll1 the falls. 11:51 Care prior to arrival: None. ap3 Triage Assessment: 10:23 General: Appears uncomfortable, ill, Behavior is cooperative, appropriate for age. ll1 Pain: Complains of pain in head Quality of pain is described as aching. Neuro: Reports headache weakness. Cardiovascular: Reports fatigue. Respiratory: Reports cough that is. 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 N/A - Post-menopause ap3 Trauma Activation: Alert Physician: ED Physician; Name: ; Notified At: ; Arrived At: Physician: General Surgeon; Name: ; Notified At: ; Arrived At: Physician: Radiology; Name: ; Notified At: ; Arrived At: Physician: Respiratory; Name: ; Notified At: ; Arrived At: Physician: Lab; Name: ; Notified At: ; Arrived At: Stroke Activation: Symptom onset > 6 hours Physician: Stroke Attending; Name: ; Notified At: ; Arrived At: Physician: Chief Stroke Resident; Name: ; Notified At: ; Arrived At: Physician: Stroke Resident; Name: ; Notified At: ; Arrived At: Physician: ED Attending; Name: ; Notified At: ; Arrived At: Physician: ED Resident; Name: ; Notified At: ; Arrived At: Historical: - Allergies: 10: Codeine; ll1 - PMHx: 10:22 Abdominal aneurysm; MENDOZA leg stents; Dialysis; PVD; ll1 - PSHx: 10:22 AAA; aneurysm repair; "Kidney stents"; ll1 - Immunization history:: Client reports receiving the 2nd dose of the Covid vaccine. - Social history:: Smoking status: Patient reports the use of cigarette tobacco products, smokes one pack cigarettes per day. - Immunization history: Last tetanus immunization:. Screenin:52 Abuse screen: Denies threats or abuse. Nutritional screening: No deficits noted. ap3 Tuberculosis screening: No symptoms or risk factors identified. Fall Risk Fall in past 12 months (25 points). Secondary diagnosis (15 points) impaired mobility, IV access (20 points). Ambulatory Aid- None/Bed Rest/Nurse Assist (0 pts). Gait- Weak (10 pts.). Mental Status- Oriented to own ability (0 pts). Total Darling Fall Scale indicates High Risk Score (45 or more points). Fall prevention measures have been instituted. Side Rails Up X 2 Placed Close to Nursing Station Frequent Obs/Assessments Occuring As available patient and family educated on Fall Prevention Program and Strategies. Primary Survey: 10:22 NO uncontrolled hemorrhage observed. A: The client is awake and alert. The airway is ap3 patent. Breathing/Chest: Spontaneous respiratory effort, equal unlabored respirations, breath sounds clear bilaterally, regular pattern, symmetrical chest rise and fall. Circulation: No external hemorrhage present. Regular and strong central pulse, skin warm/dry/normal color. Disability Pupils are equal, round, reactive to light and accommodation. Exposure/Environment: A warming method has been applied: A warm blanket has been provided to the patient. 11:49 Reassessment Alertness and Airway: Awake and alert. The airway is patent. Airway Patent ap3 Breathing: Spontaneous respiratory effort, equal unlabored respirations, breath sounds clear bilaterally, regular pattern with symmetrical chest rise and fall. Circulation: No external hemorrhage noted. Regular and strong central pulse, skin warm/dry/normal color. Disability: Pupils Pupils are equal, round, reactive to light and accomodation. Assessment: 11:48 The patient is alert, and able to follow commands. ap3 12:08 General: provider notified of patients vital signs. ap3 12:12 Reassessment: Patient and/or family updated on plan of care and expected duration. Pain ap3 level reassessed. Patient is alert, oriented x 3, equal unlabored respirations, skin warm/dry/pink. 14:06 Reassessment: Patient and/or family updated on plan of care and expected duration. Pain ap3 level reassessed. Patient is alert, oriented x 3, equal unlabored respirations, skin warm/dry/pink. 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 ap3 18:35 General: pt returned from dialysis . ap3 19:28 General: Appears slender, Behavior is cooperative, anxious, crying. Pain: Complains of aa9 pain in right eye and left eye. Pain: Aggravated by unable to sleep. Neuro: Level of Consciousness is awake, alert, obeys commands. Respiratory: Airway is patent Respiratory effort is even, unlabored. Vital Signs: 10:20 Pulse 63; Pulse Ox 97% ; Weight 49.9 kg; Height 5 ft. 4 in. (162.56 cm); Pain 9/10; ll1 10:22 BP 204 / 109; Pulse 66; Pulse Ox 97% on R/A; ap3 11:43 BP 206 / 105; Pulse 66; Pulse Ox 97% ; ap3 11:46 Pulse 71; ap3 12:24 BP 214 / 90; Pulse 77; Pulse Ox 98% on R/A; ap3 13:14 BP 214 / 101; Pulse 74; Pulse Ox 98% on R/A; ap3 13:51 BP 194 / 135; Pulse 79; Pulse Ox 97% on R/A; ap3 14:06 BP 181 / 97; Pulse 78; Pulse Ox 97% on R/A; ap3 18:35 BP 183 / 90; Pulse 81; Pulse Ox 97% on R/A; ap3 19:28 BP 189 / 96; Pulse 93; Resp 15; Temp 98.0(O); Pulse Ox 96% on R/A; aa9 10:20 Body Mass Index 18.88 (49.90 kg, 162.56 cm) ll1 [place] Coma Score: 11:43 Eye Response: spontaneous(4). Verbal Response: oriented(5). Motor Response: obeys ap3 commands(6). Total: 15. 11:49 Eye Response: spontaneous(4). Verbal Response: oriented(5). Motor Response: obeys ap3 commands(6). Total: 15. 12:24 Eye Response: spontaneous(4). Verbal Response: oriented(5). Motor Response: obeys ap3 commands(6). Total: 15. 13:14 Eye Response: spontaneous(4). Verbal Response: oriented(5). Motor Response: obeys ap3 commands(6). Total: 15. 13:51 Eye Response: spontaneous(4). Verbal Response: oriented(5). Motor Response: obeys ap3 commands(6). Total: 15. 14:06 Eye Response: spontaneous(4). Verbal Response: oriented(5). Motor Response: obeys ap3 commands(6). Total: 15. 18:35 Eye Response: spontaneous(4). Verbal Response: oriented(5). Motor Response: obeys ap3 commands(6). Total: 15. Trauma Score (Adult): 10:22 Eye Response: spontaneous(1); Verbal Response: oriented(1); Motor Response: obeys ap3 commands(2); Systolic BP: > 89 mm Hg(4); Respiratory Rate: 10 to 29 per min(4); [place] Score: 15; Trauma Score: 12 11:49 Eye Response: spontaneous(1); Verbal Response: oriented(1); Motor Response: obeys ap3 commands(2); Systolic BP: > 89 mm Hg(4); Respiratory Rate: 10 to 29 per min(4); Yari Score: 15; Trauma Score: 12 ED Course: 10:20 Patient arrived in ED. ll1 10:20 Anni Rowe MD is Attending Physician. sd2 10:22 Triage completed. ll1 10:22 Warm blanket given. ap3 10:22 Thermoregulation: warm blanket given to patient. ap3 10:22 Rigid cervical collar applied. ap3 10:23 Arm band placed on Patient placed in an exam room, on a stretcher. ll1 10:28 Philly Merlos, BRIA is Primary Nurse. ap3 10:28 Inserted saline lock: 20 gauge in left antecubital area, using aseptic technique. Blood ap3 collected. 10:39 BNP Sent. kc6 10:39 Troponin High Sensitivity Sent. kc6 10:39 Magnesium Sent. kc6 10:40 CMP Sent. kc6 10:40 CBC with Diff Sent. kc6 10:54 CT Traumagram (Head C Spine CAP W Con) In Process Unspecified. EDMS 11:50 Patient has correct armband on for positive identification. Bed in low position. Call ap3 light in reach. Side rails up X2. media monitor on. Pulse ox on. NIBP on. 11:50 Patient maintains SpO2 saturation greater than 95% on room air. ap3 12:10 Notified ED physician of a critical lab result(s). Dr. Rowe of 123.2 troponin, 8.2 kr3 potassium, 9.03 creatinine. 14:25 Lakhwinder Hoffmann is Hospitalizing Provider. sd2 17:19 No provider procedures requiring assistance completed. Patient admitted, IV remains in ap3 place. 19:25 Primary Nurse role handed off by Philly Merlos, BRIA wm Administered Medications: 12:50 Drug: Calcium Gluconate 2 grams Route: IVPB; Infused Over: 60 mins; Site: right ap3 antecubital; 14:46 Follow up: IV Status: Completed infusion; IV Intake: 100ml ap3 12:55 Drug: Lasix (furosemide) 80 mg Route: IVP; Site: right antecubital; ap3 14:46 Follow up: Response: No adverse reaction ap3 13:00 Drug: Insulin Regular Human 10 units {Co-Signature: ll1 (Piter Menchaca RN).} Route: IVP; ap3 Site: left antecubital; 14:46 Follow up: Response: No adverse reaction ap3 13:04 Drug: D50W 50 ml Route: IVP; Site: left antecubital; ap3 14:46 Follow up: Response: No adverse reaction ap3 13:12 Drug: Albuterol 10 mg Route: Inhalation; ap3 13:12 Drug: Kayexalate (polystyrene) 30 grams Route: PO; ap3 14:46 Follow up: Response: No adverse reaction ap3 13:12 Drug: Labetalol 20 mg Route: IV; Rate: bolus; Infused Over: 2 mins; Site: left ap3 antecubital; 14:46 Follow up: Response: No adverse reaction; Blood pressure is lowered; IV Status: ap3 Completed infusion 13:13 Drug: Sodium Bicarbonate 1 amp Route: IVP; Site: left antecubital; ap3 14:46 Follow up: Response: No adverse reaction ap3 Medication: 14:44 VIS not applicable for this client. ap3 Intake: 14:46 IV: 100ml; Total: 100ml. ap3 Outcome: 14:27 Decision to Hospitalize by Provider. sd2 14:44 Patient's length of stay in the Emergency Department was greater than 2 hours. patient ap3 was awaiting dialysis, and will be waiting for a bed after she gets dialysis Patient's length of stay extended due to 17:20 Admitted to ER Hold. Please see [facility] for further documentation. ap3 17:20 Condition: good 17:20 Instructed on the need for admit. 22:46 Patient left the ED. jb4 Signatures: Dispatcher [employer] EDMS Randell Camp RN RN jb4 Carlton Colin RN RN jl7 Philly Merlos RN RN ap3 Piter Menchaca RN RN ll1 Rosalie Bella Stephanie, MD MD sd2 Susana Cristina RN RN aa9 Brandi Ann RN RN [id number] Lamar Miller6 Piter Menchaca RN ll1 Corrections: (The following items were deleted from the chart) 12:10 10:22 BP 104 / 109; Pulse 66bpm; Pulse Ox 97% RA; ap3 ap3
[2022-03-26] MEDS ORDERED: ACETAMINOPHEN 500 MG TAB PO PRN (15:56)
[2022-03-26] MEDS ORDERED: ONDANSETRON 4 MG/2 ML VIAL IV PRN (15:56)
[2022-03-26 16:09] VITALS: BMI 18.8
[2022-03-26] MEDS: HEPARIN 5000 UNIT/ML 1 ML VIAL SQ SCH (17:00)
--- NOTE | 2022-03-26 19:00 | P.HP ---
Certification for Inpatient Patient admitted to: Inpatient With expected LOS: >2 Midnights Practitioner: I am a practitioner with admitting privileges, knowledge of patient current condition, hospital course, and medical plan of care. Services: Services provided to patient in accordance with Admission requirements found in Title 42 Section 412.3 of the Code of Federal Regulations Patient History Date of Service: 03/26/22 Reason for admission: Falls, hyperkalemia History of Present Illness: 57-year-old woman with a history of multiple medical problems including end- stage renal disease on hemodialysis was brought to the emergency department after a fall at home. Patient stated he missed 3 days of hemodialysis. She said she was angry after her mother recently of COVID and did not feel like going for hemodialysis. She was diagnosed with COVID 13 days ago. She stated her other family members also got COVID. Blood work done in the ED shows severe hyperkalemia with a potassium of 8. Imaging showed no trauma or fracture, lungs clear. Nephrology-Dr. Lepe was contacted who recommended emergent hyperkalemia treatment and hospitalization for emergent dialysis. Patient was seen in the dialysis unit for admission. Allergies codeine Allergy (Verified 12/20/20 00:37) Nausea/Vomiting Home Medications: Aspirin [Aspirin EC 81 MG] 81 mg PO DAILY 12/20/20 Atorvastatin Calcium 40 mg PO BEDTIME 12/20/20 Ergocalciferol (Vitamin D2) [Vitamin D 50,000 Unit Cap] 50,000 units PO EVERY 7TH DAY 12/20/20 Metoclopramide HCl 5 mg PO DAILY PRN MDD n/a 12/20/20 Montelukast [Singulair*] 10 mg PO DAILY 12/20/20 Sacubitril/Valsartan [Entresto 49 mg-51 mg Tablet] 1 tab PO BID 12/20/20 Sertraline [Zoloft*] 150 mg PO DAILY 12/20/20 Diazepam [Valium] 5 mg PO TID PRN #30 12/21/20 Albuterol Inhaler [Ventolin Inhaler*] 2 puff IH TID PRN #1 12/26/20 Pantoprazole [Protonix Tab] 40 mg PO DAILY #30 tab 12/26/20 cloNIDine HCL [Catapres*] 0.1 mg PO TID #90 tab 12/26/20 - Past Medical/Surgical History Diabetic: No -: ESRD on HD -: PVD -: AAA -: HTN -: HLD -: hernia repair -: cholecystectomy -: CABGx4 -: renal stents -: bifemoral stents -: dialysis -: carotid endarectomy - Family History Mother -: Heart disease - Social History Smoking Status: Never smoker Alcohol use: No CD- Drugs: No Caffeine use: Yes Place of Residence: Home Review of Systems Other: Except as documented, all other systems reviewed and negative. Physical Examination - Physical Exam General: Alert, In no apparent distress, Oriented x3 HEENT: Mucous membr. moist/pink, Other (Periorbital edema) Neck: Supple, JVD not distended Respiratory: Clear to auscultation bilaterally, Normal air movement Cardiovascular: Regular rate/rhythm, Normal S1 S2, No murmurs, Edema (Lower extremities) Capillary refill: <2 Seconds Gastrointestinal: Normal bowel sounds, Soft and benign, Non-distended, No tenderness Musculoskeletal: No swelling Integumentary: Other (Forehead bruise) Neurological: Normal speech, Normal strength at 5/5 x4 extr, Cranial nerves 3-12 intact - Studies Laboratory Data (last 24 hrs) 03/26/22 10:36: Sodium 138, Potassium 8.2 H*, BUN 225 H, Creatinine 9.03 H*, Glucose 127 H, Magnesium 2.4, Total Bilirubin 0.3, AST 16, ALT 39, Alkaline Phosphatase 88 03/26/22 10:36: WBC 8.70, Hgb 9.2 L, Hct 27.6 L, Plt Count 86 L Assessment and Plan - Problems (Diagnosis) (1) Falls Current Visit: Yes Status: Acute (2) Hyperkalemia Current Visit: Yes Status: Acute (3) ESRD (end stage renal disease) Current Visit: No Status: Acute - Plan Admit patient to the medical floor. Emergent hemodialysis per nephrology. Patient given treatment for hyperkalemia in the ED Check potassium level post hemodialysis. She is currently COVID-positive but asymptomatic. Reconcile and continue other home medications. PT evaluation. - Advance Directives Does patient have a Living Will: No Does patient have a Durable POA for Healthcare: No
[2022-03-26] MEDS ORDERED: ALPRAZOLAM 0.5 MG TABLET PO ONE (19:24)
[2022-03-26] MEDS ORDERED: ALPRAZOLAM 0.5 MG TABLET ONE (19:46)
[2022-03-26] MEDS ORDERED: MORPHINE 4 MG/ML SYR IV ONE (23:43)
[2022-03-27] MEDS: HEPARIN 5000 UNIT/ML 1 ML VIAL SQ SCH ×3 (02:21→17:37)
[2022-03-27] MEDS ORDERED: NA CHLORIDE 0.9% 1,000 ML IV PRN (08:13)
[2022-03-27] MEDS ORDERED: MANNITOL 25% 12.5 GM/50 ML VIAL IV PRN (08:13)
--- NOTE | 2022-03-27 08:20 | P.CNS ---
Date of Consult: 03/27/22 Reason for Consult: ESRD/ Hyperkalemia Requesting Physician: charlotte kaur Chief Complaint: Falls, hyperkalemia History of Present Illness: 57-year-old woman with a history of multiple medical problems including end- stage renal disease on hemodialysis was brought to the emergency department after a fall at home. Patient stated he missed 3 days of hemodialysis. She said she was angry after her mother recently of COVID and did not feel like going for hemodialysis. She was diagnosed with COVID 13 days ago. She stated her other family members also got COVID. Blood work done in the ED shows severe hyperkalemia with a potassium of 8. Imaging showed no trauma or fracture, lungs clear. Nephrology-Dr. Lepe was contacted who recommended emergent hyperkalemia treatment and hospitalization for emergent dialysis. Patient was seen in the dialysis unit for admission. 10:39 This 57 yrs old Female presents to ER via EMS with complaints of Weakness, Fall Injury. [facility] 10:39 57-year-old female with a history of end-stage renal disease on dialysis presents via [facility] with chief complaint of recurrent falls. She reports she has fallen at least 5 times over the past couple of days. She has had a head injury and complains of neck pain. C-collar was placed upon arrival. She also has not received dialysis since last Saturday and she normally receives it on Saturday, Saturday and Saturday. She reports she was diagnosed with COVID 13 days ago and in that timeframe, her mother has also possibly from COVID. She reports increased stress due to her family blaming her for her mother's . She was noted to be hypertensive in route. She does report that she has taken all of her medications today including her blood pressure medications. She denies any significant chest pain or shortness of breath at this time.. Allergies codeine Allergy (Verified 12/20/20 00:37) Nausea/Vomiting Home medications list reviewed: Yes Home Medications: Aspirin [Aspirin EC 81 MG] 81 mg PO DAILY 12/20/20 Atorvastatin Calcium 40 mg PO BEDTIME 12/20/20 Sacubitril/Valsartan [Entresto 49 mg-51 mg Tablet] 1 tab PO BID 12/20/20 Sertraline [Zoloft*] 150 mg PO DAILY 06/15/21 Diazepam [Valium] 5 mg PO TID PRN #30 12/21/20 Albuterol Inhaler [Ventolin Inhaler*] 2 puff IH TID PRN #1 12/26/20 cloNIDine HCL [Catapres*] 0.1 mg PO TID #90 tab 12/26/20 Carvedilol [Coreg] 25 mg PO BID* 03/26/22 Cinacalcet HCl 30 mg PO M,W,F 03/26/22 Clopidogrel Bisulfate [Plavix*] 75 mg PO DAILY 03/26/22 Famotidine 20 mg PO QOD QID 03/26/22 Furosemide 40 mg PO DAILY 03/26/22 Isosorbide Mononitrate [Isosorbide Mononitrate ER] 30 mg PO BEDTIME 03/26/22 Ondansetron HCl 4 mg PO Q8HR PRN 03/26/22 dexAMETHasone [Dexamethasone] 6 mg PO BID 03/26/22 Nepro Shake [Nepro*] 237 ml PO BID #60 can 03/27/22 - Past Medical/Surgical History Diabetic: No -: ESRD on HD (Dr. Carbajal) -: CAD/ PAD -: AAA -: HTN -: HLD -: hernia repair -: cholecystectomy -: CABGx4 -: renal stents -: bifemoral stents -: carotid endarectomy - Family History Mother Medical History: Heart disease - Social History Smoking Status: Unknown if ever smoked Alcohol use: No CD- Drugs: No Caffeine use: Yes Place of Residence: Home Review of Systems 10-point ROS is otherwise unremarkable General: Weakness, Malaise Respiratory: SOB with Excertion Cardiovascular: Edema Neurological: Weakness Physical Examination Temp Pulse Resp BP Pulse Ox 97.1 F 72 18 201/93 H 96 03/27/22 04:00 03/27/22 04:00 03/27/22 04:00 03/27/22 04:00 03/27/22 04:00 General: Oriented x3, Cooperative, Mild distress HEENT: Atraumatic Neck: Supple Respiratory: Diminished Cardiovascular: Regular rate/rhythm, Edema Gastrointestinal: Non-distended, No guarding Musculoskeletal: No clubbing, No contractures Integumentary: No rashes, No cyanosis Neurological: Normal speech Laboratory Data (last 24 hrs) 03/26/22 10:36: Sodium 138, Potassium 8.2 H*, BUN 225 H, Creatinine 9.03 H*, Glucose 127 H, Magnesium 2.4, Total Bilirubin 0.3, AST 16, ALT 39, Alkaline Phosphatase 88 03/26/22 10:36: WBC 8.70, Hgb 9.2 L, Hct 27.6 L, Plt Count 86 L Imagings Data: EXAM DESCRIPTION: CT - Head C Spine Cap W Con - 03/26/2022 10:51 am CLINICAL HISTORY: Trauma, head and neck injury. Chest, abdomen and pelvis pain. Multiple falls, head injury, rib pain COMPARISON: No comparisons TECHNIQUE: CT head without contrast. CT cervical spine without contrast with coronal and sagittal reformatted images. CT chest, abdomen and pelvis with IV contrast (approximately 100 mL nonionic IV contrast) with coronal and sagittal reformatted images of the spine. All CT scans are performed using dose optimization technique as appropriate and may include automated exposure control or mA/KV adjustment according to patient size. FINDINGS: CT HEAD WITHOUT CONTRAST: No intracranial hemorrhage, hydrocephalus or extra-axial fluid collection. Mild brain atrophy is noted. No areas of brain edema or midline shift. Right vertebral artery is atherosclerotic. The paranasal sinuses and mastoids are clear. The calvarium is intact. CT CERVICAL SPINE WITHOUT CONTRAST: No fracture or subluxation. Mild lower lumbar degenerative changes. The prevertebral soft tissues are normal in thickness.Vertebral atherosclerosis. CT CHEST, ABDOMEN, PELVIS WITH CONTRAST: Emphysematous changes are present throughout the lungs. Small patchy areas of opacities in both lungs peripherally are nonspecific.Stent material seen in the descending thoracic and abdominal aorta.No pneumothorax or pericardial/pleural fluid. No evidence of intra-abdominal visceral injury, free fluid or free air. Sigmoid diverticulosis coli without diverticulitis. No acute fracture is discerned. IMPRESSION: Negative for acute traumatic findings. 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 Greater than 30min patient care Critical Care: Yes
[2022-03-27] MEDS ORDERED: SACUBITRIL/VALSARTAN 49/51 MG TAB PO SCH ×2 (09:00)
[2022-03-27] MEDS ORDERED: ALBUMIN HUMAN 25% 50 ML IV SCH (09:00)
[2022-03-27 09:05] LABS: Absolute Lymphocytes (CBC) 0.8 K/uL (0.7-4.9); Hematocrit 28.8 % (36.0-45.0); MCV 90.2 fL (80-100); MPV 8.7 fL (7.6-11.3); RBC Red Blood Cell Count 3.19 M/uL (3.86-4.86)
[2022-03-27 09:30] LABS: Phosphorus 7.4 mg/dL (2.5-4.9); Thyroid Stimulating Hormone 0.016 uIU/mL (0.360-3.740)
[2022-03-27] MEDS ORDERED: carvediloL 25 MG TAB PO SCH (18:00)
--- NOTE | 2022-03-27 18:15 | P.DS ---
Admission Date: 03/26/22 Discharge Date: 03/27/22 Disposition: ROUTINE DISCHARGE Discharge Condition: FAIR Reason for Admission: Falls, hyperkalemia - Problems (1) Falls Current Visit: Yes Status: Acute (2) Hyperkalemia Current Visit: Yes Status: Acute (3) ESRD (end stage renal disease) Current Visit: No Status: Acute Brief History of Present Illness: 57-year-old woman with a history of multiple medical problems including end- stage renal disease on hemodialysis was brought to the emergency department after a fall at home. Patient stated he missed 3 days of hemodialysis. She said she was angry after her mother recently of COVID and did not feel like going for hemodialysis. She was diagnosed with COVID 13 days ago. She stated her other family members also got COVID. Blood work done in the ED shows severe hyperkalemia with a potassium of 8. Imaging showed no trauma or fracture, lungs clear. Nephrology-Dr. Lepe was contacted who recommended emergent hyperkalemia treatment and hospitalization for emergent dialysis. Patient was seen in the dialysis unit for admission. Hospital Course: Patient hospitalized to the medical floor. She underwent emergent hemodialysis. Potassium level improved to 5 after dialysis. Patient had facial edema which resolved with hemodialysis. Today she states she feels much better and request to go home. She has plans to relocate from [place] to [place] and looking forward to continuing dialysis in [place]. Hemodialysis seat switch process has been initiated. Patient would want to continue dialysis at [place] until test which is approved. I discussed the situation with her crime analyst Dr. Lepe who is okay with discharge. Her blood pressure was severely elevated but this is improved. Patient is deemed clinically stable for discharge. Vital Signs/Physical Exam: Temp Pulse Resp BP Pulse Ox 97 F 73 18 156/87 H 94 03/27/22 08:00 03/27/22 10:52 03/27/22 08:00 03/27/22 10:52 03/27/22 08:00 General: Alert, In no apparent distress, Oriented x3 HEENT: Mucous membr. moist/pink Neck: JVD not distended Respiratory: Clear to auscultation bilaterally, Normal air movement Cardiovascular: No edema, Regular rate/rhythm Gastrointestinal: Soft and benign, Non-distended Musculoskeletal: No swelling Neurological: Normal strength at 5/5 x4 extr Laboratory Data at Discharge: WBC 8.10 K/uL (4.3-10.9) 03/27/22 08:49 Hgb 9.5 g/dL (12.0-15.0) L 03/27/22 08:49 Hct 28.8 % (36.0-45.0) L 03/27/22 08:49 Plt Count 88 K/uL (152-406) L 03/27/22 08:49 Sodium 139 mmol/L (136-145) 03/27/22 08:49 Potassium 5.0 mmol/L (3.5-5.1) D 03/27/22 08:49 BUN 80 mg/dL (7-18) H 03/27/22 08:49 Creatinine 4.48 mg/dL (0.55-1.3) H 03/27/22 08:49 Glucose 90 mg/dL (74-106) 03/27/22 08:49 Phosphorus 7.4 mg/dL (2.5-4.9) H 03/27/22 08:49 Magnesium 2.4 mg/dL (1.8-2.4) 03/26/22 10:36 Total Bilirubin 0.3 mg/dL (0.2-1.0) 03/26/22 10:36 AST 16 U/L (15-37) 03/26/22 10:36 ALT 39 U/L (12-78) 03/26/22 10:36 Alkaline Phosphatase 88 U/L (45-117) 03/26/22 10:36 Home Medications: Aspirin [Aspirin EC 81 MG] 81 mg PO DAILY 12/20/20 Atorvastatin Calcium 40 mg PO BEDTIME 12/20/20 Sacubitril/Valsartan [Entresto 49 mg-51 mg Tablet] 1 tab PO BID 12/20/20 Sertraline [Zoloft*] 150 mg PO DAILY 12/20/20 Diazepam [Valium] 5 mg PO TID PRN #30 12/21/20 Albuterol Inhaler [Ventolin Inhaler*] 2 puff IH TID PRN #1 12/26/20 cloNIDine HCL [Catapres*] 0.1 mg PO TID #90 tab 12/26/20 Carvedilol [Coreg] 25 mg PO BID* 03/26/22 Cinacalcet HCl 30 mg PO M,W,F 03/26/22 Clopidogrel Bisulfate [Plavix*] 75 mg PO DAILY 03/26/22 Famotidine 20 mg PO QOD QID 03/26/22 Furosemide 40 mg PO DAILY 03/26/22 Isosorbide Mononitrate [Isosorbide Mononitrate ER] 30 mg PO BEDTIME 03/26/22 Ondansetron HCl 4 mg PO Q8HR PRN 03/26/22 dexAMETHasone [Dexamethasone] 6 mg PO BID 03/26/22 Nepro Shake [Nepro*] 237 ml PO BID #60 can 03/27/22 New Medications: Nepro Shake [Nepro*] 237 ml PO BID #60 can Physician Discharge Instructions: Follow-up at [facility] for hemodialysis tomorrow Diet: Renal Activity: Ad ascencion Followup: Morris Lepe DO [ACTIVE - CAN ADMIT] - (Within 1 week) [email or web address] [Primary Care Provider] -
--- NOTE | 2022-03-27 20:40 | P.PN ---
Date of Service: 03/27/22 Vital Signs Temp Pulse Resp BP Pulse Ox 97.7 F 83 19 176/88 H 97 03/27/22 16:00 03/27/22 16:00 03/27/22 16:00 03/27/22 16:00 03/27/22 16:00 Medications Acetaminophen (Acetaminophen 500 Mg Tab) 500 mg PO Q4HP PRN PRN Reason: TEMP > 100.4' F Last Admin: 03/27/22 10:53 Dose: 500 mg Carvedilol (Carvedilol 25 Mg Tab) 25 mg PO BID 6AM 6PM [facility] Last Admin: 03/27/22 17:37 Dose: 25 mg Enteral Nutritional Formula (Nepro Shake 237 Ml Can) 237 ml PO BID [facility] Heparin Sodium (Porcine) (Heparin 5000 Unit/Ml 1 Ml Vial) 5,000 unit SQ Q8HR [facility] Last Admin: 03/27/22 17:37 Dose: 5,000 unit Heparin Sodium (Porcine) (Heparin 1,000 Unit/Ml Vial) 4,000 unit IV EVERY HD PRN PRN Reason: DIALYSIS CATHETER CARE Stop: 04/01/22 08:14 Last Admin: 03/27/22 14:50 Dose: 4,000 unit Heparin Sodium (Porcine) (Heparin 1,000 Unit/Ml Vial) 3,000 unit IV EVERY HD PRN PRN Reason: Prevent Dialysis Lines Clottin Last Admin: 03/27/22 11:44 Dose: 3,000 unit Sodium Chloride (Ns 1000 Ml Ivbag) 1,000 mls @ 0 mls/hr IV .Q0M PRN; Protocol PRN Reason: Priming and BP support at HD Stop: 03/27/22 23:59 Albumin Human (Albumin 25%) 50 mls @ 100 mls/hr IV EVERY HD [facility] Mannitol (Mannitol 25% 12.5 Gm/50 Ml Vial) 12.5 gm IV EVERY HD PRN PRN Reason: Titrate to SBP (MUST DEFINE) Ondansetron HCl (Ondansetron 4 Mg/2 Ml Vial) 4 mg IV Q6HP PRN PRN Reason: NAUSEA / VOMITING Sodium Chloride (Flush Normal Saline 10 Ml) 10 ml IV BID [facility] Last Admin: 03/27/22 08:52 Dose: Not Given Sodium Chloride (Flush Normal Saline 10 Ml) 10 ml IV BID [facility] Last Admin: 03/27/22 09:00 Dose: Not Given Assessment/ Plan: Nephrology No dyspnea No chest pain Feeling better this morning No acute events overnight Vitals, medications, blood work and imaging reviewed in the chart. General: Oriented x3, Cooperative, Mild distress HEENT: Atraumatic Neck: Supple Respiratory: Diminished Cardiovascular: Regular rate/rhythm, Edema Gastrointestinal: Non-distended, No guarding Musculoskeletal: No clubbing, No contractures Integumentary: No rashes, No cyanosis Neurological: Normal speech Laboratory Data 03/26/22 10:36: Sodium 138, Potassium 8.2 H*, BUN 225 H, Creatinine 9.03 H*, Glucose 127 H, Magnesium 2.4, Total Bilirubin 0.3, AST 16, ALT 39, Alkaline Phosphatase 88 03/26/22 10:36: WBC 8.70, Hgb 9.2 L, Hct 27.6 L, Plt Count 86 L Imagings Data: EXAM DESCRIPTION: CT - Head C Spine Cap W Con - 03/26/2022 10:51 am CLINICAL HISTORY: Trauma, head and neck injury. Chest, abdomen and pelvis pain. Multiple falls, head injury, rib pain COMPARISON: No comparisons TECHNIQUE: CT head without contrast. CT cervical spine without contrast with coronal and sagittal reformatted images. CT chest, abdomen and pelvis with IV contrast (approximately 100 mL nonionic IV contrast) with coronal and sagittal reformatted images of the spine. All CT scans are performed using dose optimization technique as appropriate and may include automated exposure control or mA/KV adjustment according to patient size. FINDINGS: CT HEAD WITHOUT CONTRAST: No intracranial hemorrhage, hydrocephalus or extra-axial fluid collection. Mild brain atrophy is noted. No areas of brain edema or midline shift. Right vertebral artery is atherosclerotic. The paranasal sinuses and mastoids are clear. The calvarium is intact. CT CERVICAL SPINE WITHOUT CONTRAST: No fracture or subluxation. Mild lower lumbar degenerative changes. The prevertebral soft tissues are normal in thickness.Vertebral atherosclerosis. CT CHEST, ABDOMEN, PELVIS WITH CONTRAST: Emphysematous changes are present throughout the lungs. Small patchy areas of opacities in both lungs peripherally are nonspecific.Stent material seen in the descending thoracic and abdominal aorta.No pneumothorax or pericardial/pleural fluid. No evidence of intra-abdominal visceral injury, free fluid or free air. Sigmoid diverticulosis coli without diverticulitis. No acute fracture is discerned. IMPRESSION: Negative for acute traumatic findings. 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 Hoffmann
[2022-03-27] MEDS ORDERED: NEPRO SHAKE 237 ML CAN PO SCH (21:00)
--- NOTE | 2022-03-28 06:37 | EKG ---
Test Date: 2022-03-26 Test Time: 11:10:32 [employer] Worker: DEBORAH MEASUREMENT RESULTS: Intervals: Rate: 64 PA: 172 QRSD: 120 QT: 462 QTc: 476 [place]: P: 38 PA: 172 QRS: 71 T: 192 INTERPRETIVE STATEMENTS: Normal sinus rhythm Possible Left atrial enlargement Cannot rule out Inferior infarct, age undetermined Abnormal ECG Compared to ECG 12/25/2020 11:03:29 Myocardial infarct finding now present Sinus tachycardia no longer present Left ventricular hypertrophy no longer present Early repolarization no longer present Electronically Signed On 03-28-22 06:32:06 CDT by Thien Barker
[2022-03-28 06:42] VITALS: BP 189/96; TEMP 98
[2022-03-28 07:04] VITALS: O2SAT 97
[2022-03-28] MEDS ORDERED: SEVELAMER CARBONATE 800 MG TABLET PO SCH (08:00)
[2022-03-31 04:01] LABS: HBsAG Nonreactive (Nonreactive)
== END 2022-03-27 20:35 | disposition home or self-care (01) ==
LOC: ER 10:18 → INTOOBSV 15:12 → ERHOLD 15:12 → 3RD-ICU 22:11 → 4TH 22:56
PROVIDERS: ADMIT Internal Medicine; ATTEND Internal Medicine
PROC: 5A1D70Z Performance of Urinary Filtration, Intermittent, Less than 6 Hours Per Day (ICD-10-PCS; principal; 2022-03-26)
DX: N18.6 End stage renal disease (principal); I13.2 Hypertensive heart and chronic kidney disease with heart failure and with stage 5 chronic kidney disease, or end stage renal disease; I50.9 Heart failure, unspecified; R60.0 Localized edema; U07.1 COVID-19; Z99.2 Dependence on renal dialysis; Z91.15 Patient's noncompliance with renal dialysis; Z88.6 Allergy status to analgesic agent; Z91.81 History of falling; Z95.1 Presence of aortocoronary bypass graft; Z95.5 Presence of coronary angioplasty implant and graft
CPT/HCPCS: 93005; 85025 ×2; 80048; 36415; 83735; 84100; 84443; 84484; 80053; 86704; 83880; 87340; 86706; 70450; 72125; 71260; 74177; 90935 ×2; 94760 ×2; 99285; 90970; U0003; Q9967; J1815; J1940; J0610; J1644 ×6; J2405